=== PATIENT | male | born 1960 | race Caucasian/White ===

== ENCOUNTER 2021-03-18 08:40 | Emergency (ER) | payer OTHER ==
[~2021-03-18] VITALS: Ht 170 cm; Wt 68.0 kg
--- NOTE | 2021-03-18 09:28 | ED General ---
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 Patient tells me this has been going on for a couple of days. Nothing seems to make his symptoms any better or any worse. Patient has a history of cirrhosis as well. He gets fairly frequent paracentesis. Patient tells me that he had a thoracentesis done at [facility] 4 or 5 days ago. He states that his symptoms are getting worse and he would like to be plugged into a physician to see here at [facility]. He complains of feeling chilled and having night sweats. No reported fevers. No productive cough. No nausea or vomiting. No black or bloody stools. He states he has decreased amounts of urination. He also complains of swelling in his legs and takes a water pill daily. All other review of systems reviewed and negative except as stated above. Timing/Duration: 2-3 Days Severity: Moderate Modifying Factors: worse with Movement Associated Systoms: Malaise, Shortness of Air Allergies and Home Medications Allergies Coded Allergies: No Known Drug Allergies (Unverified , 03/18/21) Home Medications Albuterol Sulfate 1 Puff Puff, 2 PUFF IH Q4H 1 PUFF = 90 MCG Prescribed by: DEIDRA OSWALD on 03/18/21 1043 Oxycodone HCl 5 Mg Capsule, 5 MG PO Q6H PRN for PAIN-MODERATE (5-7) Prescribed by: DEIDRA OSWALD on 03/18/21 1037 Patient Home Medication List Home Medication List Reviewed: Yes Review of Systems Review of Systems Constitutional: see HPI, chills EENTM: no symptoms reported Respiratory: dyspnea on exertion, short of breath Cardiovascular: no symptoms reported Gastrointestinal: abdominal pain Genitourinary: decreased output Musculoskeletal: other (Swelling in his legs) Skin: no symptoms reported All Other Systems Reviewed Negative Unless Noted: Yes Past Xfdrtwh-Qxwbrp-Nfhtke Hx Patient Social History Alcohol Use: Past History Drug of Choice: marijuana Smoking Status: Current Everyday Smoker Type Used: Cigarettes 2nd Hand Smoke Exposure: Yes Recent Hopitalizations: No Past Medical History Surgeries: Yes (thyroid growth removed, cancerous tumor from L neck) Respiratory: No Cardiac: No Neurological: No Genitourinary: No Gastrointestinal: Yes Cirrhosis Musculoskeletal: No Endocrine: No HEENT: No Cancer: Yes (folicular iqoxcwpj-pdx-usiipqhv) What Type of Treatment Did You: Radiation Psychosocial: No Integumentary: No Physical Exam Vital Signs Vital Signs - First Documented 03/18/21 09:09 Temp 36.5 Pulse 79 Resp 19 B/P (MAP) 126/92 (103) Pulse Ox 88 O2 Delivery Room Air Capillary Refill : Height, Weight, BMI Height: '" Weight: lbs. oz. kg; BMI Method: General Appearance: No Apparent Distress, WD/WN Eyes: Bilateral Eye PERRL, Bilateral Eye EOMI, Bilateral Eye Scleral Icterus HEENT: PERRL/EOMI, Scleral Icterus (L), Scleral Icterus (R) Neck: Normal Inspection Respiratory: Lungs Clear, Normal Breath Sounds, No Accessory Muscle Use, No Respiratory Distress Cardiovascular: Regular Rate, Rhythm, No Murmur Gastrointestinal: Normal Bowel Sounds, Soft, Distended Extremity: Normal Capillary Refill, Normal Inspection, Normal Range of Motion, Non Tender, Pedal Edema Neurologic/Psychiatric: Alert, Oriented x3, No Motor/Sensory Deficits, Normal Mood/Affect Skin: Normal Color, Warm/Dry Progress/Results/Core Measures Suspected Sepsis SIRS Temperature: Pulse: Respiratory Rate: Laboratory Tests 03/18/21 09:30: White Blood Count 5.0 Blood Pressure / Mean: Laboratory Tests 03/18/21 09:30: Creatinine 0.76, Platelet Count 115L, Total Bilirubin 6.6H Results/Orders Lab Results Laboratory Tests Test 03/18/21 09:30 Range/Units White Blood Count 5.0 4.3-11.0 10^3/uL Red Blood Count 2.99 L 4.30-5.52 10^6/uL Hemoglobin 11.6 L 13.3-17.7 g/dL Hematocrit 35 L 40-54 % Mean Corpuscular Volume 117 H 80-99 fL Mean Corpuscular Hemoglobin 39 H 25-34 pg Mean Corpuscular Hemoglobin Concent 33 32-36 g/dL Red Cell Distribution Width 15.1 H 10.0-14.5 % Platelet Count 115 L 130-400 10^3/uL Mean Platelet Volume 8.8 L 9.0-12.2 fL Immature Granulocyte % (Auto) 0 % Neutrophils (%) (Auto) 67 42-75 % Lymphocytes (%) (Auto) 21 12-44 % Monocytes (%) (Auto) 9 0-12 % Eosinophils (%) (Auto) 2 0-10 % Basophils (%) (Auto) 1 0-10 % Neutrophils # (Auto) 3.3 1.8-7.8 X 10^3 Lymphocytes # (Auto) 1.0 1.0-4.0 X 10^3 Monocytes # (Auto) 0.4 0.0-1.0 X 10^3 Eosinophils # (Auto) 0.1 0.0-0.3 10^3/uL Basophils # (Auto) 0.0 0.0-0.1 10^3/uL Immature Granulocyte # (Auto) 0.0 0.0-0.1 10^3/uL Urine Color YELLOW Urine Clarity CLEAR Urine pH 6.5 5-9 Urine Specific [place] 1.010 L 1.016-1.022 Urine Protein NEGATIVE NEGATIVE Urine Glucose (UA) NEGATIVE NEGATIVE Urine Ketones NEGATIVE NEGATIVE Urine Nitrite NEGATIVE NEGATIVE Urine Bilirubin NEGATIVE NEGATIVE Urine Urobilinogen 0.2 < = 1.0 MG/DL Urine Leukocyte Esterase NEGATIVE NEGATIVE Urine RBC (Auto) NEGATIVE NEGATIVE Urine RBC NONE /HPF Urine WBC NONE /HPF Urine Crystals NONE /LPF Urine Bacteria NEGATIVE /HPF Urine Casts NONE /LPF Urine Mucus NEGATIVE /LPF Urine Culture Indicated NO Sodium Level 137 135-145 MMOL/L Potassium Level 3.8 3.6-5.0 MMOL/L Chloride Level 105 98-107 MMOL/L Carbon Dioxide Level 22 21-32 MMOL/L Anion Gap 10 5-14 MMOL/L Blood Urea Nitrogen 8 7-18 MG/DL Creatinine 0.76 0.60-1.30 MG/DL Estimat Glomerular Filtration Rate > 60 BUN/Creatinine Ratio 11 Glucose Level 114 H 70-105 MG/DL Calcium Level 8.8 8.5-10.1 MG/DL Corrected Calcium 9.4 8.5-10.1 MG/DL Total Bilirubin 6.6 H 0.1-1.0 MG/DL Aspartate Amino Transf (AST/SGOT) 42 H 5-34 U/L Alanine Aminotransferase (ALT/SGPT) 13 0-55 U/L Alkaline Phosphatase 211 H 40-136 U/L Total Protein 7.5 6.4-8.2 GM/DL Albumin 3.2 3.2-4.5 GM/DL Smear Scan YES My Orders Orders - DEIDRA OSWALD MD Chest 1 View, Ap/Pa Only (03/18/21 09:29) Cbc With Automated Diff (03/18/21 09:29) Comprehensive Metabolic Panel (03/18/21 09:29) Ua Culture If Indicated (03/18/21 09:29) Oxycodone Immediate Rel Tablet (Oxyir Ta (03/18/21 10:45) Medications Given in ED Current Medications Medications Dose Ordered Sig/Aldo Route Start Time Stop Time Status Last Admin Dose Admin Oxycodone HCl 5 mg ONCE ONCE PO 03/18/21 10:45 03/18/21 10:46 DC 03/18/21 10:40 5 MG Vital Signs/I&O 03/18/21 09:09 Temp 36.5 Pulse 79 Resp 19 B/P (MAP) 126/92 (103) Pulse Ox 88 O2 Delivery Room Air Capillary Refill : Progress Note : Time: 11:05 Progress Note Patient seen and examined, 60-year-old with a history of non-Hodgkin's lymphoma and cirrhosis. Presents with abdominal discomfort and shortness of breath. Evaluation today includes a physical exam, CBC, Chem-12 and urinalysis. Patient is noted to have hyperbilirubinemia with a total bilirubin of 6.6. He does reflect some scleral icterus on physical examination. He is a little bit anemic. He does not have an elevated white blood cell count. Single view chest x-ray shows bilateral pleural effusions. I do not believe at this juncture the patient needs repeat thoracentesis. He will be referred to primary care as well as to hematology oncology services today. I am giving him a prescription for some oxycodone, 10 tablets. He is given good return precautions. He verbalizes understanding. He is advised to continue taking his diuretics as scheduled. All questions are sought and answered. Patient is stable for discharge. Diagnostic Imaging Diagonstic Imaging: Xray Plain Films/CT/US/NM/MRI: chest Comments [facility] [place], [place] NAME: KAREN RENTERIA I [facility] REC#: [id number] PT STATUS: REG ER : 1960 PHYSICIAN: DEIDRA OSWALD MD ADMIT DATE: 03/18/21/ER Draft Date of Exam:03/18/21 CHEST 1 VIEW, AP/PA ONLY EXAMINATION: Portable erect AP chest at 9:51 AM INDICATION: Follicular lymphoma, shortness of breath There are no prior studies available for comparison. The heart size is within normal limits. The right lung base is partially obscured by pneumonia/atelectasis and fluid. There is also left lower lobe pneumonia/atelectasis and fluid but to a lesser extent. The lung apices are clear. The mediastinum is not widened. The osseous structures are intact. IMPRESSION: 1. There is bibasilar pneumonia/atelectasis and bilateral pleural effusions. 2. There is no acute cardiopulmonary abnormality noted otherwise. 3. If further imaging is desired, then CT of the chest would be recommended. Dictated on workstation # [id number] Dict: 03/18/21 0958 Trans: 03/18/21 1003 KNETON [id number] Interpreted by: MARGAUX HARE MD Electronically signed by: Counseling-Symptomatic: 3-10 Minutes Departure Impression Primary Impression: Shortness of breath Additional Impressions: Pleural effusion Chronic liver disease and cirrhosis Disposition: 01 HOME, SELF-CARE Condition: Stable Departure-Patient Inst. Decision time for Depature: 10:37 Referrals: [facility] Patient Instructions: LOCAL PHYSICIAN LIST, CHRONIC PAIN Add. Discharge Instructions: Continue your water pills daily as prescribed. I have given you a prescription for oxycodone, you can take 1 of these tablets every 6-8 hours as needed for severe pain. You can also take veio-rpe-fpuoius ibuprofen or Aleve with food as needed for pain. I have given you the local physician list to review and call for primary care follow-up. Have also given you contact information for [facility]. They may be able to get you in sooner. I have given you the name of the cancer doctor on-call Dr. Phipps. Please call their office for a follow-up appointment. Come back to the emergency room for any worsening shortness of breath, fevers chills, increasing pain or other emergent concerning symptoms. Scripts Albuterol Sulfate (PROAIR HFA) 1 Puff Puff 2 PUFF IH Q4H for shortness of breath, #1 PUFF 1 PUFF = 90 MCG Prov: DEIDRA OSWALD MD 03/18/21 Oxycodone HCl (Oxycodone HCl) 5 Mg Capsule 5 MG PO Q6H PRN for PAIN-MODERATE (5-7) for 3 Days, #10 CAP Prov: DEIDRA OSWALD MD 03/18/21 DEIDRA OSWALD MD Mar 18, 2021 09:28
[2021-03-18 09:49] LABS: BILIRUBIN,URINE NEGATIVE (NEGATIVE); CLARITY,URINE CLEAR; COLOR,URINE YELLOW; GLUCOSE, URINE (UA) NEGATIVE (NEGATIVE); KETONES,URINE NEGATIVE (NEGATIVE); LEUKOCYTE ESTERASE ,URINE NEGATIVE (NEGATIVE); NITRITE,URINE NEGATIVE (NEGATIVE); PH,URINE 6.5 (5-9); PROTEIN,URINE NEGATIVE (NEGATIVE)
[2021-03-18 09:50] LABS: BASOPHILS % (AUTO) 1 % (0-10); EOSINOPHILS # (AUTO) 0.1 10^3/uL (0.0-0.3); EOSINOPHILS % (AUTO) 2 % (0-10); HEMATOCRIT 35 % (40-54); HEMOGLOBIN 11.6 g/dL (13.3-17.7); LYMPHOCYTES % (AUTO) 21 % (12-44); MEAN CORPUSCULAR HEMOGLOBIN 39 pg (25-34); MEAN CORPUSCULAR HGB CONC 33 g/dL (32-36); MEAN CORPUSCULAR VOLUME 117 fL (80-99); MEAN PLATELET VOLUME 8.8 fL (9.0-12.2); MONOCYTES # (AUTO) 0.4 X 10^3 (0.0-1.0); MONOCYTES % (AUTO) 9 % (0-12); NEUTROPHILS # (AUTO) 3.3 X 10^3 (1.8-7.8); NEUTROPHILS % (AUTO) 67 % (42-75); PLATELET COUNT 115 10^3/uL (130-400)
[2021-03-18 10:01] LABS: BACTERIA,URINE NEGATIVE /HPF
[2021-03-18 10:03] LABS: ALBUMIN 3.2 GM/DL (3.2-4.5)
[2021-03-18 10:04] LABS: CHLORIDE 105 MMOL/L (98-107); POTASSIUM 3.8 MMOL/L (3.6-5.0); SODIUM 137 MMOL/L (135-145)
--- NOTE | 2021-03-18 10:04 | Diagnostic Imaging Report ---
EXAMINATION: Portable erect AP chest at 9:51 AM INDICATION: Follicular lymphoma, shortness of breath There are no prior studies available for comparison. The heart size is within normal limits. The right lung base is partially obscured by pneumonia/atelectasis and fluid. There is also left lower lobe pneumonia/atelectasis and fluid but to a lesser extent. The lung apices are clear. The mediastinum is not widened. The osseous structures are intact. IMPRESSION: 1. There is bibasilar pneumonia/atelectasis and bilateral pleural effusions. 2. There is no acute cardiopulmonary abnormality noted otherwise. 3. If further imaging is desired, then CT of the chest would be recommended. Dictated by: Dictated on workstation # [id number]
[2021-03-18 10:05] LABS: CALCIUM 8.8 MG/DL (8.5-10.1)
[2021-03-18 10:06] LABS: GLUCOSE 114 MG/DL (70-105); SMEAR SCAN COMMENT YES; TOTAL PROTEIN 7.5 GM/DL (6.4-8.2)
[2021-03-18 10:07] LABS: CARBON DIOXIDE 22 MMOL/L (21-32)
[2021-03-18 10:08] LABS: BILIRUBIN,TOTAL 6.6 MG/DL (0.1-1.0)
[2021-03-18 10:10] LABS: ALKALINE PHOSPHATASE 211 U/L (40-136); CREATININE SERUM 0.76 MG/DL (0.60-1.30); GFR ESTIMATED > 60
[2021-03-18 10:11] LABS: BUN/CREATININE RATIO 11
[2021-03-18 10:13] LABS: ALANINE AMINOTRANSFERASE 13 U/L (0-55)
[2021-03-18] MEDS ORDERED: OXYC5CAP18 PO (10:36)
[2021-03-18] MEDS ORDERED: RT-ALBUINH IH (10:43)
[2021-03-18 11:20] VITALS: BP 115/63
== END 2021-03-18 11:20 | disposition home or self-care (01) ==
LOC: ER 08:50
DX: R06.02 Shortness of breath (principal); J90 Pleural effusion, not elsewhere classified; K74.60 Unspecified cirrhosis of liver; K76.9 Liver disease, unspecified; F17.210 Nicotine dependence, cigarettes, uncomplicated
CPT/HCPCS: 36415; 71045; 80053; 81000; 85025

== ENCOUNTER 2021-04-09 10:34 | Emergency (ER) | payer OTHER ==
[~2021-04-09] VITALS: Ht 170 cm; Wt 68.0 kg
[~2021-04-09 10:34] MED LIST: OXYC5CAP18 PO; RT-ALBUINH IH
[2021-04-09 11:06] LABS: LYMPHOCYTES % (AUTO) 22 % (12-44); MEAN CORPUSCULAR VOLUME 115 fL (80-99)
[2021-04-09 11:08] LABS: BASOPHILS # (AUTO) 0.1 10^3/uL (0.0-0.1); BASOPHILS % (AUTO) 1 % (0-10); EOSINOPHILS # (AUTO) 0.2 10^3/uL (0.0-0.3); EOSINOPHILS % (AUTO) 5 % (0-10); HEMATOCRIT 33 % (40-54); LYMPHOCYTES # (AUTO) 0.9 10^3/uL (1.0-4.0); MEAN CORPUSCULAR HEMOGLOBIN 39 pg (25-34); MEAN CORPUSCULAR HGB CONC 33 g/dL (32-36); MEAN PLATELET VOLUME 8.7 fL (9.0-12.2); MONOCYTES # (AUTO) 0.4 10^3/uL (0.0-1.0); MONOCYTES % (AUTO) 9 % (0-12); NEUTROPHILS # (AUTO) 2.7 10^3/uL (1.8-7.8); NEUTROPHILS % (AUTO) 63 % (42-75); PLATELET COUNT 108 10^3/uL (130-400); WHITE BLOOD COUNT 4.3 10^3/uL (4.3-11.0)
[2021-04-09 11:16] LABS: ALBUMIN 2.8 GM/DL (3.2-4.5); CHLORIDE 106 MMOL/L (98-107); POTASSIUM 3.9 MMOL/L (3.6-5.0); SODIUM 135 MMOL/L (135-145)
[2021-04-09 11:18] LABS: CALCIUM 8.6 MG/DL (8.5-10.1)
[2021-04-09 11:19] LABS: GLUCOSE 95 MG/DL (70-105); SMEAR SCAN COMMENT YES; TOTAL PROTEIN 7.3 GM/DL (6.4-8.2)
[2021-04-09 11:20] LABS: BILIRUBIN,TOTAL 5.3 MG/DL (0.1-1.0); CARBON DIOXIDE 22 MMOL/L (21-32)
[2021-04-09 11:22] LABS: ALKALINE PHOSPHATASE 215 U/L (40-136)
[2021-04-09 11:23] LABS: CREATININE SERUM 0.69 MG/DL (0.60-1.30); GFR ESTIMATED > 60
[2021-04-09 11:24] LABS: BUN/CREATININE RATIO 13
[2021-04-09 11:25] LABS: ALANINE AMINOTRANSFERASE 12 U/L (0-55)
--- NOTE | 2021-04-09 12:02 | ED GI ---
General Chief Complaint: Abdominal/GI Problems Stated Complaint: PARACENTESIS Nursing Triage Note: PT TO FT1 PT CO OF ABD PAIN WAS SENT TO ED FOR POSSIBLE INFECTION FROM PARASENTISIS IN PAST. PT STATES HAS PAIN 07/21. SENT FROM [facility] Sepsis Screen: No Definite Risk Source of Information: Patient Exam Limitations: No Limitations History of Present Illness Date Seen by Provider: Apr 09, 2021 Time Seen by Provider: 11:00 Initial Comments Patient presents ER from the clinic at [facility] with chief complaint that he was seen there because he is having some belly ache and he has a history of ascites and varicosities. He just moved down here from [place] where in [place] they were draining him about every other week and getting 3 L off. He does not feel particularly distended. He is not having any nausea diarrhea constipation. He is a sometimes his belly hurts when he has constipation but he had a bowel movement this morning which was normal, formed. He had some chills and but no objective fever. No cough runny nose sore throat ears aching rash. No sick contacts that he knows of. His cirrhosis is from alcohol consumption but he quit drinking years ago. He has no history of viral hepatitis. He says his last paracentesis was about 6 weeks ago. His provider called ahead asking us to rule him out for SBP. Allergies and Home Medications Allergies Coded Allergies: No Known Drug Allergies (Unverified , 03/18/21) Home Medications Albuterol Sulfate 1 Puff Puff, 2 PUFF IH Q4H 1 PUFF = 90 MCG Prescribed by: DEIDRA OSWALD on 03/18/21 1043 Hydrocodone/Acetaminophen 1 Each Tablet, 1 TAB PO Q8H PRN for PAIN-MODERATE (5- 7) Prescribed by: KRISTIN POLLARD on 04/09/21 1817 Last Action: New Order Oxycodone HCl 5 Mg Capsule, 5 MG PO Q6H PRN for PAIN-MODERATE (5-7) Prescribed by: DEIDRA OSWALD on 03/18/21 1037 Patient Home Medication List Home Medication List Reviewed: Yes Review of Systems Review of Systems Constitutional: No chills, No fever, No malaise EENTM: No Blurred Vision, No Double Vision Respiratory: Denies Cough, Denies Shortness of Air Cardiovascular: Denies Chest Pain, Denies Edema Gastrointestinal: Denies Constipated, Denies Diarrhea, Denies Nausea Genitourinary: Denies Burning, Denies Drainage Musculoskeletal: No back pain, No joint pain Skin: No pruritus, No rash Psychiatric/Neurological: Denies Headache, Denies Numbness All Other Systems Reviewed Negative Unless Noted: Yes Past Ejsyees-Wgngiq-Bisyml Hx Patient Social History Alcohol Use: Past History Drug of Choice: marijuana Smoking Status: Former Smoker Type Used: Cigarettes 2nd Hand Smoke Exposure: Yes Recent Infectious Disease Expo: No Recent Hopitalizations: No Past Medical History Surgeries: Yes (thyroid growth removed, cancerous tumor from L neck) Respiratory: No Cardiac: No Neurological: No Genitourinary: No Gastrointestinal: Yes Cirrhosis Musculoskeletal: No Endocrine: No HEENT: No Cancer: Yes (folicular slypnahq-hmq-yzyvlfwg) What Type of Treatment Did You: Radiation Psychosocial: No Integumentary: No Physical Exam Vital Signs Vital Signs - First Documented 04/09/21 04/09/21 10:55 18:30 Temp 36.7 Pulse 68 Resp 18 B/P (MAP) 105/61 (76) Pulse Ox 97 Capillary Refill : Less Than 3 Seconds Height/Weight/BMI Height: '" Weight: lbs. oz. kg; 23.00 BMI Method: General Appearance: WD/WN, no apparent distress HEENT: PERRL/EOMI, normal ENT inspection, pharynx normal Neck: full range of motion, normal inspection Respiratory: lungs clear, normal breath sounds, no respiratory distress, no accessory muscle use Cardiovascular: normal peripheral pulses, regular rate, rhythm Gastrointestinal: normal bowel sounds, soft, distended (Mild), tenderness (Mild all 4 quadrants), hepatomegaly Extremities: normal range of motion, normal inspection, normal capillary refill Neurologic/Psychiatric: alert, normal mood/affect, oriented x 3 Skin: normal color, warm/dry Progress/Results/Core Measures Results/Orders Lab Results Laboratory Tests Test 04/09/21 10:55 04/09/21 13:00 Range/Units White Blood Count 4.3 4.3-11.0 10^3/uL Red Blood Count 2.86 L 4.30-5.52 10^6/uL Hemoglobin 11.0 L 13.3-17.7 g/dL Hematocrit 33 L 40-54 % Mean Corpuscular Volume 115 H 80-99 fL Mean Corpuscular Hemoglobin 39 H 25-34 pg Mean Corpuscular Hemoglobin Concent 33 32-36 g/dL Red Cell Distribution Width 15.4 H 10.0-14.5 % Platelet Count 108 L 130-400 10^3/uL Mean Platelet Volume 8.7 L 9.0-12.2 fL Immature Granulocyte % (Auto) 1 % Neutrophils (%) (Auto) 63 42-75 % Lymphocytes (%) (Auto) 22 12-44 % Monocytes (%) (Auto) 9 0-12 % Eosinophils (%) (Auto) 5 0-10 % Basophils (%) (Auto) 1 0-10 % Neutrophils # (Auto) 2.7 1.8-7.8 10^3/uL Lymphocytes # (Auto) 0.9 L 1.0-4.0 10^3/uL Monocytes # (Auto) 0.4 0.0-1.0 10^3/uL Eosinophils # (Auto) 0.2 0.0-0.3 10^3/uL Basophils # (Auto) 0.1 0.0-0.1 10^3/uL Immature Granulocyte # (Auto) 0.0 0.0-0.1 10^3/uL Percent Immature Platelet Fraction 0.9 0.0-7.6 % Prothrombin Time 18.1 H 12.2-14.7 SEC INR Comment 1.5 H 0.8-1.4 Activated Partial Thromboplast Time 40 H 24-35 SEC Sodium Level 135 135-145 MMOL/L Potassium Level 3.9 3.6-5.0 MMOL/L Chloride Level 106 98-107 MMOL/L Carbon Dioxide Level 22 21-32 MMOL/L Anion Gap 7 5-14 MMOL/L Blood Urea Nitrogen 9 7-18 MG/DL Creatinine 0.69 0.60-1.30 MG/DL Estimat Glomerular Filtration Rate > 60 BUN/Creatinine Ratio 13 Glucose Level 95 70-105 MG/DL Calcium Level 8.6 8.5-10.1 MG/DL Corrected Calcium 9.6 8.5-10.1 MG/DL Total Bilirubin 5.3 H 0.1-1.0 MG/DL Aspartate Amino Transf (AST/SGOT) 39 H 5-34 U/L Alanine Aminotransferase (ALT/SGPT) 12 0-55 U/L Alkaline Phosphatase 215 H 40-136 U/L C-Reactive Protein High Sensitivity 1.50 H 0.00-0.50 MG/DL Total Protein 7.3 6.4-8.2 GM/DL Albumin 2.8 L 3.2-4.5 GM/DL Serum Alcohol < 10 <10 MG/DL Smear Scan YES Urine Color ORANGE Urine Clarity CLOUDY Urine pH 8.0 5-9 Urine Specific [place] 1.020 1.016-1.022 Urine Protein 3+ H NEGATIVE Urine Glucose (UA) TRACE H NEGATIVE Urine Ketones NEGATIVE NEGATIVE Urine Nitrite NEGATIVE NEGATIVE Urine Bilirubin 2+ H NEGATIVE Urine Urobilinogen 0.2 < = 1.0 MG/DL Urine Leukocyte Esterase NEGATIVE NEGATIVE Urine RBC (Auto) 3+ H NEGATIVE Urine RBC >100 H /HPF Urine WBC NONE /HPF Urine Crystals NONE /LPF Urine Bacteria NEGATIVE /HPF Urine Casts NONE /LPF Urine Mucus NEGATIVE /LPF Urine Culture Indicated NO Body Fluid Source [place]ON Body Fluid Color YELLOW Body Fluid Appearance SLT CLDY Body Fluid WBC 48 /uL Body Fluid RBC 1830 /uL Body Fluid Polynuclear WBCs 9 % Body Fluid Mononuclear WBCs 12 % Body Fluid Lymphocytes 79 % Body Fluid Eosinophils 0 % Body Fluid Other Cells 0 % My Orders Orders - KRISTIN POLLARD Cbc With Automated Diff (04/09/21 10:47) Comprehensive Metabolic Panel (04/09/21 10:47) Hs C Reactive Protein (04/09/21 10:47) Ua Culture If Indicated (04/09/21 10:47) Alcohol (04/09/21 10:47) Us Guidance Needle Plcmt [id number] (04/09/21 11:13) Body Fluid Cell Count (04/09/21 12:02) Body Fluid Culture (04/09/21 12:02) Lidocaine 1% Inj 20 Ml (Xylocaine 1% Inj (04/09/21 12:51) Fentanyl Inj (Sublimaze Injection) (04/09/21 13:31) Us Abdomen Limited [id number] (04/09/21 ) Partial Thromboplastin Time (04/09/21 13:53) Protime With Inr (04/09/21 13:53) Fentanyl Inj (Sublimaze Injection) (04/09/21 15:45) Medications Given in ED Current Medications Medications Dose Ordered Sig/Aldo Route Start Time Stop Time Status Last Admin Dose Admin Fentanyl Citrate 25 mcg ONCE ONCE IVP 04/09/21 15:45 04/09/21 15:46 DC 04/09/21 15:54 25 MCG Fentanyl Citrate 100 mcg STK-MED ONCE .ROUTE 04/09/21 13:31 04/09/21 13:33 DC 04/09/21 13:34 25 MCG Lidocaine HCl 20 ml STK-MED ONCE .ROUTE 04/09/21 12:51 04/09/21 12:54 DC 04/09/21 13:00 10 ML Vital Signs/I&O 04/09/21 04/09/21 10:55 18:30 Temp 36.7 Pulse 68 68 Resp 18 18 B/P (MAP) 105/61 (76) 108/64 (76) Pulse Ox 97 Blood Pressure Mean: 76 Progress Progress Note #1: Time: 12:01 Progress Note Discussed case with Dr. Oquendo who is going to finish up her colonoscopy and come down to meet with ultrasound to do a paracentesis and pull off some fluids for cell counts and cultures. His labs are largely unremarkable. He does not have a significant amount of fluid needing drained. Progress Note #2: Time: 17:00 Progress Note There was a significant delay with the cell fluid counts in the lab but they are presently working on it and they assure me. Progress Note #3: Time: 18:10 Progress Note Ascitic fluids are not consistent with SBP. Diagnostic Imaging Diagonstic Imaging: Ultrasound Plain Films/CT/US/NM/MRI: abdomen, pelvis Comments [facility] [place] [place] NAME: KAREN RENTERIA I [facility] REC#: [id number] PT STATUS: REG ER : 1960 PHYSICIAN: KRISTIN POLLARD MD ADMIT DATE: 04/09/21/ER Signed Date of Exam:04/09/21 US ABDOMEN LIMITED [id number] PROCEDURE: US Abdomen, limited. TECHNIQUE: Multiple realtime grayscale images were obtained over the abdomen in various projections. INDICATION: Ascites. Paracentesis evaluation. Sonography of the 4 quadrants was performed which shows a small amount of ascites bilaterally. No mass or loculation is evident. IMPRESSION: There is a small amount of ascites. Dictated by: Dictated on workstation # [id number] Dict: 04/09/21 1640 Trans: 04/09/21 1648 ACB [id number] Interpreted by: THI APARICIO MD Electronically signed by: THI APARICIO MD 04/09/21 1648 Reviewed: Reviewed by Me Departure Impression Primary Impression: Ascites due to alcoholic cirrhosis Additional Impression: Generalized abdominal discomfort Disposition: 01 HOME, SELF-CARE Condition: Stable Departure-Patient Inst. Decision time for Depature: 18:09 Referrals: [facility] (PCP/Family) Primary Care Physician Patient Instructions: Abdominal Pain, Adult ED, Cirrhosis, Fluid in the Belly (Ascites) (DC) Add. Discharge Instructions: Tomorrow call your primary care doctor and make follow-up appointment to continue outpatient management of your symptoms. Return to the ER if you develop strong fevers, intractable abdominal pain or other worrisome symptoms. All discharge instructions reviewed with patient and/or family. Voiced under standing. Scripts Hydrocodone/Acetaminophen (Hydrocodone-Acetamin 5-325 mg) 1 Each Tablet 1 TAB PO Q8H PRN for PAIN-MODERATE (5-7), #10 TAB 0 Refills Prov: KRISTIN POLLARD 04/09/21 KRISTIN POLLARD Apr 09, 2021 12:02
[2021-04-09] MEDS ORDERED: LIDOCAINE 1% INJ 20 ML 20 ML VIAL ONE (12:51)
[2021-04-09 13:15] LABS: BILIRUBIN,URINE 2+ (NEGATIVE); CLARITY,URINE CLOUDY; COLOR,URINE ORANGE; GLUCOSE, URINE (UA) TRACE (NEGATIVE); KETONES,URINE NEGATIVE (NEGATIVE); LEUKOCYTE ESTERASE ,URINE NEGATIVE (NEGATIVE); NITRITE,URINE NEGATIVE (NEGATIVE); PROTEIN,URINE 3+ (NEGATIVE)
[2021-04-09 13:27] LABS: BACTERIA,URINE NEGATIVE /HPF; RBC,URINE >100 /HPF
[2021-04-09] MEDS ORDERED: fentaNYL INJ 100 MCG/2 ML AMP ONE (13:31)
[2021-04-09 14:50] LABS: INR 1.5 (0.8-1.4); PROTHROMBIN TIME PATIENT 18.1 SEC (12.2-14.7)
[2021-04-09] MEDS ORDERED: fentaNYL INJ 100 MCG/2 ML AMP IVP ONE (15:45)
--- NOTE | 2021-04-09 15:54 | Diagnostic Imaging Report ---
INDICATION: Ascites. FINDINGS: Right abdomen was prepped and draped in the usual sterile fashion. A small amount of 1% lidocaine was utilized for local anesthesia. A Yueh needle was advanced into the right lower abdomen intraperitoneal space. A 20 cc of fluid was removed for culture and sensitivity. Hemostasis was obtained using manual compression. Patient tolerated the procedure well. IMPRESSION: Successful ultrasound-guided diagnostic paracentesis obtaining 20 cc of fluid. Dictated by: Dictated on workstation # [id number]
[2021-04-09 16:25] LABS: BODY FLUID APPEARENCE SLT CLDY; BODY FLUID COLOR YELLOW; BODY FLUID SOURCE PERITON
--- NOTE | 2021-04-09 16:43 | Diagnostic Imaging Report ---
PROCEDURE: US Abdomen, limited. TECHNIQUE: Multiple realtime grayscale images were obtained over the abdomen in various projections. INDICATION: Ascites. Paracentesis evaluation. Sonography of the 4 quadrants was performed which shows a small amount of ascites bilaterally. No mass or loculation is evident. IMPRESSION: There is a small amount of ascites. Dictated by: Dictated on workstation # [id number]
[2021-04-09 16:54] LABS: BODY FLUID RBC COUNT 1830 /uL; BODY FLUID WBC TOTAL COUNT 48 /uL
[2021-04-09 17:49] LABS: BF OTHER CELLS 0 %; LYMPHOCYTES,BODY FLUID 79 %
[2021-04-09] MEDS ORDERED: ACHD5005 PO (18:16)
[2021-04-09 18:30] VITALS: BP 108/64
== END 2021-04-09 18:30 | disposition home or self-care (01) ==
LOC: EDUNIT# 10:34 → ER 10:37
DX: K70.31 Alcoholic cirrhosis of liver with ascites (principal); R10.84 Generalized abdominal pain; Z87.891 Personal history of nicotine dependence
CPT/HCPCS: 76705; 76942; 80053; 81000; 85025; 85610; 85730; 86141; 87070; 87205; 89051; 99284; G0480; 36415; 80320; 96374; 96376

== ENCOUNTER → 2021-04-29 | Outpatient (CLI) | payer OTHER ==
[~2021-04-29] MED LIST changes: +ACHD5005 PO; +CATHETER FLUSH 10 ML SYR IV PRN; +HOLD METFORMIN - RECEIVED CONTRAST 20 ML VIAL IV SCH; +IOHEXOL 350 MG/ML 100 ML (OMNIPAQUE 350) VIAL IV ONE; +NS 100 ML (IVPB) BAG IV ONE
--- NOTE | 2021-04-29 15:13 | Diagnostic Imaging Report ---
EXAMINATION: CT abdomen and pelvis with intravenous contrast. TECHNIQUE: Multiple contiguous axial images were obtained through the abdomen and pelvis after the uneventful administration of intravenous contrast. All CT scans use one or more of the following dose optimizing techniques: automated exposure control, MA and/or KvP adjustment based on patient size and exam type or iterative reconstruction. HISTORY: PERIUMBILICAL ABD PAIN COMPARISON: None available. FINDINGS: Lung bases: There are bilateral pleural effusions with adjacent atelectasis or consolidation. Solid organs: There is a nodular morphology of the liver. The gallbladder is normal. There is no biliary ductal dilation. Pancreas is normal. The spleen is enlarged measuring up to 16 cm. Adrenal glands are normal. The kidneys are normal without hydronephrosis. Bowel: There is mild diffuse wall thickening seen within the small bowel and colon which may be secondary to portal hypertension. There is no bowel obstruction. No findings of acute appendicitis. Peritoneum: There is mild abdominal and pelvic ascites. No suspicious lymphadenopathy. Vasculature: Calcification of the aorta without aneurysm. There are numerous portosystemic collateral vessels including paraesophageal and perigastric varices. There are recanalized umbilical veins. Musculoskeletal: Degenerative changes of the spine without suspicious osseous lesion or compression fracture. Pelvis: The prostate gland is normal. The urinary bladder is normal. IMPRESSION: 1. No acute abnormality in the abdomen or pelvis. 2. Findings of cirrhosis with sequela of portal hypertension. 3. Bilateral pleural effusions with adjacent atelectasis or consolidation. 4. Mild diffuse wall thickening is seen throughout the small bowel and colon, likely related to portal hypertension. Differential consideration could include reactive wall thickening or infectious/inflammatory process. Dictated by: Dictated on workstation # [id number]
== END ==
LOC: RAD 14:45
PROVIDERS: ATTEND Pediatrics
DX: K74.60 Unspecified cirrhosis of liver (principal); K76.6 Portal hypertension; J90 Pleural effusion, not elsewhere classified
CPT/HCPCS: 74177

== ENCOUNTER 2021-06-05 16:57 | Emergency (ER) | payer OTHER ==
[~2021-06-05] VITALS: Ht 170 cm; Wt 70.3 kg
[~2021-06-05 16:57] MED LIST changes: -CATHETER FLUSH 10 ML SYR IV PRN; -HOLD METFORMIN - RECEIVED CONTRAST 20 ML VIAL IV SCH; -IOHEXOL 350 MG/ML 100 ML (OMNIPAQUE 350) VIAL IV ONE; -NS 100 ML (IVPB) BAG IV ONE
--- OUTSIDE RECORDS SUMMARY | 2021-06-05 17:03 | XMS REPORT | Encounter Summary ---
Author Author [facility] Organization [facility] Address Unknown Phone Unavailable Care Team Providers Care Four H Club Agent Name Role Phone Angelo Watkins DO, Casey PCP Reason for Visit * Reason Onset Date Comments Financial/Insurance 05/01/2021 Benefit Collection Questions Encounter Details Care Team Description Date Type Department Andre Remy Financial/Insurance Questions (Benefit C ollection ) 05/01/2021 Telephone Transplant: [facility], [facility] [address] [place] [address] Social History Date Tobacco Use Types Packs/Day Years Used Never Assessed Sex Assigned at Date Recorded Not on file documented as of this encounter Miscellaneous Notes * Telephone Encounter - Andre Remy - 05/01/2021 10:29 AM CDT BENEFIT COLLECTION: Authorizations Required for Eval & Listing DX: K72.90, K74.60, K70.30 Verified by: Moi Remy Date: 05/01/21 Husam arellano to: Milan Ins Plan: David SAMUELS EFF: 10/12/20 P catrina: [phone] Plan Type: [place] Balance C11 94% ID #: [id number] GR#: N/A Subscriber: Self In Network Transplant Benefits: Deductible: $0.00 Co-ins: 75/25% Out of Pocket: $1075.00 Inpt Copay: Subject to Coins & OOP Outpt Copay: Subject to Coins & OOP OV PCP/Spec Copay: $0/$5 Lifetime Max: No Max Authorization Requirements: Authorizations Required for Eval & Listing Center Requirements: BDCT: N/A Travel/Lodging: Available ($10K Max) DME (Durable Medical Equipment): Available RX Plan: [employer] Phone #: [phone] 30day retail cost: Tier 1 Gen $25 | Tier 2 Brand 100% of Cost until Ded is Met | Tier 3 Brand non-pref 90day m/o cost: Tier 1 Gen $62.50 | Tier 2 Brand 100% of Cost until Ded is Met | Tier 3 Brand non-pref Valcyte: Not Covered Generic: $25 prior auth required RX Ded: $0.00 RX OOP: $1075.00 TXP Network: Jase NCM: Frances Dukes Phone #: [phone] FAX #: [phone] Call Reference #: [id number] spoke to Milan on 05/01/21 documented in this encounter Plan of Treatment Not on filedocumented as of this encounter Visit Diagnoses Not on filedocumented in this encounter"
--- OUTSIDE RECORDS SUMMARY | 2021-06-05 17:03 | XMS REPORT | Encounter Summary ---
Author Author [facility] Organization [facility] Address Unknown Phone Unavailable Care Team Providers Care Assembler Plastic Boat Name Role Phone Angelo Watkins DO, Casey PCP Reason for Visit * Reason Onset Date Comments Referral 04/30/2021 Encounter Details Care Team Description Date Type Department Unknown, Unknown, MD Referral 04/30/2021 Telephone Hepatology: Main [facility], [facility] [address], [address] [place] [address] Social History Date Tobacco Use Types Packs/Day Years Used Never Assessed Sex Assigned at Date Recorded Not on file documented as of this encounter Miscellaneous Notes * Telephone Encounter - Barbara Pelaez - 05/02/2021 1:52 PM CDT Called and spoke w/ pt the patient scheduled for appt w/ Dr. Hale on 07/03. Pt V/U. INS & DEMOS verified. * Telephone Encounter - Magy Kovacs - 05/01/2021 12:43 PM CDT READY TO SCHED ALYSSA NEXT AVAIL [facility]LT * Telephone Encounter - Hill Mcclure RN - 05/01/2021 8:56 AM CDT Images from the original note were not included. Liver Transplant Referral Summary [place] Marilee, 1960, [id number] Reason for Visit/Diagnosis: ETOH HPI Summary: 60yo pt who has moved from [place]. Pt diagnosed with NHL three years ago( will attempt to get records). Cirrhosis c/b EV, ascites and SBP. Unsure if pt has quit all ETOH and for how long OLT Patients Only PMH & Social Hx: Providers- Requesting NHL records from [place] MELD: 19 Labs: In Outside Records Scanned 04/30/21 > pg 15- Hep Panel and In CareEverywhere CBC, CMP, INR and Viral Hepatitis- Care Everywhere Radiology/Facility: Outside records CT p 19 and 31 Pathology/Facility: Outside records colon path p. 12 Endoscopy/Facility: Outside records Colon p. 8 Appointment Needs -- - Provider: Next Available, AMISH MD - Urgency: Next Available - Department: OLT - Other: None Insurance: Payor: AMBETTER / Plan: AMBET[place] / Product Type: *No Product type* / Provider Info -- Referring: Kulwant Stephens DO [address] [id number] PCP: Kulwant Stephens V [address] [id number] * Telephone Encounter - Magy Kovacs - 04/30/2021 2:46 PM CDT Received new referral via fax. Docs scanned in 04/30. documented in this encounter Plan of Treatment Not on filedocumented as of this encounter Visit Diagnoses Not on filedocumented in this encounter
--- OUTSIDE RECORDS SUMMARY | 2021-06-05 17:03 | XMS REPORT | Clinical Summary ---
Author Author [facility] Organization [facility] Address Unknown Phone Unavailable Care Team Providers Care Cross Country/Track And Field Coach Name Role Phone Angelo Watkins DO, Casey PCP Source Comments Some departments are not documenting in the electronic medical record. If you d o not see the information that you expected, contact Release of Information in [facility] [employer] Information Management department at [phone] for further assistan ce in locating additional records.[facility] Allergies Not on File Medications Not on file Active Problems Not on file Encounters Care Team Description Date Type Specialty Andre Remy Financial/Insurance Questions (Benefit C ollection ) 05/01/2021 Telephone Transplant Surgery Unknown, Unknown, MD Referral 04/30/2021 Telephone Hepatology from Last 3 Months Social History Date Tobacco Use Types Packs/Day Years Used Never Assessed Sex Assigned at Date Recorded Not on file Last Filed Vital Signs Not on file Plan of Treatment Health Maintenance Due Date Last Done Comments HIV SCREENING 1976 DTAP/TDAP VACCINES (1 - 1979 Tdap) HEPATITIS C SCREENING 1979 PHYSICAL (COMPREHENSIVE) 1979 EXAM COLORECTAL CANCER 2011 SCREENING SHINGLES RECOMBINANT 2011 VACCINE (1 of 2) INFLUENZA VACCINE 07/12/2021 Results Not on filefrom Last 3 Months Insurance Type Payer Benefit Subscriber ID Effective Phone Address Plan / Dates Group EDI DALEY [id number] 2021-P ARVIND resent [id number] Advance Directives Patient Baby Doctor Explanation Type Date Recorded Advance Directive/DPOA
--- NOTE | 2021-06-05 18:11 | ED Respiratory ---
General Chief Complaint: Respiratory Problems Stated Complaint: FLUID IN CHEST Nursing Triage Note: PT PRESENTS TO ED WITH COMPLAINTS OF SOA X 2-3 WEEKS. PT REPORTS HE HAS ASCITES AND HIS DR HAS BEEN TRYING TO SCHEDULE HIM FOR AN OUTPATIENT THOROCENTESIS. PT REPORTS HE TESTED NEGATIVE FOR COVID ON 06/03 AND RECIEVED HIS FIRST VACCINE. Source: patient History of Present Illness Date Seen by Provider: Jun 05, 2021 Time Seen by Provider: 17:58 Initial Comments PT ARRIVES VIA POV--WAS SENT HERE FROM [facility] TO BE ADMITTED FOR THORACENTESIS PT WAS SEEN THERE THURSDAY AND RECEIVED HIS FIRST COVID-19 VACCINE. COVID-19 TEST WAS NEGATIVE AT [facility] ON THURSDAY. PT HAS BEEN SHORT OF BREATH X 3 WEEKS SYMPTOMS WORSE WITH LAYING DOWN OR WITH EXERTION O2 SATS 92-94% ON ROOM AIR PT HAS HAD LEG SWELLING FOR THE LAST 3 WEEKS WELL PT HAS CIRRHOSIS, AND CONTINUES TO DRINK AT LEAST A PINT OF WHISKEY/DAY PT ALSO HAS HISTORY OF NON-HODGKIN'S FOLLICULAR LYMPHOMA--STATES HE WAS TREATED WITH REMOVAL OF NECK TUMOR AND RADIATION ABOUT 2 YEARS AGO WHILE IN [facility]. PT HAS NOT ESTABLISHED WITH AN ONCOLOGIST HERE. PT HAS A DIURETIC AT HOME, BUT ONLY TAKES IT WHEN HE THINKS HE NEEDS IT. STATES HE HAS BEEN TAKING IT FOR THE LAST WEEK WITHOUT IMPROVEMENT STATES HE HAS HAD THORACENTESIS OF LEFT LUNG ABOUT 2 MONTHS AGO FOR THE SAME. PCP: [facility] Allergies and Home Medications Allergies Coded Allergies: No Known Drug Allergies (Unverified , 06/06/21) Home Medications Albuterol Sulfate 1 Puff Puff, 2 PUFF IH Q4H 1 PUFF = 90 MCG Prescribed by: DEIDRA OSWALD on 03/18/21 1043 Hydrocodone/Acetaminophen 1 Each Tablet, 1 TAB PO Q8H PRN for PAIN-MODERATE (5- 7) Prescribed by: KRISTIN POLLARD on 04/09/21 1817 Oxycodone HCl 5 Mg Capsule, 5 MG PO Q6H PRN for PAIN-MODERATE (5-7) Prescribed by: DEIDRA OSWALD on 03/18/21 1037 Patient Home Medication List Home Medication List Reviewed: Yes Review of Systems Review of Systems Constitutional: no symptoms reported; No fever EENTM: no symptoms reported Respiratory: see HPI, orthopnea, short of breath Cardiovascular: No chest pain; edema Gastrointestinal: no symptoms reported; No abdominal pain, No nausea, No vomiting Genitourinary: no symptoms reported Musculoskeletal: see HPI (LEG SWELLING) Skin: no symptoms reported; No rash Psychiatric/Neurological: No Symptoms Reported Hematologic/Lymphatic: See HPI Immunological/Allergic: no symptoms reported Past Ljqfkni-Yvpoub-Nsoykb Hx Patient Social History Tobacco Use?: Yes (SMOKES 2 PPD) Tobacco type used: Cigarettes Smoking Status: Current Everyday Smoker Substance use?: Yes Substance type: Marijuana Substance frequency: Daily Alcohol Use?: Yes Alcohol type: Hard Liquor Alcohol Frequency: Daily Pt feels they are or have been: No Immunizations Up To Date First/Initial COVID19 Vaccinat: 06/03/[address] Judge: unk Past Medical History Surgery/Hospitalization HX: sx: goiter removed from r neck, abdominal mesh/hernia repair, tumor removed from neck. THORACENTESIS Surgeries: Yes (thyroid growth removed, cancerous tumor from L neck) Respiratory: No Cardiac: No Neurological: No Genitourinary: No Gastrointestinal: Yes Cirrhosis Musculoskeletal: No Endocrine: No HEENT: No Cancer: Yes (folicular pxqcestg-tfj-iobiwcbn) Lymphoma Did You Recieve Any Treatments: Yes What Type of Treatment Did You: Radiation, Surgical Intervention Psychosocial: No Integumentary: No Family Medical History SMOKES 2 PPD DRINKS AT LEAST A PINT OF WHISKEY A DAY DAILY MARIJUANA USE Physical Exam Vital Signs - First Documented 06/05/21 06/05/21 17:48 19:25 Temp 36.8 Pulse 79 Resp 18 B/P (MAP) 116/86 (96) Pulse Ox 92 O2 Delivery Room Air Capillary Refill : Less Than 3 Seconds Height: '" Weight: lbs. oz. kg; 24.00 BMI Method: General Appearance: WD/WN, no apparent distress Respiratory: decreased breath sounds (DIMINSHED LUNG SOUNDS IN BILATERAL BASES--LEFT> RIGHT) Cardiovascular: regular rate, rhythm Gastrointestinal: non tender, soft Extremities: no calf tenderness, pedal edema (2+ EDEMA) Neurologic/Psychiatric: no motor/sensory deficits, alert, normal mood/affect, oriented x 3 Skin: normal color, warm/dry, tattoos/piercings (TATTOOS) Focused Exam Lactate Level 06/05/21 18:48: Lactic Acid Level 1.66 Lactic Acid Level Laboratory Tests Test 06/05/21 18:48 Lactic Acid Level 1.66 MMOL/L (0.50-2.00) Progress/Results/Core Measures Suspected Sepsis SIRS Temperature: Pulse: 79 Respiratory Rate: 18 Laboratory Tests 06/05/21 17:36: White Blood Count 4.9 Blood Pressure 116 /86 Mean: 96 06/05/21 18:48: Lactic Acid Level 1.66 Laboratory Tests 06/05/21 17:36: Creatinine 0.70, INR Comment 1.4, Platelet Count 79L, Total Bilirubin 3.5H Results/Orders Lab Results Laboratory Tests Test 06/05/21 17:36 06/05/21 17:39 06/05/21 18:00 06/05/21 18:48 Range/Units White Blood Count 4.9 4.3-11.0 10^3/uL Red Blood Count 2.88 L 4.30-5.52 10^6/uL Hemoglobin 11.4 L 13.3-17.7 g/dL Hematocrit 33 L 40-54 % Mean Corpuscular Volume 116 H 80-99 fL Mean Corpuscular Hemoglobin 40 H 25-34 pg Mean Corpuscular Hemoglobin Concent 34 32-36 g/dL Red Cell Distribution Width 14.4 10.0-14.5 % Platelet Count 79 L 130-400 10^3/uL Mean Platelet Volume 8.9 L 9.0-12.2 fL Immature Granulocyte % (Auto) 0 % Neutrophils (%) (Auto) 53 42-75 % Lymphocytes (%) (Auto) 32 12-44 % Monocytes (%) (Auto) 11 0-12 % Eosinophils (%) (Auto) 3 0-10 % Basophils (%) (Auto) 1 0-10 % Neutrophils # (Auto) 2.6 1.8-7.8 10^3/uL Lymphocytes # (Auto) 1.6 1.0-4.0 10^3/uL Monocytes # (Auto) 0.5 0.0-1.0 10^3/uL Eosinophils # (Auto) 0.2 0.0-0.3 10^3/uL Basophils # (Auto) 0.0 0.0-0.1 10^3/uL Immature Granulocyte # (Auto) 0.0 0.0-0.1 10^3/uL Percent Immature Platelet Fraction 1.4 0.0-7.6 % Erythrocyte Sedimentation Rate 1 0-30 MM/HR Prothrombin Time 17.6 H 12.2-14.7 SEC INR Comment 1.4 0.8-1.4 Activated Partial Thromboplast Time 39 H 24-35 SEC Sodium Level 136 135-145 MMOL/L Potassium Level 3.3 L 3.6-5.0 MMOL/L Chloride Level 104 98-107 MMOL/L Carbon Dioxide Level 25 21-32 MMOL/L Anion Gap 7 5-14 MMOL/L Blood Urea Nitrogen 8 7-18 MG/DL Creatinine 0.70 0.60-1.30 MG/DL Estimat Glomerular Filtration Rate 115 BUN/Creatinine Ratio 11 Glucose Level 102 70-105 MG/DL Calcium Level 8.2 L 8.5-10.1 MG/DL Corrected Calcium 9.1 8.5-10.1 MG/DL Magnesium Level 1.8 1.6-2.4 MG/DL Total Bilirubin 3.5 H 0.1-1.0 MG/DL Aspartate Amino Transf (AST/SGOT) 48 H 5-34 U/L Alanine Aminotransferase (ALT/SGPT) 15 0-55 U/L Alkaline Phosphatase 284 H 40-136 U/L Total Creatine Kinase 61 30-200 U/L Creatine Kinase MB 1.3 <6.6 NG/ML Troponin I < 0.028 <0.028 NG/ML C-Reactive Protein High Sensitivity 1.23 H 0.00-0.50 MG/DL B-Type Natriuretic Peptide 46.1 <100.0 PG/ML Total Protein 7.6 6.4-8.2 GM/DL Albumin 2.9 L 3.2-4.5 GM/DL Amylase Level 61 25-125 U/L Lipase 121 H 8-78 U/L Serum Alcohol 227 H <10 MG/DL Influenza Type A (RT-PCR) Not Detected Not Detecte Influenza Type B (RT-PCR) Not Detected Not Detecte SARS-CoV-2 RNA (RT-PCR) Not Detected Not Detecte Urine Color YELLOW Urine Clarity CLEAR Urine pH 7.0 5-9 Urine Specific [place] 1.010 L 1.016-1.022 Urine Protein NEGATIVE NEGATIVE Urine Glucose (UA) NEGATIVE NEGATIVE Urine Ketones NEGATIVE NEGATIVE Urine Nitrite NEGATIVE NEGATIVE Urine Bilirubin NEGATIVE NEGATIVE Urine Urobilinogen 0.2 < = 1.0 MG/DL Urine Leukocyte Esterase NEGATIVE NEGATIVE Urine RBC (Auto) NEGATIVE NEGATIVE Urine RBC NONE /HPF Urine WBC NONE /HPF Urine Squamous Epithelial Cells NONE /HPF Urine Renal Epithelial Cells NONE /HPF Urine Crystals NONE /LPF Urine Bacteria NEGATIVE /HPF Urine Casts NONE /LPF Urine Mucus NEGATIVE /LPF Urine Culture Indicated NO Urine Opiates Screen NEGATIVE NEGATIVE Urine Oxycodone Screen NEGATIVE NEGATIVE Urine Methadone Screen NEGATIVE NEGATIVE Urine Propoxyphene Screen NEGATIVE NEGATIVE Urine Barbiturates Screen NEGATIVE NEGATIVE Ur Tricyclic Antidepressants Screen NEGATIVE NEGATIVE Urine Phencyclidine Screen NEGATIVE NEGATIVE Urine Amphetamines Screen NEGATIVE NEGATIVE Urine Methamphetamines Screen NEGATIVE NEGATIVE Urine Benzodiazepines Screen NEGATIVE NEGATIVE Urine Cocaine Screen NEGATIVE NEGATIVE Urine Cannabinoids Screen POSITIVE H NEGATIVE Lactic Acid Level 1.66 0.50-2.00 MMOL/L Ammonia 45 H 11-32 UMOL/L Micro Results Microbiology 06/05/21 Blood Culture - Preliminary, Resulted No growth 06/05/21 Blood Culture - Preliminary, Resulted No growth My Orders Orders - REJI RAI DO Ed Iv/Invasive Line Start (06/05/21 18:01) Ekg Tracing (06/05/21 18:01) Monitor-Rhythm Ecg Trace Only (06/05/21 18:01) Chest 1 View, Ap/Pa Only (06/05/21 18:01) Alcohol (06/05/21 18:01) Amylase (06/05/21 18:01) BNP (06/05/21 18:01) Cbc With Automated Diff (06/05/21 18:01) Comprehensive Metabolic Panel (06/05/21 18:01) Creatine Kinase (06/05/21 18:01) Creatine Kinase Mb (06/05/21 18:01) Hs C Reactive Protein (06/05/21 18:01) Drug Screen Stat (Urine) (06/05/21 18:01) Lipase (06/05/21 18:01) Magnesium (06/05/21 18:01) Protime With Inr (06/05/21 18:01) Partial Thromboplastin Time (06/05/21 18:01) Ua Culture If Indicated (06/05/21 18:01) Erythrocyte Sedimentation Rate (06/05/21 18:01) Troponin I (06/05/21 18:01) Covid 19 Inhouse Test (06/05/21 18:01) Influenza A And B By Pcr (8/25/21 18:01) Ammonia (06/05/21 18:29) Lactic Acid Analyzer (06/05/21 18:29) Blood Culture (06/05/21 18:29) Ceftriaxone (Rocephin) (06/05/21 19:00) Vital Signs/I&O 06/05/21 06/05/21 17:48 19:25 Temp 36.8 Pulse 79 75 Resp 18 18 B/P (MAP) 116/86 (96) 120/74 Pulse Ox 92 94 O2 Delivery Room Air Capillary Refill : Less Than 3 Seconds Blood Pressure Mean: 96 ECG Initial ECG Impression Date: Jun 05, 2021 Initial ECG Impression Time: 18:07 Initial ECG Rate: 71 Initial ECG Rhythm: Normal Sinus Diagnostic Imaging Comments CXR--PER RADIOLOGIST REPORT AT 1821 FINDINGS: The heart size is normal. There is some left basilar atelectasis and pneumonitis. There is a left pleural effusion. No pneumothorax. Mediastinum is unremarkable. IMPRESSION: Left basilar atelectasis and/or pneumonitis and a left pleural effusion. Reviewed: Reviewed by Al Departure Communication (Admissions) 1833--SPOKE WITH DR. MAGAÑA, ADVISES TO CONTACT DR. GALLOWAY TO POSSIBLY ARRANGE FOR THORACENTESIS TONIGHT OR ARRANGE OUTPATIENT 1844--SPOKE WITH DR. GALLOWAY, HE ADVISES TO HAVE PT COME TO SAME DAY SURGERY TOMORROW AT NOON FOR OUTPATIENT THORACENTESIS Impression Primary Impression: Pleural effusion on left Additional Impressions: Ascites due to alcoholic cirrhosis Alcohol intoxication Marijuana use Disposition: 01 HOME, SELF-CARE Condition: Stable Departure-Patient Inst. Decision time for Depature: 18:50 Referrals: [facility] (PCP/Family) Primary Care Physician MARCI GALLOWAY MD Patient Instructions: Pleural Effusion (DC), Cirrhosis (DC) Add. Discharge Instructions: NO ALCOHOL RETURN TO SAME DAY SURGERY TOMORROW FOR THORACENTESIS BY DR. GALLOWAY--ARRIVE ABOUT 30 MINUTES EARLY FOR REGISTRATION All discharge instructions reviewed with patient and/or family. Voiced understanding. REJI RAI DO Jun 05, 2021 18:11
[2021-06-05 18:14] LABS: BASOPHILS % (AUTO) 1 % (0-10); HEMOGLOBIN 11.4 g/dL (13.3-17.7)
--- NOTE | 2021-06-05 18:14 | Diagnostic Imaging Report ---
INDICATION: Shortness of breath. COMPARISON: Prior examination from 03/18/2021. FINDINGS: The heart size is normal. There is some left basilar atelectasis and pneumonitis. There is a left pleural effusion. No pneumothorax. Mediastinum is unremarkable. IMPRESSION: Left basilar atelectasis and/or pneumonitis and a left pleural effusion. Dictated by: Dictated on workstation # [id number]
[2021-06-05 18:15] LABS: EOSINOPHILS # (AUTO) 0.2 10^3/uL (0.0-0.3); EOSINOPHILS % (AUTO) 3 % (0-10); HEMATOCRIT 33 % (40-54); LYMPHOCYTES # (AUTO) 1.6 10^3/uL (1.0-4.0); LYMPHOCYTES % (AUTO) 32 % (12-44); MEAN CORPUSCULAR HEMOGLOBIN 40 pg (25-34); MEAN CORPUSCULAR HGB CONC 34 g/dL (32-36); MEAN CORPUSCULAR VOLUME 116 fL (80-99); MEAN PLATELET VOLUME 8.9 fL (9.0-12.2); MONOCYTES # (AUTO) 0.5 10^3/uL (0.0-1.0); MONOCYTES % (AUTO) 11 % (0-12); NEUTROPHILS # (AUTO) 2.6 10^3/uL (1.8-7.8); NEUTROPHILS % (AUTO) 53 % (42-75); PLATELET COUNT 79 10^3/uL (130-400); WHITE BLOOD COUNT 4.9 10^3/uL (4.3-11.0)
[2021-06-05 18:18] LABS: ALBUMIN 2.9 GM/DL (3.2-4.5); CHLORIDE 104 MMOL/L (98-107); POTASSIUM 3.3 MMOL/L (3.6-5.0); SODIUM 136 MMOL/L (135-145)
[2021-06-05 18:19] LABS: CALCIUM 8.2 MG/DL (8.5-10.1)
[2021-06-05 18:20] LABS: AMYLASE 61 U/L (25-125); INR 1.4 (0.8-1.4); PROTHROMBIN TIME PATIENT 17.6 SEC (12.2-14.7)
[2021-06-05 18:21] LABS: GLUCOSE 102 MG/DL (70-105); TOTAL PROTEIN 7.6 GM/DL (6.4-8.2)
[2021-06-05 18:22] LABS: BILIRUBIN,TOTAL 3.5 MG/DL (0.1-1.0); CARBON DIOXIDE 25 MMOL/L (21-32)
[2021-06-05 18:24] LABS: ALKALINE PHOSPHATASE 284 U/L (40-136); GFR ESTIMATED 115
[2021-06-05 18:25] LABS: BUN/CREATININE RATIO 11
[2021-06-05 18:26] LABS: BILIRUBIN,URINE NEGATIVE (NEGATIVE); CLARITY,URINE CLEAR; COLOR,URINE YELLOW; GLUCOSE, URINE (UA) NEGATIVE (NEGATIVE); KETONES,URINE NEGATIVE (NEGATIVE); LEUKOCYTE ESTERASE ,URINE NEGATIVE (NEGATIVE); NITRITE,URINE NEGATIVE (NEGATIVE); PROTEIN,URINE NEGATIVE (NEGATIVE)
[2021-06-05 18:27] LABS: ALANINE AMINOTRANSFERASE 15 U/L (0-55); MAGNESIUM 1.8 MG/DL (1.6-2.4)
[2021-06-05 18:29] LABS: CREATINE KINASE 61 U/L (30-200); LIPASE 121 U/L (8-78)
[2021-06-05 18:32] LABS: BACTERIA,URINE NEGATIVE /HPF
[2021-06-05 18:35] LABS: CREATINE KINASE MB 1.3 NG/ML (<6.6)
[2021-06-05 18:39] LABS: AMPHETAMINE SCREEN, URINE NEGATIVE (NEGATIVE); BENZODIAZEPINES SCREEN URINE NEGATIVE (NEGATIVE); CANNABINOID SCREEN, URINE POSITIVE (NEGATIVE); COCAINE SCREEN URINE NEGATIVE (NEGATIVE); METHAMPHETAMINE SCREEN URINE S NEGATIVE (NEGATIVE)
[2021-06-05 18:40] LABS: BARBITURATE SCREEN URINE NEGATIVE (NEGATIVE); METHADONE STAT NEGATIVE (NEGATIVE); OPIATE SCREEN URINE NEGATIVE (NEGATIVE); OXYCODONE STAT NEGATIVE (NEGATIVE); PROPOXYPHENE STAT NEGATIVE (NEGATIVE); TRICYCLIC ANTIDEPRESSANTS SCRE NEGATIVE (NEGATIVE)
[2021-06-05 18:49] LABS: ERYTHROCYTE SEDIMENTATION RATE 1 MM/HR (0-30)
[2021-06-05] MEDS ORDERED: cefTRIAXone 1,000 MG in WATER (STERILE) FOR INJECTION 10 ML IV ONE (19:00)
[2021-06-05 19:25] VITALS: BP 120/74
== END 2021-06-05 19:25 | disposition home or self-care (01) ==
LOC: EDUNIT# 16:57 → ER 17:00
DX: J90 Pleural effusion, not elsewhere classified (principal); K70.31 Alcoholic cirrhosis of liver with ascites; F10.129 Alcohol abuse with intoxication, unspecified; F12.90 Cannabis use, unspecified, uncomplicated; F17.210 Nicotine dependence, cigarettes, uncomplicated; Z20.822 Contact with and (suspected) exposure to COVID-19
CPT/HCPCS: 36415; 71045; 80053; 80306; 80320; 81000; 82140; 82150; 82550; 82553; 83605; 83690; 83735; 83880; 84484; 85025; 85610; 85652; 85730; 86141; 87040; 87636; 93005; 93041

== ENCOUNTER 2021-06-06 10:50 | Outpatient (CLI) | payer OTHER ==
[~2021-06-06] VITALS: Wt 70.3 kg
[2021-06-06 12:00] VITALS: BP 114/57
--- NOTE | 2021-06-06 13:06 | Diagnostic Imaging Report ---
INDICATION: Left-sided pleural effusion. Sonographic guidance was provided for Dr. Willis for performance of a thoracentesis. Images demonstrate a large left pleural effusion. Depth from the skin surface to the center of the fluid is approximately 3.8 cm. IMPRESSION: Sonographic guidance for Dr. Willis for performance of left-sided thoracentesis. Dictated by: Dictated on workstation # [id number]
--- NOTE | 2021-06-06 13:31 | Diagnostic Imaging Report ---
Indication: Thoracentesis. TIME OF EXAM: 1:11 PM Correlation is made with prior chest from one day earlier. There appears to be some reduction in left sided pleural fluid, status post thoracentesis. No pneumothorax identified. Some minimal infiltrate or atelectasis left base. IMPRESSION: No evidence of pneumothorax, status post thoracentesis. Dictated by: Dictated on workstation # [id number]
--- NOTE | 2021-06-06 13:36 | CONSULTATION REPORT ---
DATE OF SERVICE: 06/06/2021 HISTORY OF PRESENT ILLNESS: The patient is a 60-year-old male who seen in the Emergency Department last night for worsening shortness of breath. This has been a chronic process and states that this started approximately 2-1/2 weeks ago and worsened over time. He reports that the shortness of breath was more significant upon exertion. He states that he did have this before requiring thoracentesis. He does have a history of non-Hodgkin's lymphoma and underwent radiation to the neck. He also does have a history of alcoholic liver cirrhosis and has had symptomatic ascites requiring multiple paracentesis; however, states that lately the frequency of this has decreased. He underwent CT scan as well as chest x-ray, which was consistent with left pleural effusion. He also does have a history of COPD and has been smoking majority of his life. PAST MEDICAL HISTORY: Non-Hodgkin's lymphoma, alcoholic liver cirrhosis, congestive heart failure. PAST SURGICAL HISTORY: Thyroid cyst excision, excision left neck lymphoma. ALLERGIES: No known drug allergies. MEDICATIONS: Spironolactone, furosemide, gabapentin. SOCIAL HISTORY: Positive smoke 40 pack years, longstanding history of alcohol; however, he states he quit approximately one month ago. FAMILY HISTORY: Noncontributory. VITAL SIGNS: Stable, afebrile. REVIEW OF SYSTEMS: Well-nourished male currently in no acute distress. He is experiencing worsening shortness of breath, especially upon exertion. No new cough or sputum production. No hemoptysis. No chest pain, palpitations, diaphoresis. No nausea, vomiting, no diarrhea or constipation. No fever, chills, no recent inadvertent weight loss. All other review of systems negative. PHYSICAL EXAMINATION: CHEST: Decreased breath sounds, left lung base. Distant breath sounds bilaterally. HEART: Regular, no murmurs. EXTREMITIES: No lower extremity edema, negative Homans sign. HEENT: No scleral icterus. NECK: No cervical lymphadenopathy. ABDOMEN: Soft, slightly distended, nontender. No hernias. SKIN: Warm, dry. ASSESSMENT AND PLAN: A 60-year-old male with recurrent symptomatic left pleural effusion, likely secondary to liver cirrhosis as well as congestive heart failure. We will proceed with a therapeutic left thoracentesis. Job ID: [id number] DocumentID: [id number] Dictated Date: 06/06/2021 13:24:30 Jigger Machine Operator Date: 06/06/2021 13:36:00 Dictated By: MARCI GALLOWAY MD
--- NOTE | 2021-06-06 14:57 | OPERATIVE REPORT ---
DATE OF SERVICE: 06/06/2021 PREOPERATIVE DIAGNOSIS: Symptomatic recurrent left pleural effusion. POSTOPERATIVE DIAGNOSIS: Symptomatic recurrent left pleural effusion. PROCEDURE: Left thoracentesis. SURGEON: Marci Galloway MD ANESTHESIA: Local. ESTIMATED BLOOD LOSS: Minimal. FINDINGS: Approximately 1 liter of straw yellow transudative fluid. DISPOSITION: The patient tolerated the procedure well. INDICATIONS: The patient is a 60-year-old male with a history of non-Hodgkin's lymphoma, status post neck irradiation. He also does have a history of alcoholic liver cirrhosis and symptomatic ascites as well as left pleural effusion, now requiring thoracentesis as well as multiple paracentesis in the past. He presented to the Emergency Department last night with worsening shortness of breath and was found to have a significant sized left recurrent pleural effusion. Ultrasound was performed beforehand for placement along the left posterolateral chest. The back was then prepped and draped in standard surgical fashion. DETAILS OF PROCEDURE: The skin, subcutaneous tissue, muscle layers as well as the parietal pleura were then anesthetized using 1% lidocaine and a vertical skin incision made using 11 blade. Trocar and catheter were then introduced withdrawing of straw yellow transudative fluid, and the catheter was then advanced over the trocar without any resistance. The catheter was then connected to vacuum suction container where approximately 1 liter of brown tinged transudative fluid was evacuated. The catheter was then removed while holding direct pressure and an Op-Site placed over the entry site. The patient tolerated the procedure well. We will get a post-procedure chest x-ray. Job ID: [id number] DocumentID: [id number] Dictated Date: 06/06/2021 13:27:24 Solution Analyst Date: 06/06/2021 14:56:44 Dictated By: MARCI GALLOWAY MD
== END 2021-06-06 13:45 ==
LOC: SDC 10:50
PROVIDERS: ATTEND Surgery
DX: J90 Pleural effusion, not elsewhere classified (principal); Z98.890 Other specified postprocedural states
CPT/HCPCS: 32554; 71045; 76942

== ENCOUNTER → 2021-08-07 | Outpatient (CLI) | payer OTHER ==
--- NOTE | 2021-08-07 13:15 | Diagnostic Imaging Report ---
Exam: Lumbar spine radiograph Exam date: 07/31/2021 COMPARISON: CT abdomen pelvis 04/29/2021 HISTORY: Sudden low back pain. TECHNIQUE: 3 views lumbar spine. FINDINGS: Vertebral body heights and alignment are normal. There is mild disc space narrowing at L5-S1. There is multilevel lumbar spondylosis. Mild facet hypertrophy lower lumbar spine. No acute fracture, dislocation, or other destructive osseous process. IMPRESSION: Degenerative changes of the lumbar spine without acute osseous abnormality. Dictated by: Dictated on workstation # [id number]
--- NOTE | 2021-08-07 13:16 | Diagnostic Imaging Report ---
CLINICAL INDICATION: Patient woke up this morning with severe low back pain. No injury. EXAM: X-ray of the pelvis, AP view. COMPARISON: None. FINDINGS: There is no acute fracture or dislocation. There is mild sclerosis involving the bilateral sacroiliac joints. There are degenerative spurs involving the lumbar spine. There are phleboliths in the pelvis. IMPRESSION: 1: There is no acute fracture or dislocation. Dictated by: Dictated on workstation # [id number]
== END ==
LOC: RAD 12:28
PROVIDERS: ATTEND Chiropractor
DX: M47.816 Spondylosis without myelopathy or radiculopathy, lumbar region (principal); Z85.9 Personal history of malignant neoplasm, unspecified
CPT/HCPCS: 72100; 72170

== ENCOUNTER → 2021-08-07 | Outpatient (CLI) | payer OTHER | LOC: LABNPT 06:13 | PROVIDERS: ATTEND Internal Medicine | DX: Z53.9 Procedure and treatment not carried out, unspecified reason (principal) ==

== ENCOUNTER 2021-09-05 21:48 | Emergency (ER) | payer OTHER ==
--- OUTSIDE RECORDS SUMMARY | 2021-09-05 21:54 | XMS REPORT | Encounter Summary ---
Author Author [facility] Organization [facility] Address Unknown Phone Unavailable Care Team Providers Care Medical Office Worker Name Role Phone Angelo Watkins DO, Casey PCP Francisco Coello MD Unavailable Bonita Cerrato APRN-PAINT PREPARER Unavailable [phone] Jimi Hale MD Unavailable Encounter Details Care Team Description Date Type Department Cecelia Kramer 09/04/2021 Documentation The [address] [address] Social History Date Tobacco Use Types Packs/Day Years Used Current Every Day Smoker Cigarettes 1.5 Smokeless Tobacco: Former Chew User Comments Alcohol Use Standard Drinks/Week Not Currently 0 (1 standard drink = 0.6 o z pure alcohol) Sex Assigned at Date Recorded Male 08/21/2021 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 documented as of this encounter Functional Status Date of Assessment Functional Status Response 08/16/2021 Does the patient have a hearing impairment: No 08/16/2021 Does the patient have a visual impairment: Yes 08/16/2021 Does the patient have impaired ambulation: No 08/16/2021 Does the patient have an activity of daily living No (ADL) impairment: 08/16/2021 Does the patient have an instrumental activity of No daily living (IADL) impairment: Date of Assessment Cognitive Status Response 08/16/2021 Does the patient have a cognitive impairment: No documented as of this encounter Progress Notes * Cecelia Kramer - 09/04/2021 8:11 AM ERISA ATTORNEY The Prior Authorization for Xifaxan has been submitted for [employer]on Hunt [employer] via Cover My Meds. Will continue to follow. [facility] Patient Advocate [phone] A ATTORNEY documented in this encounter Plan of Treatment Care Team Description Date [place] [address] [place] [address] Portal hypertension (HCC) 09/11/2021 Hospital Gastroenterology [place] [address] [place] [address] ESOPHAGOGASTRODUODENOSCOPY WITH SPECIMEN COLLECTION BY BRUSHING/ WASHING 09/11/2021 Surgery Gastroenterology Date/Time Name Priority Associated Diagnose s 09/11/2021 3:25 PM ERISA ATTORNEY ESOPHAGOGASTRODUODENOSCOPY WITH SPECIMEN Portal hyp ertension (HCC) COLLECTION BY BRUSHING/ WASHING 09/11/2021 3:25 PM ERISA ATTORNEY COLONOSCOPY DIAGNOSTIC WITH SPECIMEN Portal hyperte nsion (HCC) COLLECTION BY BRUSHING/ WASHING - FLEXIBLE documented as of this encounter Visit Diagnoses Not on filedocumented in this encounter Additional Health Concerns Noted Time Assessment 08/16/2021 3:15 PM CDT A fall risk assessment has been complet ed for the patient 08/16/2021 10:26 AM CDT PHQ-2 Depression Total Score: 0 documented as of this encounter Care Teams Start Date End Date Medical Office Worker Relationship Specialty 04/30/21 Kulwant Stephens DO PCP - General Internal [address] [place] [address] 08/17/21 Francisco Coello MD Hematology, [address] [place] [address] Medicine 08/17/21 Saqib, Bonita J, Nurse ROTARY SCREEN PRINTING MACHINE OPERATOR-PAINT PREPARER Practitioner [address] [place] [address] [facility] 08/17/21 Jimi Hale MD Gastroentero [address] [facility] [place] [address] documented as of this encounter
--- OUTSIDE RECORDS SUMMARY | 2021-09-05 21:54 | XMS REPORT | Encounter Summary ---
Author Author [facility] Organization [facility] Address Unknown Phone Unavailable Care Team Providers Care Mechanical Systems Designer Name Role Phone Angelo Watkins DO, Casey PCP Encounter Details Care Team Description Date [place] [address] [address] Mature T/NK-cell lymphomas, unspecified, unspecified site (HCC) 07/09/2021 Hospital Laboratory: Main [facility], Encounter Main Hospital [address] [facility] [address], [address] [place] [id number] Social History Date Tobacco Use Types Packs/Day Years Used Current Every Day Smoker Cigarettes Smokeless Tobacco: Current User Comments Alcohol Use Standard Drinks/Week Not Currently 0 (1 standard drink = 0.6 o z pure alcohol) Sex Assigned at Date Recorded Male 08/21/2021 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 documented as of this encounter Functional Status Date of Assessment Functional Status Response 07/03/2021 Does the patient have a hearing impairment: Yes 07/03/2021 Does the patient have a visual impairment: Yes 07/03/2021 Does the patient have impaired ambulation: Yes 07/03/2021 Does the patient have an activity of daily living No (ADL) impairment: 07/03/2021 Does the patient have an instrumental activity of No daily living (IADL) impairment: Date of Assessment Cognitive Status Response 07/03/2021 Does the patient have a cognitive impairment: No documented as of this encounter Medications at Time of Discharge Start Date End Date Medication Sig Dispensed Refills 07/03/2021 ciprofloxacin (CIPRO) 500 Take one 90 tablet 3 mg tablet tablet by mouth daily. 02/13/2021 furosemide (LASIX) 40 mg every 24 0 tablet hours. GABAPENTIN PO Take by 0 mouth. 07/03/2021 lactulose 10 gram/15 mL Take 30 mL by 1892 mL 11 oral solution mouth daily. Titrate to 3-4 BMs/day 07/08/2021 peg-electrolyte solution Mix as 4000 mL 0 (NULYTELY) 420 gram oral directed on solution package. Refrigerate once mixed. Do not mix greater than 24 hours prior to procedure. Drink 3/4 of bottle between 5pm and 7 pm the night before procedure. Drink remaining 1/4 of bottle 5 hours prior to procedure documented as of this encounter Discharge Disposition Code Departure Means Destination Disposition Home Home or Self Care documented in this encounter Plan of Treatment Care Team Description Date [place] [address] [place], [place] [phone] Portal hypertension (HCC) 09/11/2021 [facility] [place]astroenterology [place] [address] [place], [place] [id number] ESOPHAGOGASTRODUODENOSCOPY WITH SPECIMEN COLLECTION BY BRUSHING/ WASHING 09/11/2021 Surgery Gastroenterology Date/Time Name Priority Associated Diagnose s 09/11/2021 3:25 PM STUDENT TEACHING COORDINATOR ESOPHAGOGASTRODUODENOSCOPY WITH SPECIMEN Portal hyp ertension (HCC) COLLECTION BY BRUSHING/ WASHING 09/11/2021 3:25 PM STUDENT TEACHING COORDINATOR COLONOSCOPY DIAGNOSTIC WITH SPECIMEN Portal hyperte nsion (HCC) COLLECTION BY BRUSHING/ WASHING - FLEXIBLE documented as of this encounter Procedures Comments Procedure Name Priority Date/Time Associated Diag nosis SC CONSLTJ&REPRT SLIDES 07/09/2021 PREPARED ELSEWHERE 10:28 AM CDT PATHOLOGY REPORTS FROM 07/09/2021 OUTSIDE SCAN 12:00 AM CDT documented in this encounter Results * OUTSIDE PATHOLOGY CONSULT (07/09/2021 10:28 AM CDT) PATHOLOGY [facility] [employer] [email or web address] Department of Pathology and Laboratory Medicine [address] [place] [address] Surgical Pathology Office: [phone] PATHOLOGY CONSULTATION NAME: KAREN RENTERIA SURG PATH #: [id number] MR #: [id number] ALT ID #: LOCATION: BMT DATE OF PROCEDURE: 07/09/2021 AGE: 60 SEX: M DATE RECEIVED: 07/09/2021 : 1960 TIME RECEIVED: PHYSICIAN: PRINCESS TAN MD DATE OF REPORT: 07/31/2021 COPY TO: DATE OF PRINTIN07/31/2021 OUTSIDE INSTITUTION: Clinical Laboratory of [address], [address], [place] [address] phone: [phone] fax: [phone] ############################## ############################## ############ Final Diagnosis: Outside case "[id number]" (Date Collected: 09/25/2017): A. Lymph node, left inferior cervical, excisional biopsy: - Follicular lymphoma (grade 1; follicular pattern) B. Lymph node, left superior cervical, excisional biopsy: - Follicular lymphoma (grade 1; follicular pattern) Attestation: By this signature, I attest that I have personally formulated the final interpretation expressed in this report and that the above diagnosis is based upon my examination of the slides and/or other material indicated in this report. +++ +++ bm/07/09/2021 ############################## ############################## ############ Material Received: A: Outside Slides x13, [id number], Clinical Laboratory of the [facility], [address], [address], [place] [address] History: 57 year old male Gross Description: A. Received are thirteen (13) total outside slides and a report labeled "[id number]". Microscopic Description: Morphology: Sections from blocks A and B show a nodular lymphoid infiltrate composed of small mature cleaved lymphocytes. Centroblasts are quantified as grade 1. Additional Studies: Immunohistochemistry: Outside stains provided on block B2 for CD3, CD5, CD10, CD20, BCL2, and BCL6. The malignant cells are positive for CD10, CD20, BCL2, and BCL6. They are negative for CD3 and CD5. If immunohistochemical stains and/or in situ hybridization are cited in this report, the performance characteristics were determined by the Department of Pathology and Laboratory Medicine of the [facility] ([facility]) in compliance with CLIA'88 regulations. Some of these tests rely on the use of "analyte specific reagents" and are subject to specific labeling requirements by the FDA. The stains are performed on formalin-fixed, paraffin-embedded tissue, unless otherwise stated. Known positive and negative control tissues demonstrate appropriate staining. Results should be interpreted with caution given the likelihood of false negativity on decalcified specimens. This testing was developed by the Department of Pathology and Laboratory Medicine of the [facility]. It has not been cleared or approved by the FDA. The FDA has determined that such clearance or approval is not necessary. Specimen Performing Organization Address City/State/ZIP Code P catrina Number [facility] [address] [place] [address] * PATHOLOGY REPORTS FROM OUTSIDE SCAN (07/09/2021 12:00 AM CDT) Narrative 07/09/2021 12:00 AM CDT Ordered by an unspecified provider. documented in this encounter Visit Diagnoses Not on filedocumented in this encounter Additional Health Concerns Noted Time Assessment 07/08/2021 9:26 AM CDT A fall risk assessment has been complet ed for the patient 07/03/2021 10:39 AM CDT PHQ-2 Depression Total Score: 2 documented as of this encounter Care Teams Start Date End Date Mechanical Systems Designer Relationship Specialty 04/30/21 Kulwant Stephens V, DO PCP - General Internal [address] [place] [address] documented as of this encounter
--- OUTSIDE RECORDS SUMMARY | 2021-09-05 21:54 | XMS REPORT | Encounter Summary ---
Author Author [facility] Organization [facility] Address Unknown Phone Unavailable Care Team Providers Care Child Care Cook Name Role Phone Angelo Watkins DO, Casey PCP Francisco Coello MD Unavailable Bonita Cerrato APRN-UPHOLSTERY REPAIRER Unavailable [phone] Jimi Hale MD Unavailable Reason for Referral * Radiology Services (Routine) - New Request Diagnoses / Procedures Referred By Contact Referred To Conta ct Specialty Diagnoses Follicular low grade B-cell lymphoma (HCC) Procedures CT ABD/[place] [address] [place] [address] Radiology Referral ID Status Reason Start Date Expiration Visits Vi sits Date Requested Authorized [id number] New Request 08/16/2021 08/16/2022 1 1 * Radiology Services (Routine) - New Request Diagnoses / Procedures Referred By Contact Referred To Conta ct Specialty Diagnoses Follicular low grade B-cell lymphoma (HCC) Procedures [place] [address] [place] [id number] Radiology Referral ID Status Reason Start Date Expiration Visits Vi sits Date Requested Authorized [id number] New Request 08/16/2021 02/13/2023 1 1 * Radiology Services (Routine) - New Request Diagnoses / Procedures Referred By Contact Referred To Conta ct Specialty Diagnoses Follicular low grade B-cell lymphoma (HCC) Procedures [place] NECK W/[place] [address] [place] [address] Radiology Referral ID Status Reason Start Date Expiration Visits Vi sits Date Requested Authorized [id number] New Request 08/16/2021 08/16/2022 1 1 Reason for Visit * Reason Comments New Patient * Consult, Test & Treat (Urgent) - New Request Diagnoses / Procedures Referred By Contact Referred To [facility] ct Specialty Diagnoses Alcoholic cirrhosis of liver without ascites (HCC) Non-Hodgkin's lymphoma, unspecified body region, unspecified non-Hodgkin lymphoma type (HCC) Jimi Hale MD [address] [place], [place] [address] [place] [address] [place] [address] [place] [address] Oncology Referral ID Status Reason Start Date Expiration Visits Vi sits Date Requested Authorized [id number] New Request Specialty Services 07/03/2021 07/03/2022 1 1 Required Encounter Details Care Team Description [place] [address] [place] [id number] Follicular low grade B-cell lymphoma (HC C) (Primary Dx) 08/16/2021 Office Visit Oncology: Cancer [facility] 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 documented as of this encounter Last Filed Vital Signs Reading Time Taken Comments Vital Sign 132/57 08/16/2021 3:15 PM CDT Blood Pressure 96 08/16/2021 3:15 PM CDT Pulse 36.8 C (98.3 F) 08/16/2021 3:15 PM CDT Temperature 18 08/16/2021 3:15 PM CDT Respiratory Rate 95% 08/16/2021 3:15 PM CDT Oxygen Saturation - - Inhaled Oxygen Concentration 70.5 kg (155 lb 6.4 oz) 08/16/2021 3:15 PM CDT Weight 170.2 cm (5' 7") 08/16/2021 3:15 PM CDT Height 24.34 08/16/2021 3:15 PM CDT Body Mass Index documented in this encounter Functional Status Date of Assessment [...] as of this encounter Progress Notes * Francisco Coello MD - 08/16/2021 3:20 PM CDT Name: Easton Hunt : 1960 AGE: 60 y.o. DATE OF SERVICE: 08/16/2021 Subjective: Reason for Visit: New Patient Easton Hutn is a 60 y.o. male. Cancer Staging Follicular low grade B-cell lymphoma (HCC) Staging form: Hodgkin And Non-Hodgkin Lymphoma, AJCC 8th Edition - Clinical stage from 10/16/2017: Stage I (Follicular lymphoma) - Signed by Francisco Mcdaniel MD on 08/16/2021 Easton Hunt presents today for management of lymphoma at the request of Dr. Talha guillen. 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 He has a known history of alcoholic cirrhosis for which she is followed with Dr. Hale. 2. August 2017 presented with left cervical lymphadenopathy. 3. 09/25/2017 excisional biopsy revealed grade 1 follicular lymphoma. Staging bone marrow biopsy revealed no evidence of lymphomatous disease. Staging PET/CT revealed a mild hypermetabolism in the right axilla that was not felt to be lym phomatous involvement. 4. November 2017 received radiation therapy to 20 Gy over 10 fractions to the l eft neck. He achieved a complete remission. 5. He remains on active surveillance. On interview today, he is feeling reasonably well. He does note some fatigue and intermittent abdominal discomfort. He denies fevers, drenching night sweats, or unintentional weight loss. He has not noticed any new or progressive lymphadenopathy. He did have some abnormalities on his liver ultrasound and is waiting further ev aluation of those. I have reviewed and updated the past medical, social and family histories in the history section and they are up to date as of this visit. I have extensively reviewed the laboratory, pathology and radiology, both chemical engineering intern al and external, and the perry findings are summarized above. Review of Systems Constitutional: Positive for chills and fatigue. HENT: Positive for congestion and voice change. Eyes: Positive for redness and visual disturbance. Respiratory: Positive for shortness of breath. Cardiovascular: Positive for palpitations and leg swelling. Gastrointestinal: Positive for abdominal pain. Skin: Positive for color change. Neurological: Positive for weakness. Psychiatric/Behavioral: Positive for confusion and decreased concentration. The patient is nervous/anxious. All other systems reviewed and are negative. Objective: ciprofloxacin (CIPRO) 500 mg tablet Take one tablet by mouth daily. fluconazole (DIFLUCAN) 200 mg tablet Take one tablet by mouth daily. Take tw o tablets day one and then one tablet every day thereafter until finished. Dilia cations: Esophageal candidiasis furosemide (LASIX) 40 mg tablet every 24 hours. GABAPENTIN PO Take by mouth. lactulose 10 gram/15 mL oral solution Take 30 mL by mouth daily. Titrate to 3-4 BMs/day peg-electrolyte solution (NULYTELY) 420 gram oral solution Mix as directed o n package. Refrigerate once mixed. Do not mix greater than 24 hours prior to pro cedure. Drink 3/4 of bottle between 5pm and 7 pm the night before procedure. Dri nk remaining 1/4 of bottle 5 hours prior to procedure rifAXIMin (XIFAXAN) 550 mg tablet Take one tablet by mouth twice daily. spironolactone (ALDACTONE) 100 mg tablet every 24 hours. zinc sulfate (ORAZINC) 220 mg (50 mg elemental zinc) capsule Take one capsul e by mouth daily. Vitals: 08/16/21 1515 BP: 132/57 BP Source: Arm, Right Upper Patient Position: Sitting Pulse: 96 Resp: 18 Temp: 36.8 C (98.3 F) TempSrc: Oral SpO2: 95% Weight: 70.5 kg (155 lb 6.4 oz) Height: 170.2 cm (67") PainSc: Five Body mass index is 24.34 kg/m. Pain Score: Five Pain Loc: Abdomen Fatigue Scale: 8 Pain Addressed: N/A Patient Evaluated for a Clinical Trial: Patient not eligible for a treatment tri al (including not needing treatment, needs palliative care, in remission). Eastern Cooperative Oncology Group performance status is 1, Restricted in physic ally strenuous activity but ambulatory and able to carry out work of a light or sedentary nature, e.g., light house work, office work. Physical Exam Vitals and nursing note reviewed. Constitutional: General: He is not in acute distress. HENT: Head: Normocephalic and atraumatic. Eyes: General: No scleral icterus. Cardiovascular: Rate and Rhythm: Normal rate and regular rhythm. Pulmonary: Effort: Pulmonary effort is normal. Breath sounds: Normal breath sounds. Abdominal: General: There is no distension. Palpations: Abdomen is soft. There is no mass. Musculoskeletal: General: Normal range of motion. Cervical back: Neck supple. Lymphadenopathy: Comments: No palpable cervical, supraclavicular, axillary or inguinal adenopa thy. Skin: General: Skin is warm. Findings: No rash. Neurological: Mental Status: He is alert. Assessment and Plan: Follicular low grade B-cell lymphoma (HCC) Impression: 1. 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 Pancytopenia secondary to cirrhosis 3. Alcoholic cirrhosis 4. Indeterminate liver lesions on ultrasound concerning for HCC 5. History of hepatic encephalopathy 6. Ascites, compensated on diuretics 7. ECOG PS 1 Plan: 1. I have reviewed Andrew's chart in detail including personal review of all of h is pathology reports and imaging studies. On personal review his baseline PET/C T, the right axillary abnormality in my mind is not consistent with lymphoma and I think he was appropriately staged as a stage I patient and treated aggressive ly with curative intent radiation. 2. I discussed with him in detail that he is among the 5% or so of patients with follicular lymphoma who present with true and rigorously proven stage I disease. These patients are the only patients who are felt to be curable with follicular lymphoma in the absence of a cellular therapy technique and approximately 70% are cured with radiation therapy alone. Given his excellent response and lack of any significant disease bulk after his excisional biopsy, his cure fraction i s quite high. 3. We additionally discussed that liver transplantation would be associated with some immune suppression that would mildly increase his long-term risk of recurr ence. This being said, his cirrhosis is the far more life-threatening of his co nditions and I think that the risk: Benefit ratio clearly favors proceeding with transplantation provided that he remains in a clinical remission right now. 4. Check CT scans of the neck chest abdomen and pelvis with contrast. It should be duly noted that his original disease was in the neck. 5. Given the abnormalities in his liver that were seen on ultrasound, the CT abd omen pelvis will be triple phase to evaluate for HCC. 6. Assuming the CT scans do not show any features that are suspicious for lympho ma, he is thoroughly appropriate to list for liver transplant. 7. On a long-term basis, he does require annual follow-up for his follicular lym phoma. We will loosely schedule him to see me back in 1 year, or sooner if new concerning issues arise. Recommendations discussed with Dr. Hale and his RODNEY Bonita Cerrato at [facility] ion of today's visit. I have discussed the diagnosis and treatment plan with the patient and he expres ses understanding and wishes to proceed. documented in this encounter Plan of Treatment Care Team Description Date [place] [address] [place] [address] Portal hypertension (HCC) 09/11/2021 Hospital Gastroenterology [place] [address] [place] [address] ESOPHAGOGASTRODUODENOSCOPY WITH SPECIMEN COLLECTION BY BRUSHING/ WASHING 09/11/2021 Surgery Gastroenterology Order Schedule Name Type Priority Associated Diag noses Expected: 08/16/2021, Expires: 2 CT NECK W/CONTRAST Imaging Routine Follicular low grade B-cell lymphoma (HCC) Expected: 08/16/2021, Expires: 2 CT CHEST W CONTRAST Imaging Routine Follicular low grade B-cell lymphoma (HCC) Expected: 08/16/2021, Expires: 2 CT ABD/PELV W CONTRAST Imaging Routine Follicu lar low grade B-cell lymphoma (HCC) Expected: 08/16/2022, Expires: 3 CBC AND DIFF Lab Routine Follicular low grade B-cell lymphoma (HCC) Expected: 08/16/2022, Expires: 3 COMPREHENSIVE METABOLIC Lab Routine Follic ular low grade PANEL B-cell lymphoma (HCC) Date/Time Name Priority Associated Diagnose s 09/11/2021 3:25 PM SOFTWARE PROJECT MANAGER ESOPHAGOGASTRODUODENOSCOPY WITH SPECIMEN Portal hyp ertension (HCC) COLLECTION BY BRUSHING/ WASHING 09/11/2021 3:25 PM SOFTWARE PROJECT MANAGER COLONOSCOPY DIAGNOSTIC WITH SPECIMEN Portal hyperte nsion (HCC) COLLECTION BY BRUSHING/ WASHING - FLEXIBLE documented as of this encounter Visit Diagnoses Diagnosis Follicular low grade B-cell lymphoma (H CC) - Primary Nodular lymphoma, unspecified site, ext ranodal and solid organ sites Portal hypertension (HCC) Portal hypertension * Assessment & Plan Note - Francisco Coello MD - 08/16/2021 3:52 PM CDT Associated Problem(s): Follicular low grade B-cell lymphoma (HCC) Impression: 1. 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 Pancytopenia secondary to cirrhosis 3. Alcoholic cirrhosis 4. Indeterminate liver lesions on ultrasound concerning for HCC 5. History of hepatic encephalopathy 6. Ascites, compensated on diuretics 7. ECOG PS 1 Plan: 1. I have reviewed Andrew's chart in detail including personal review of all of h is pathology reports and imaging studies. On personal review his baseline PET/C T, the right axillary abnormality in my mind is not consistent with lymphoma and I think he was appropriately staged as a stage I patient and treated aggressive ly with curative intent radiation. 2. I discussed with him in detail that he is among the 5% or so of patients with follicular lymphoma who present with true and rigorously proven stage I disease. These patients are the only patients who are felt to be curable with follicular lymphoma in the absence of a cellular therapy technique and approximately 70% are cured with radiation therapy alone. Given his excellent response and lack of any significant disease bulk after his excisional biopsy, his cure fraction i s quite high. 3. We additionally discussed that liver transplantation would be associated with some immune suppression that would mildly increase his long-term risk of recurr ence. This being said, his cirrhosis is the far more life-threatening of his co nditions and I think that the risk: Benefit ratio clearly favors proceeding with transplantation provided that he remains in a clinical remission right now. 4. Check CT scans of the neck chest abdomen and pelvis with contrast. It should be duly noted that his original disease was in the neck. 5. Given the abnormalities in his liver that were seen on ultrasound, the CT abd omen pelvis will be triple phase to evaluate for HCC. 6. Assuming the CT scans do not show any features that are suspicious for lympho ma, he is thoroughly appropriate to list for liver transplant. 7. On a long-term basis, he does require annual follow-up for his follicular lym phoma. We will loosely schedule him to see me back in 1 year, or sooner if new concerning issues arise. Recommendations discussed with Dr. Hale and his RODNEY Bonita Cerrato at [facility] ion of today's visit. I have discussed the diagnosis and treatment plan with the patient and he expres ses understanding and wishes to proceed. documented in this encounter Additional Health Concerns Noted Time Assessment 08/16/2021 3:15 PM CDT A fall risk assessment has been complet ed for the patient 08/16/2021 10:26 AM CDT PHQ-2 Depression Total Score: 0 documented as of this encounter Care Teams Start Date End Date Child Care Cook Relationship Specialty 04/30/21 Kulwant Stephens DO PCP - General Internal [address] [place] [address] 08/17/21 Francisco Coello MD Hematology, [address] [place] [address] Medicine 08/17/21 Bonita Cerrato, Nurse WAREHOUSE ASSISTANT-UPHOLSTERY REPAIRER Practitioner [address] [place] [address] [facility] 08/17/21 Jimi Hale MD [facility] [address] [facility] [id number] [place] [address] documented as of this encounter
--- OUTSIDE RECORDS SUMMARY | 2021-09-05 21:54 | XMS REPORT | Encounter Summary ---
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 Operator Name Role Phone Angelo Watkins DO, Casey PCP Reason for Visit * Auth/Cert Diagnoses / Procedures Referred By Contact Referred To Conta ct Specialty Diagnoses Alcoholic cirrhosis of liver without ascites (HCC) Non-Hodgkin's lymphoma, unspecified body region, unspecified non-Hodgkin lymphoma type (HCC) Alcoholic cirrhosis of liver without ascites (HCC) [K70.30] Non-Hodgkin's lymphoma, unspecified body region, unspecified non-Hodgkin lymphoma type (HCC) [C85.90] Procedures [place] COLONOSCOPY FLX DX W/COLLJ SPEC WHEN PFRMD [place] EGD TRANSORAL BIOPSY SINGLE/MULTIPLE COLONOSCOPY DIAGNOSTIC WITH SPECIMEN COLLECTION BY BRUSHING/ WASHING - FLEXIBLE ESOPHAGOGASTRODUODENOSCOPY WITH BIOPSY - FLEXIBLE Referral ID Status Reason Start Date Expiration Visits Vi sits Date Requested Authorized [id number] 1 1 Encounter Details Care Team Description Date Type Department Abad Avendaño DO [address] [place] [address] COLONOSCOPY DIAGNOSTIC WITH SPECIMEN COL LECTION BY BRUSHING/ WASHING - FLEXIBLE 08/09/2021 [facility] End[facility] [address] [facility] [address], [address] [place] [address] Surgery Details Trauma Case? Date/Time Status Location OR Service Patient Class Case Class Case Type 08/09/21 Posted [facility] Endo 6 Gastroente Outpatient Elect vasyl - 9:20 AM (IR) rology Surgery Treating conditions that are not life or limb threatenin g Panel 1 Procedure LRB Anes Op Region Wound Class Com ments COLONOSCOPY DIAGNOSTIC N/A Monitored WITH SPECIMEN COLLECTION Anesthesia BY BRUSHING/ WASHING - Care (MAC) FLEXIBLE ESOPHAGOGASTRODUODENOSCOP N/A Defer to Y WITH BAND LIGATION Anesthesia ESOPHAGEAL/ GASTRIC VARICES - FLEXIBLE ESOPHAGOGASTRODUODENOSCOP Defer to Y WITH SPECIMEN Anesthesia COLLECTION BY BRUSHING/ WASHING COLONOSCOPY WITH SNARE Defer to REMOVAL TUMOR/ POLYP/ Anesthesia OTHER LESION Panel Surgeon Surgeon Role Service 1 Abad Avendaño, Primary Gastroenterology Special Needs 4 day reminder call// 08.05.2021 Spoke with pt regarding arrival time. MY08/01/2021 - Patient to get Covid PCR Screening at [facility] in [place], [place], order faxed 08/01/2021 - DM07/08: Pt's 07/12/21 appt at [facility] cxl'd per [facility] Anesthesi a due to significant liver disease and recent thoracentesis. Referral transferred to [facility] for scheduling. 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 documented as of this encounter Last Filed Vital Signs Reading Time Taken Comments Vital Sign 103/65 08/09/2021 10:00 AM CDT Blood Pressure 84 08/09/2021 10:00 AM CDT Pulse 37.1 C (98.8 F) 08/09/2021 8:27 AM CDT Temperature - - Respiratory Rate 92% 08/09/2021 10:00 AM CDT Oxygen Saturation - - Inhaled Oxygen Concentration 65.8 kg (145 lb) 08/09/2021 8:27 AM CDT Weight 170.2 cm (5' 7") 08/09/2021 8:27 AM CDT Height 22.71 08/09/2021 8:27 AM CDT Body Mass Index documented in this [...] impairment: No documented as of this encounter Discharge Instructions * Instructions* Aleah Be RN - 08/09/2021 9:51 AM CDT Banding/EMR -Stay on a soft diet for approximately 24 hours. Advance as tolerated. EGD/Colonoscopy Post Upper Endoscopy/Colonoscopy Instructions -You may have a sore throat after the procedure for 2-3 days. Try sucrets or lo zenges to help ease the pain. If it continues please contact us. -If you feel feverish, have a temperature of 101 degrees or higher, persistent n ausea and vomiting, abdominal pain or dark stools; please notify your nurse or G I physician. -You may have abdominal cramping following the procedure this can be relieved by belching or passing air. -If you have redness or swelling at the IV site, place a warm, wet washcloth ove r the affected areas for 15 minutes, 3-4 times a day until the redness subsides. If symptoms continue for 2-3 days, contact your regular physician. - If you have bleeding from your mouth or rectum, over 2 tablespoons and increas ing, please notify your physician. A small amount of bleeding is normal if a bi opsy or polyps were taken. If you are vomiting blood you need to seek immediate medical attention. - You may resume all your routine medications, if medications need to be held yo ur physician and/or nurse will notify you post procedure. SPECIFIC INSTRUCTIONS OUTPATIENTS: A. Because of sedation and lack of coordination, UNTIL TOMORROW, DO NOT: 1. Operate any motorized vehicle - this includes driving. 2. Sign any legal documents or conduct important business matters. 3. Use any dangerous machinery (chain saw, lawnmower, etc.). 4. Drink any alcoholic beverages. Should you have any questions or concerns after your procedure please call M-F 8am-5:00 pm. After 5:00 pm, holidays or weekends call [phone] and ask for the GI Doctor transplant nurse practitioner. documented in this encounter Medications at Time of Discharge [...] to procedure documented as of this encounter Ordered Prescriptions Start Date End Date Prescription Sig Dispensed Refills 07/08/2021 peg-electrolyte solution Mix as 4000 mL 0 (NULYTELY) 420 gram oral directed on solution package. Refrigerate once mixed. Do not mix greater than 24 hours prior to procedure. Drink 3/4 of bottle between 5pm and 7 pm the night before procedure. Drink remaining 1/4 of bottle 5 hours prior to procedure documented in this encounter Discharge Disposition Code Departure Means Destination Disposition Home or Self Care documented in this encounter Progress Notes * Melinda Pan RN - 08/01/2021 11:59 AM CDT Images from the original note were not included. Spoke to patient regarding need for Covid PCR Screening completed 48-72 hours pr ior to scheduled procedure, verbalized good understanding, patient will obtain C ovid PCR Screening independently and bring results the day of the procedure. Melissa davidchilango can go to [facility] in [place], [place]., Phone - [phone], F ax [phone], 2-3 day turnaround for PCR results, M-F drive thru starts at 8: 00 AM, no appointment necessary, order faxed for patient. Confirmed procedure date/time with patient, verbally reviewed prep instructions with patient, verbalized good understanding, confirmed patient would have a drdeuce er. Patient states he has the Neelamte script at home. Gave patient contact numb er for questions regarding prep or procedure, patient verbalized good understand ing. EGD (ESOPHAGOGASTRODUODENOSCOPY) PREP Upper GI endoscopy allows healthcare providers to look directly into the beginni ng of your gastrointestinal(GI) tract. The esophagus, stomach, and duodenum (fi rst part of the small intestine) make up the upper GI tract. 5 Days Prior: 1. Check with your prescribing physician for instructions about stopping your bl ood thinner. Examples of blood thinners are Aleve, Aspirin. Coumadin, Eliquis, Ibuprofen, Naproxen, Plavix, and Xarelto. 2. Do not give yourself a Lovenox injection the morning of the test. Lovenox inj ections may be taken as usual through the day before your test. Day of Exam: 1. Do not eat or drink anything after midnight the night before your exam. How er, if your exam is in the afternoon you may drink clear liquids only up until ( 4) hours before your scheduled procedure time. After this, you should have noth ing by mouth. This includes GUM or CANDY. a. Chewing tobacco must be stopped (6) hours before your scheduled procedure. b. If you have an leather production artisan test, take ONLY your essential morning medicatio ns (heart, blood pressure, seizure, etc.) with a small sip of water. c. You will be sedated for the procedure. A responsible adult must drive you néstor e (no Uber, taxis, or buses are permitted). If you do not have a fence post driver we will be unable to do the test. d. You will be here for (3-4) hours from arrival time. e. You will not be able to return to work the same day. f. Please bring a list of your current medications and the dosages with you. The Procedure: You will lie on the endoscopy table. Usually patients lie on the left side. You will be monitored and given oxygen. You are given sedation (relaxing) medication through an intravenous (IV) omar e. The healthcare provider will put the endoscope in your mouth and down your e sophagus. It is thinner than most pieces of food that you swallow. It will not affect your breathing. The medicine helps keep you from gagging. Air is inserted to expand your GI tract. It can make you burp. During the procedure, the healthcare provider can take biopsies (tissue samp les), remove abnormalities such as polyps, or treat abnormalities though a varie ty of devices placed through the endoscope. You will not feel this. The endoscope carries images of your upper GI tract to a video screen. An adult must drive you home. SPLIT DOSE NULYTELY/GOLYTELY PREP (Recommended) PATIENT PREPARATION INSTRUCTIONS COLONOSCOPY Instructions: Fill your prescription at least (3) days before your scheduled pro cedure time. 1 Week Prior: 1. Stop taking iron supplements (including multivitamins containing iron). 2. Do not eat any foods containing nuts, seeds, or kernels (for example: sunflow er seeds or popcorn). 3. Discuss diabetic medications and insulin with the prescribing physician. 5 Days Prior: 1. Check with your prescribing physician for instructions about stopping your bl ood thinner. Examples of blood thinners are Aleve, Aspirin, Coumadin, Eliquis, I buprofen, Naproxen, Plavix, and Xarelto. 2. Do not give yourself a Lovenox injection the morning of the test. Lovenox inj ections may be taken as usual through the day before the test. 4 Days Prior: 3. Stop taking Metamucil, Perdiem, Citrucel, or any other bulk laxatives. Mirala x is okay. Day Prior: 2. Beginning in the morning, start a clear liquid diet. Drink a generous amount of clear liquids throughout the day, no alcohol. If you are on a fluid restricti on, drink the recommended amount of clear liquids allowed by your physician. No solid or creamed/pureed foods. Clear Liquid Diet (avoid all items with RED, PURPLE, or ORANGE coloring) Water Apple or White Grape Juice Coffee or tea without cream Tea White Cranberry Juice Chicken Bouillon or Broth (no noodles) Soda Pop(all pop Is OK) Green or Yellow Popsicles Beef Bouillon or Broth (no n oodles) 3. At 11:00 A.M. fill the Nulytely/Golytely jug to the "fill line with lukewa rm drinking water. Cap the jug and shake to dissolve the powder. Place the jug in the refrigerator. 4. At 5:00 P.M. drink one 8-ounce glass of Nulytely/Golytely and repeat every (1 0-15) minutes until you have finished the first () gallon of Nulytely/Golytely (3) liters. If you become nauseated hold off on drinking for (30) minutes or so , then resume. Day of Test: 1. Continue clear liquid diet. 2. Five hours before your scheduled procedure time drink the remaining Nulytely/ Golytely 8-ounces at a time. Repeat every (10-15) minutes until you have finishe d. 3. You may drink clear liquids up until (4) hours before your scheduled procedur e time. After this you should have nothing by mouth. This includes GUM or CANDY. a. Chewing tobacco must be stopped (6) hours before your scheduled procedure. b. If you have an leather production artisan test, take ONLY your essential morning medicatio ns (heart, blood pressure, seizure, etc.) with a small sip of water. 4. You will be sedated for the procedure. A responsible adult must drive you ho me (no Uber, taxis or buses are allowed). If you do not have a fence post driver we will be unable to do the test. 5. You will be here for (3-4) hours from arrival time. 6. You will not be able to return to work the same day if you have received isidoro tion. 7. Please bring a list of your current medications and the dosages with you. * Dasia Copeland RN - 07/08/2021 11:24 AM CDT Images from the original note were not included. Laureen English MD Rasco, Jasmine, RN; [facility]; Patrick Christian MD; Ernst Garcia MD Patient with significant liver disease, pancytopenia (Platelet count below 100K) and recent diagnosis of head and neck lymphoma and enlarged lymph nodes in the neck. Most recent scans show portal hypertension with upper and lower varicies . No mention of the thoracentesis in his records, but that is most likely ascites related pleural fluid. Not a candidate for the surgery center. Thanks Laureen Mauro Messages ----- Message ----- From: Dasia Copeland RN Sent: 07/08/2021 9:53 AM CDT To: Laureen English MD, Patrick Christian MD, * Subject: 07/12 Colonoscopy w/ EGD ----- Message ----- From: Dasia Copeland RN Sent: 07/08/2021 9:47 AM CDT To: Laureen English MD, Patrick Christian MD, * Okay for MIGUEL? Please respond to all. Pt states does have some trouble breathing. He is a current tobacco smoker and s tates that he is trying to quick. Pt had recent thoracentesis 2-3 weeks ago due to a plural effusion. Pt also has cirrhosis and states that 6 months he was gett ing paracentesis weekly, but has not had it done in months. Pt is not currently on a transplant list, but states that he is trying to get on list. GASTROINTESTINAL AND ABDOMINAL Alcoholic cirrhosis of liver with ascites (HCC) Portal hypertension (HCC) HEMATOLOGY AND NEOPLASIA Follicular low grade B-cell lymphoma (HCC) MENTAL HEALTH History of alcohol abuse SLEEP TRICE (obstructive sleep apnea) TOBACCO Tobacco abuse Please review. Thanks! documented in this encounter H&P Notes * Abad Avendaño DO - 08/09/2021 8:55 AM CDT Pre Procedure History and Physical/Sedation Plan Name:Karen Hunt :1960 Age: 60 y.o. Date of Service: 08/09/2021 Date of Procedure: 08/09/2021 Planned Procedure(s): GI: EGD and Colonoscopy Sedation/Medication Plan: MAC (Monitored Anesthesia Care) Discussion/Reviews: Physician has discussed risks and alternatives of this type of sedation and above planned procedures with patient Chief Complaint: EV screening, polyp surveillance History of Present Illness: Karen Hunt is a 60 y.o. male who presents for evalu ation of the above, index EV screening for decompensated cirrhosis, additionally with CS 2015 with x1 TA removed, reportedly with additional CS since that time (per patient) with additional TA removed, no AC Previous Anesthetic/Sedation History: reviewed Medical History: Diagnosis Date Alcoholic cirrhosis (HCC) Heart murmur History of B-cell lymphoma Pleural effusion associated with hepatic disorder Sleep apnea Surgical History: Procedure Laterality Date TUMOR REMOVAL neck Pertinent medical/surgical history reviewed Pertinent family history reviewed Social History Tobacco Use Smoking status: Current Every Day Smoker Types: Cigarettes Smokeless tobacco: Current User Substance Use Topics Alcohol use: Not Currently Drug use: Yes Types: Marijuana Social History Substance and Sexual Activity Drug Use Yes Types: Marijuana Allergies: Patient has no known allergies. Medications Current Facility-Administered Medications Medication lactated ringers infusion Review of Systems: A 14 point review of systems was negative except for: abdominal pain RLQ Physical Exam: Temp: 37.1 C (98.8 F) (08/09 827) Pulse: 99 (08/09 827) Respirations: 19 PER MINUTE (08/09 827) BP: 130/78 (08/09 827) General appearance: alert, well-developed and well-nourished Lungs: no respiratory distress, speaking in full sentences Heart: regular rate and rhythm by pulse only Abdomen: soft, TTP LUQ/RLQ Extremities: extremities normal, atraumatic Airway: Per anesthesia Anesthesia Classification: ASA III (A patient with a severe systemic disease th at limits activity, but is not incapacitating) NPO Status: Acceptable Lab/Radiology/Other Diagnostic Tests Labs: Relevant labs reviewed Abad Avendaño DO Pager [phone] documented in this encounter Miscellaneous Notes * Pre-Anesthesia Patient Instructions - Dasia Copeland RN - 07/08/2021 9:41 AM CDT .. SPLIT DOSE NULYTELY/GOLYTELY PREP PATIENT PREPARATION INSTRUCTIONS COLONOSCOPY Karen, You are scheduled for a Colonoscopy on: 07/12/2021 at: 10:30 AM With Ashish Hernandez MD You must arrive by: 9:30 AM Please E-Mail or fax covid results to [phone] or [email or web address] Please keep in mind that procedure times are subject to change OUR ADDRESS IS [address] [place] [address] WE ARE LOCATED AT JUST OFF [address] [place] [address] [address] ([facility]) WE ARE ON THE EAST SIDE OF THE [facility] ONCE YOU'RE ON THE CAMPUS FOLLOW THE SIGNS TO THE SURGERY CENTER LOCATED ON THE EAST SIDE OF THE [address] AND ENTER THROUGH THE SURGERY CENTER DOORS. To Reschedule call: [phone] For Questions call: [phone] ____ A colonoscopy is a scope examination of your colon or large intestine. This is about (6) feet long in most adults. - A thin, flexible scope with a light and lens will be inserted through your rec ruthy into your colon. - The doctor will guide the scope along your colon to the junction of the large and small intestines. - The test usually takes (30) minutes. - Unless the test is prescribed for other reasons, the main purpose of the colon oscopy is to search for polyps. - A colonoscopy can be used to screen for cancer or precancerous polyps. It can also be used to assess the large intestine for various other diseases. - If biopsies are obtained during the procedure, you will be notified of the res ults in (14) days. - We will sedate you for the test by giving you medicines through an IV that shaquille l help you to relax and sleep. We will keep you after the exam for (30) minutes . - The doctor will speak to you before and after the procedure. - Unless you request otherwise, we will invite your fence post driver to the recovery room to hear the doctor's post-exam report. - The colon must be completely clean for the procedure to be both accurate and c omprehensive. Please follow the preparation instructions carefully. Instructions: Fill your prescription at least (3) days before your scheduled pro cedure time. Please let us know as soon as possible if you have any issues filli ng your prescription. Starting Now: Contact your provider who prescribes any of the following to develop a plan for surgery: o Blood thinners such as aspirin, Aggrenox, Brilinta, Effient, Eliquis, enoxapar in (Lovenox), clopidogrel (Plavix), cilostazol, pentoxifylline (Trental), Pradax a, Savaysa, ticlopidine, Xarelto, and warfarin (Coumadin) o Do not give yourself a Lovenox injection the morning of the test. Lovenox inj ections may be taken as usual the day before the test. o Immunosuppresants such as methotrexate, azathioprine, sulfasalazine, everolimu s, sirolimus, Humira, Remicade, Enbrel, Simponi, Orencia, Cimzia, Actemra, and X niraj o Chemotherapy CONTACT YOUR PROVIDER prior to stopping your blood thinner Hold until after your procedure: Stop most vitamins, herbals, and supplements including (but not limited to): o Iron, Alpha lipoic acid, black cohosh, CoQ10, echinacea, eye vitamins, fish oi l, flaxseed oil, garlic, gingko biloba, ginseng, glucosamine/chondroitin, kava, Lovaza, lutein, lysine, multivitamin, red yeast rice, JOSE MANUEL-e, saw palmetto, St. J ohn's wort, turmeric, valerian root, Vascepa, Vitamin A, Vitamin B complex, Neelam min C, Vitamin E - You DO NOT need to stop: magnesium, potassium 7 days prior to surgery: Stop anti-inflammatory medications such as ibuprofen (Advil, Motrin), naprox en (Aleve), Emily-[place], Excedrin, Midol, celecoxib (Celebrex), diclofenac (Vol violeta), diflunisal, etodolac, flurbiprofen, indomethacin, ketoprofen, ketorolac, meloxicam, nabumetone, and piroxicam Do not eat any foods containing nuts, seeds, or kernels (for example: sunflo wer seeds or popcorn). 4 DAYS PRIOR 1. Stop taking Metamucil, Perdiem, Citrucel, or any other bulk laxatives. Mirala x is okay. DAY PRIOR: 1. Beginning in the morning, start a clear liquid diet. Drink a generous amount of clear liquids throughout the day, no alcohol. If you are on a fluid restrict ion, drink the recommended amount of clear liquids allowed by your physician. No solid or creamed/pureed foods. No honey. No protein drinks. Clear Liquid Diet *Water *Gatorade or sports drink *White Grape Juice *Coffee or Tea without Cream *Apple Juice *Soda Pop (all are ok) *Popsicles *Bouillon or Broth (No Noodles) *Hard Candy (Reese Rancher, Life Saver, Mint or Gum) *Jello (please no fruit in the jello) 2. At 11:00 A.M. fill the Nulytely/Golytely jug to the fill line with luke warm drinking water. Cap the jug and shake to dissolve the powder. Place the ju g in the refrigerator. 3. At 5:00 P.M. drink one 8-ounce glass of Nulytely/Golytely and repeat every (1 0-15) minutes until you have finished the first () gallon of Nulytely/Golytely (3) liters. If you become nauseated hold off on drinking for (30) minutes or so , then resume. DAY OF TEST: 1. Continue clear liquid diet up until (4) hours before your scheduled procedure time. After this you should have nothing by mouth. This includes GUM or CANDY. Chewing tobacco must be stopped (6) hours before your scheduled procedure. 2. Five hours before your scheduled procedure time drink the remaining Nulytely/ Golytely 8-ounces at a time. Repeat every (10-15) minutes until you have finishe d. 3. Take off any jewelry, take out any piercings, leave all valuables at home. 4. If you wear glasses or contacts, please bring a case for their safekeeping. 5. You will be sedated for the procedure. A responsible adult must drive you néstor e (no Uber, taxis or buses are allowed). If you do not have a fence post driver we will be unable to do the test. 6. Please plan to be here approximately 2 hours and encourage your fence post driver to be within 20 minutes of the facility. 8. You will not be able to return to work the same day if you have received s edation. 9. Please bring a list of your current medications and dosages with you. 10. Please bring your ID and insurance card along with any required copay/deduc tible. 11. Please wear a mask and have your fence post driver do the same (it does not have to be medical grade). YOUR MEDICATION INSTRUCTIONS FOR SURGERY: Before surgery Please follow these instructions regarding your insulin: * Only take half of your normal dose of your long acting insulin the night befor e procedure * Do not give yourself insulin the morning of procedure * If you have an insulin pump: 1) Keep basil rate 2) Eliminate bolus doses Morning of surgery On the morning of surgery, do NOT take these medications: Insulin/diabetic meds Ointments/creams/lotions SOY/ARB meds Water pills On the morning of surgery, take ONLY these medications with a sip (1-2 ounces) o f water: Beta blockers/calcium channel blockers Scheduled pain medications Acid reducers May take thyroid medications KEEPING YOU SAFE THE HEALTH AND SAFETY OF OUR PATIENTS, STAFF AND PHYSICIANS IS OUR TOP PRIORI TY. TO REDUCE THE RISK OF POSSIBLE COVID-19 EXPOSURE WE ARE TAKING THE PROPER [place] ECAUTIONS LISTED BELOW * YOU ARE PERMITTED 1 VISITOR IN THE WAITING AREA. * ALL PATIENTS AND THEIR RESPONSIBLE ADULT (IF ENTERING THE FACILITY) WILL BE SC REENED ON THE DATE OF SERVICE UPON ARRIVAL AND BE REQUIRED TO WEAR A MASK WHILE INSIDE THE FACILITY. * ALL PATIENTS MUST SELF QUARANTINE AFTER COVID-19 TESTING/SCREENING UNTIL THEIR SCHEDULED PROCEDURE. * NOTIFY YOUR SURGEON IF YOU HAVE ANY SIGNIFICANT HEALTH STATUS CHANGES OR SHOUL D YOU BECOME ILL PRIOR TO SURGERY WITH FEVER (TEMP 100.4 FAHRENHEIT OR GREATER) AND/OR COUGH, DIFFICULTY BREATHING, CHILLS, MUSCLE PAIN, HEADACHE, SORE THROAT O R NEW ONSET LOSS OF TASTE OR SMELL, OR NEW SUSPECTED EXPOSURE TO COVID-19. ___ COVID-19 TESTING * ALL PATIENTS MUST SELF QUARANTINE AFTER COVID-19 TESTING/SCREENING UNTIL THEIR SCHEDULED PROCEDURE. Pre-Admissions Testing JOHN LOPEZ [facility] [email or web address] [address] [place] [address] (Main) [phone](PAT) [email or web address] [employer] documented in this encounter Plan of Treatment Care Team Description Date [place] [address] [place] [address] Portal hypertension (HCC) 09/11/2021 Hospital Gastroenterology [place] [address] [place] [address] ESOPHAGOGASTRODUODENOSCOPY WITH SPECIMEN COLLECTION BY BRUSHING/ WASHING 09/11/2021 Surgery Gastroenterology Date/Time Name Priority Associated Diagnose s 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 ESOPHAGOGASTRODUODENOSCOPY WITH SPECIMEN Portal hyp ertension (HCC) COLLECTION BY BRUSHING/ WASHING 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 COLONOSCOPY DIAGNOSTIC WITH SPECIMEN Portal hyperte nsion (HCC) COLLECTION BY BRUSHING/ WASHING - FLEXIBLE documented as of this encounter Procedures Comments Procedure Name Priority Date/Time Associated Diag nosis HC NON-WELL SHOOTER/THIN PREP Routine 08/09/2021 Alcoholic cirrhosis of 9:06 AM CDT liver without ascites (HCC) Non-Hodgkin's lymphoma, unspecified body region, unspecified non-Hodgkin lymphoma type (HCC) HC LVL IV SRG PTH, GROSS Routine 08/09/2021 Alcoh olic cirrhosis of & MICRO 9:02 AM CDT liver without ascit es (HCC) Non-Hodgkin's lymphoma, unspecified body region, unspecified non-Hodgkin lymphoma type (HCC) COLONOSCOPY WITH SNARE 08/09/2021 Alcoholic cirr hosis of REMOVAL TUMOR/ POLYP/ 8:53 AM CDT liver without a scites OTHER LESION (HCC) Non-Hodgkin's lymphoma, unspecified body region, unspecified non-Hodgkin lymphoma type (HCC) Special Needs 4 day reminder call// 08.05.2021 Spoke with pt regarding arrival time. MY08/01/20 21 - Patient to get Covid PCR Screening at [facility] [employer] in [place], [place], order faxed 08/01/2021 - DM07/08: Pt's 07/12/21 appt at [facility] cxl'd per [facility] Anesthesi a due to significan t liver disease and recent thoracente sis. Referral transferre d to [facility] for scheduling . KF ESOPHAGOGASTRODUODENOSCOP 08/09/2021 Alcoholic c irrhosis of Y WITH SPECIMEN 8:53 AM CDT liver without ascit es COLLECTION BY BRUSHING/ (HCC) WASHING Non-Hodgkin's lymphoma, unspecified body region, unspecified non-Hodgkin lymphoma type (HCC) Special Needs 4 day reminder call/08.05.2021 Spoke with pt regarding arrival time. MY08/01/20 21 - Patient to get Covid PCR Screening at [facility] in [place], [place], order faxed 08/01/2021 - DM07/08: Pt's 07/12/21 appt at [facility] cxl'd per [facility] Anesthes[facility] due to significan t liver disease and recent thoracente sis. Referral transferre d to [facility] for scheduling . KF ESOPHAGOGASTRODUODENOSCOP 08/09/2021 Alcoholic c irrhosis of Y WITH BAND LIGATION 8:53 AM CDT liver without as cites ESOPHAGEAL/ GASTRIC (HCC) VARICES - FLEXIBLE Non-Hodgkin's lymphoma, unspecified body region, unspecified non-Hodgkin lymphoma type (HCC) Special Needs 4 day reminder call/08.05.2021 Spoke with pt regarding arrival time. MY08/01/20 21 - Patient to get Covid PCR Screening at [facility] in [place], [place], order faxed 08/01/2021 - DM07/08: Pt's 07/12/21 appt at [facility] cxl'd per [facility] Anest[facility] due to significan t liver disease and recent thoracente sis. Referral transferre d to [facility] for scheduling . KF COLONOSCOPY DIAGNOSTIC 08/09/2021 Alcoholic cirr hosis of WITH SPECIMEN COLLECTION 8:53 AM CDT liver withou t ascites BY BRUSHING/ WASHING - (HCC) FLEXIBLE Non-Hodgkin's lymphoma, unspecified body region, unspecified non-Hodgkin lymphoma type (HCC) Special Needs 4 day reminder call/08.05.2021 Spoke with pt regarding arrival time. MY08/01/20 21 - Patient to get Covid PCR Screening at [facility] in [place], [place], order faxed 08/01/2021 - DM07/08: Pt's 07/12/21 appt at [facility] cxl'd per [facility] Anest[facility] due to significan t liver disease and recent thoracente sis. Referral transferre d to [facility] for scheduling . KF EGD REPORT 08/09/2021 8:47 AM CDT COLONOSCOPY 08/09/2021 8:45 AM CDT documented in this encounter Results * CYTOLOGY ALIMENTARY (08/09/2021 9:06 AM CDT) Cytology [facility] [email or web address] Department of Pathology and Laboratory Medicine [address] [place] [address] Surgical Pathology Office: [phone] CYTOLOGY REPORT NAME: KAREN HUNT CYTOLOGY #: [id number] MR #: [id number] ALT ID #: BILLING #: [id number] LOCATION: GIEND DATE OF PROCEDURE: 08/09/2021 AGE: 60 SEX: M DATE RECEIVED: 08/09/2021 : 1960 TIME RECEIVED: 09:53 PHYSICIAN: ABAD AVENDAÑO DATE OF REPORT: 08/09/2021 COPY TO: DATE OF PRINTIN08/09/2021 Material Received: A: Esophageal Brushing History: 60-year-old male with history of follicular lymphoma. Gross Description: (1 ThinPrep) Received 1 brush in 20mL of clear, colorless fluid. ############################## ############################## ############ Final Diagnosis: A. Esophageal Brushing: Negative for malignant cells. Fungal organisms compatible with Sydnie species. Attestation: By this signature, I attest that I have personally formulated the final interpretation expressed in this report and that the above diagnosis is based upon my examination of the slides and/or other material indicated in this report. +++Electronically Signed Out By+++ af/08/09/2021 Interpreted by: MD Cori Joyner DO, Resident Specimen Tissue specimen (specimen) - Esophagus Performing Organization Address City/State/ZIP Code P catrina Number [facility] [address] [place] [address] * SURGICAL PATHOLOGY (08/09/2021 9:02 AM CDT) PATHOLOGY [facility] [employer] [facility] [email or web address] Department of Pathology and Laboratory Medicine [address] [place] [address] Surgical Pathology Office: [phone] SURGICAL PATHOLOGY REPORT NAME: KAREN HUNT SURG PATH #: [id number] MR #: [id number] SPECIMEN CLASS: SR BILLING #: [id number] ALT ID #: LOCATION: GIENDO DATE OF PROCEDURE: 08/09/2021 AGE: 60 SEX: M DATE RECEIVED: 08/09/2021 : 1960 TIME RECEIVED: 10:03 PHYSICIAN: ABAD AVENDAÑO DATE OF REPORT: 08/13/2021 COPY TO: DATE OF PRINTIN08/13/2021 ############################## ############################## ############ Final Diagnosis: A. Gastric mucosa, "gastric bxs r/o h. pylori", biopsy: Portal hypertensive gastropathy. No H. pylori-like organisms are identified on H and E sections. B. Colonic mucosa, "ascending colon polyp", biopsy: Predominantly fecal material with minute fragment of unremarkable colonic epithelium. C. Colonic mucosa, "descending colon polyp", biopsy: Tubular adenoma. Attestation: By this signature, I attest that I have personally formulated the final interpretation expressed in this report and that the above diagnosis is based upon my examination of the slides and/or other material indicated in this report. +++ +++ Baldo Ojeda DO, Resident azw/08/09/2021 ############################## ############################## ############ Material Received: A: gastric bxs r/o h. pylori B: ascending colon polyp C: descending colon polyp History: 60-year-old male with a history of alcoholic cirrhosis of liver without ascites, non-Hodgkin's lymphoma, unspecified body region, unspecified non-Hodgkin lymphoma type. A. Rule out h pylori. Gross Description: A. Received in formalin labeled "gastric biopsies, rule out H. pylori" is a 0.8 x 0.5 x 0.1 cm aggregate of bernardo-brown soft tissue fragments. The specimen is entirely submitted in cassette A1. (bnk) B. Received in formalin labeled "ascending colon polyp" is a 2.9 x 1.0 x 0.1 cm aggregate of potential bernardo-brown soft tissue fragments admixed with fecal material. The specimen is entirely submitted in cassette B1. (bnk) C. Received in formalin labeled "descending colon polyp" is a 1.2 x 0.7 x 0.1 cm aggregate of bernardo-brown soft tissue fragments admixed with fecal material. The specimen is entirely submitted in cassette C1. (bnk) bk/08/09/2021 Specimen Tissue specimen (specimen) - Stomach Tissue specimen (specimen) - Colonic loop structure (body structure) Tissue specimen (specimen) - Colonic loop structure (body structure) Performing Organization Address City/State/ZIP Code P catrina Number [facility] [address] [place] [address] * EGD REPORT (08/09/2021 8:47 AM CDT) Provation Patient Name: Marilee LOPEZ OTHER Report Procedure Date: 08/09/2021 RESULTS 8:47 AM [facility]: [id number] Date of : 1960 Gender: Male Attending Physician: Abad Avendaño , Procedure: Upper GI endoscopy Indications: Cirrhosis rule out esophageal varices, decompensated cirrhosis, here for index EV screening Providers: Abad Avendaño (Doctor), Lida Harvey (Nurse), Mary Carbajal (Extermination Supervisor), Radha Go (Extermination Supervisor) Referring Physician: Jimi Hale MD Medications: Monitored Anesthesia Care Complications: No immediate complications. Procedure: Pre-Anesthesia Assessment: - Prior to the procedure, a History and Physical was performed, and patient medications and allergies were reviewed. The patient's tolerance of previous anesthesia was also reviewed. The risks and benefits of the procedure and the sedation options and risks were discussed with the patient. All questions were answered, and informed consent was obtained. Prior Anticoagulants: The patient has taken no anticoagulant or antiplatelet agents. ASA Grade Assessment: III - A patient with severe systemic disease. After reviewing the risks and benefits, the patient was deemed in satisfactory condition to undergo the procedure. - Prior to the procedure, a History and Physical was performed, and patient medications and allergies were reviewed. The patient is competent. The risks and benefits of the procedure and the sedation options and risks were discussed with the patient. All questions were answered and informed consent was obtained. Patient identification and proposed procedure were verified by the physician, the nurse, the therapeutic specialist and the wheel alignment technician in the endoscopy suite. Mental Status Examination: alert and oriented. ASA Grade Assessment: III - A patient with severe systemic disease. After reviewing the risks and benefits, the patient was deemed in satisfactory condition to undergo the procedure. The anesthesia plan was to use monitored anesthesia care (MAC). Immediately prior to administration of medications, the patient was re-assessed for adequacy to receive sedatives. The heart rate, respiratory rate, oxygen saturations, blood pressure, adequacy of pulmonary ventilation, and response to care were monitored throughout the procedure. The physical status of the patient was re-assessed after the procedure. After obtaining informed consent, the endoscope was passed under direct vision. Throughout the procedure, the patient's blood pressure, pulse, and oxygen saturations were monitored continuously. The Endoscope was introduced through the mouth, and advanced to the second part of duodenum. The upper GI endoscopy was accomplished without difficulty. The patient tolerated the procedure well. Findings: The Z-line was irregular and was found 40 cm from the incisors. Large (> 5 mm) varices in two columns were found in the middle third of the esophagus and in the lower third of the esophagus. Three bands were successfully placed with complete eradication, resulting in deflation of varices. There was minimal bleeding upon deployment of the band however no bleeding at the end of the procedure. Diffuse, white plaques were found in the upper third of the esophagus. Cells for cytology (rule out Sydnie) were obtained by brushing. Estimated blood loss was minimal. Moderate portal hypertensive gastropathy was found in the gastric body. No gastric varices. Mild gastric antral vascular ectasia with contact bleeding was present in the gastric antrum. Oozing stopped spontaneously by the end of the procedure. No APC was performed due to normal hemoglobin level. Two non-bleeding superficial duodenal ulcers with no stigmata of bleeding were found in the duodenal bulb. The largest lesion was 3 mm in largest dimension. Biopsies were taken from the stomach with a cold forceps for Helicobacter pylori testing. Impression: - Z-line irregular, 40 cm from the incisors. - Large (> 5 mm) esophageal varices. Completely eradicated. Banded. - Esophageal plaques were found, suspicious for candidiasis. Cells for cytology obtained. - Portal hypertensive gastropathy. - Gastric antral vascular ectasia with bleeding. - Non-bleeding duodenal ulcers with no stigmata of bleeding. Biopsied. Estimated Blood Loss: Estimated blood loss was minimal. Recommendation: - Patient has a contact number available for emergencies. The signs and symptoms of potential delayed complications were discussed with the patient. Return to normal activities tomorrow. Written discharge instructions were provided to the patient. - Resume previous diet. - Continue present medications. - Await pathology and cytology results. - Repeat upper endoscopy in 4 weeks for retreatment of esophageal varices. - Proceed to colonoscopy. Scope In: 8:58:53 AM Scope Out: 9:13:46 AM Total Procedure Duration Time 0 hours 14 minutes 53 seconds Procedure Code(s): --- Professional --- 29465, Esophagogastroduodenoscopy, flexible, transoral; with band ligation of esophageal/gastric varices 35205, Esophagogastroduodenoscopy, flexible, transoral; with biopsy, single or multiple Diagnosis Code(s): --- Professional --- K22.8, Other specified diseases of esophagus K74.60, Unspecified cirrhosis of liver I85.10, Secondary esophageal varices without bleeding K22.9, Disease of esophagus, unspecified K76.6, Portal hypertension K31.89, Other diseases of stomach and duodenum K31.811, Angiodysplasia of stomach and duodenum with bleeding K26.9, Duodenal ulcer, unspecified as acute or chronic, without hemorrhage or perforation CPT copyright 2020 [employer]. All rights reserved. The codes documented in this report are preliminary and upon glove former review may be revised to meet current compliance requirements. Attending Participation: I personally performed the entire procedure. MD Abad Mcpherson, 08/09/2021 9:44:39 AM The attending physician has electronically signed and finalized this document. Number of Addenda: 0 Note Initiated On: 08/09/2021 8:47 AM Specimen Performing Organization Address City/State/ZIP Code Cynthia LOPEZ OTHER RESULTS * COLONOSCOPY (08/09/2021 8:45 AM CDT) Provation Patient Name: Marilee LOPEZ OTHER Report Procedure Date: 08/09/2021 RESULTS 8:45 AM CSN: [id number] Date of : 1960 Gender: Male Attending Physician: Abad Avendaño , Procedure: Colonoscopy Indications: High risk colon cancer surveillance: Personal history of colonic polyps, patient here for surveillance, documented 2016 with x1 TA Providers: Abad Avendaño (Doctor), Lida Harvey (Nurse), Mary Carbajal (Extermination Supervisor), Radha Go (Extermination Supervisor) Referring Physician: Jimi Hale MD Medications: Monitored Anesthesia Care Complications: No immediate complications. Procedure: Pre-Anesthesia Assessment: - Prior to the procedure, a History and Physical was performed, and patient medications and allergies were reviewed. The patient's tolerance of previous anesthesia was also reviewed. The risks and benefits of the procedure and the sedation options and risks were discussed with the patient. All questions were answered, and informed consent was obtained. Prior Anticoagulants: The patient has taken no anticoagulant or antiplatelet agents. ASA Grade Assessment: III - A patient with severe systemic disease. After reviewing the risks and benefits, the patient was deemed in satisfactory condition to undergo the procedure. - Prior to the procedure, a History and Physical was performed, and patient medications and allergies were reviewed. The patient is competent. The risks and benefits of the procedure and the sedation options and risks were discussed with the patient. All questions were answered and informed consent was obtained. Patient identification and proposed procedure were verified by the physician, the nurse, the therapeutic specialist and the wheel alignment technician in the endoscopy suite. Mental Status Examination: alert and oriented. ASA Grade Assessment: III - A patient with severe systemic disease. After reviewing the risks and benefits, the patient was deemed in satisfactory condition to undergo the procedure. The anesthesia plan was to use monitored anesthesia care (MAC). Immediately prior to administration of medications, the patient was re-assessed for adequacy to receive sedatives. The heart rate, respiratory rate, oxygen saturations, blood pressure, adequacy of pulmonary ventilation, and response to care were monitored throughout the procedure. The physical status of the patient was re-assessed after the procedure. After I obtained informed consent, the scope was passed under direct vision. Throughout the procedure, the patient's blood pressure, pulse, and oxygen saturations were monitored continuously. The Colonoscope 8207 was introduced through the anus and advanced to the cecum, identified by appendiceal orifice and ileocecal valve. The colonoscopy was performed without difficulty. The patient tolerated the procedure well. The ileocecal valve, appendiceal orifice, and rectum were photographed. The quality of the bowel preparation was evaluated using the BBPS ([place] Bowel Preparation Scale) with scores of: Right Colon = 1 (portion of mucosa seen, but other areas not well seen due to staining, residual stool and/or opaque liquid), Transverse Colon = 2 (minor amount of residual staining, small fragments of stool and/or opaque liquid, but mucosa seen well) and Left Colon = 1 (portion of mucosa seen, but other areas not well seen due to staining, residual stool and/or opaque liquid). The total BBPS score equals 4. Findings: The perianal and digital rectal examinations were normal. A moderate amount of liquid semi-liquid stool was found in the entire colon, interfering with visualization. There was thick adherent mucus that clung to the colon wall and was difficult to remove with lavage. Small or flat polyps could have easily been missed. A 3 mm polyp was found in the ascending colon. The polyp was sessile. The polyp was removed with a cold snare. Resection and retrieval were complete. Estimated blood loss was minimal. A 5 mm polyp was found in the descending colon. The polyp was sessile. The polyp was removed with a cold snare. Resection and retrieval were complete. Estimated blood loss was minimal. Impression: - Stool in the entire examined colon. - One 3 mm polyp in the ascending colon, removed with a cold snare. Resected and retrieved. - One 5 mm polyp in the descending colon, removed with a cold snare. Resected and retrieved. - Non-bleeding external hemorrhoids. Estimated Blood Loss: Estimated blood loss was minimal. Recommendation: - Patient has a contact number available for emergencies. The signs and symptoms of potential delayed complications were discussed with the patient. Return to normal activities tomorrow. Written discharge instructions were provided to the patient. - Resume previous diet. - Continue present medications. - Repeat colonoscopy in 1 year because the bowel preparation was poor. - Return to referring physician as previously scheduled. - Await pathology results. - Discharge patient to home. Scope In: 9:19:11 AM Scope Out: 9:39:22 AM Scope Withdrawal Time 0 hours 18 minutes 42 seconds Total Procedure Duration Time 0 hours 20 minutes 11 seconds Procedure Code(s): --- Professional --- 52634, Colonoscopy, flexible; with removal of tumor(s), polyp(s), or other lesion(s) by snare technique Diagnosis Code(s): --- Professional --- Z86.010, Personal history of colonic polyps K64.4, Residual hemorrhoidal skin tags K63.5, Polyp of colon CPT copyright 2020 [employer]. All rights reserved. The codes documented in this report are preliminary and upon glove former review may be revised to meet current compliance requirements. Attending Participation: I personally performed the entire procedure. MD Abad Mcpherson, 08/09/2021 9:59:13 AM The attending physician has electronically signed and finalized this document. Number of Addenda: 0 Note Initiated On: 08/09/2021 8:45 AM Specimen Performing Organization Address City/State/ZIP Code P catrina Number [facility] OTHER RESULTS documented in this encounter Visit Diagnoses Diagnosis Alcoholic cirrhosis of liver without as cites (HCC) Alcoholic cirrhosis of liver Non-Hodgkin's lymphoma, unspecified bod y region, unspecified non-Hodgkin lymphoma type (HCC) Alcoholic cirrhosis of liver without as cites (HCC) Alcoholic cirrhosis of liver Non-Hodgkin's lymphoma, unspecified bod y region, unspecified non-Hodgkin lymphoma type (HCC) Portal hypertension (HCC) Portal hypertension documented in this encounter Administered Medications Action Date Dose Rate Site Medication Order MAR Action 08/09/2021 9:21 AM CDT 60 mL sterile water/simethicone irrigation Given INTRA-PROCEDURE MED, Starting on Thu08/09/21 at 0921, Until Thu08/09/21 at 0943, Intra-op documented in this encounter Active and Recently Administered Medications Times are shown in CDT. 08/08/2021 08/09/2021 Medication Order 08/07/2021 0852 (Given - New Bag - Provider: Zhao Cortez CRNA)0852 (Anesthesia Continue from Pre-Post - Provider: Abad Avendaño DO)0940 (Infusion Stopped - Provider: Perri Cortez CRNA) lactated ringers infusion (COMPLETED) 1,000 mL, 1,000 mL, Intravenous, at 20 mL/hr, ONCE, 1 dose, On Thu08/09/21 at 0900 08/08/2021 08/09/2021 Medication Order 08/07/2021 0921 (Given - Provider: Abad Avendaño DO) sterile water/simethicone irrigation (CANCELED) INTRA-PROCEDURE MED, Starting on Thu08/09/21 at 0921, Until Thu08/09/21 at 0943, Intra-op documented in this encounter Orders First Ordered Date Medications Ordered That Might Not Have Count Last Ordered Date Been Administered lactated ringers infusion 1 08/09/2021 First Ordered Date Discharge Count Last Ordered Date DISCHARGE PATIENT NOW 08/09/2021 documented in this encounter Additional Health Concerns Noted Time Assessment 08/09/2021 8:26 AM CDT A fall risk assessment has been complet ed for the patient 07/03/2021 10:39 AM CDT PHQ-2 Depression Total Score: 2 documented as of this encounter Care Teams Start Date End Date [employer] Operator Relationship Specialty 04/30/21 Kulwant Stephens DO PCP - General Internal [address] [place] [address] documented as of this encounter
--- OUTSIDE RECORDS SUMMARY | 2021-09-05 21:54 | XMS REPORT | Encounter Summary ---
Author Author [facility] Organization [facility] Address Unknown Phone Unavailable Care Team Providers Care Structural Metal Fabricator Apprentice Name Role Phone Angelo Watkins DO, Casey PCP Francisco Coello MD Unavailable Bonita Cerrato APRN-HEATING TECHNICIAN Unavailable [phone] Jimi Hale MD Unavailable Encounter Details Care Team Description Date [place] [address] [place] [address] Encounter for screening laboratory testi ng for COVID-19 virus in asymptomatic patient 09/03/2021 Orders Only Endoscopy: [address] [place] [id number] Social History Date Tobacco Use Types Packs/Day Years Used Current Every Day Smoker Cigarettes 1.5 Smokeless Tobacco: Former Chew User Comments Alcohol Use Standard Drinks/Week Not Currently 0 (1 standard drink = 0.6 o z pure alcohol) Sex Assigned at Date Recorded Male 08/21/2021 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 Date Recorded COVID-19 Exposure Response 08/16/2021 12:23 [...] impairment: No documented as of this encounter Plan of Treatment Care Team Description Date [place] [address] [place], [place] [id number] Portal hypertension (HCC) 09/11/2021 Hospital Gastroenterology [place] [address] [place] [address] ESOPHAGOGASTRODUODENOSCOPY WITH SPECIMEN COLLECTION BY BRUSHING/ WASHING 09/11/2021 Surgery Gastroenterology Order Schedule Name Type Priority Associated Diag noses Expected: 09/08/2021 (Approximate), Expi res: 09/03/2022 COVID-19 (SARS-COV-2) PCR Microbiology Routine Enco unter for screening laboratory testing for COVID-19 virus in asymptomatic patient Date/Time Name Priority Associated Diagnose s 09/11/2021 3:25 PM CASING CREW PUSHER ESOPHAGOGASTRODUODENOSCOPY WITH SPECIMEN Portal hyp ertension (HCC) COLLECTION BY BRUSHING/ WASHING 09/11/2021 3:25 PM CASING CREW PUSHER COLONOSCOPY DIAGNOSTIC WITH SPECIMEN Portal hyperte nsion (HCC) COLLECTION BY BRUSHING/ WASHING - FLEXIBLE documented as of this encounter Visit Diagnoses Diagnosis Encounter for screening laboratory test ing for COVID-19 virus in asymptomatic patient Portal hypertension (HCC) Portal hypertension documented in this encounter Additional Health Concerns Noted Time Assessment 08/16/2021 3:15 PM CDT A fall risk assessment has been complet ed for the patient 08/16/2021 10:26 AM CDT PHQ-2 Depression Total Score: 0 documented as of this encounter Care Teams Start Date End Date Structural Metal Fabricator Apprentice Relationship Specialty 04/30/21 Kulwant tSephens DO PCP - General Internal [address] [place] [address] 08/17/21 Francisco Coello MD Hematology, [address] [place] [address] Medicine 08/17/21 Bonita Cerrato, Nurse CHANNEL ROUGHER-HEATING TECHNICIAN Practitioner [address] [place] [address] [facility] 08/17/21 Jimi Hale MD Gastroentero [address] [facility] [id number] [place] [address] documented as of this encounter
--- OUTSIDE RECORDS SUMMARY | 2021-09-05 21:54 | XMS REPORT | Encounter Summary ---
Author Author [facility] Organization [facility] Address Unknown Phone Unavailable Care Team Providers Care Chief Legal Officer Name Role Phone Angelo Watkins DO, Casey PCP Reason for Referral * Radiology Services (Routine) - New Request Diagnoses / Procedures Referred By Contact Referred To Conta ct Specialty Diagnoses Alcoholic cirrhosis of liver with ascites (HCC) Procedures US ABDOMEN COMPLETE Bonita Cerrato APRN-NP [address] [place] [address] Radiology Referral ID Status Reason Start Date Expiration Visits Vi sits Date Requested Authorized [id number] New Request 08/08/2021 08/08/2022 1 1 * Radiology Services (Routine) - New Request Diagnoses / Procedures Referred By Contact Referred To Conta ct Specialty Diagnoses Alcoholic cirrhosis of liver with ascites (HCC) Procedures US DOPPLER ABD PELV RETROPER COMP Bonita Cerrato APRN-NP [address] [place] [address] Radiology Referral ID Status Reason Start Date Expiration Visits Vi sits Date Requested Authorized [id number] New Request 08/08/2021 08/08/2022 1 1 Reason for Visit * Reason Onset Date Comments Other 08/06/2021 cancellation Encounter Details Care Team Description Date Type Department Bonita Cerrato APRN-NP [address] [place] [address] Other (cancellation) 08/06/2021 Telephone Transplant: Main Ca mpus, [facility] 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 US a bdomen scheduled for 08/09 @ 2:30 pm [facility]. Patient rescheduled to see Darline Cerrato in person Thursday 08/16 @ 1130 * Telephone Encounter - Zulema Sorensen - 08/06/2021 10:54 AM CDT Call from [facility] asking to reschedule today's appointment with Bonita Cerrato d ue to transportation. Please retur his call. documented in this encounter Plan of Treatment Care Team Description Date [place] [address] [place], [place] [address] Portal hypertension (HCC) 09/11/2021 Hospital Gastroenterology [place] [address] [place] [address] ESOPHAGOGASTRODUODENOSCOPY WITH SPECIMEN COLLECTION BY BRUSHING/ WASHING 09/11/2021 Surgery Gastroenterology Date/Time Name Priority Associated Diagnose s 09/11/2021 3:25 PM ON AIR PERSONALITY ESOPHAGOGASTRODUODENOSCOPY WITH SPECIMEN Portal hyp ertension (HCC) COLLECTION BY BRUSHING/ WASHING 09/11/2021 3:25 PM ON AIR PERSONALITY COLONOSCOPY DIAGNOSTIC WITH SPECIMEN Portal hyperte nsion (HCC) COLLECTION BY BRUSHING/ WASHING - FLEXIBLE documented as of this encounter Results * US ABDOMEN COMPLETE (08/09/2021 3:05 PM CDT) Modality Anatomical Region Laterality Ultrasound Abdomen Specimen Impressions [facility] - 08/09/2021 3:12 PM CDT 1. US-3, positive. Visualization score A. Further evaluation with multiphase CT or MRI of the abdomen recommended. 2. Patent hepatic vasculature. 3. Bilateral pleural effusions and sma ll volume ascites. Ultrasound LI-RADS (v2017) assessment categories US-1, negative: No US evidence of HCC US-2, subthreshold: Observation detected that may warrant short-term US surveillance US-3, positive: Observation detected that may warrant contrast-enhanced imaging US visualization score A: No or minimal limitations B: Moderate limitations C: Severe limitations [email or web address]/Clinical-Resources/[email or web address]-[email or web address]/[email or web address] Finalized by Abad Raines MD on 08/09/2021 3:12 PM. Dictated by Abad Raines MD on 08/09/2021 3:02 PM. Narrative [facility] RESULTS - 08/09/2021 3:12 PM CDT ABDOMINAL ULTRASOUND WITH DOPPLER CLINICAL INDICATION: Male, 60 year old; alcoholic cirrhosis. Hepatocellular carcinoma screening. TECHNIQUE: Multiple grayscale, color Doppler and spectral Doppler ultrasound images were obtained through the abdomen. COMPARISON: Outside facility CT cap 11/30/2020. Outside ultrasound 12/28/2020. FINDINGS: Liver and Biliary System: Normal size. The liver is coarse in echotexture. There is surface nodularity. Two echogenic and one isoechoic observations are seen throughout the right hepatic lobe measuring up to 1.1 x 1.2 x 1.3 cm. The isoechoic observation adjacent to the gallbladder fossa demonstrates peripheral vascularity and measures up to 1.1 cm. No intrahepatic bile duct dilatation. The common duct measures 0.4 cm at the alvin hepatis. The gallbladder is distended without intraluminal filling defects or gallbladder wall thickening. Main portal vein: Patent, antegrade flow with peak velocity 27 cm/s. Right and left portal veins: Patent, antegrade flow. Splenic vein: Normal direction of flow at the splenic hilum. Obscured at midline by overlying bowel gas. IVC: Patent, normal pulsatility. Hepatic veins: Patent, increased pulsatility. Hepatic arteries: Normal systolic acceleration; PHA resistive index is 0.7, PSV is 110 cm/sec. Note is made of a recanalized periumbilical vein. Pancreas: Visualized portions of the pancreas are unremarkable. Spleen: Upper limits of normal measuring 12.9 cm in length. Kidneys: The right kidney measures 10.1 x 5.4 cm. The left kidney measures 12.2 x 4.7 cm. No hydronephrosis. Bladder: Unremarkable. Aorta: Visualized portions are normal in caliber. Peritoneal Space: Small volume ascites. Lower chest: Bilateral pleural effusions. Procedure Note Abad Raines MD - 08/09/2021 ABDOMINAL ULTRASOUND WITH DOPPLER CLINICAL INDICATION: Male, 60 year old; alcoholic cirrhosis. Hepatocellular carcinoma screening. TECHNIQUE: Multiple grayscale, color Doppler and spectral Doppler ultrasound images were obtained through the abdomen. COMPARISON: Outside facility CT cap 11/30/2020. Outside ultrasound 12/28/2020. FINDINGS: Liver and Biliary System: Normal size. The liver is coarse in echotexture. There is surface nodularity. Two echogenic and one isoechoic observations are seen throughout the right hepatic lobe measuring up to 1.1 x 1.2 x 1.3 cm. The isoechoic observation adjacent to the gallbladder fossa demonstrates peripheral vascularity and measures up to 1.1 cm. No intrahepatic bile duct dilatation. The common duct measures 0.4 cm at the alvin hepatis. The gallbladder is distended without intraluminal filling defects or gallbladder wall thickening. Main portal vein: Patent, antegrade flow with peak velocity 27 cm/s. Right and left portal veins: Patent, antegrade flow. Splenic vein: Normal direction of flow at the splenic hilum. Obscured at midline by overlying bowel gas. IVC: Patent, normal pulsatility. Hepatic veins: Patent, increased pulsatility. Hepatic arteries: Normal systolic acceleration; PHA resistive index is 0.7, PSV is 110 cm/sec. Note is made of a recanalized periumbilical vein. Pancreas: Visualized portions of the pancreas are unremarkable. Spleen: Upper limits of normal measuring 12.9 cm in length. Kidneys: The right kidney measures 10.1 x 5.4 cm. The left kidney measures 12.2 x 4.7 cm. No hydronephrosis. Bladder: Unremarkable. Aorta: Visualized portions are normal in caliber. Peritoneal Space: Small volume ascites. Lower chest: Bilateral pleural effusions. IMPRESSION 1. US-3, positive. Visualization score A. Further evaluation with multiphase CT or MRI of the abdomen recommended. 2. Patent hepatic vasculature. 3. Bilateral pleural effusions and smal l volume ascites. Ultrasound LI-RADS (v2017) assessment categories US-1, negative: No US evidence of HCC US-2, subthreshold: Observation detected that may warrant short-term US surveillance US-3, positive: Observation detected that may warrant contrast-enhanced imaging US visualization score A: No or minimal limitations B: Moderate limitations C: Severe limitations [email or web address].acr.org/Clinical-Resources/Cpzgcmjeg-jbi-Cmdj-Systems/LI-[email or web address] Finalized by Abad Raines MD on 08/09/2021 3:12 PM. Dictated by Abad Raines MD on 08/09/2021 3:02 PM. Performing Organization Address City/State/ZIP Code P catrina Number [facility] * US DOPPLER ABD PELV RETROPER COMP (08/09/2021 3:05 PM CDT) Modality Anatomical Region Laterality Ultrasound Abdomen, Pelvis, Vascular Specimen Impressions [facility]ULTS - 08/09/2021 3:12 PM CDT 1. US-3, positive. Visualization score A. Further evaluation with multiphase CT or MRI of the abdomen recommended. 2. Patent hepatic vasculature. 3. Bilateral pleural effusions and sma ll volume ascites. Ultrasound LI-RADS (v2017) assessment categories US-1, negative: No US evidence of HCC US-2, subthreshold: Observation detected that may warrant short-term US surveillance US-3, positive: Observation detected that may warrant contrast-enhanced imaging US visualization score A: No or minimal limitations B: Moderate limitations C: Severe limitations [email or web address].acr.org/Clinical-Resources/Hezfurcpy-qyl-Ssua-Systems/LI-RADS Finalized by Abad Raines MD on 08/09/2021 3:12 PM. Dictated by Abad Raines MD on 08/09/2021 3:02 PM. Narrative [facility] RESULTS - 08/09/2021 3:12 PM CDT ABDOMINAL ULTRASOUND WITH DOPPLER CLINICAL INDICATION: Male, 60 year old; alcoholic cirrhosis. Hepatocellular carcinoma screening. TECHNIQUE: Multiple grayscale, color Doppler and spectral Doppler ultrasound images were obtained through the abdomen. COMPARISON: Outside facility CT cap 11/30/2020. Outside ultrasound 12/28/2020. FINDINGS: Liver and Biliary System: Normal size. The liver is coarse in echotexture. There is surface nodularity. Two echogenic and one isoechoic observations are seen throughout the right hepatic lobe measuring up to 1.1 x 1.2 x 1.3 cm. The isoechoic observation adjacent to the gallbladder fossa demonstrates peripheral vascularity and measures up to 1.1 cm. No intrahepatic bile duct dilatation. The common duct measures 0.4 cm at the alvin hepatis. The gallbladder is distended without intraluminal filling defects or gallbladder wall thickening. Main portal vein: Patent, antegrade flow with peak velocity 27 cm/s. Right and left portal veins: Patent, antegrade flow. Splenic vein: Normal direction of flow at the splenic hilum. Obscured at midline by overlying bowel gas. IVC: Patent, normal pulsatility. Hepatic veins: Patent, increased pulsatility. Hepatic arteries: Normal systolic acceleration; PHA resistive index is 0.7, PSV is 110 cm/sec. Note is made of a recanalized periumbilical vein. Pancreas: Visualized portions of the pancreas are unremarkable. Spleen: Upper limits of normal measuring 12.9 cm in length. Kidneys: The right kidney measures 10.1 x 5.4 cm. The left kidney measures 12.2 x 4.7 cm. No hydronephrosis. Bladder: Unremarkable. Aorta: Visualized portions are normal in caliber. Peritoneal Space: Small volume ascites. Lower chest: Bilateral pleural effusions. Procedure Note Abad Raines MD - 08/09/2021 ABDOMINAL ULTRASOUND WITH DOPPLER CLINICAL INDICATION: Male, 60 year old; alcoholic cirrhosis. Hepatocellular carcinoma screening. TECHNIQUE: Multiple grayscale, color Doppler and spectral Doppler ultrasound images were obtained through the abdomen. COMPARISON: Outside facility CT cap 11/30/2020. Outside ultrasound 12/28/2020. FINDINGS: Liver and Biliary System: Normal size. The liver is coarse in echotexture. There is surface nodularity. Two echogenic and one isoechoic observations are seen throughout the right hepatic lobe measuring up to 1.1 x 1.2 x 1.3 cm. The isoechoic observation adjacent to the gallbladder fossa demonstrates peripheral vascularity and measures up to 1.1 cm. No intrahepatic bile duct dilatation. The common duct measures 0.4 cm at the alvin hepatis. The gallbladder is distended without intraluminal filling defects or gallbladder wall thickening. Main portal vein: Patent, antegrade flow with peak velocity 27 cm/s. Right and left portal veins: Patent, antegrade flow. Splenic vein: Normal direction of flow at the splenic hilum. Obscured at midline by overlying bowel gas. IVC: Patent, normal pulsatility. Hepatic veins: Patent, increased pulsatility. Hepatic arteries: Normal systolic acceleration; PHA resistive index is 0.7, PSV is 110 cm/sec. Note is made of a recanalized periumbilical vein. Pancreas: Visualized portions of the pancreas are unremarkable. Spleen: Upper limits of normal measuring 12.9 cm in length. Kidneys: The right kidney measures 10.1 x 5.4 cm. The left kidney measures 12.2 x 4.7 cm. No hydronephrosis. Bladder: Unremarkable. Aorta: Visualized portions are normal in caliber. Peritoneal Space: Small volume ascites. Lower chest: Bilateral pleural effusions. IMPRESSION 1. US-3, positive. Visualization score A. Further evaluation with multiphase CT or MRI of the abdomen recommended. 2. Patent hepatic vasculature. 3. Bilateral pleural effusions and smal l volume ascites. Ultrasound LI-RADS (v2017) assessment categories US-1, negative: No US evidence of HCC US-2, subthreshold: Observation detected that may warrant short-term US surveillance US-3, positive: Observation detected that may warrant contrast-enhanced imaging US visualization score A: No or minimal limitations B: Moderate limitations C: Severe limitations [email or web address]://www.acr.org/Clinical-Resources/Njtdplgfk-plc-Vqrt-Systems/LI-RADS Finalized by Abad Raines MD on 08/09/2021 3:12 PM. Dictated by Abad Raines MD on 08/09/2021 3:02 PM. Performing Organization Address City/State/ZIP Code P catrina Number [facility] RES[facility] documented in this encounter Visit Diagnoses Diagnosis Alcoholic cirrhosis of liver with ascit es (HCC) - Primary Alcoholic cirrhosis of liver Alcoholic cirrhosis of liver with ascit es (HCC) Alcoholic cirrhosis of liver Portal hypertension (HCC) Portal hypertension documented in this encounter Additional Health Concerns Noted Time Assessment 07/08/2021 9:26 AM CDT A fall risk assessment has been complet ed for the patient 07/03/2021 10:39 AM CDT PHQ-2 Depression Total Score: 2 documented as of this encounter Care Teams Start Date End Date Chief Legal Officer Relationship Specialty 04/30/21 Kulwant Stephens DO PCP - General Internal [address] [place] [address] documented as of this encounter
--- OUTSIDE RECORDS SUMMARY | 2021-09-05 21:54 | XMS REPORT | Encounter Summary ---
Author Author [facility] Organization [facility] Address Unknown Phone Unavailable Care Team Providers Care Drywall Stripper Helper Name Role Phone Angelo Watkins DO, Casey PCP Reason for Visit * Reason Onset Date Comments Follow-up Phone Call 07/29/2021 Encounter Details Care Team Description Date Type Department Jimi Hale MD [address] [facility] [id number] [place], [place] [id number] Follow-up Phone Call 07/29/2021 Telephone Transplant: Main Ca mpus, [facility] [address] [facility] [address] [place] [address] Social History Date Tobacco Use Types Packs/Day Years Used Current Every Day Smoker Cigarettes Smokeless Tobacco: Current User Comments Alcohol Use Standard Drinks/Week Not Currently 0 (1 standard drink = 0.6 o z pure alcohol) Sex Assigned at Date Recorded Male 08/21/2021 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 EGD/Colonscopy on 07/12 but was cancelled for unknown r easons (maybe need for thora d/t SOA) or because [facility] wouldn't accept based on l iver disease. Patient states he has not been called to reschedule. RN reached ou t to GI team to request patient be put back on the schedule at [facility] and notify [facility]TX team if patient will need to get thora prior. Requested 11/5 AM slot if possible d/t coordinating appts. Awaiting response. Advised patient RN will f/u once confirmed with GI. * Telephone Encounter - Zulema Sorensen - 07/29/2021 2:14 PM CDT Call from [facility] EGD and colonoscopy scheduling. Please return his vika l. documented in this encounter Plan of Treatment Care Team Description Date [place] [address] [place] [address] Portal hypertension (HCC) 09/11/2021 Hospital Gastroenterology [place] [address] [place] [address] ESOPHAGOGASTRODUODENOSCOPY WITH SPECIMEN COLLECTION BY BRUSHING/ WASHING 09/11/2021 Surgery Gastroenterology Date/Time Name Priority Associated Diagnose s 09/11/2021 3:25 PM DEBT RECOVERY OFFICER ESOPHAGOGASTRODUODENOSCOPY WITH SPECIMEN Portal hyp ertension (HCC) COLLECTION BY BRUSHING/ WASHING 09/11/2021 3:25 PM DEBT RECOVERY OFFICER COLONOSCOPY DIAGNOSTIC WITH SPECIMEN Portal hyperte nsion [...] encounter Care Teams Start Date End Date Drywall Stripper Helper Relationship Specialty 04/30/21 Kulwant Stephens DO PCP - General Internal [address] [place], [place] [id number] documented as of this encounter
--- OUTSIDE RECORDS SUMMARY | 2021-09-05 21:54 | XMS REPORT | Encounter Summary ---
Author Author [facility] Organization [facility] Address Unknown Phone Unavailable Care Team Providers Care Business Objects Analyst Name Role Phone Angelo Watkins DO, Casey PCP Reason for Visit * Auth/Cert Diagnoses / Procedures Referred By Contact Referred To Conta ct Specialty Diagnoses Alcoholic cirrhosis of liver without ascites (HCC) Non-Hodgkin's lymphoma, unspecified body region, unspecified non-Hodgkin lymphoma type (HCC) Alcoholic cirrhosis of liver without ascites (HCC) [K70.30] Non-Hodgkin's lymphoma, unspecified body region, unspecified non-Hodgkin lymphoma type (HCC) [C85.90] Procedures SC COLONOSCOPY FLX DX W/COLLJ SPEC WHEN PFRMD SC EGD TRANSORAL BIOPSY SINGLE/MULTIPLE COLONOSCOPY DIAGNOSTIC WITH SPECIMEN COLLECTION BY BRUSHING/ WASHING - FLEXIBLE ESOPHAGOGASTRODUODENOSCOPY WITH BIOPSY - FLEXIBLE Referral ID Status Reason Start Date Expiration Visits Vi sits Date Requested Authorized [id number] 1 1 Encounter Details Care Team Description Date Type Department Abad Avendaño DO [address] [place] [address] Alcoholic cirrhosis of liver without asc ites (HCC) 08/09/2021 Hospital Endoscopy: Main Cam pus, Encounter Main Hospital [address] [facility] [address] [place] [address] Social History Date Tobacco Use Types Packs/Day Years Used Current Every Day Smoker Cigarettes Smokeless Tobacco: Current User Comments Alcohol Use Standard Drinks/Week Not Currently 0 (1 standard drink = 0.6 o z pure alcohol) Sex Assigned at Date Recorded Male 08/21/2021 8:44 AM PAPER BUNDLER Date Recorded COVID-19 Exposure Response 08/09/2021 7:57 [...] or concerns after your procedure please call [phone] M-F 8am-5:00 pm. After 5:00 pm, holidays or weekends call [phone] and ask for the GI Doctor personnel director. documented in this encounter Medications at Time [...] in this encounter Progress Notes * Melinda Pan, RN - 08/01/2021 11:59 AM CDT Images from the original note were not included. Spoke to patient regarding need for Covid PCR Screening completed 48-72 hours pr ior to scheduled procedure, verbalized good understanding, patient will obtain C ovid PCR Screening independently and bring results the day of the procedure. Melissa banuelos can go to [facility] in [place], [place]., Phone - [phone], F ax [phone], 2-3 day turnaround for PCR results, M-F drive thru starts at 8: 00 AM, no appointment necessary, order faxed for patient. Confirmed procedure date/time with patient, verbally reviewed prep instructions with patient, verbalized good understanding, confirmed patient would have a driv er. Patient states he has the [place] [...] after midnight the night before your exam. [facility], if your exam is in the afternoon you may drink clear liquids only up until ( 4) hours before your scheduled procedure time. After this, you should have noth ing by mouth. This includes GUM or CANDY. a. Chewing tobacco must be stopped (6) hours before your scheduled procedure. b. If you have an account strategist test, take ONLY your essential morning medicatio ns (heart, blood pressure, seizure, etc.) with a small sip of water. c. You will be sedated for the procedure. A responsible adult must drive you néstor e (no Uber, taxis, or buses are permitted). If you do not have a vacuum truck driver we will be unable to do [...] scheduled procedure. b. If you have an account strategist test, take ONLY your essential morning medicatio ns (heart, blood pressure, seizure, etc.) with a small sip of water. 4. You will be sedated for the procedure. A responsible adult must drive you ho me (no Uber, taxis or buses are allowed). If you do not have a vacuum truck driver we will be unable to do [...] Laureen English MD Rasco, Jasmine, RN; Cynthia Torres; Patrick Christian MD; Ernst Garcia MD Patient [...] candidate for the surgery center. Thanks Laureen Previous Messages ----- Message ----- From: Dasia Copeland [...] documented in this encounter H&P Notes * Sanchez Abad Jeannie, DO - 08/09/2021 8:55 AM CDT Pre [...] Relevant labs reviewed Abad Avendaño DO Pager [phone] documented in this encounter Miscellaneous Notes * Pre-Anesthesia Patient Instructions - Dasia Copeland RN - 07/08/2021 9:41 AM CDT .. SPLIT DOSE NULYTELY/GOLYTELY PREP PATIENT PREPARATION INSTRUCTIONS COLONOSCOPY Karen, You are scheduled for a Colonoscopy on: 07/12/2021 at: 10:30 AM With Ashish Hernandez MD You must arrive by: 9:30 AM Please E-Mail or fax covid results to [phone] or [email or web address] Please keep in mind that procedure times are subject to change OUR ADDRESS IS [address] [place] [address] WE ARE LOCATED AT JUST OFF [address] [place] [address] EXIT 5 ([facility]) WE ARE ON THE EAST SIDE OF THE [facility] ONCE YOU'RE ON THE CAMPUS FOLLOW THE SIGNS TO THE SURGERY CENTER LOCATED ON THE EAST SIDE OF THE [place] AND ENTER THROUGH THE SURGERY CENTER DOORS. To Reschedule call: [phone] For Questions call: [phone] ____ A colonoscopy is a scope examination [...] you request otherwise, we will invite your vacuum truck driver to the recovery room to hear [...] Enbrel, Simponi, Orencia, Cimzia, Actemra, and X eljanz o Chemotherapy CONTACT YOUR PROVIDER prior to [...] as ibuprofen (Advil, Motrin), naprox en (Aleve), [place], Excedrin, Midol, celecoxib (Celebrex), diclofenac (Vol violeta), [...] *Bouillon or Broth (No Noodles) *Hard Candy (Mcdougal Rancher, Life Saver, Mint or Gum) *Jello [...] allowed). If you do not have a vacuum truck driver we will be unable to do the test. 6. Please plan to be here approximately 2 hours and encourage your vacuum truck driver to be within 20 minutes of the facility. 8. You will not be able to return to work the same day if you have received s edation. 9. Please bring a list of your current medications and dosages with you. 10. Please bring your ID and insurance card along with any required copay/deduc tible. 11. Please wear a mask and have your vacuum truck driver do the same (it does not [...] COVID-19 EXPOSURE WE ARE TAKING THE PROPER SC ECAUTIONS LISTED BELOW * YOU ARE PERMITTED [...] THEIR SCHEDULED PROCEDURE. Pre-Admissions Testing JOHN LOPEZ [facility] www.[email or web address] [address] [place] [address] (Main) [phone](PAT) [email or web address] An Affiliate of [facility] documented in this encounter Plan of Treatment Care Team Description Date [place] [address] [place] [phone] Portal hypertension (HCC) 09/11/2021 [facility] [place]astroenter[place] [address] [place] [address] ESOPHAGOGASTRODUODENOSCOPY WITH SPECIMEN COLLECTION BY BRUSHING/ WASHING 09/11/2021 Surgery Gastroenterology Date/Time Name Priority Associated Diagnose s 09/11/2021 3:25 PM PAPER BUNDLER ESOPHAGOGASTRODUODENOSCOPY WITH SPECIMEN Portal hyp ertension (HCC) COLLECTION BY BRUSHING/ WASHING 09/11/2021 3:25 PM PAPER BUNDLER COLONOSCOPY DIAGNOSTIC WITH SPECIMEN Portal hyperte nsion (HCC) COLLECTION BY BRUSHING/ WASHING - FLEXIBLE documented as of this encounter Procedures Comments Procedure Name Priority Date/Time Associated Diag nosis HC NON-GERMAN INSTRUCTOR/THIN PREP Routine 08/09/2021 Alcoholic cirrhosis of 9:06 [...] Patient to get Covid PCR Screening at [facility] [address] in [place], [place], order faxed 08/01/2021 - DM09: Pt's 07/12/21 appt at [facility] cxl'd per [facility] Anesthesi a due to significan t liver disease and recent thoracente sis. Referral transferre d to [facility] for scheduling . ESOPHAGOGASTRODUODENOSCOP 08/09/2021 Alcoholic c irrhosis of Y WITH SPECIMEN 8:53 AM CDT liver without ascit es COLLECTION BY BRUSHING/ (HCC) WASHING Non-Hodgkin's lymphoma, unspecified body region, unspecified non-Hodgkin lymphoma type (HCC) Special Needs 4 day reminder call/08.05.2021 Spoke with pt regarding arrival time. MY08/01/20 21 - Patient to get Covid PCR Screening at [facility] [address] [place], order faxed 08/01/2021 - DM07/08: Pt's 07/12/21 appt at [facility] cxl'd per [facility] Anesthesi a due to significan t liver disease and recent thoracente sis. Referral transferre d to [facility] for scheduling . ESOPHAGOGASTRODUODENOSCOP 08/09/2021 Alcoholic c irrhosis of Y WITH BAND LIGATION 8:53 AM CDT liver without as cites ESOPHAGEAL/ GASTRIC (HCC) VARICES - FLEXIBLE Non-Hodgkin's lymphoma, unspecified body region, unspecified non-Hodgkin lymphoma type (HCC) Special Needs 4 day reminder call/08.05.2021 Spoke with pt regarding arrival time. MY08/01/20 21 - Patient to get Covid PCR Screening at [facility] [address] [place], order faxed 08/01/2021 - DM09: Pt's 07/12/21 appt at [facility] cxl'd per [facility] Anesthesi a due to significan t liver disease and recent thoracente sis. Referral transferre d to [facility] for scheduling . KF COLONOSCOPY DIAGNOSTIC 08/09/2021 Alcoholic cirr hosis of WITH SPECIMEN COLLECTION 8:53 AM CDT liver withou t ascites BY BRUSHING/ WASHING - (HCC) FLEXIBLE Non-Hodgkin's lymphoma, unspecified body region, unspecified non-Hodgkin lymphoma type (HCC) Special Needs 4 day reminder call08.05.2021 Spoke with pt regarding arrival time. MY08/01/20 21 - Patient to get Covid PCR Screening at [facility] in [place], order faxed 08/01/2021 - DM07/08: Pt's 07/12/21 appt at [facility] cxl'd per [facility] Anesthesi a due to significan t liver disease and recent thoracente sis. Referral transferre d to [facility] for scheduling . KF EGD REPORT 08/09/2021 8:47 AM CDT COLONOSCOPY 08/09/2021 8:45 AM CDT documented in this encounter Results * CYTOLOGY ALIMENTARY (08/09/2021 9:06 AM CDT) Cytology [facility] www.[employer] Department of Pathology and Laboratory Medicine [address] [place] [address] Surgical Pathology Office: [phone] CYTOLOGY REPORT NAME: KAREN HUNT CYTOLOGY #: [id number] MR #: [id number] ALT ID #: BILLING #: [id number] LOCATION: [facility] DATE OF PROCEDURE: 08/09/2021 AGE: 60 SEX: [...] Organization Address City/State/ZIP Code P catrina Number [facility] [address] [place] [address] * SURGICAL PATHOLOGY (08/09/2021 9:02 AM CDT) PATHOLOGY [facility] www.[employer] Department of Pathology and Laboratory Medicine [address] [place] [address] Surgical Pathology Office: [phone] SURGICAL PATHOLOGY REPORT NAME: KAREN HUNT SURG PATH #: [id number] MR #: [id number] SPECIMEN CLASS: SR BILLING #: [id number] ALT ID #: LOCATION: [facility] DATE OF PROCEDURE: 08/09/2021 AGE: 60 SEX: [...] indicated in this report. +++ +++ Baldo jOeda DO, Resident caw/08/09/2021 ############################## ############################## ############ Material Received: A: gastric [...] Organization Address City/State/ZIP Code P catrina Number [facility] [address] [place] [address] * EGD REPORT (08/09/2021 8:47 AM CDT) Provation Patient Name: Marilee LOPEZ OTHER Report Procedure Date: 08/09/2021 RESULTS 8:47 AM CSN: [id number] Date of : 1960 Gender: Male Attending Physician: Abad Avendaño , Procedure: Upper GI endoscopy Indications: Cirrhosis rule out esophageal varices, decompensated cirrhosis, here for index EV screening Providers: Abad Avendaño (Doctor), Lida Harvey (Nurse), Mary Carbajal (Construction Project Coordinator), Radha Go (Construction Project Coordinator) Referring Physician: Jimi Hale MD Medications: Monitored [...] verified by the physician, the nurse, the step finisher and the medical supply technician in the endoscopy suite. Mental Status [...] 53 seconds Procedure Code(s): --- Professional --- 27926, Esophagogastroduodenoscopy, flexible, transoral; with band ligation of esophageal/gastric varices 23124, Esophagogastroduodenoscopy, flexible, transoral; with biopsy, single or [...] without hemorrhage or perforation CPT copyright 2020 [employer]. All rights reserved. The codes documented in this report are preliminary and upon icd 9 coder review may be revised to meet current compliance requirements. Attending Participation: I personally performed the entire procedure. MD Abad Mcpherson, 08/09/2021 9:44:39 AM The attending physician has electronically signed and finalized this document. Number of Addenda: 0 Note Initiated On: 08/09/2021 8:47 AM Specimen Performing Organization Address City/State/ZIP Code P catrina Number [facility] OTHER RESULTS * COLONOSCOPY (08/09/2021 8:45 AM CDT) Provation Patient Name: Marilee LOPEZ OTHER Report Procedure Date: 08/09/2021 RESULTS 8:45 AM [facility]: [id number] Date of : 1960 Gender: Male Attending Physician: Abad Avendaño , Procedure: Colonoscopy Indications: High risk colon cancer surveillance: Personal history of colonic polyps, patient here for surveillance, documented 2015 with x1 TA Providers: Abad Avendaño (Doctor), Lida Harvey (Nurse), Remi Carbajalician (Construction Project Coordinator), Radha Go (Construction Project Coordinator) Referring Physician: Jimi Hale MD Medications: Monitored [...] verified by the physician, the nurse, the step finisher and the medical supply technician in the endoscopy suite. Mental Status [...] bowel preparation was evaluated using the BBPS ([place] Bowel Preparation Scale) with scores of: Right [...] 11 seconds Procedure Code(s): --- Professional --- 56638, Colonoscopy, flexible; with removal of tumor(s), polyp(s), or other lesion(s) by snare technique Diagnosis Code(s): --- Professional --- Z86.010, Personal history of colonic polyps K64.4, Residual hemorrhoidal skin tags K63.5, Polyp of colon CPT copyright 2020 [employer]. All rights reserved. The codes documented in this report are preliminary and upon icd 9 coder review may be revised to meet current [...] (HCC) Portal hypertension documented in this encounter Active and Recently [...] Been Administered lactated ringers infusion 1 08/09/2021 sterile water/simethicone irrigation 1 1 First Ordered Date Discharge Count Last Ordered Date DISCHARGE PATIENT NOW 08/09/2021 documented in this encounter Additional Health Concerns Noted Time Assessment 08/09/2021 8:26 AM CDT A fall risk assessment has been complet ed for the patient 07/03/2021 10:39 AM CDT PHQ-2 Depression Total Score: 2 documented as of this encounter Care Teams Start Date End Date Business Objects Analyst Relationship Specialty 04/30/21 Kulwant Stephens DO PCP - General Internal [address] [place] [address] documented as of this encounter
--- OUTSIDE RECORDS SUMMARY | 2021-09-05 21:54 | XMS REPORT | Encounter Summary ---
Author Author [facility] Organization [facility] Address Unknown Phone Unavailable Care Team Providers Care Air Duct Mechanic Name Role Phone Angelo Watkins DO, Casey PCP Francisco Coello MD Unavailable Bonita Cerrato APRN-BAG SEWER Unavailable [phone] Jimi Hale MD Unavailable Encounter Details Care Team Description Date Type Department Abad Bradford DO [address] [place] [address] Esophageal varices without bleeding, uns pecified esophageal varices type (HCC) (Primary Dx); Encounter for screening laboratory testing for COVID-19 virus in asymptomatic patient 08/09/2021 Prep for Case Gastroenterology: [address] [address] Social History Date Tobacco Use Types Packs/Day Years Used Current Every Day Smoker Cigarettes Smokeless Tobacco: Current User Comments Alcohol Use Standard Drinks/Week Not Currently 0 (1 standard drink = 0.6 o z pure alcohol) Sex Assigned at Date Recorded Male 08/21/2021 8:44 AM COGNOS REPORT DEVELOPER Date Recorded COVID-19 Exposure Response 08/09/2021 7:57 [...] Description Date [place] [address] [place], [place] [id number] Portal hypertension (HCC) 09/11/2021 Hospital Gastroenterology [place] [address] [place] [address] ESOPHAGOGASTRODUODENOSCOPY WITH SPECIMEN COLLECTION BY BRUSHING/ WASHING 09/11/2021 Surgery Gastroenterology Order Schedule Name Type Priority Associated Diag noses Expected: 09/09/2021 (Approximate), Expi res: 08/09/2022 COVID-19 (SARS-COV-2) PCR Microbiology Routine Enco unter for screening laboratory testing for COVID-19 virus in asymptomatic patient Date/Time Name Priority Associated Diagnose s 09/11/2021 3:25 PM COGNOS REPORT DEVELOPER ESOPHAGOGASTRODUODENOSCOPY WITH SPECIMEN Portal hyp ertension (HCC) COLLECTION BY BRUSHING/ WASHING 09/11/2021 3:25 PM COGNOS REPORT DEVELOPER COLONOSCOPY DIAGNOSTIC WITH SPECIMEN Portal hyperte nsion (HCC) COLLECTION BY BRUSHING/ WASHING - FLEXIBLE documented as of this encounter Visit Diagnoses Diagnosis Esophageal varices without bleeding, un specified esophageal varices type (HCC) - Primary Encounter for screening laboratory test ing for COVID-19 virus in asymptomatic patient Portal hypertension (HCC) Portal hypertension documented in this encounter Orders First Ordered Date Case Request Count Last Ordered Date CASE REQUEST GI ENDOSCOPY 1 08/09/2021 documented in this encounter Additional Health Concerns Noted Time Assessment 08/09/2021 8:26 AM CDT A fall risk assessment has been complet ed for the patient 07/03/2021 10:39 AM CDT PHQ-2 Depression Total Score: 2 documented as of this encounter Care Teams Start Date End Date Air Duct Mechanic Relationship Specialty 04/30/21 Kulwant Stephens DO PCP - General Internal [address] [place] [address] 08/17/21 Francisco Coello MD Hematology, [address] [place] [address] Medicine 08/17/21 Bonita Cerrato, Nurse ARCHITECTURAL WOOD MODEL MAKER-BAG SEWER Practitioner [address] [place] [address] [facility] 08/17/21 Jimi Hale MD Gastroentero [address] [facility] [id number] [place] [address] documented as of this encounter
--- OUTSIDE RECORDS SUMMARY | 2021-09-05 21:54 | XMS REPORT | Encounter Summary ---
Author Author [facility] Organization [facility] Address Unknown Phone Unavailable Care Team Providers Care Adjunct Physical Education Instructor Name Role Phone Angelo Watkins DO, Casey PCP Reason for Visit * Reason Onset Date Comments Results 08/13/2021 Encounter Details Care Team Description Date Type Department Bonita Cerrato, ENTOMOLOGY TEACHER-INFORMATION SERVICES MANAGER [address] [place] [address] Results 08/13/2021 Telephone Transplant: Main Ca mpus, [facility] [address] [facility]. [address] [place] [address] Social History Date Tobacco Use Types Packs/Day Years Used Current Every Day Smoker Cigarettes Smokeless Tobacco: Current User Comments Alcohol Use Standard Drinks/Week Not Currently 0 (1 standard drink = 0.6 o z pure alcohol) Sex Assigned at Date Recorded Male 08/21/2021 8:44 AM PULMONARY NURSE PRACTITIONER Date Recorded COVID-19 Exposure Response 08/09/2021 7:57 [...] Miscellaneous Notes * Telephone Encounter - Olivia Heaton, RN - 08/13/2021 6:45 PM CDT called patient, reviewed US results with concerning liver lesions and need for u rgent triple phase imaging. RN will schedule this and confirm with patient. he v /u of plan and can accommodate coming to for completion. documented in this encounter Plan of Treatment Care Team Description Date [place] [address] [place], [place] [address] Portal hypertension (HCC) 09/11/2021 Hospital Gastroenterology [place] [address] [place], [place] [address] ESOPHAGOGASTRODUODENOSCOPY WITH SPECIMEN COLLECTION BY BRUSHING/ WASHING 09/11/2021 Surgery Gastroenterology Date/Time Name Priority Associated Diagnose s 09/11/2021 3:25 PM PULMONARY NURSE PRACTITIONER ESOPHAGOGASTRODUODENOSCOPY WITH SPECIMEN Portal hyp ertension (HCC) COLLECTION BY BRUSHING/ WASHING 09/11/2021 3:25 PM PULMONARY NURSE PRACTITIONER COLONOSCOPY DIAGNOSTIC WITH SPECIMEN Portal hyperte nsion [...] encounter Care Teams Start Date End Date Adjunct Physical Education Instructor Relationship Specialty 04/30/21 Kulwant Stephens DO PCP - General Internal [facility] [place] [address] documented as of this encounter
--- OUTSIDE RECORDS SUMMARY | 2021-09-05 21:54 | XMS REPORT | Clinical Summary ---
Author Author [facility] Organization [facility] Address Unknown Phone Unavailable Care Team Providers Care Roto Mixer Operator Name Role Phone Angelo Watkins DO, Casey PCP Francisco Coello MD Unavailable Bonita Cerrato APRN-SURGERY SCHEDULER Unavailable [phone] Jimi Hale MD Unavailable Source Comments Some departments are not documenting in the electronic medical record. If you d o not see the information that you expected, contact Release of Information in [facility] Information Management department at [phone] for further assistan ce in locating additional records.[facility] Allergies No known active allergies Medications End Date Status Medication Sig Dispensed Refills Start Date Active GABAPENTIN PO Take by 0 mouth. Active lactulose 10 gram/15 mL Take 30 mL by 1892 mL 11 oral solution mouth daily. 1 Titrate to 3-4 BMs/day Active ciprofloxacin (CIPRO) 500 Take one 90 tablet 3 mg tablet tablet by 1 mouth daily. Active peg-electrolyte solution Mix as 4000 mL 0 0 (NULYTELY) 420 gram oral directed on 1 solution package. Refrigerate once mixed. Do not mix greater than 24 hours prior to procedure. Drink 3/4 of bottle between 5pm and 7 pm the night before procedure. Drink remaining 1/4 of bottle 5 hours prior to procedure Active fluconazole (DIFLUCAN) Take one 15 tablet 0 200 mg tabletIndications: tablet by 1 Esophageal candidiasis mouth daily. Take two tablets day one and then one tablet every day thereafter until finished. Indications: Esophageal candidiasis Active spironolactone every 24 0 (ALDACTONE) 100 mg tablet hours. Active furosemide (LASIX) 40 mg every 24 0 02/13 tablet hours. 1 Active zinc sulfate (ORAZINC) Take one 30 capsule 11 220 mg (50 mg elemental capsule by 1 zinc) capsule mouth daily. Active peg-electrolyte solution As directed.. 4000 mL 0 (NULYTELY LEMON-ATMAUTLUAK) 420 1 gram oral solution Active rifAXIMin (XIFAXAN) 550 Take one 60 tablet 11 mg tabletIndications: tablet by 1 hepatic encephalopathy mouth twice daily. Indications: impaired brain function due to liver disease 09/02/2021 Discontinued (Reorder) rifAXIMin (XIFAXAN) 550 Take one 60 tablet 11 mg tablet tablet by 1 mouth twice daily. 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 Impression: 1. Grade 1 follicular lymphoma of the l eft neck status post radiation therapy 2. Pancytopenia secondary to cirrhosis 3. Alcoholic cirrhosis 4. Indeterminate liver lesions on ultra sound concerning for HCC 5. History of hepatic encephalopathy 6. Ascites, compensated on diuretics 7. ECOG PS 1 Plan: 1. I have reviewed Andrew's chart in det ail including personal review of all of his pathology reports and imaging st udies. On personal review his baseline PET/CT, the right axillary abn ormality in my mind is not consistent with lymphoma and I think he was appropriately staged as a stage I patient and treated aggressively with curative intent radiation. 2. I discussed with him in detail that he is among the 5% or so of patients with follicular lymphoma who present wi th true and rigorously proven stage I disease. These patients are the only patients who are felt to be curable with follicular lymphoma in the absence of a cellular therapy technique and approximately 70% are cured with radiat ion therapy alone. Given his excellent response and lack of any sign ificant disease bulk after his excisional biopsy, his cure fraction is quite high. 3. We additionally discussed that liver transplantation would be associated with some immune suppression that would mildly increase his long-term risk of recurrence. This being said, his ci rrhosis is the far more life-threatening of his conditions and I think that the risk: Benefit ratio clearly favors proceeding with transpla ntation provided that he remains in a clinical remission right now. 4. Check CT scans of the neck chest abd omen and pelvis with contrast. It should be duly noted that his original disease was in the neck. 5. Given the abnormalities in his liver that were seen on ultrasound, the CT abdomen pelvis will be triple phase to evaluate for HCC. 6. Assuming the CT scans do not show an y features that are suspicious for lymphoma, he is thoroughly appropriate to list for liver transplant. 7. On a long-term basis, he does requir e annual follow-up for his follicular lymphoma. We will loosely s chedule him to see me back in 1 year, or sooner if new concerning issue s arise. Recommendations discussed with Dr. Talha guillen and his RODNEY Bonita Cerrato at conclusion of today's visit. I have discussed the diagnosis and minesh tment plan with the patient and he expresses understanding and wishes to p roceed. Encounters Care Team Description Date Type Specialty Cecelia Kramer 09/04/2021 Documentation Pharmacy Juancarlos Lowe MD Encounter for screening laboratory testi ng for COVID-19 virus in asymptomatic patient 09/03/2021 Orders Only Gastroenterology Cecelia Kramer 09/03/2021 Documentation Pharmacy Jimi Hale MD 09/02/2021 Refill Transplant Surgery Francisco Coello MD Follicular low grade B-cell lymphoma (HC C) (Primary Dx) 08/16/2021 Office Visit Oncology Bonita Cerrato APRN-NP 08/16/2021 Hospital Lab Encounter Bonita Cerrato APRN-NP Alcoholic cirrhosis of liver without asc ites (HCC) (Primary Dx); Hepatic encephalopathy (HCC); Liver lesion; Anemia, unspecified type; Tobacco use; Substance use 08/16/2021 Office Visit Transplant Surgery Telehealth 08/16/2021 Travel Bonita Cerrato APRN-NP Results 08/13/2021 Telephone Transplant Surgery Bruce Lassiter, JOHN Encounter for screening laboratory testi ng for COVID-19 virus in asymptomatic patient 08/13/2021 Orders Only Gastroenterology Olivia Heaton, JOHN Alcoholic cirrhosis of liver with ascite s (HCC) (Primary Dx); Portal hypertension (HCC) 08/12/2021 Orders Only Transplant Surgery Bonita Cerrato APRN-JC 08/09/2021 Hospital Radiology Encounter Abad Avendaño, DO COLONOSCOPY DIAGNOSTIC WITH SPECIMEN COL LECTION BY BRUSHING/ WASHING - FLEXIBLE 08/09/2021 Surgery Gastroenterology Grzegorz Wolf MD Lozenski, Jeanette M, MD 08/09/2021 Anesthesia Gastroenterology Event Abad Avendaño, DO Alcoholic cirrhosis of liver without asc ites (HCC) 08/09/2021 Hospital Gastroenterology Encounter Abad Avendaño, DO 08/09/2021 Orders Only Gastroenterology Abad Avendaño, DO Esophageal varices without bleeding, uns pecified esophageal varices type (HCC) (Primary Dx); Encounter for screening laboratory testing for COVID-19 virus in asymptomatic patient 08/09/2021 Prep for Case Gastroenterology 08/09/2021 Travel Bonita Cerrato APRN-NP Ocmt-rz-Osqk 08/08/2021 Telephone Hepatology Bonita Cerrato APRN-NP Other (cancellation) 08/06/2021 Telephone Transplant Surgery Katie Sims BSN Appointment Question 08/01/2021 Telephone Transplant Surgery Jimi Hale MD Encounter for screening laboratory testi ng for COVID-19 virus in asymptomatic patient 08/01/2021 Orders Only Gastroenterology Bonita Cerrato APRN-CJ Scheduling 07/31/2021 Telephone Transplant Surgery Jimi Hale MD Follow-up Phone Call 07/29/2021 Telephone Transplant Surgery Francisco Coello MD Mature T/NK-cell lymphomas, unspecified, unspecified site (HCC) 07/09/2021 Hospital Lab Encounter 07/08/2021 Travel Ashish Rogers MD Encounter for screening laboratory testi ng for COVID-19 virus in asymptomatic patient 07/08/2021 Orders Only Urgent Care Ernetsina Shetty, JOHN Navigation Assessment 07/04/2021 Telephone Oncology Jimi Hale MD 07/03/2021 Hospital Lab Encounter Jimi Hale MD Alcoholic cirrhosis of liver without asc ites (HCC) (Primary Dx); Non-Hodgkin's lymphoma, unspecified body region, unspecified non-Hodgkin lymphoma type (HCC) 07/03/2021 Office Visit Transplant Surgery 07/03/2021 Travel from Last 3 Months Immunizations Name Administration Dates Next Due Surgical History Surgery Date Site/Laterality Comments TUMOR REMOVAL neck COLONOSCOPY 08/09/2021 N/A COLONOSCOPY CHARLIE GNOSTIC WITH SPECIMEN COLLECTION BY BRUSHING/ WASHING - FLEXIBLE performed by Abad Avendaño DO at [facility] ENDO UPPER GASTROINTESTINAL 08/09/2021 N/A ESOPHAG OGASTRODUODENOSCOPY WITH BAND LIGATION ENDOSCOPY ESOPHAGEAL/ GASTRIC VARICES - FLEXIBLE performed by Abad Avendaño DO at [facility] ENDO UPPER GASTROINTESTINAL 08/09/2021 ESOPHAGOGASTROD UODENOSCOPY WITH SPECIMEN ENDOSCOPY COLLECTION BY BRUSHING/ WAS DAMON performed by Abad Avendaño DO at [facility] ENDO COLONOSCOPY 08/09/2021 COLONOSCOPY WITH SN ARE REMOVAL TUMOR/ POLYP/ OTHER LESION performed by Abad Avendaño DO at 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 Last Filed Vital Signs Reading Time Taken [...] 08/16/2021 3:15 PM CDT Body Mass Index Plan of Treatment Care Team Description Date [place] [address] [place] [address] Portal hypertension (HCC) 09/11/2021 Hospital Gastroenter[place] [address] [place] [address] ESOPHAGOGASTRODUODENOSCOPY WITH SPECIMEN COLLECTION BY BRUSHING/ WASHING 09/11/2021 Surgery Gastroenterology Date/Time Name Priority Associated Diagnose s 09/11/2021 3:25 PM BIG DATA ENGINEER ESOPHAGOGASTRODUODENOSCOPY WITH SPECIMEN Portal hyp ertension (HCC) COLLECTION BY BRUSHING/ WASHING 09/11/2021 3:25 PM BIG DATA ENGINEER COLONOSCOPY DIAGNOSTIC WITH SPECIMEN Portal hyperte nsion (HCC) COLLECTION BY BRUSHING/ WASHING - FLEXIBLE Health Maintenance Due Date Last Done Comments DTAP/TDAP VACCINES (1 - 1979 Tdap) PHYSICAL (COMPREHENSIVE) 1979 EXAM SHINGLES RECOMBINANT 2011 VACCINE (1 of 2) INFLUENZA VACCINE 05/12/2021 COVID-19 VACCINE (2 - 06/24/2021 06/03/2021 Pfizer risk 4-dose series) COLORECTAL CANCER 08/09/2031 08/09/2021, SCREENING 08/09/2021, 08/09/2021 HEPATITIS C SCREENING Completed 07/03/2021 HIV SCREENING Completed 07/03/2021 Procedures Comments Procedure Name Priority Date/Time Associated Diag nosis HC IRON BINDING CAPACITY Add on 08/16/2021 Alcoh olic cirrhosis of + %SAT 12:26 PM CDT liver without ascit es (HCC) HC 25-OH VITAMIN D Routine 08/16/2021 Alcoholic c irrhosis of 12:26 PM CDT liver without ascites (HCC) Hepatic encephalopathy (HCC) HC VITAMIN E(ALPHA Routine 08/16/2021 Alcoholic c irrhosis of TOCOPHEROL) 12:26 PM CDT liver without ascit es (HCC) Hepatic encephalopathy (HCC) HC VITAMIN A Routine 08/16/2021 Alcoholic cirrh osis of 12:26 PM CDT liver without ascites (HCC) Hepatic encephalopathy (HCC) HC HEPATITIS A SANTO IGG Routine 08/16/2021 Alcohol ic cirrhosis of AND IGM 12:26 PM CDT liver without ascit es (HCC) Hepatic encephalopathy (HCC) HC COMPREHENSIVE Routine 08/16/2021 Alcoholic cir rhosis of METABOLIC PANEL 12:26 PM CDT liver without ascit es (HCC) Hepatic encephalopathy (HCC) HC PT(INR) Routine 08/16/2021 Alcoholic cirrh osis of 12:26 PM CDT liver without ascites (HCC) Hepatic encephalopathy (HCC) HC CBC W/ AUTOMATED DIFF Routine 08/16/2021 Alcoh olic cirrhosis of 12:26 PM CDT liver without ascites (HCC) Hepatic encephalopathy (HCC) US ABDOMEN COMPLETE Routine 08/09/2021 Alcoholic cirrhosis of 3:05 PM CDT liver with ascites (HCC) US DOPPLER ABD PELV Routine 08/09/2021 Alcoholic cirrhosis of RETROPER COMP 3:05 PM CDT liver with ascites (HCC) HC NON-ACCOUNTS PAYABLE LEAD/THIN PREP Routine 08/09/2021 Alcoholic cirrhosis of 9:06 [...] Patient to get Covid PCR Screening at [facility] [address] in [place], [place], order faxed 08/01/2021 - [id number]: Pt's 07/12/21 appt at [facility] cxl'd per [facility] Anesthesi a due to significan t liver disease and recent thoracente sis. Referral transferre d to [facility] for scheduling . ESOPHAGOGASTRODUODENOSCOP 08/09/2021 Alcoholic c irrhosis of Y WITH SPECIMEN 8:53 AM CDT liver without ascit es COLLECTION BY BRUSHING/ (HCC) WASHING Non-Hodgkin's lymphoma, unspecified body region, unspecified non-Hodgkin lymphoma type (HCC) Special Needs 4 day reminder call/08.05.2021 Spoke with pt regarding arrival time. MY08/01/20 21 - Patient to get Covid PCR Screening at [facility] [address] in [place], [place], order faxed 08/01/2021 - DM07/[id number]: Pt's 07/12/21 appt at [facility] cxl'd per [facility] Anesthesi a due to significan t liver disease and recent thoracente sis. Referral transferre d to [facility] for scheduling . ESOPHAGOGASTRODUODENOSCOP 08/09/2021 Alcoholic c irrhosis of Y WITH BAND LIGATION 8:53 AM CDT liver without as cites ESOPHAGEAL/ GASTRIC (HCC) VARICES - FLEXIBLE Non-Hodgkin's lymphoma, unspecified body region, unspecified non-Hodgkin lymphoma type (HCC) Special Needs 4 day reminder call/08.05.2021 Spoke with pt regarding arrival time. MY08/01/20 21 - Patient to get Covid PCR Screening at [facility] [address] in [place], [place], order faxed 08/01/2021 - [id number]: Pt's 07/12/21 appt at [facility] cxl'd per [facility] Anesthesi a due to significan t liver disease and recent thoracente sis. Referral transferre d to [facility] for scheduling . KF COLONOSCOPY DIAGNOSTIC 08/09/2021 Alcoholic cirr hosis of WITH SPECIMEN COLLECTION 8:53 AM CDT liver withou t ascites BY BRUSHING/ WASHING - (HCC) FLEXIBLE Non-Hodgkin's lymphoma, unspecified body region, unspecified non-Hodgkin lymphoma type (HCC) Special Needs 4 day reminder call// 08.05.2021 Spoke with pt regarding arrival time. MY08/01/20 21 - Patient to get Covid PCR Screening at [facility] [address] in [place], [place], order faxed 08/01/2021 - DM07/08: Pt's 07/12/21 appt at [facility] cxl'd per [facility] Anesthesi a due to significan t liver disease and recent thoracente sis. Referral transferre d to [facility] for scheduling . KF EGD REPORT 08/09/2021 8:47 AM CDT COLONOSCOPY 08/09/2021 8:45 AM CDT VT CONSLTJ&REPRT SLIDES 07/09/2021 PREPARED ELSEWHERE 10:28 AM CDT PATHOLOGY REPORTS FROM 07/09/2021 OUTSIDE SCAN 12:00 AM CDT HC CBC W/ AUTOMATED DIFF Routine 07/03/2021 Alcoh olic cirrhosis of 12:11 PM CDT liver without ascites (HCC) Non-Hodgkin's lymphoma, unspecified body region, unspecified non-Hodgkin lymphoma type (HCC) HC COMPREHENSIVE Routine 07/03/2021 Alcoholic cir rhosis of METABOLIC PANEL 12:11 PM CDT liver without ascit es (HCC) Non-Hodgkin's lymphoma, unspecified body region, unspecified non-Hodgkin lymphoma type (HCC) HC PT(INR) Routine 07/03/2021 Alcoholic cirrh osis of 12:11 PM CDT liver without ascites (HCC) Non-Hodgkin's lymphoma, unspecified body region, unspecified non-Hodgkin lymphoma type (HCC) HC 25-OH VITAMIN D Routine 07/03/2021 Alcoholic c irrhosis of 12:11 PM CDT liver without ascites (HCC) Non-Hodgkin's lymphoma, unspecified body region, unspecified non-Hodgkin lymphoma type (HCC) HC IRON BINDING CAPACITY Routine 07/03/2021 Alcoh olic cirrhosis of + %SAT 12:11 PM CDT liver without ascit es (HCC) Non-Hodgkin's lymphoma, unspecified body region, unspecified non-Hodgkin lymphoma type (HCC) HC VITAMIN A Routine 07/03/2021 Alcoholic cirrh osis of 12:11 PM CDT liver without ascites (HCC) Non-Hodgkin's lymphoma, unspecified body region, unspecified non-Hodgkin lymphoma type (HCC) HC ZINC(ZN) Routine 07/03/2021 Alcoholic cirrh osis of 12:11 PM CDT liver without ascites (HCC) Non-Hodgkin's lymphoma, unspecified body region, unspecified non-Hodgkin lymphoma type (HCC) HC PHOSPHATIDYLETHANOL Routine 07/03/2021 Alcohol ic cirrhosis of 12:11 PM CDT liver without ascites (HCC) Non-Hodgkin's lymphoma, unspecified body region, unspecified non-Hodgkin lymphoma type (HCC) HC HEPATITIS C SANTO Routine 07/03/2021 Alcoholic c irrhosis of 12:11 PM CDT liver without ascites (HCC) Non-Hodgkin's lymphoma, unspecified body region, unspecified non-Hodgkin lymphoma type (HCC) HC HIV 1/2 SANTO AG SCREEN Routine 07/03/2021 Alcoh olic cirrhosis of 12:11 PM CDT liver without ascites (HCC) Non-Hodgkin's lymphoma, unspecified body region, unspecified non-Hodgkin lymphoma type (HCC) HC ALPHA FETO PROTEIN, Routine 07/03/2021 Alcohol ic cirrhosis of SERUM 12:11 PM CDT liver without ascit es (HCC) Non-Hodgkin's lymphoma, unspecified body region, unspecified non-Hodgkin lymphoma type (HCC) HC HEPATITIS B-S ANTIGEN Routine 07/03/2021 Alcoh olic cirrhosis of 12:11 PM CDT liver without ascites (HCC) Non-Hodgkin's lymphoma, unspecified body region, unspecified non-Hodgkin lymphoma type (HCC) HC HEPATITIS B-S ANTIBODY Routine 07/03/2021 Alco holic cirrhosis of 12:11 PM CDT liver without ascites (HCC) Non-Hodgkin's lymphoma, unspecified body region, unspecified non-Hodgkin lymphoma type (HCC) from Last 3 Months Results * IRON + BINDING CAPACITY + %SAT+ FERRITIN (08/16/2021 12:26 PM CDT) Only the most recent of 2 results within the time period is included. Iron 91 50 - 185 MCG/DL [facility] Iron 294 270 - 380 MCG/DL [facility] Binding-TIBC % Saturation 31 28 - 42 % [facility] Ferritin 136 30 - 300 NG/ML [facility] Specimen Performing Organization Address [facility] P catrina Number MAIN LAB [address] [place] [address] * VITAMIN A (08/16/2021 12:26 PM CDT) Only the most recent of 2 results within the time period is included. Vitamin A 8.7 (L) REFERENCE LAB Comment: Reference range: 32.5 to 78.0 Unit: mcg/dL In this sample, the retinol (vitamin A) level indicates a severe deficiency. ADDITIONAL INFORMATION This test was developed and its performance characteristics determined by [facility] in a manner consistent with CLIA requirements. This test has not been cleared or approved by the U.S. Food and Drug Administration. [facility], [address] [facility], [place] [address] Specimen Blood Performing Organization Address City/[facility]/ZIP [facility] P catrina Number REFERENCE LAB REFERENCE LAB See results for address. * HEPATITIS A TOTAL AB (IGG+IGM) (08/16/2021 12:26 PM CDT) Hepatitis A, REACTIVE (A) NR-NONREACTIVE [facility] Total Specimen Blood Performing Organization Address City/[facility] P catrina Number [facility] [address] [place] [address] * 25-OH VITAMIN D (D2 + D3) (08/16/2021 12:26 PM CDT) Only the most recent of 2 results within the time period is included. Vitamin 32.7 30 - 80 NG/ML [facility] D(25-OH)Total Specimen Blood Performing Organization Address City/State/ZIP Code P catrina Number MAIN LAB [address] [place] [address] * PROTIME INR (PT) (08/16/2021 12:26 PM CDT) Only the most recent of 2 results within the time period is included. INR 1.3 (H) 0.8 - 1.2 MAIN LAB Specimen Blood Performing Organization Address City/[facility] P catrina Number [facility] [address] [place] [address] * CBC AND DIFF (08/16/2021 12:26 PM CDT) Only the most recent of 2 results within the time period is included. Pathologist [facility] White Blood 3.4 (L) 4.5 - 11.0 K/UL [facility] Cells RBC 2.96 (L) 4.4 - 5.5 M/UL [facility] Hemoglobin 11.6 (L) 13.5 - 16.5 GM/DL [facility] Hematocrit 33.7 (L) 40 - 50 % [facility] MCV 113.8 (H) 80 - 100 FL [facility] MCH 39.2 (H) 26 - 34 PG [facility] MCHC 34.5 32.0 - 36.0 G/DL [facility] RDW 15.2 (H) 11 - 15 % [facility] Platelet Count 96 (L) 150 - 400 K/UL [facility] MPV 6.3 (L) 7 - 11 FL [facility] Neutrophils 55 41 - 77 % [facility] Lymphocytes 28 24 - 44 % [facility] Monocytes 14 (H) 4 - 12 % [facility] Eosinophils 2 0 - 5 % [facility] Basophils 1 0 - 2 % [facility] Absolute 1.88 1.8 - 7.0 K/UL [facility] Neutrophil Count Absolute Lymph 0.96 (L) 1.0 - 4.8 K/UL [facility] Count Absolute 0.46 0 - 0.80 K/UL [facility] Monocyte Count Absolute 0.07 0 - 0.45 K/UL [facility] Eosinophil Count Absolute 0.04 0 - 0.20 K/UL [facility] Basophil Count Specimen Blood Performing Organization Address City/State/ZIP Code P catrina Number [facility] [address] [place] [address] * VITAMIN E (08/16/2021 12:26 PM CDT) Pathologist [facility] Vitamin E 6.1 REFERENCE LAB Comment: Reference range: 5.5 to 17.0 Unit: mg/L ADDITIONAL INFORMATION This test was developed and its performance characteristics determined by [facility] in a manner consistent with CLIA requirements. This test has not been cleared or approved by the U.S. Food and Drug Administration. [facility], [address] [place] [address] Specimen Blood Performing Organization Address City/State/ZIP Code P catrina Number REFERENCE LAB REFERENCE LAB See results for address. * COMPREHENSIVE METABOLIC PANEL (08/16/2021 12:26 PM CDT) Only the most recent of 2 results within the time period is included. Pathologist [facility] Sodium 135 (L) 137 - 147 MMOL/L [facility] Potassium 4.2 3.5 - 5.1 MMOL/L [facility] Chloride 102 98 - 110 MMOL/L [facility] Glucose 107 (H) 70 - 100 MG/DL [facility] Blood Urea 8 7 - 25 MG/DL [facility] Nitrogen Creatinine 0.59 0.4 - 1.24 MG/DL [facility] Calcium 8.6 8.5 - 10.6 MG/DL [facility] Total Protein 7.5 6.0 - 8.0 G/DL [facility] Total Bilirubin 3.3 (H) 0.3 - 1.2 MG/DL [facility] Albumin 3.0 (L) 3.5 - 5.0 G/DL [facility] Alk Phosphatase 285 (H) 25 - 110 U/L [facility] AST (SGOT) 52 (H) 7 - 40 U/L [facility] CO2 26 21 - 30 MMOL/L [facility] ALT (SGPT) 13 7 - 56 U/L [facility] Anion Gap 7 3 - 12 [facility] eGFR Non >60 >60 mL/min [facility] Comment: [place] The eGFR is not validated f or use in drug dosing adjustments. Continue to use estimated creatinine clearance per dosing reference text. Please contact the Clinical Pharmacist for questions. eGFR >60 >60 mL/min [facility] Comment: The eGFR is not validated for use in drug dosing adjustments. Continue to use estimated creatinine clearance per dosing reference text. Please contact the Clinical Pharmacist for questions. Specimen Blood Performing Organization Address City/State/ZIP Code P catrina Number [facility] [address] [place] [address] * US DOPPLER ABD PELV RETROPER COMP [...] limitations B: Moderate limitations C: Severe limitations [email or web address] Finalized by Abad Raines MD on 08/09/2021 [...] limitations B: Moderate limitations C: Severe limitations [email or web address] Finalized by Abad Raines MD on 08/09/2021 3:12 PM. Dictated by Abad Raines MD on 08/09/2021 3:02 PM. Performing Organization Address City/State/ZIP Code P catrina Number [facility] RAD RESULTS * US ABDOMEN COMPLETE (08/09/2021 3:05 PM [...] limitations B: Moderate limitations C: Severe limitations [email or web address] Finalized by Abad Raines MD on 08/09/2021 [...] limitations B: Moderate limitations C: Severe limitations [email or web address] Finalized by Abad Raines MD on 08/09/2021 3:12 PM. Dictated by Abad Raines MD on 08/09/2021 3:02 PM. Performing Organization Address City/State/ZIP Code P catrina Number RAD RESULTS * CYTOLOGY ALIMENTARY (08/09/2021 9:06 AM CDT) Cytology [facility] [email or web address] Department of Pathology and Laboratory Medicine [address] [place] [address] Surgical Pathology Office: [phone] CYTOLOGY REPORT NAME: KAREN HUNT CYTOLOGY #: [id number] MR #: [id number] ALT ID #: BILLING #: [id number] LOCATION: [facility] DATE OF PROCEDURE: 08/09/2021 AGE: 60 SEX: [...] specimen (specimen) - Esophagus Performing Organization Address City/[facility]/ZIP Code P catrina Number [facility] [address] [address] * SURGICAL PATHOLOGY (08/09/2021 9:02 AM CDT) PATHOLOGY [facility] [email or web address] Department of Pathology and Laboratory Medicine [address] [place] [address] Surgical Pathology Office: [phone] SURGICAL PATHOLOGY REPORT NAME: KAREN HUNT SURG PATH #: [id number] MR #: [id number] SPECIMEN CLASS: SR BILLING #: [id number] ALT ID #: LOCATION: GIEND DATE OF PROCEDURE: 08/09/2021 AGE: [...] report. +++ +++ Baldo Ojeda DO, Resident waw/08/09/2021 ############################## ############################## ############ Material Received: A: gastric [...] specimen is entirely submitted in cassette B1. (k) C. Received in formalin labeled "descending colon polyp" is a 1.2 x 0.7 x 0.1 cm aggregate of bernardo-brown soft tissue fragments admixed with fecal material. The specimen is entirely submitted in cassette C1. (bnk) /08/09/2021 Specimen Tissue specimen (specimen) - Stomach Tissue specimen (specimen) - Colonic loop structure (body structure) Tissue specimen (specimen) - Colonic loop structure (body structure) Performing Organization Address City/State/ZIP Code P catrina Number MAIN LAB [address] [place] [address] * EGD REPORT (08/09/2021 8:47 AM CDT) Provation Patient Name: Marilee LOPEZ OTHER Report Procedure Date: 08/09/2021 RESULTS 8:47 AM CSN: [id number] Date of : 1960 Gender: Male Attending Physician: Abad Avendaño , Procedure: Upper GI endoscopy Indications: Cirrhosis rule out esophageal varices, decompensated cirrhosis, here for index EV screening Providers: Abad Avendaño (Doctor), Lida Harvey (Nurse), Remi Carbjaalician (International Representative), Radha Go (International Representative) Referring Physician: Jimi Hale MD Medications: Monitored [...] verified by the physician, the nurse, the mangle press catcher and the medical laboratory technician in the endoscopy suite. Mental Status [...] 53 seconds Procedure Code(s): --- Professional --- 15433, Esophagogastroduodenoscopy, flexible, transoral; with band ligation of esophageal/gastric varices 93721, Esophagogastroduodenoscopy, flexible, transoral; with biopsy, single or [...] without hemorrhage or perforation CPT copyright 2020 [employer]. All rights reserved. The codes documented in this report are preliminary and upon medical biller/coder review may be revised to meet current [...] Procedure Date: 08/09/2021 RESULTS 8:45 AM CSN: [id number] Date of : 1960 Gender: Male Attending Physician: Abad Avendaño , Procedure: Colonoscopy Indications: High risk colon cancer surveillance: Personal history of colonic polyps, patient here for surveillance, documented 2015 with x1 TA Providers: Abad Avendaño (Doctor), Lida Harvey (Nurse), Bonny Miller International Representative (International Representative), Radha Go (International Representative) Referring Physician: Jimi Hale MD Medications: Monitored [...] verified by the physician, the nurse, the mangle press catcher and the medical laboratory technician in the endoscopy suite. Mental Status [...] bowel preparation was evaluated using the BBPS ([place] Bowel Preparation Scale) with scores of: Right [...] 11 seconds Procedure Code(s): --- Professional --- 44260, Colonoscopy, flexible; with removal of tumor(s), polyp(s), or other lesion(s) by snare technique Diagnosis Code(s): --- Professional --- Z86.010, Personal history of colonic polyps K64.4, Residual hemorrhoidal skin tags K63.5, Polyp of colon CPT copyright 2020 [employer]. All rights reserved. The codes documented in this report are preliminary and upon medical biller/coder review may be revised to meet current compliance requirements. Attending Participation: I personally performed the entire procedure. MD Abad Mcpherson, 08/09/2021 9:59:13 AM The attending physician has electronically signed and finalized this document. Number of Addenda: 0 Note Initiated On: 08/09/2021 8:45 AM Specimen Performing Organization Address City/State/ZIP Code P catrina Number [facility] OTHER RESULTS * OUTSIDE PATHOLOGY CONSULT (07/09/2021 10:28 AM CDT) PATHOLOGY [facility] www[email or web address] Department of Pathology and Laboratory Medicine [address] [place] [address] Surgical Pathology Office: [phone] PATHOLOGY CONSULTATION NAME: ISMAEL HUNTRYL SURG PATH #: [id number] MR #: [id number] ALT ID #: LOCATION: BMT DATE OF PROCEDURE: 07/09/2021 AGE: 60 SEX: M DATE RECEIVED: 07/09/2021 : 1960 TIME RECEIVED: 10:28 PHYSICIAN: FRANCISCO TAN MD DATE OF REPORT: 07/31/2021 COPY TO: DATE OF PRINTIN07/31/2021 OUTSIDE INSTITUTION: [place] [address] phone: [phone] fax: [phone] ############################## ############################## ############ Final Diagnosis: Outside case "[id number]" (Date Collected: 09/25/2017): A. Lymph node, left [...] ############ Material Received: A: Outside Slides x13, [id number], Clinical Laboratory of the [facility], [address] [place] [address] History: 57 year old male Gross Description: A. Received are thirteen (13) total outside slides and a report labeled "[id number]". Microscopic Description: Morphology: Sections from blocks A [...] of Pathology and Laboratory Medicine of the [facility] ([employer]) in compliance with CLIA'88 regulations. [...] of Pathology and Laboratory Medicine of the [facility]. It has not been cleared or approved by the FDA. The FDA has determined that such clearance or approval is not necessary. Specimen Performing Organization Address City/[facility] Code P catrina Number [facility] MAIN LAB [address] [place] [address] * PATHOLOGY REPORTS FROM OUTSIDE SCAN (07/09/2021 12:00 AM CDT) Narrative 07/09/2021 12:00 AM CDT Ordered by an unspecified provider. * PHOSPHATIDYLETHANOL (07/03/2021 12:11 PM CDT) Phosphatidyleth 428 (H) REFERENCE LAB anol Comment: Reference range: NEGATIVE Unit: ng/mL Analyzed compound: PEth 16:0/18:1. [id number] i-[id number]. Analysis performed by Liquid Chromatography with Tandem Mass Spectrometry (LC/MS/MS). Detection limit: 20 ng/mL PEth levels in excess of 20 ng/mL are considered evidence of moderate to heavy ethanol consumption. However, the Center for Substance Abuse Treatment (CSAT) advises caution in interpretation and use of biomarkers alone to assess alcohol use. Results should be interpreted in the context of all available clinical and behavioral information. Reference: Substance Abuse and Mental Health Services Administration (2012). "The Role of Biomarkers in the Treatment of Alcohol Use Disorders", 2012 Revision. Advisory, Volume 11, Issue 2. This test was developed and its performance characteristics determined by [employer]. It has not been cleared or approved by the Food and Drug Administration. Test Performed by: [facility]. [address] [place] [address] Specimen Performing Organization Address City/State/ZIP Code P catrina Number REFERENCE LAB REFERENCE LAB See results for address. * HIV 1& 2 AG-AB SCRN W REFLEX HIV 1 PCR QUANT (07/03/2021 12:11 PM CDT) Pathologist [facility] HIV 1 and 2 AG NONREACTIVEComment: Negative NR-NONREACTIVE [facility] MAIN LAB AB Screen for HIV-1 Ag and HIV-1/2 specific antibodies. Specimen Blood Performing Organization Address [facility]/ZIP Code P catrina Number [facility] [address] [place] [address] * ZINC (07/03/2021 12:11 PM CDT) Pathologist [facility] Zinc 0.47 (L) REFERENCE LAB Comment: Reference range: 0.66 to 1.10 Unit: mcg/mL ADDITIONAL INFORMATION This test was developed and its performance characteristics determined by [facility] in a manner consistent with CLIA requirements. This test has not been cleared or approved by the U.S. Food and Drug Administration. [facility], [address] [place] [address] Specimen Blood Performing Organization Address [facility] Code P catrina Number REFERENCE LAB REFERENCE LAB See results for address. * HEPATITIS C ANTIBODY W REFLEX HCV PCR QUANT (07/03/2021 12:11 PM CDT) Pathologist [facility] Anti HCV NONREACTIVEComment: Antibodies NR-NONREACTIVE [facility] to HCV were not detected. Specimen Blood Performing Organization Address [facility]/ZIP Code P catrina Number [facility] [address] [place] [address] * HEPATITIS B SURFACE AG (07/03/2021 12:11 PM CDT) Pathologist [facility] HBsAg NONREACTIVEComment: HBs NR-NONREACTIVE [facility] antigen not detected. Specimen Blood Performing Organization Address [facility]/ZIP Code P catrina Number [facility] [address] [place] [address] * HEPATITIS B SURFACE AB (07/03/2021 12:11 PM CDT) [facility] Anti HBs NEGComment: Individual is NEG-NEG [facility] considered to be non-immune to HBV infection. Specimen Blood Performing Organization Address [facility]/State/ZIP Code P catrina Number MAIN LAB [address] [place] [address] * ALPHA FETO PROTEIN (AFP) (07/03/2021 12:11 PM CDT) Alpha Feto 2.4 0.0 - 15.0 NG/ML MAIN LAB Protein Specimen Blood Performing Organization Address City/State/ZIP Code P catrina Number MAIN LAB [address] [place] [address] from Last 3 Months Insurance Type Payer Benefit Subscriber ID Effective Phone Address Plan / Dates Group EDI DALEY [id number] 2021-P [phone] [address] [place] [address] [phone] [address] [facility] (Home) [place], [place] [address] Advance Directives Patient Manager Registration Explanation Type Date Recorded Advance Directive/DPOA Care Teams Start Date End Date Roto Mixer Operator Relationship Specialty 04/30/21 Kulwant Stephens DO PCP - General Internal [address] [place] [address] 08/17/21 Francisco Coello MD Hematology, [address] [place] [address] Medicine 08/17/21 Bonita Cerrato, Nurse SUPERVISOR IN CIRCUIT TESTING-SURGERY SCHEDULER Practitioner [address] [place] [address] Health 08/17/21 Jimi Hale MD Gastroentero [address] [facility] [address] [place] [address]
--- OUTSIDE RECORDS SUMMARY | 2021-09-05 21:54 | XMS REPORT | Encounter Summary ---
Author Author [facility] Organization [facility] Address Unknown Phone Unavailable Care Team Providers Care Veteran Appeals Reviewer Name Role Phone Angelo Watkins DO, Casey PCP Encounter Details Care Team Description Date Type Department Jimi Hale MD [address] [facility] [id number] [place] [address] Encounter for screening laboratory testi ng for COVID-19 virus in asymptomatic patient 08/01/2021 Orders Only Endoscopy: Main [facility] [address] [facility] [address] [place] [address] Social History Date Tobacco Use Types Packs/Day Years Used Current Every Day Smoker Cigarettes Smokeless Tobacco: Current User Comments Alcohol Use Standard Drinks/Week Not Currently 0 (1 standard drink = 0.6 o z pure alcohol) Sex Assigned at Date Recorded Male 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 COVID-19 Exposure Response 07/08/2021 9:24 [...] Description Date [place] [address] [place], [place] [address] Portal hypertension (HCC) 09/11/2021 Hospital Gastroenterology [place] [address] [place], [place] [address] ESOPHAGOGASTRODUODENOSCOPY WITH SPECIMEN COLLECTION BY BRUSHING/ WASHING 09/11/2021 Surgery Gastroenterology Order Schedule Name Type Priority Associated Diag noses Expected: 08/02/2021 (Approximate), Expi res: 08/01/2022 COVID-19 (SARS-COV-2) PCR Microbiology Routine Enco unter for screening laboratory testing for COVID-19 virus in asymptomatic patient Date/Time Name Priority Associated Diagnose s 09/11/2021 3:25 PM DIE ATTACHING MACHINE TENDER ESOPHAGOGASTRODUODENOSCOPY WITH SPECIMEN Portal hyp ertension (HCC) COLLECTION BY BRUSHING/ WASHING 09/11/2021 3:25 PM DIE ATTACHING MACHINE TENDER COLONOSCOPY DIAGNOSTIC WITH SPECIMEN Portal hyperte nsion [...] encounter Care Teams Start Date End Date Veteran Appeals Reviewer Relationship Specialty 04/30/21 Kulwant Stephens DO PCP - General Internal [address] [place] [address] documented as of this encounter
--- OUTSIDE RECORDS SUMMARY | 2021-09-05 21:54 | XMS REPORT | Encounter Summary ---
Author Author [facility] Organization [facility] Address Unknown Phone Unavailable Care Team Providers Care Supplier Quality Specialist Name Role Phone Angelo Watkins DO, Casey PCP Encounter Details Care Team Description Date Type Department Bruce Lassiter RN Encounter for screening laboratory testi ng for COVID-19 virus in asymptomatic patient 08/13/2021 Orders Only Endoscopy: Main [facility] [address] [facility] [place] [address] Social History Date Tobacco Use Types Packs/Day Years Used Current Every Day Smoker Cigarettes Smokeless Tobacco: Current User Comments Alcohol Use Standard Drinks/Week Not Currently 0 (1 standard drink = 0.6 o z pure alcohol) Sex Assigned at Date Recorded Male 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 COVID-19 Exposure Response 08/09/2021 7:57 [...] Description Date [place] [address] [place] [address] Portal hypertension (HCC) 09/11/2021 Hospital Gastroenterology [place] [address] [place], [place] [address] ESOPHAGOGASTRODUODENOSCOPY WITH SPECIMEN COLLECTION BY BRUSHING/ WASHING 09/11/2021 Surgery Gastroenterology Order Schedule Name Type Priority Associated Diag noses Expected: 09/04/2021 (Approximate), Expi res: 08/13/2022 COVID-19 (SARS-COV-2) PCR Microbiology Routine Enco unter for screening laboratory testing for COVID-19 virus in asymptomatic patient Date/Time Name Priority Associated Diagnose s 09/11/2021 3:25 PM SLITTING AND SHIPPING SUPERVISOR ESOPHAGOGASTRODUODENOSCOPY WITH SPECIMEN Portal hyp ertension (HCC) COLLECTION BY BRUSHING/ WASHING 09/11/2021 3:25 PM SLITTING AND SHIPPING SUPERVISOR COLONOSCOPY DIAGNOSTIC WITH SPECIMEN Portal hyperte nsion [...] encounter Care Teams Start Date End Date Supplier Quality Specialist Relationship Specialty 04/30/21 Kulwant Stephens DO PCP - General Internal [address] [place], [place] [address] documented as of this encounter
--- OUTSIDE RECORDS SUMMARY | 2021-09-05 21:54 | XMS REPORT | Encounter Summary ---
Author Author [facility] Organization 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 COVID-19 Exposure Response 08/16/2021 12:23 [...] Description Date [place] [address] [place] [address] Portal hypertension (HCC) 09/11/2021 Hospital Gastroenterology [place] [address] [place] [address] ESOPHAGOGASTRODUODENOSCOPY WITH SPECIMEN COLLECTION BY BRUSHING/ WASHING 09/11/2021 Surgery Gastroenterology Date/Time Name Priority Associated Diagnose s 09/11/2021 3:25 PM AUTOMATIC TRIMMING SEWER ESOPHAGOGASTRODUODENOSCOPY WITH SPECIMEN Portal hyp ertension (HCC) COLLECTION BY BRUSHING/ WASHING 09/11/2021 3:25 PM AUTOMATIC TRIMMING SEWER COLONOSCOPY DIAGNOSTIC WITH SPECIMEN Portal hyperte nsion [...] encounter Care Teams Start Date End Date Delivery Agent Relationship Specialty 04/30/21 Kulwant Stephens DO PCP - General Internal [address] [place] [address] documented as of this encounter
--- OUTSIDE RECORDS SUMMARY | 2021-09-05 21:54 | XMS REPORT | Encounter Summary ---
Author Author [facility] Organization [facility] Address Unknown Phone Unavailable Care Team Providers Care Obstetrics Gyn Physician Name Role Phone Angelo Watkins DO, Casey PCP Encounter Details Care Team Description Date Type Department Ashish Rogers MD [address] [place] [address] Encounter for screening laboratory testi ng for COVID-19 virus in asymptomatic patient 07/08/2021 Orders Only Specialty Screening : [address] 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 COVID-19 Exposure Response 07/03/2021 9:26 AM CDT In the last month, have [...] Description Date [place] [address] [place] [address] Portal hypertension (HCC) 09/11/2021 Hospital Gastroenterology [place] [address] [place] [address] ESOPHAGOGASTRODUODENOSCOPY WITH SPECIMEN COLLECTION BY BRUSHING/ WASHING 09/11/2021 Surgery Gastroenterology Order Schedule Name Type Priority Associated Diag noses Expected: 07/09/2021 (Approximate), Expi res: 07/08/2022 COVID-19 (SARS-COV-2) PCR Microbiology Routine Enco unter for screening laboratory testing for COVID-19 virus in asymptomatic patient Date/Time Name Priority Associated Diagnose s 09/11/2021 3:25 PM GEOPHYSICAL PROSPECTOR ESOPHAGOGASTRODUODENOSCOPY WITH SPECIMEN Portal hyp ertension (HCC) COLLECTION BY BRUSHING/ WASHING 09/11/2021 3:25 PM GEOPHYSICAL PROSPECTOR COLONOSCOPY DIAGNOSTIC WITH SPECIMEN Portal hyperte nsion [...] encounter Care Teams Start Date End Date Obstetrics Gyn Physician Relationship Specialty 04/30/21 Kulwant Stephens DO PCP - General Internal [address] [place] [address] documented as of this encounter
--- OUTSIDE RECORDS SUMMARY | 2021-09-05 21:54 | XMS REPORT | Encounter Summary ---
Author Author [facility] Organization [facility] Address Unknown Phone Unavailable Care Team Providers Care Push Connector Assembler Name Role Phone Angelo Watkins DO, Casey PCP Reason for Visit * Reason Onset Date Comments [id number]-bz-Gqwp 08/08/2021 Encounter Details Care Team Description Date Type Department Bonita Cerrato APRN-CJ [address] [place] [address] Oqzz-gf-Irwx 08/08/2021 Telephone Hepatology: Main [facility] [address] [facility]. 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 TRISTA SHAH [address] [place] [address] This is your copy of the letter sent to KAREN RENTERIA Para obtener ayuda para traducir o entender estgabby conde [phone] (TTY/TDD) entre 8 a.m. y 5 p.m. Re: Member Name: Karen Renteria Member ID No. [id number] Reference Number: [id number] Date of Service August 09, 2021 Requesting Provider: Dr. Trista Shah Claim Amount: Not Applicable CT chest/abdomen/pelvis with and without contrast for HCC screening given histor y of lymphoma Reference # for call [id number] Denied CT chest/abdomen/pelvis, will only approve annual CT chest with history o f lymphoma treated [address]. [address] abdomen/pelvis as patient had unremark able imaging with CT abdomen/pelvis Nov 2020 and normal AFP. Plan for limited abdominal US at this time for HCC screening documented in this encounter Plan of Treatment Care Team Description Date [place] [address] [place] [address] Portal hypertension (HCC) 09/11/2021 Hospital Gastroenterology [place] [address] [place], [place] [address] ESOPHAGOGASTRODUODENOSCOPY WITH SPECIMEN COLLECTION BY BRUSHING/ WASHING 09/11/2021 Surgery Gastroenterology Date/Time Name Priority Associated Diagnose s 09/11/2021 3:25 PM LICENSED REACTOR OPERATOR ESOPHAGOGASTRODUODENOSCOPY WITH SPECIMEN Portal hyp ertension (HCC) COLLECTION BY BRUSHING/ WASHING 09/11/2021 3:25 PM LICENSED REACTOR OPERATOR COLONOSCOPY DIAGNOSTIC WITH SPECIMEN Portal hyperte nsion [...] encounter Care Teams Start Date End Date Push Connector Assembler Relationship Specialty 04/30/21 Kulwant Stephens V, PCP - General Internal [address] [place] [address] documented as of this encounter
--- OUTSIDE RECORDS SUMMARY | 2021-09-05 21:54 | XMS REPORT | Encounter Summary ---
Author Author [facility] Organization [facility] Address Unknown Phone Unavailable Care Team Providers Care Counterperson Name Role Phone Angelo Watkins DO, Casey PCP Francisco Coello MD Unavailable Bonita Cerrato APRN-SIZE STAMPER Unavailable [phone] Jimi Hale MD Unavailable Reason for Referral * Consult, Test & Treat (Routine) - Closed Diagnoses / Procedures Referred By Contact Referred To [facility] Specialty Diagnoses Alcoholic cirrhosis of liver without ascites (HCC) Hepatic encephalopathy (HCC) Bonita Cerrato APRN-CJ [address] [place] [address] Formerly [facility] Endoscopy [address] [facility] [address] [place] [address] Referral ID Status Reason Start Date Expiration Visits Vi sits Date Requested Authorized [id number] Closed Specialty Services 08/16/2021 08/16/2022 1 1 Required Scheduling Instructions Please add this with the EGD on 09/11/21 Answer Question Colonoscopy GI Procedure Comments 2 day prep please Reason for Visit * Reason Comments Cirrhosis Encounter Details Care Team Description Date Type Department Bonita Cerrato APRN-NP [address] [place] [address] Alcoholic cirrhosis of liver without asc ites (HCC) (Primary Dx); Hepatic encephalopathy (HCC); Liver lesion; Anemia, unspecified type; Tobacco use; Substance use 08/16/2021 Office Visit Transplant: Main Ca mpus, Telehealth [facility] 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 documented as of this encounter Functional Status Date of Assessment Functional Status Response 08/16/2021 Does the patient have a hearing impairment: Yes 08/16/2021 Does the patient have a visual impairment: Yes 08/16/2021 Does the patient have impaired ambulation: Yes 08/16/2021 Does the patient have an activity of daily living No (ADL) impairment: 08/16/2021 Does the patient have an instrumental activity of No daily living (IADL) impairment: Date of Assessment Cognitive Status Response 08/16/2021 Does the patient have a cognitive impairment: Yes documented as of this encounter Ordered Prescriptions Start Date End Date Prescription Sig Dispensed Refills 08/16/2021 zinc sulfate (ORAZINC) Take one 30 capsule 11 220 mg (50 mg elemental capsule by zinc) capsule mouth daily. 08/16/2021 09/02/2021 rifAXIMin (XIFAXAN) 550 Take one 60 tablet 11 mg tablet tablet by mouth twice daily. documented in this encounter Progress Notes * Kaylan Nguyen - 08/16/2021 11:30 AM CDT Social Work Note Date: 08/16/21 Plan: Provide counseling resources Intervention: CASANDRA requested to meet with pt and provide counseling resources. Wenceslao Staley reviewed EMR. CASANDRA obtained a list of counseling options from [employer] website. CASANDRA obtained [facility] of [facility]. SW met with pt during clinic visit. SW discussed counseling requirement and provided resources. SW provided counseling checklist and SW contact information for future questi ons/concerns. Pt is aware he needs to quit drinking. He is aware counseling shaquille l started over if he relapses. KATHY Snowden * Bonita Cerrato APRN-SIZE STAMPER - 08/16/2021 11:30 AM CDT Date of Service: 08/16/2021. Karen Hunt : 1960 Subjective: History of Present Illness Mr. Karen Hunt is a pleasant 60 y.o. 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 He reports that he was initially diagnosed with decompensated liver disease appr oximately two years ago. He had been hospitalized locally when living in [place], where he had been found to have presenting with acute abdominal pain. H e was found to have evidence of pancreatitis as well as decompensated liver dise ase with presence of ascites. He reports for a period had been undergoing weekl y paracentesis of 2 to 4 L per week for more than one year and then approximatel y 3 to 4 months ago, his ascites had started to decrease inflammation with last paracentesis reported in one month ago. He does report having increasing dyspne a, and was found have a left pleural effusion, which was tapped twice, last perf ormed 2 to 3 weeks ago. There is a question of possible SBP in the past, but fu rther details are not clear. He has been on furosemide and spironolactone, but he was unknown of the dosing of the medication today. He reports he does not fo llow a low-sodium diet. He denies prior history of EGD or known varices. He do es report a question of reported dark stools 2 to 3 months ago. He reports havi ng a colonoscopy five years ago with one polyp removed. He had also been concer rusty for encephalopathy symptoms in the past. There has been a question of lact ulose use previously. He reports having 3 to 4 bowel movements per day. He rep orts he was drinking regularly up to a 5th of alcohol daily up until one month a go. He reports his alcohol intake increased after his diagnosis of lymphoma. Lynn barrios has had some symptoms of fatigue. He takes chronic gabapentin for chronic astrid n. He has had some intermittent abdominal pain primarily in his right lower yuri drant, in his groin, and periumbilical region. He has had previous umbilical he rnia repair with mesh approximately one year ago. He reports losing 60 pounds s gela his lymphoma diagnosis. He has had some symptoms of early satiety. He johnson s report use of Seroquel and gabapentin to aid with sleep. He otherwise had rec ently relocated to the [facility] for additional family support giv en his illness and need for additional care. Patient presents to clinic today ac companied by his son, last seen June [address] Jimi Hale to establish c are in hepatology clinic. Interim update: Overall the patient has been well and he denies hospitalizations or ED visits. Most recent available MELD score 19 from labs June 2021. Unfortunately gerald paredes has had ongoing alcohol use in addition to ongoing tobacco and marijuana us e. He has not engaged in counseling at this time. Previously he reports inpati ent rehabilitation and AA meetings were not helpful in maintaining alcohol sobri ety. He reports yesterday he did feel extremely weak and short of breath. He d enies fevers or chills or night sweats and endorses sensation of feeling cold. He reports today he no longer has those symptoms of shortness of breath and weak ness is not as severe. He was started on gabapentin for nerve pain which she re ports is helping. Additionally he has continued on ciprofloxacin for SBP preven tion. He reports taking furosemide and spironolactone as needed and reports brock t he did restart these diuretics 1 week ago when he noticed some minimal lower e xtremity edema. He was started on lactulose at prior office visit which he is t aking twice a day with 3-4 bowel movements per day. Unfortunately he has contin ued to have significant brain fog. He has an office visit today to establish ca re with Dr. Hitchcock oncology. Patient denies abdominal pain, nausea, hematemesis , diarrhea, constipation, melena, hematochezia, fevers, jaundice, pruritis, ches t pain, or confusion. No other changes or new symptoms. Past Medical History: 1. Decompensated liver disease due to history of alcohol misuse. 2. History of ascites, questionable history of SBP in the past. 3. History of regular paracentesis in the past, currently on spironolactone and furosemide, current doses unknown. 4. History of left pleural effusion with thoracentesis times 2, last 2 to 3 week s ago. 5. Question of hepatic encephalopathy symptoms in the past. 6. Umbilical hernia with prior repair with mesh approximately 18 months ago. 7. History of large follicular B-cell lymphoma, treated with chemotherapy and ra diation diagnosed in 2017, finishing therapy in 2018. Last reported PET scan on e month ago prior to moving to [place]. 8. Obstructive sleep apnea, currently not on CPAP. 9. Chronic neuropathic pain, on gabapentin. 10. History of pancreatitis. Past Surgical History: He has had an umbilical hernia repair with mesh approxim ately 18 months ago. Family History: He had a father with history of lung cancer with partial lobect macrina with metastasis to his pancreas per report. Social History: He is single. He has three sons. He currently is living in [place]. 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 He smo kes one-half pack of cigarettes per day. He reports use of alcohol up to a 5th of alcohol daily up until one month ago. He reports his drinking increased afte r his lymphoma diagnosis. He reports having DUI two years ago. He is not atten ding any counseling or rehab activities. He does have a history of IV methamphe tamine use 30 years ago. He reports history of marijuana use a few times per we ek, last use a couple of days ago. He reports having non-professionally placed tattoo. No history of transfusions. Allergies: No known drug allergies. Health Maintenance: He reports he has received the first COVID-19 vaccination. He reports having a colonoscopy five years ago with a single polyp. Review of systems as above and per History of Present Illness; otherwise negativ e for 10 of 14 systems reviewed. Objective: ciprofloxacin (CIPRO) 500 mg tablet Take [...] Take one capsul e by mouth daily. There were no vitals filed for this visit. There is no height or weight on file to calculate BMI. Physical Exam Constitutional: Appearance: Well-developed. Thin habitus HENT: Head: Normocephalic and atraumatic. Pulmonary: Effort: Pulmonary effort is normal. No respiratory distress. Skin: General: No jaundice Neurological: Mental Status: Alert and oriented to person, place, and time. Psychiatric: Behavior: Behavior normal. Thought Content: Thought content normal. MELD-Na score: 19 at 07/03/2021 12:11 PM MELD score: 16 at 07/03/2021 12:11 PM Calculated from: Serum Creatinine: 0.59 MG/DL (Using min of 1 MG/DL) at 07/03/2021 12:11 PM Serum Sodium: 133 MMOL/L at 07/03/2021 12:11 PM Total Bilirubin: 5.0 MG/DL at 07/03/2021 12:11 PM INR(ratio): 1.4 at 07/03/2021 12:11 PM Age: 60 years Results for DEXTER KAREN ( ) as of 08/18/2021 12:22 Ref. Range 07/03/2021 12:11 Hemoglobin Latest Ref Range: 13.5 - 16.5 GM/DL 12.2 (L) Hematocrit Latest Ref Range: 40 - 50 % 34.0 (L) Platelet Count Latest Ref Range: 150 - 400 K/UL 83 (L) White Blood Cells Latest Ref Range: 4.5 - 11.0 K/UL 3.5 (L) Neutrophils Latest Ref Range: 41 - 77 % 56 Absolute Neutrophil Count Latest Ref Range: 1.8 - 7.0 K/UL 1.97 Lymphocytes Latest Ref Range: 24 - 44 % 28 Absolute Lymph Count Latest Ref Range: 1.0 - 4.8 K/UL 1.00 Monocytes Latest Ref Range: 4 - 12 % 12 Absolute Monocyte Count Latest Ref Range: 0 - 0.80 K/UL 0.43 Eosinophils Latest Ref Range: 0 - 5 % 3 Absolute Eosinophil Count Latest Ref Range: 0 - 0.45 K/UL 0.11 Absolute Basophil Count Latest Ref Range: 0 - 0.20 K/UL 0.03 Basophils Latest Ref Range: 0 - 2 % 1 RBC Latest Ref Range: 4.4 - 5.5 M/UL 3.05 (L) MCV Latest Ref Range: 80 - 100 FL 111.3 (H) MCH Latest Ref Range: 26 - 34 PG 39.9 (H) MCHC Latest Ref Range: 32.0 - 36.0 G/DL 35.8 MPV Latest Ref Range: 7 - 11 FL 6.4 (L) RDW Latest Ref Range: 11 - 15 % 15.1 (H) INR Latest Ref Range: 0.8 - 1.2 1.4 (H) Iron Latest Ref Range: 50 - 185 MCG/DL 270 (H) % Saturation Latest Ref Range: 28 - 42 % 89 (H) Iron Binding-TIBC Latest Ref Range: 270 - 380 MCG/DL 305 Ferritin Latest Ref Range: 30 - 300 NG/ML 155 Sodium Latest Ref Range: 137 - 147 MMOL/L 133 (L) Potassium Latest Ref Range: 3.5 - 5.1 MMOL/L 4.3 Chloride Latest Ref Range: 98 - 110 MMOL/L 100 CO2 Latest Ref Range: 21 - 30 MMOL/L 25 Anion Gap Latest Ref Range: 3 - 12 8 Blood Urea Nitrogen Latest Ref Range: 7 - 25 MG/DL 10 Creatinine Latest Ref Range: 0.4 - 1.24 MG/DL 0.59 eGFR Non Latest Ref Range: >60 mL/min >60 eGFR Latest Ref Range: >60 mL/min >60 Glucose Latest Ref Range: 70 - 100 MG/DL 99 Albumin Latest Ref Range: 3.5 - 5.0 G/DL 3.3 (L) Calcium Latest Ref Range: 8.5 - 10.6 MG/DL 8.9 Total Bilirubin Latest Ref Range: 0.3 - 1.2 MG/DL 5.0 (H) Total Protein Latest Ref Range: 6.0 - 8.0 G/DL 8.0 Zinc Unknown 0.47 (L) AST (SGOT) Latest Ref Range: 7 - 40 U/L 51 (H) ALT (SGPT) Latest Ref Range: 7 - 56 U/L 11 Alk Phosphatase Latest Ref Range: 25 - 110 U/L 296 (H) Phosphatidylethanol Unknown 428 (H) Vitamin A Unknown 9.8 (L) Vitamin D(25-OH)Total Latest Ref Range: 30 - 80 NG/ML 33.0 Alpha Feto Protein Latest Ref Range: 0.0 - 15.0 NG/ML 2.4 Anti HBs Latest Ref Range: NEG-NEG NEG HBsAg Latest Ref Range: NR-NONREACTIVE NONREACTIVE Anti HCV Latest Ref Range: NR-NONREACTIVE NONREACTIVE HIV 1 and 2 AG AB Screen Latest Ref Range: NR-NONREACTIVE NONREACTIVE Results for orders placed during the hospital encounter of 08/09/21 US ABDOMEN COMPLETE Narrative ABDOMINAL ULTRASOUND WITH DOPPLER CLINICAL INDICATION: Male, 60 year old; alcoholic cirrhosis. Hepatocellular carc inoma screening. TECHNIQUE: Multiple grayscale, color Doppler and spectral Doppler ultrasound benito ges were obtained through the abdomen. COMPARISON: Outside facility CT cap 11/30/2020. Outside ultrasound 12/28/2020. FINDINGS: Liver and Biliary System: Normal size. The liver is coarse in echotexture. There is surface nodularity. Two echogenic and one isoechoic observations are seen th roughout the right hepatic lobe measuring up to 1.1 x 1.2 x 1.3 cm. The isoechoi c observation adjacent to the gallbladder fossa demonstrates peripheral vascular ity and measures up to 1.1 cm. No [...] volume ascites. Lower chest: Bilateral pleural effusions. Impression 1. US-3, positive. Visualization score A. Further evaluation with multiphase CT or MRI of the abdomen recommended. 2. Patent hepatic vasculature. 3. Bilateral pleural effusions and small volume ascites. Ultrasound LI-RADS (v2017) assessment categories US-1, negative: No US evidence of HCC US-2, subthreshold: Observation detected that may warrant short-term US surveill ance US-3, positive: Observation detected that may warrant contrast-enhanced imaging US visualization score A: No or minimal limitations B: Moderate limitations C: Severe limitations [email or web address] Finalized by Abad Raines MD on 08/09/2021 3:12 PM. Dictated by Yoni Ribeiro on 08/09/2021 3:02 PM. Outside records and labs reviewed including those reviewed on Care Everywhere. The patient had labs from April 22, 2021, which showed hepatitis B surface antige n nonreactive. Hepatitis C antibody nonreactive. Hepatitis B core antibody tot al nonreactive. Hepatitis B surface antibody reactive. Hepatitis A total antib yue nonreactive. Labs on Care everywhere showed CBC from November 05, 2020, with a white blood breann l count of 4.8, hemoglobin 11.1, platelet count 71. Chemistries from that date showed a sodium of 136, creatinine 0.60, AST 38, ALT 12, total bilirubin 2.60, a lbumin 2.2. The patient had a CT of the neck, chest, abdomen, and pelvis on Nov, with contrast showing a small left pleural effusion. Cirrhosis with splenomegaly and large varices consistent with portal hypertension and mult iple large recanalized collaterals including paraumbilical vein. No enlarged ly mph nodes. He had a limited abdominal ultrasound on December 28, 2020, showing sma ll ascites. Sufficient for paracentesis, however, the patient wanted to have fu rther paracentesis due to small amount of fluid and lack of symptoms. Ultrasound on February 06, 2021, showed a removal 1.4 L of fluid. Chest x-ray on 2020, shows small dependent pleural effusions with some mildly prominent i nterstitial markings in both lungs suggestive of volume overload. Labs on March 18, 2021, showed a sodium of 137 creatinine of 0.76, bilirubin 6.6, AST 42, ALT 13, alkaline phosphatase 211. Labs on April 09, 2021, showed a sodium of 135, creatinine 0.69, bilirubin 5.3, A ST 39, ALT 12, albumin 2.8. White blood cell count 4.3, hemoglobin 11, platelet count was 108. INR 1.5. Assessment and Plan: Karen Hunt is a pleasant 60 y.o. male with a history of low grade follicular B cell lymphoma s/p L neck lymph node excision and radiation, TRICE, umbilical herni a s/p repair who presents for evaluation of alcoholic cirrhosis decompensated by ascites, pleural effusion, and hepatic encephalopathy. 1. Decompensated Cirrhosis -Secondary to ongoing alcohol use -Viral testing for hepatitis B, C, HIV - June 2021 -Elevated MELD score most recently 19 from labs June 2021 -Decompensated by ascites/pleural effusion requiring paracentesis and thoracente sis, and hepatic encephalopathy -Update MELD labs today and at minimum every 3 months, reviewed OLT evaluation r equirements noted in detail below 2. OLT candidacy -Barriers to transplant include alcohol use without documented sobriety or couns eling, active tobacco and marijuana use, prior IV substance use, prior lymphoma -Establishing care with Dr. Hitchcock oncology today with history of lymphoma -Reviewed recommendation for complete cessation of alcohol, tobacco, marijuana a nd would need to document negative screenings in addition to completion of at id nimum 1 hour weekly for minimum of 6 months counseling with travel specialist -Will need dental clearance -We will need to demonstrate social support in addition to meeting all other fin ancial, physical, psychosocial requirements 3. Alcohol use -Previously drinking 1/5th of alcohol daily for years. Prior DUI. -Positive alcohol screening June 2021 -Unfortunately since prior office visit patient reports he has continued alcohol use and has not started alcohol counseling -Recommend alcohol cessation for life -Additionally reviewed in detail requirements in the event OLT evaluation were n eeded including documentation of alcohol cessation with minimum of 1 hour weekly alcohol counseling for minimum of 6 months, would recommend individual counseli ng with substance use specialist given patient reports prior inpatient rehabilit atcommunity health and AA meetings were not helpful in maintaining cessation 4. Substance use -Prior history of IV substance use, ongoing tobacco and marijuana use, recommend cessation for life -Reviewed requirements in the event OLT evaluation were needed including tobacco and marijuana cessation, remaining substance use free, would be subject to [facility] screenings in the event OLT evaluation were needed 5. Fluid volume overload -Hx of ascites requiring frequent paracentesis, recent left pleural effusion req uiring thoracentesis -With history of SBP, with concerns patient was started on ciprofloxacin 500 mg daily for SBP prophylaxis at prior office visit -Patient currently taking furosemide and spironolactone as needed reports restar ting these diuretics 1 week ago with increased lower extremity edema -Reviewed patient should follow low-sodium diet less than 2000 mg/day and take d iuretics daily not as needed -Patient to contact our office if he gains more than 5 pounds in 1 week, may nee d to continue titration of diuretics 6. Hepatic Encephalopathy -At previous office visit patient had reported confusion/disorientation with ast erixis present on exam -As result he was started on lactulose which she reports taking twice daily with 3-4 bowel movements per day. Disorientation/confusion has resolved however sig nificant brain fog continues -Plan to add Xifaxan and zinc to current regimen -Advised patient not to drive or operate heavy machinery if symptoms are present 7. Varices Screening -Patient endorses prior melena 2-3 months ago -Denies previous EGD -Hgb 12.2 with Ferritin 155 from labs June 2021 -CT from November 2020 notes large paraesophageal varices -Scheduled for EGD September 2021 -With patient's reports of significant fatigue and shortness of breath yesterday we will update labs today including CBC and iron studies with ferritin although patient denies melena or hematochezia at this time 8. Hepatocellular carcinoma screening/liver lesion -Due to underlying cirrhosis patient is at increased risk for HCC and will need AFP and imaging every 6 months -AFP normal at 2.15 June 2021 -Attempted to order abdominal CT with liver protocol however this was denied by patient's insurance, he had abdominal ultrasound completed July 2021 which sh owed multiple concerning liver lesions and recommend to proceed with urgent abdo oli CT with liver protocol at this time 9. Follicular B Cell Lymphoma -Diagnosed on left neck excisional lymph node biopsy in 2016 -Treated with radiation completed in 2018 -Previously followed with Dr. Alexis at [facility] in [place], [place] -CT c/a/p 11/2020 was negative for any lymphadenopathy to suggest recurrence. -Office visit with Dr. Hitchcock oncology today to establish care 10. Bone Health -We will need to periodically monitor vitamin D level, normal at 30 14 June 2021 -Recommend baseline bone density scan 11. Vaccinations -Patient is not immune to hepatitis B. We will check immunity to hepatitis a. If patient is not immune would recommend he complete vaccination series and with in check for immunity -Recommend yearly influenza vaccine which patient has not yet received -Recommend pneumococcal vaccines if not already completed -Recommend COVID 19 vaccination series which patient reports he has received 12. Hx of Colon Polyps -Last colonoscopy in 2016 with one TA >Repeat colonoscopy due at this time. Plan to schedule concurrently with upcoming EGD September 2021 13. Nutrition -Reviewed need for high-protein diet in the setting of underlying cirrhosis marla tionally at risk for fat-soluble vitamin deficiencies and will continue to monit or these levels 14. Follow-up -Patient to return for health office visit or sooner as needed -Advised patient to contact our clinic if any change in status occurs Plan: -Update MELD labs today at minimum every 3 months -Concerning liver lesions noted on abdominal ultrasound and plan to update imagi ng at this time with abdominal CT with liver protocol -Unfortunately patient has continued alcohol, tobacco, marijuana use. Reviewed diet currently patient is not a candidate for liver transplant. Recommend immed iate cessation at this time and reviewed recommendations for initiating alcohol counseling preferably with travel specialist given his history. Social neli pham met with patient during today's office visit to review resources. -Reviewed liver transplant requirements including need for documented cessation of alcohol, tobacco, substance use and minimum 6 months of weekly counseling -EGD scheduled September 2021, plan to add colonoscopy in the event OLT evaluatio n were needed this would be required -Add Xifaxan and zinc to current regimen of lactulose for symptomatic hepatic en cephalopathy, advised patient not to drive or operate heavy machinery if symptom s are present -Recommend annual influenza vaccination -We will need baseline bone density scan in the future, patient to focus on alco hol cessation at this time -Continue ciprofloxacin 500 mg daily for SBP prophylaxis -Reviewed recommendation to continue low-sodium diet and to take diuretics daily instead of as needed 45 minutes spent on this patient's encounter with counseling and coordination of care taking >50% of the visit. Thank you very much for the opportunity to participate in the care of this patie nt. Please do not hesitate to call or contact me at [phone] if I may be of further assistance in this patient's care. Bonita Cerrato APRN [facility] Hepatology and Liver Transplant Office Number: [phone] Staff name: ADELA Woodward Date: 07/03/2021 NE TEST CELL TECHNICIAN documented in this encounter Miscellaneous Notes * Patient Instructions - Joseph Pollard RN - 08/16/2021 11:30 AM CDT Schedule: 1. Labs Today 2. Schedule ABD/Chest CT for 09/11/21 if possible if not back office will follow up 3. RTC for TH in 1 month with Bonita Cerrato APRN Patient Information: 1. Colonoscopy ordered to be added on to 09/11/21 EGD 2. Labs Today 3. Contnue taking your lactulose goal 3-4 soft bowel movements a day 4. CT of Chest and Abdomen Triple Phase goal to schedule on 09/11/21 here at [facility] 5. Recommend you stop drinking alcohol. 6. You are required alcohol counseling, once a week for 1 hour for 6 months to be considered for transplantation, there are no exceptions. The counseling form has been provided and needs to be signed at each of your counseling visits. Br ing this form with you to every follow up visit. A good resource is https://alc oholtreatment.niaaa.nih.gov/ The website can assist you to find alcohol treatme nt facilities in your area. General Instructions: How to reach us: Please send a [employer] message to the General Hepatology cl inic or call [phone], option 2. How to get a medication refill: Please use the [employer] Refill request or con tact your pharmacy directly to request medication refills. Please allow 48 hours . This clinic does not prescribe pain medications. If you have had labs or imaging outside the [facility] system and have not received r esults, call us and let us know where they were completed. Appointment Reminders on your cell phone: Make sure we have your cell phone n umber, and Text [facility] to [phone] As part of the CARES act, starting January 10 some results are released to you automatically. Your provider will continue to send you a detailed result note on any labs that they order, but with these changes you may see your results before they do. Critical lab results will be addressed immediately, but otherwise pl ease give your provider 72 hours (3 business days) to view and respond to your r esults before reaching out with any questions. Depending on your questions, they may ask you to schedule a telehealth or telephone visit to discuss further. This visit may be billed to your insurance depending on time and complexity. Thank you for allowing us to participate in your care. You care team in Dr. Alek tapia, Bonita RANDALL, and Olivia LOPEZ BSN documented in this encounter Plan of Treatment Care Team Description Date [place] [address] [place] [address] Portal hypertension (HCC) 09/11/2021 Hospital Gastroenterology [place] [address] [place] [address] ESOPHAGOGASTRODUODENOSCOPY WITH SPECIMEN COLLECTION BY BRUSHING/ WASHING 09/11/2021 Surgery Gastroenterology Date/Time Name Priority Associated Diagnose s 09/11/2021 3:25 PM ENGINE TEST CELL TECHNICIAN ESOPHAGOGASTRODUODENOSCOPY WITH SPECIMEN Portal hyp ertension (HCC) COLLECTION BY BRUSHING/ WASHING 09/11/2021 3:25 PM ENGINE TEST CELL TECHNICIAN COLONOSCOPY DIAGNOSTIC WITH SPECIMEN Portal hyperte nsion (HCC) COLLECTION BY BRUSHING/ WASHING - FLEXIBLE Order Schedule Name Type Priority Associated Diag noses Ordered: 08/16/2021 AMB REFERRAL TO GI LAB Outpatient Routine Alcohol ic cirrhosis of FOR PROCEDURE Referral liver without ascit es (HCC) Hepatic encephalopathy (HCC) documented as of this encounter Results * 25-OH VITAMIN D (D2 + D3) (08/16/2021 12:26 PM CDT) Vitamin 32.7 30 - 80 NG/ML [facility] D(25-OH)Total Specimen Blood Performing Organization Address [facility]/ZIP Code P catrina Number [facility] [address] [place] [address] * VITAMIN E (08/16/2021 12:26 PM CDT) Vitamin E 6.1 REFERENCE LAB Comment: Reference range: 5.5 to 17.0 Unit: mg/L ADDITIONAL INFORMATION This test was developed and its performance characteristics determined by [facility] in a manner consistent with CLIA requirements. This test has not been cleared or approved by the U.S. Food and Drug Administration. [employer], [facility] [place] [address] Specimen Blood Performing Organization Address City/[facility] P catrina Number REFERENCE LAB REFERENCE LAB See results for address. * VITAMIN A (08/16/2021 12:26 PM CDT) Vitamin A 8.7 (L) REFERENCE LAB Comment: Reference range: 32.5 to 78.0 Unit: mcg/dL In this sample, the retinol (vitamin A) level indicates a severe deficiency. ADDITIONAL INFORMATION This test was developed and its performance characteristics determined by [facility] in a manner consistent with CLIA requirements. This test has not been cleared or approved by the U.S. Food and Drug Administration. [facility], [address], [place] [address] Specimen Blood Performing Organization Address City/State/ZIP Code P catrina Number REFERENCE LAB REFERENCE LAB See results for address. * HEPATITIS A TOTAL AB (IGG+IGM) (08/16/2021 12:26 PM CDT) Hepatitis A, REACTIVE (A) NR-NONREACTIVE [facility] Total Specimen Blood Performing Organization Address City/State/ZIP Code P catrina Number [facility] [address] [place] [address] * COMPREHENSIVE METABOLIC PANEL (08/16/2021 12:26 PM CDT) Sodium 135 (L) 137 - 147 MMOL/L [...] >60 >60 mL/min [facility] Comment: Niuean The eGFR is not validated f or use in drug dosing adjustments. Continue to use estimated creatinine clearance per dosing reference text. Please contact the Clinical Pharmacist for questions. eGFR >60 >60 mL/min [facility] Niuean Comment: The eGFR is not validated for use in drug dosing adjustments. Continue to use estimated creatinine clearance per dosing reference text. Please contact the Clinical Pharmacist for questions. Specimen Blood Performing Organization Address City/State/ZIP Code P catrina Number [facility] [address] [place] [address] * PROTIME INR (PT) (08/16/2021 12:26 PM CDT) INR 1.3 (H) 0.8 - 1.2 [facility] Specimen Blood Performing Organization Address [facility] P catrina Number [facility] [address] [place] [address] * CBC AND DIFF (08/16/2021 12:26 PM CDT) White Blood 3.4 (L) 4.5 - 11.0 [...] Basophil Count Specimen Blood Performing Organization Address [facility]/ZIP Code P catrina Number [facility] [address] [place] [address] documented in this encounter Visit Diagnoses Diagnosis Alcoholic cirrhosis of liver without as cites (HCC) - Primary Alcoholic cirrhosis of liver Hepatic encephalopathy (HCC) Hepatic encephalopathy Liver lesion Other specified disorders of liver Anemia, unspecified type Tobacco use Tobacco use disorder Substance use Portal hypertension (HCC) Portal hypertension documented in this encounter Historical Medications * This list may reflect changes made after this encounter. Start Date End Date Medication Sig Dispensed Refills 02/13/2021 furosemide (LASIX) 40 mg every 24 0 tablet hours. spironolactone every 24 0 (ALDACTONE) 100 mg tablet hours. added in this encounter Additional Health Concerns Noted Time Assessment 08/16/2021 10:26 AM CDT A fall risk assessment has been complet ed for the patient 08/16/2021 10:26 AM CDT PHQ-2 Depression Total Score: 0 documented as of this encounter Care Teams Start Date End Date Counterperson Relationship Specialty 04/30/21 Kulwant Stephens DO PCP - General Internal [address] [place] [address] 08/17/21 Francisco Coello MD Hematology, [address] [place] [address] Medicine 08/17/21 Bonita Cerrato, Nurse CLERK CASHIER-SIZE STAMPER Practitioner [address] [place] [address] Health 08/17/21 Jimi Hale MD Gastroentero [address] [facility] [address] [place] [address] documented as of this encounter
--- OUTSIDE RECORDS SUMMARY | 2021-09-05 21:54 | XMS REPORT | Encounter Summary ---
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 Date Recorded COVID-19 Exposure Response 08/09/2021 7:57 [...] Description Date [place] [address] [place] [address] Portal hypertension (HCC) 09/11/2021 Hospital Gastroenterology [place] [address] [place], [place] [address] ESOPHAGOGASTRODUODENOSCOPY WITH SPECIMEN COLLECTION BY BRUSHING/ WASHING 09/11/2021 Surgery Gastroenterology Date/Time Name Priority Associated Diagnose s 09/11/2021 3:25 PM CUPOLA HOIST OPERATOR ESOPHAGOGASTRODUODENOSCOPY WITH SPECIMEN Portal hyp ertension (HCC) COLLECTION BY BRUSHING/ WASHING 09/11/2021 3:25 PM CUPOLA HOIST OPERATOR COLONOSCOPY DIAGNOSTIC WITH SPECIMEN Portal hyperte [...] encounter Care Teams Start Date End Date Joy Operator Relationship Specialty 04/30/21 Kulwant Stephens DO PCP - General Internal [address] [place] [address] documented as of this encounter
--- OUTSIDE RECORDS SUMMARY | 2021-09-05 21:54 | XMS REPORT | Encounter Summary ---
Author Author [facility] Address Unknown Phone Unavailable Care Team Providers Care Salesperson Automobiles Name Role Phone Angelo Watkins DO, Casey PCP Encounter Details Care Team Description Date Type Department Abad Bradford DO [address] [place] [address] 08/09/2021 Orders Only Gastroenterology: [facility] [address] Social History Date Tobacco Use Types Packs/Day Years Used Current Every Day Smoker Cigarettes Smokeless Tobacco: Current User Comments Alcohol Use Standard Drinks/Week Not Currently 0 (1 standard drink = 0.6 o z pure alcohol) Sex Assigned at Date Recorded Male 08/21/2021 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 Take two tablets day one and then one tablet every day thereafter until finished. Indications: Esophageal candidiasis documented in this encounter Plan of Treatment Care Team Description Date [place] [address] [place], [place] [address] Portal hypertension (HCC) 09/11/2021 Hospital [place]astroenterology [place] [address] [place], [place] [address] ESOPHAGOGASTRODUODENOSCOPY WITH SPECIMEN COLLECTION BY BRUSHING/ WASHING 09/11/2021 Surgery Gastroenterology Date/Time Name Priority Associated Diagnose s 09/11/2021 3:25 PM RESPIRATORY SUPERVISOR ESOPHAGOGASTRODUODENOSCOPY WITH SPECIMEN Portal hyp ertension (HCC) COLLECTION BY BRUSHING/ WASHING 09/11/2021 3:25 PM RESPIRATORY SUPERVISOR COLONOSCOPY DIAGNOSTIC WITH SPECIMEN Portal hyperte [...] encounter Care Teams Start Date End Date Salesperson Automobiles Relationship Specialty 04/30/21 Kulwant Stephens V, PCP - General Internal [address], [place] [address] documented as of this encounter
--- OUTSIDE RECORDS SUMMARY | 2021-09-05 21:54 | XMS REPORT | Encounter Summary ---
Author Author [facility] Organization [facility] Address Unknown Phone Unavailable Care Team Providers Care Sheet Metal Pattern Cutter Name Role Phone Angelo Watkins DO, Casey PCP Encounter Details Care Team Description Date Type Department Bonita Cerrato, HOT STICK WORKER-COMPUTER FORENSICS INVESTIGATOR [address] [place] [address] 08/16/2021 Hospital Laboratory: Main Ca mpus, Encounter Main [facility] [address] [facility]. 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 08/09/2021 fluconazole (DIFLUCAN) Take one 15 tablet 0 200 mg tabletIndications: tablet by Esophageal candidiasis mouth daily. Take two tablets day one and then one tablet every day thereafter until finished. Indications: Esophageal candidiasis 02/13/2021 furosemide (LASIX) 40 mg every 24 0 tablet hours. GABAPENTIN PO Take by 0 mouth. 07/03/2021 lactulose 10 gram/15 mL Take 30 mL by 1892 mL 11 oral solution mouth daily. Titrate to 3-4 BMs/day 08/28/2021 peg-electrolyte solution As directed.. 4000 mL 0 (NULYTELY LEMON-KOTLIK) 420 gram oral solution 07/08/2021 peg-electrolyte solution Mix as 4000 mL 0 (NULYTELY) 420 gram oral directed on solution package. Refrigerate once mixed. Do not mix greater than 24 hours prior to procedure. Drink 3/4 of bottle between 5pm and 7 pm the night before procedure. Drink remaining 1/4 of bottle 5 hours prior to procedure spironolactone every 24 0 (ALDACTONE) 100 mg tablet hours. 08/16/2021 zinc sulfate (ORAZINC) Take one 30 capsule 11 220 mg (50 mg elemental capsule by zinc) capsule mouth daily. 08/16/2021 09/02/2021 rifAXIMin (XIFAXAN) 550 Take one 60 tablet 11 mg tablet tablet by mouth twice daily. documented as of this encounter Discharge Disposition Code Departure Means Destination Disposition Home Home or Self Care documented in this encounter Plan of Treatment Care Team Description Date [place] [address] [place], [place] [address] Portal hypertension (HCC) 09/11/2021 Hospital Gastroenterology [place] [address] [place], [place] [address] ESOPHAGOGASTRODUODENOSCOPY WITH SPECIMEN COLLECTION BY BRUSHING/ WASHING 09/11/2021 Surgery Gastroenterology Date/Time Name Priority Associated Diagnose s 09/11/2021 3:25 PM GAS CHARGER ESOPHAGOGASTRODUODENOSCOPY WITH SPECIMEN Portal hyp ertension (HCC) COLLECTION BY BRUSHING/ WASHING 09/11/2021 3:25 PM GAS CHARGER COLONOSCOPY DIAGNOSTIC WITH SPECIMEN Portal hyperte nsion (HCC) COLLECTION BY BRUSHING/ WASHING - FLEXIBLE documented as of this encounter Procedures Comments Procedure Name Priority Date/Time Associated Diag nosis HC IRON BINDING CAPACITY Add on 08/16/2021 Alcoh olic cirrhosis of + %SAT 12:26 PM CDT liver without ascit es (HCC) HC VITAMIN A Routine 08/16/2021 Alcoholic cirrh osis of 12:26 PM CDT liver without ascites (HCC) Hepatic encephalopathy (HCC) HC HEPATITIS A SANTO IGG Routine 08/16/2021 Alcohol ic cirrhosis of AND IGM 12:26 PM CDT liver without ascit es (HCC) Hepatic encephalopathy (HCC) HC 25-OH VITAMIN D Routine 08/16/2021 Alcoholic c irrhosis of 12:26 PM CDT liver without ascites (HCC) Hepatic encephalopathy (HCC) HC PT(INR) Routine [...] ascit es (HCC) Hepatic encephalopathy (HCC) documented in this encounter Results * IRON + BINDING CAPACITY + %SAT+ FERRITIN (08/16/2021 12:26 PM CDT) Iron 91 50 - 185 MCG/DL [facility] Iron 294 270 - 380 MCG/DL [facility] Binding-TIBC % Saturation 31 28 - 42 % MAIN LAB Ferritin 136 30 - 300 NG/ML MAIN LAB Specimen Performing Organization Address [facility] P catrina Number MAIN LAB [address] [place] [address] * 25-OH VITAMIN D (D2 + D3) (08/16/2021 12:26 PM CDT) Vitamin 32.7 30 - 80 NG/ML [facility] LAB D(25-OH)Total Specimen Blood Performing Organization Address [facility] P catrina Number MAIN LAB [address] [place] [address] * VITAMIN E (08/16/2021 12:26 PM CDT) Vitamin E 6.1 REFERENCE LAB Comment: Reference range: 5.5 to 17.0 Unit: mg/L ADDITIONAL INFORMATION This test was developed and its performance characteristics determined by [facility] in a manner consistent with CLIA requirements. This test has not been cleared or approved by the U.S. Food and Drug Administration. [facility] [employer], [address] [place] [address] Specimen Blood Performing Organization Address [facility] P catrina Number REFERENCE LAB REFERENCE LAB See results for address. * VITAMIN A (08/16/2021 12:26 PM CDT) Vitamin A 8.7 (L) REFERENCE LAB Comment: Reference range: 32.5 to 78.0 Unit: mcg/dL In this sample, the retinol (vitamin A) level indicates a severe deficiency. ADDITIONAL INFORMATION This test was developed and its performance characteristics determined by [facility] in a manner consistent with CLIA requirements. This test has not been cleared or approved by the U.S. Food and Drug Administration. [facility] [employer], [address] [place] [id number] Specimen Blood Performing Organization Address [facility] P catrina Number REFERENCE LAB REFERENCE LAB See results for address. * HEPATITIS A TOTAL AB (IGG+IGM) (08/16/2021 12:26 PM CDT) Hepatitis A, REACTIVE (A) NR-NONREACTIVE [facility] Total Specimen Blood Performing Organization Address City/State/ZIP Code P catrina Number [facility] [address] [place] [address] * COMPREHENSIVE METABOLIC PANEL (08/16/2021 12:26 PM [...] >60 >60 mL/min [facility] Comment: Samoan The eGFR is not validated f or use in drug dosing adjustments. Continue to use estimated creatinine clearance per dosing reference text. Please contact the Clinical Pharmacist for questions. eGFR >60 >60 mL/min [facility] Samoan Comment: The eGFR is not validated for use in drug dosing adjustments. Continue to use estimated creatinine clearance per dosing reference text. Please contact the Clinical Pharmacist for questions. Specimen Blood Performing Organization Address City/State/ZIP Code P catrina Number [facility] [address] [place] [address] * PROTIME INR (PT) (08/16/2021 12:26 PM CDT) INR 1.3 (H) 0.8 - 1.2 [facility] Specimen Blood Performing Organization Address City/State/ZIP Code P catrina Number [facility] [address] [place] [address] * CBC AND DIFF (08/16/2021 12:26 PM [...] Basophil Count Specimen Blood Performing Organization Address City/[facility]/ZIP Code P catrina Number [facility] [address] [place] [address] documented in this encounter Visit Diagnoses Diagnosis Alcoholic cirrhosis of liver without as cites (HCC) Alcoholic cirrhosis of liver Hepatic encephalopathy (HCC) Hepatic encephalopathy Portal hypertension (HCC) Portal hypertension documented in this encounter Additional Health Concerns Noted Time Assessment 08/16/2021 3:15 PM CDT A fall risk assessment has been complet ed for the patient 08/16/2021 10:26 AM CDT PHQ-2 Depression Total Score: 0 documented as of this encounter Care Teams Start Date End Date Sheet Metal Pattern Cutter Relationship Specialty 04/30/21 Kulwant Stephens V, DO PCP - General Internal [address] [place], [place] [address] documented as of this encounter
--- OUTSIDE RECORDS SUMMARY | 2021-09-05 21:54 | XMS REPORT | Encounter Summary ---
Author Author [facility] Organization [facility] Address Unknown Phone Unavailable Care Team Providers Care Bakery Assistant Name Role Phone Angelo Watkins DO, Casey PCP Reason for Referral * Radiology Services (Routine) - New Request Diagnoses / Procedures Referred By Contact Referred To Conta ct Specialty Diagnoses Alcoholic cirrhosis of liver with ascites (HCC) Procedures US ABDOMEN COMPLETE Bonita Cerrato APRN-CJ [address] [place] [address] Radiology Referral ID Status Reason Start Date Expiration Visits Vi sits Date Requested Authorized [id number] New Request 08/08/2021 08/08/2022 1 1 * Radiology Services (Routine) - New Request Diagnoses / Procedures Referred By Contact Referred To Conta ct Specialty Diagnoses Alcoholic cirrhosis of liver with ascites (HCC) Procedures US DOPPLER ABD PELV RETROPER COMP Bonita Cerrato APRN-RN PALLIATIVE CARE [address] [place] [address] Radiology Referral ID Status Reason Start Date Expiration Visits Vi sits Date Requested Authorized [id number] New Request 08/08/2021 08/08/2022 1 1 Reason for Visit * Auth/Cert Diagnoses / Procedures Referred By Contact Referred To Conta ct Specialty Diagnoses Alcoholic cirrhosis of liver without ascites (HCC) Non-Hodgkin's lymphoma, unspecified body region, unspecified non-Hodgkin lymphoma type (HCC) Alcoholic cirrhosis of liver without ascites (HCC) [K70.30] Non-Hodgkin's lymphoma, unspecified body region, unspecified non-Hodgkin lymphoma type (HCC) [C85.90] Procedures IA COLONOSCOPY FLX DX W/COLLJ SPEC WHEN PFRMD IA EGD TRANSORAL BIOPSY SINGLE/MULTIPLE COLONOSCOPY DIAGNOSTIC WITH SPECIMEN COLLECTION BY BRUSHING/ WASHING - FLEXIBLE ESOPHAGOGASTRODUODENOSCOPY WITH BIOPSY - FLEXIBLE Referral ID Status Reason Start Date Expiration Visits Vi sits Date Requested Authorized [id number] 1 1 Encounter Details Care Team Description Date Type Department Bonita Cerrato, REGISTRATION REPRESENTATIVE-RN PALLIATIVE CARE [address] [place] [address] 08/09/2021 Hospital Imaging, Ultrasound : Main Encounter [place], [address], [address] [place] [address] Social History Date Tobacco Use Types Packs/Day Years Used Current Every Day Smoker Cigarettes Smokeless Tobacco: Current User Comments Alcohol Use Standard Drinks/Week Not Currently 0 (1 standard drink = 0.6 o z pure alcohol) Sex Assigned at Date Recorded Male 08/21/2021 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 Recorded COVID-19 Exposure Response 08/09/2021 7:57 [...] Description Date [place] [address] [place] [address] Portal hypertension (HCC) 09/11/2021 [facility] Gastroenterology [place] [address] [place], [place] [address] ESOPHAGOGASTRODUODENOSCOPY WITH SPECIMEN COLLECTION BY BRUSHING/ WASHING 09/11/2021 Surgery Gastroenterology Date/Time Name Priority Associated Diagnose s 09/11/2021 3:25 PM PHYSICAL GEOGRAPHER ESOPHAGOGASTRODUODENOSCOPY WITH SPECIMEN Portal hyp ertension (HCC) COLLECTION BY BRUSHING/ WASHING 09/11/2021 3:25 PM PHYSICAL GEOGRAPHER COLONOSCOPY DIAGNOSTIC WITH SPECIMEN Portal hyperte nsion (HCC) COLLECTION BY BRUSHING/ WASHING - FLEXIBLE documented as of this encounter Procedures Comments Procedure Name Priority Date/Time Associated Diag nosis US DOPPLER ABD PELV Routine 08/09/2021 Alcoholic cirrhosis of RETROPER COMP 3:05 PM CDT liver with ascites (HCC) US ABDOMEN COMPLETE Routine 08/09/2021 Alcoholic cirrhosis of 3:05 PM CDT liver with ascites (HCC) documented in this encounter Results * US ABDOMEN COMPLETE [...] limitations B: Moderate limitations C: Severe limitations [email or web address]-[email or web address] Finalized by Abad Raines MD on 08/09/2021 [...] limitations B: Moderate limitations C: Severe limitations [email or web address]-[email or web address] Finalized by Abad Raines MD on 08/09/2021 [...] limitations B: Moderate limitations C: Severe limitations [email or web address]-[email or web address] Finalized by Abad Raines MD on 08/09/2021 [...] limitations B: Moderate limitations C: Severe limitations [email or web address]-[email or web address] Finalized by Abad Raines MD on 08/09/2021 [...] encounter Care Teams Start Date End Date Bakery Assistant Relationship Specialty 04/30/21 Kulwant Stephens V, DO PCP - General Internal [address], [place] [address] documented as of this encounter
--- OUTSIDE RECORDS SUMMARY | 2021-09-05 21:54 | XMS REPORT | Encounter Summary ---
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 Date Recorded COVID-19 Exposure Response 07/08/2021 9:24 [...] Description Date [place] [address] [place] [address] Portal hypertension (HCC) 09/11/2021 Hospital Gastroenterology [place] [address] [place], [place] [address] ESOPHAGOGASTRODUODENOSCOPY WITH SPECIMEN COLLECTION BY BRUSHING/ WASHING 09/11/2021 Surgery Gastroenterology Date/Time Name Priority Associated Diagnose s 09/11/2021 3:25 PM HAND GLOVE CLEANER ESOPHAGOGASTRODUODENOSCOPY WITH SPECIMEN Portal hyp ertension (HCC) COLLECTION BY BRUSHING/ WASHING 09/11/2021 3:25 PM HAND GLOVE CLEANER COLONOSCOPY DIAGNOSTIC WITH SPECIMEN Portal hyperte nsion [...] Care Teams Start Date End Date Chief Engineer'S Helper Relationship Specialty 04/30/21 Kulwant Stephens DO PCP - General Internal [address] [place] [address] documented as of this encounter
--- OUTSIDE RECORDS SUMMARY | 2021-09-05 21:54 | XMS REPORT | Encounter Summary ---
Author Author [facility] Address Unknown Phone Unavailable Care Team Providers Care Weaver Tire Cord Name Role Phone Angelo Watkins DO, Casey PCP Reason for Visit * Auth/Cert Diagnoses / Procedures Referred By Contact Referred To Conta ct Specialty Diagnoses Alcoholic cirrhosis of liver without ascites (HCC) Non-Hodgkin's lymphoma, unspecified body region, unspecified non-Hodgkin lymphoma type (HCC) Alcoholic cirrhosis of liver without ascites (HCC) [K70.30] Non-Hodgkin's lymphoma, unspecified body region, unspecified non-Hodgkin lymphoma type (HCC) [C85.90] Procedures NH COLONOSCOPY FLX DX W/COLLJ SPEC WHEN PFRMD NH EGD TRANSORAL BIOPSY SINGLE/MULTIPLE COLONOSCOPY DIAGNOSTIC WITH SPECIMEN COLLECTION BY BRUSHING/ WASHING - FLEXIBLE ESOPHAGOGASTRODUODENOSCOPY WITH BIOPSY - FLEXIBLE Referral ID Status Reason Start Date Expiration Visits Vi sits Date Requested Authorized [id number] 1 1 Encounter Details Care Team Description Date Type Department Grzegorz Wolf MD [address] [place], [place] [id number] Laureen English MD [address] [place] [address] 08/09/2021 Anesthesia Endoscopy: Main Cam pus, Event [facility] [address] [facility], [address] [place] [address] Anesthesia Record Responsible Anesthesiologist Anesthesia Start Time Anesthesi a Stop Time Procedure Name Grzegorz Wolf MD 08/09/21 0852 08/09/21 0945 COLONOSCOPY DIAGNOSTIC WITH SPECIMEN COLLECTION BY BRUSHING/ WASHING - FLEXIBLE (N/A ) Date Time Event Comment 842 AN Equip Check 2020 0852 Anes Start 0853 An Start Data 0853 Start Supplemental O2 0853 Anesthesia Ready 0853 In Room 0857 0858 Proc Start 0942 an stop data 0944 Handoff to RN I completed my SBAR handoff to the receiving nurse. 0945 An Stop Meds Name Total lidocaine PF 2% 100mg/5mL vial 100 mg propofol (DIPRIVAN) 200 mg/ 20 mL 100 mg injection (VIAL) propofol (DIPRIVAN) infusion 420.46 mg phenylephrine (BRENDAN-SYNEPHRINE) 0.1 mg/mL 100 mcg injection (SYRINGE) lactated ringers infusion 600 mL * Name O2 N2O Inspired N2O * No blood administrations on file. 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 Sex: male Procedure Information Anesthesia Start Date/Time: 08/09/21 08 Procedures: COLONOSCOPY DIAGNOSTIC WITH SPECIMEN COLLECTION BY BRUSHING/ WASHING - FLEXI BLE (N/A ) ESOPHAGOGASTRODUODENOSCOPY WITH BAND LIGATION ESOPHAGEAL/ GASTRIC VARICES - FLEXIBLE (N/A ) ESOPHAGOGASTRODUODENOSCOPY WITH SPECIMEN COLLECTION BY BRUSHING/ WASHING COLONOSCOPY WITH SNARE REMOVAL TUMOR/ POLYP/ OTHER LESION Location: ENDO 6 (IR) / ENDO/GI Surgeons: Abad Bradford DO Post-Anesthesia Vitals Vitals Value Taken Time BP 103/65 08/09/21 1000 Temp Pulse 84 08/09/21 1000 Respirations 21 PER MINUTE 08/09/21 1000 SpO2 92 % 08/09/21 1000 ABP ART BP Post Anesthesia Evaluation Note Evaluation location: Pre/Post Patient participation: recovered; patient participated in evaluation Level of consciousness: alert Pain score: 0 Pain management: adequate Hydration: normovolemia Temperature: 36.0C - 38.4C Airway patency: adequate Perioperative Events Post-op nausea and vomiting: no PONV Postoperative Status Cardiovascular status: hemodynamically stable Respiratory status: spontaneous ventilation Perioperative Events Perioperative Event: No Emergency Case Activation: No * Anesthesia Preprocedure Evaluation - Grzegorz Wolf MD - 08/09/2021 8:33 AM CDT Anesthesia Pre-Procedure Evaluation Name: Easton Hunt : 1960 Age: 60 y.o. Sex: male Procedure Info: Procedure Information Date/Time: 08/09/21919 Procedures: COLONOSCOPY DIAGNOSTIC WITH SPECIMEN COLLECTION BY BRUSHING/ WASHING - FLEXI BLE (N/A ) ESOPHAGOGASTRODUODENOSCOPY WITH BIOPSY - FLEXIBLE (N/A ) Location: ENDO 6 (IR) / ENDO/GI Surgeons: Abad Bradford DO Physical Assessment Vital Signs (last filed in past 24 hours): BP: 130/78 (08/09 827) Temp: 37.1 C (98.8 F) (08/09 827) Pulse: 99 (08/09 827) Respirations: 19 PER MINUTE (08/09 827) SpO2: 93 % (08/09 827) Height: 170.2 cm (67") (08/09 827) Weight: 65.8 kg (145 lb) (08/09 827) Patient History No Known Allergies Current Medications Medication Directions ciprofloxacin (CIPRO) 500 mg tablet Take one tablet by mouth daily. GABAPENTIN PO Take by mouth. lactulose 10 gram/15 mL oral solution Take 30 mL by mouth daily. Titrate to 3-4 BMs/day peg-electrolyte solution (NULYTELY) 420 gram oral solution Mix as directed on pa ckage. Refrigerate once mixed. Do not mix greater than 24 hours prior to procedu re. Drink 3/4 of bottle between 5pm and 7 pm the night before procedure. Drink r emaining 1/4 of bottle 5 hours prior to procedure Review of Systems/Medical History Pulmonary Current smoker; patient smoked on day of surgery tobacco use Cardiovascular Exercise tolerance: >4 METS Beta Cindy therapy: No Beta blockers within 24 hours: n/a GI/Hepatic/Renal Liver disease Cirrhosis (Alcoholic cirrhosis of liver) Neuro/Psych Substance use and alcohol Psychiatric history (hs of ETOH abuse) Endocrine/Other Malignancy (HS of non-Hogkins Lymphoma Pt has received radiation and surgery ) Physical Exam Airway Findings Mallampati: II TM distance: >3 FB Neck ROM: full Mouth opening: good Airway patency: adequate Dental Findings: Upper dentures and lower dentures Cardiovascular Findings: Rhythm: regular Rate: normal Pulmonary Findings: Negative Abdominal Findings: Abdominal exam deferred Neurological Findings: Alert and oriented x 3 Diagnostic Tests Hematology: Lab Results Component Value Date HGB 12.2 07/03/2021 HCT 34.0 07/03/2021 PLTCT 83 07/03/2021 WBC 3.5 07/03/2021 NEUT 56 07/03/2021 ANC 1.97 07/03/2021 ALC 1.00 07/03/2021 NIVIA 12 07/03/2021 AMC 0.43 07/03/2021 EOSA 3 07/03/2021 ABC 0.03 07/03/2021 MCV 111.3 07/03/2021 MCH 39.9 07/03/2021 MCHC 35.8 07/03/2021 MPV 6.4 07/03/2021 RDW 15.1 07/03/2021 General Chemistry: Lab Results Component Value Date NA 133 07/03/2021 K 4.3 07/03/2021 CL 100 07/03/2021 CO2 25 07/03/2021 GAP 8 07/03/2021 BUN 10 07/03/2021 CR 0.59 07/03/2021 GLU 99 07/03/2021 CA 8.9 07/03/2021 ALBUMIN 3.3 07/03/2021 TOTBILI 5.0 07/03/2021 Coagulation: Lab Results Component Value Date INR 1.4 07/03/2021 Anesthesia Plan ASA score: 3 Plan: MAC NPO status: acceptable Informed Consent Anesthetic plan and risks discussed with patient. Use of blood products discussed with patient Blood Consent: consented Plan discussed with: anesthesiologist and NEON SIGN SERVICER. 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 COLONOSCOPY DIAGNOSTIC WITH SPECIMEN Portal hyperte nsion (HCC) COLLECTION BY BRUSHING/ WASHING - FLEXIBLE documented as of this encounter Visit Diagnoses Not on filedocumented in this encounter Administered Medications Action Date Dose Rate Site Medication Order MAR Action 08/09/2021 8:52 AM CDT lactated ringers infusion Given - New 1,000 mL, 1,000 mL, Intravenous, at 20 Bag mL/hr, ONCE, 1 dose, On Thu08/09/21 at 0900 08/09/2021 8:55 AM CDT 100 mg lidocaine PF 20 mg/mL (2 %) injection Given Intravenous, INTRA-PROCEDURE MED, Starting on Thu08/09/21 at 0855, Until Thu08/09/21 at 0947, Anesthesia Intra-op 08/09/2021 9:18 AM CDT 100 mcg phenylephrine (BRENDAN-SYNEPHRINE) injection Given syringe Intravenous, INTRA-PROCEDURE MED, Starting on Thu08/09/21 at 0918, Until Thu08/09/21 at 0947, Anesthesia Intra-op 08/09/2021 9:07 AM CDT 160 mcg/kg/min 63.168 mL/hr propofol (DIPRIVAN) infusion Dose/Rate 20 mL, Intravenous, INTRA-PROCEDURE Change MED(CONT), Starting on Thu08/09/21 at 0857, Until Thu08/09/21 at 0947, Anesthesia Intra-op 175 mcg/kg/min 69.09 mL/hr Given - New Bag 08/09/2021 8:57 AM CDT 08/09/2021 8:57 AM CDT 50 mg propofol (DIPRIVAN) injection Given Intravenous, INTRA-PROCEDURE MED, Starting on Thu08/09/21 at 0855, Until Thu08/09/21 at 0947, Anesthesia Intra-op 50 mg Given 08/09/2021 8:55 AM CDT documented in this encounter Additional Health Concerns Noted Time Assessment 08/09/2021 8:26 AM CDT A fall risk assessment has been complet ed for the patient 07/03/2021 10:39 AM CDT PHQ-2 Depression Total Score: 2 documented as of this encounter Care Teams Start Date End Date [employer] Relationship Specialty 04/30/21 Kulwant Stephens DO PCP - General Internal [address] [place] [address] documented as of this encounter
--- OUTSIDE RECORDS SUMMARY | 2021-09-05 21:54 | XMS REPORT | Encounter Summary ---
Author Author [facility] Organization [facility] Address Unknown Phone Unavailable Care Team Providers Care Batch Unloader Name Role Phone Angelo Watkins DO, Casey PCP Reason for Visit * Reason Onset Date Comments Appointment Question 08/01/2021 Encounter Details Care Team Description Date Type Department Katie Sims BSN Appointment Question 08/01/2021 Telephone Transplant: Main [facility] mp[facility], [facility] [address], [address] [place] [address] Social History Date Tobacco Use Types Packs/Day Years Used Current Every Day Smoker Cigarettes Smokeless Tobacco: Current User Comments Alcohol Use Standard Drinks/Week Not Currently 0 (1 standard drink = 0.6 o z pure alcohol) Sex Assigned at Date Recorded Male 08/21/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 He v/u. Also reviewed all upcoming appts for the upcoming weeks including date, time and location. Pt is due for imaging to screen for liver cancer. Pt would like to schedule same day as one of the days he is up here in the next couple weeks. Got him schedule d for CT chest/abd on 08/09 at 2:15 [place] after his GI procedure. Pt v/u. Asked him to call back with any other questions. documented in this encounter Plan of Treatment Care Team Description Date [place] [address] [place] [address] Portal hypertension (HCC) 09/11/2021 Hospital Gastroenterology [place] [address] [place] [address] ESOPHAGOGASTRODUODENOSCOPY WITH SPECIMEN COLLECTION BY BRUSHING/ WASHING 09/11/2021 Surgery Gastroenterology Date/Time Name Priority Associated Diagnose s 09/11/2021 3:25 PM SPORTS PHYSIOLOGIST ESOPHAGOGASTRODUODENOSCOPY WITH SPECIMEN Portal hyp ertension (HCC) COLLECTION BY BRUSHING/ WASHING 09/11/2021 3:25 PM SPORTS PHYSIOLOGIST COLONOSCOPY DIAGNOSTIC WITH SPECIMEN Portal hyperte nsion [...] encounter Care Teams Start Date End Date Batch Unloader Relationship Specialty 04/30/21 Kulwant Stephens DO PCP - General Internal [address] [place], [place] [id number] documented as of this encounter
--- OUTSIDE RECORDS SUMMARY | 2021-09-05 21:54 | XMS REPORT | Encounter Summary ---
Author Author [facility] Organization [facility] Address Unknown Phone Unavailable Care Team Providers Care Gas Well Pumper Name Role Phone Angelo Watkins DO, Casey PCP Francisco Coello MD Unavailable Bonita Cerrato APRN-CAR RECORD CLERK Unavailable [phone] Jimi Hale MD Unavailable Reason for Visit * Reason Onset Date Comments Medication Refill 09/02/2021 Encounter Details Care Team Description Date Type Department Jimi Hale MD [address] [facility] [address] [place], [place] [id number] 09/02/2021 Refill Transplant: Main Ca mpus, [address], [address] [place] [address] Social History Date Tobacco Use Types Packs/Day Years Used Current Every Day Smoker Cigarettes 1.5 Smokeless Tobacco: Former Chew User Comments Alcohol Use Standard Drinks/Week Not Currently 0 (1 standard drink = 0.6 o z pure alcohol) Sex Assigned at Date Recorded Male 08/21/2021 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 Indications: impaired brain function due to liver disease documented in this encounter Plan of Treatment Care Team Description Date [place] [address] [place] [address] Portal hypertension (HCC) 09/11/2021 [facility] Gastroenterology [place] [address] [place] [address] ESOPHAGOGASTRODUODENOSCOPY WITH SPECIMEN COLLECTION BY BRUSHING/ WASHING 09/11/2021 Surgery Gastroenterology Date/Time Name Priority Associated Diagnose s 09/11/2021 3:25 PM COOK CAMP ESOPHAGOGASTRODUODENOSCOPY WITH SPECIMEN Portal hyp ertension (HCC) COLLECTION BY BRUSHING/ WASHING 09/11/2021 3:25 PM COOK CAMP COLONOSCOPY DIAGNOSTIC WITH SPECIMEN Portal hyperte nsion (HCC) COLLECTION BY BRUSHING/ WASHING - FLEXIBLE documented as of this encounter Visit Diagnoses Not on filedocumented in this encounter Discontinued Medications Start Date End Date Medication Sig Discontinue Reason 08/16/2021 09/02/2021 rifAXIMin (XIFAXAN) 550 Take one Reorder mg tablet tablet by mouth twice daily. documented as of this encounter Additional Health Concerns Noted Time Assessment 08/16/2021 3:15 PM CDT A fall risk assessment has been complet ed for the patient 08/16/2021 10:26 AM CDT PHQ-2 Depression Total Score: 0 documented as of this encounter Care Teams Start Date End Date Gas Well Pumper Relationship Specialty 04/30/21 Kulwant Stephens DO PCP - General Internal [address] [place] [address] 08/17/21 Francisco Coello MD Hematology, [address] [place] [address] Medicine 08/17/21 Bonita Cerrato, Nurse MOTOR GRADER ROUGH GRADE-CAR RECORD CLERK Practitioner [address] [place] [address] Health 08/17/21 Jimi Hale MD Gastroentero [address] [facility] [address] [place] [address] documented as of this encounter
[2021-09-05] MEDS ORDERED: fentaNYL INJ 100 MCG/2 ML AMP IVP ONE (22:45)
[2021-09-05] MEDS ORDERED: ONDANSETRON 4 MG/2 ML (SDV) Z0FRAN IV PRN (22:45)
--- NOTE | 2021-09-05 22:45 | ED General ---
General Chief Complaint: COVID19 Suspect/Confirmed Stated Complaint: CHILLS, MUSCLE PAIN, DIARRHEA, SOB Source of Information: Patient Exam Limitations: No Limitations (ERIC DEL CASTILLO APRN) History of Present Illness Date Seen by Provider: Sep 05, 2021 Time Seen by Provider: 22:28 Initial Comments This is a 61-year-old male who presented to the ER via POV with complaints of nausea/vomiting/diarrhea/generalized muscle aches since this morning. States that he thought he was starting to get ill 2 days ago however his symptoms improved until he woke today. States that he does have a history of non- Hodgkin's lymphoma and liver cirrhosis due to alcohol abuse. States that he has generalized muscle aches, fatigue, no energy. Has altered taste. He does smoke 1.5 packs/day cigarettes. States that he is working on getting on the transplant list but he needs to be sober for at least 6 months. Initially stated that his last alcoholic beverage was last week, then admitted to state that it was yesterday, and he attempted to drink some alcohol today but "it did not taste right" so he poured it out. States that he has been having chills and has been taking niacin pills to help "warm him up". He has history of chronic cough but this is worse today. Additionally states that he has history of chronic abdominal pain and he takes gabapentin 300 mg 3 times daily for this, however the gabapentin is no longer working. Currently rating pain 10/10 in his muscles, pain is constant, unrelieved with niacin pills. Took his first COVID vaccine in July, but did not take second shot due to bad reaction. (ERIC DEL CASTILLO CLINICAL PHARMACY COORDINATOR) Allergies and Home Medications Allergies Coded Allergies: No Known Drug Allergies (Unverified , 06/06/21) Patient Home Medication List Home Medication List Reviewed: Yes (ERIC DEL CASTILLO CLINICAL PHARMACY COORDINATOR) Albuterol Sulfate (Proair Hfa) 1 Puff Puff, 2 PUFF IH Q4H Prescribed by: DEIDRA OSWALD on 03/18/21 1043 Hydrocodone/Acetaminophen (Hydrocodone-Acetamin 5-325 mg) 1 Each Tablet, 1 TAB PO Q8H PRN for PAIN-MODERATE (5-7) Prescribed by: KRISTIN POLLARD on 04/09/211816 Oxycodone HCl (Oxycodone HCl) 5 Mg Capsule, 5 MG PO Q6H PRN for PAIN-MODERATE (5-7) Prescribed by: DEIDRA OSWALD on 03/18/21 1037 Review of Systems Review of Systems Constitutional: see HPI EENTM: other (chronic yellowing of eyes) Respiratory: see HPI Cardiovascular: other (occasional fast HR) Gastrointestinal: see HPI Genitourinary: other (dark urine ) Musculoskeletal: see HPI Skin: see HPI Psychiatric/Neurological: No Symptoms Reported Hematologic/Lymphatic: No Symptoms Reported Immunological/Allergic: no symptoms reported (ERIC DEL CASTILLO APRN) Past Oroigsq-Mejxem-Ehnwrk Hx Patient Social History Tobacco Use?: Yes Tobacco type used: Cigarettes Smoking Status: Current Everyday Smoker Substance use?: No Alcohol Use?: No (ERIC DEL CASTILLO APRN) Immunizations Up To Date First/Initial COVID19 Vaccinat: 06/03/21 (ERIC DEL CASTILLO APRN) Past Medical History Surgery/Hospitalization HX: sx: goiter removed from r neck, abdominal mesh/hernia repair, tumorremoved fromneck. THORACENTESIS Surgeries: Yes (thyroid growth removed, cancerous tumor from L neck) Respiratory: No Cardiac: No Neurological: No Genitourinary: No Gastrointestinal: Yes Cirrhosis Musculoskeletal: No Endocrine: No HEENT: No Cancer: Yes (folicular pqqgtvca-chz-gfuokqmv) What Type of Treatment Did You: Radiation Psychosocial: No Integumentary: No (ERIC DEL CASTILLO APRN) Physical Exam Vital Signs Vital Signs - First Documented 09/05/21 22:08 Temp 37.0 Pulse 114 Resp 24 B/P (MAP) 153/82 (105) O2 Delivery Room Air (DEIDRA OSWALD MD) Vital Signs Capillary Refill : (ERIC DEL CASTILLO APRN) Height, Weight, BMI Height: '" Weight: lbs. oz. kg; 24.00 BMI Method: General Appearance: No Apparent Distress, WD/WN Eyes: Bilateral Eye PERRL, Bilateral Eye EOMI, Bilateral Eye Scleral Icterus HEENT: PERRL/EOMI, Normal ENT Inspection, Pharynx Normal, Moist Mucous Membranes Neck: Full Range of Motion, Normal Inspection, Supple Respiratory: Lungs Clear, Normal Breath Sounds, No Accessory Muscle Use, No Respiratory Distress Cardiovascular: Regular Rate, Rhythm, No Edema, No Gallop, Normal Peripheral Pulses, Systolic Murmur Gastrointestinal: Soft, Abnormal Bowel Sounds (hyperactive bowel sounds), Distended, Tenderness (generalized abdominal pain ) Extremity: Normal Capillary Refill, Normal Inspection, Normal Range of Motion Neurologic/Psychiatric: Alert, Oriented x3, No Motor/Sensory Deficits, Normal Mood/Affect Skin: Warm/Dry (ERIC DEL CASTILLO APRN) Focused Exam Lactate Level 09/05/21 23:58: Lactic Acid Level 1.48 (DEIDRA OSWALD MD) Lactic Acid Level Laboratory Tests Test 09/05/21 23:58 Lactic Acid Level 1.48 MMOL/L (0.50-2.00) (DEIDRA OSWALD MD) Progress/Results/Core Measures Suspected Sepsis SIRS Temperature: Pulse: Respiratory Rate: Blood Pressure / Mean: (ERIC DEL CASTILLO APRN) SIRS Laboratory Tests 09/05/21 23:58: White Blood Count 4.9 09/05/21 23:58: Lactic Acid Level 1.48 Laboratory Tests 09/05/21 23:58: Creatinine 0.59L, INR Comment 1.3, Platelet Count 77L, Total Bilirubin 4.9H (DEIDRA OSWALD MD) Results/Orders Lab Results Laboratory Tests Test 09/05/21 22:14 09/05/21 23:58 Range/Units Influenza Type A (RT-PCR) Not Detected Not Detecte Influenza Type B (RT-PCR) Not Detected Not Detecte SARS-CoV-2 RNA (RT-PCR) Not Detected Not Detecte White Blood Count 4.9 4.3-11.0 10^3/uL Red Blood Count 2.84 L 4.30-5.52 10^6/uL Hemoglobin 10.7 L 13.3-17.7 g/dL Hematocrit 31 L 40-54 % Mean Corpuscular Volume 109 H 80-99 fL Mean Corpuscular Hemoglobin 38 H 25-34 pg Mean Corpuscular Hemoglobin Concent 35 32-36 g/dL Red Cell Distribution Width 14.2 10.0-14.5 % Platelet Count 77 L 130-400 10^3/uL Mean Platelet Volume 8.5 L 9.0-12.2 fL Immature Granulocyte % (Auto) 0 % Neutrophils (%) (Auto) 58 42-75 % Lymphocytes (%) (Auto) 29 12-44 % Monocytes (%) (Auto) 10 0-12 % Eosinophils (%) (Auto) 2 0-10 % Basophils (%) (Auto) 1 0-10 % Neutrophils # (Auto) 2.8 1.8-7.8 10^3/uL Lymphocytes # (Auto) 1.4 1.0-4.0 10^3/uL Monocytes # (Auto) 0.5 0.0-1.0 10^3/uL Eosinophils # (Auto) 0.1 0.0-0.3 10^3/uL Basophils # (Auto) 0.0 0.0-0.1 10^3/uL Immature Granulocyte # (Auto) 0.0 0.0-0.1 10^3/uL Percent Immature Platelet Fraction 1.0 0.0-7.6 % Prothrombin Time 17.0 H 12.2-14.7 SEC INR Comment 1.3 0.8-1.4 Activated Partial Thromboplast Time 39 H 24-35 SEC Urine Color YELLOW Urine Clarity CLEAR Urine pH 7.0 5-9 Urine Specific [place] 1.015 L 1.016-1.022 Urine Protein NEGATIVE NEGATIVE Urine Glucose (UA) NEGATIVE NEGATIVE Urine Ketones TRACE H NEGATIVE Urine Nitrite NEGATIVE NEGATIVE Urine Bilirubin 1+ H NEGATIVE Urine Urobilinogen 0.2 < = 1.0 MG/DL Urine Leukocyte Esterase NEGATIVE NEGATIVE Urine RBC (Auto) NEGATIVE NEGATIVE Urine RBC NONE /HPF Urine WBC NONE /HPF Urine Squamous Epithelial Cells 0-2 /HPF Urine Crystals NONE /LPF Urine Bacteria NEGATIVE /HPF Urine Casts NONE /LPF Urine Mucus SMALL H /LPF Urine Culture Indicated NO Sodium Level 132 L 135-145 MMOL/L Potassium Level 3.6 3.6-5.0 MMOL/L Chloride Level 103 98-107 MMOL/L Carbon Dioxide Level 19 L 21-32 MMOL/L Anion Gap 10 5-14 MMOL/L Blood Urea Nitrogen 7 7-18 MG/DL Creatinine 0.59 L 0.60-1.30 MG/DL Estimat Glomerular Filtration Rate 140 BUN/Creatinine Ratio 12 Glucose Level 94 70-105 MG/DL Lactic Acid Level 1.48 0.50-2.00 MMOL/L Calcium Level 8.3 L 8.5-10.1 MG/DL Corrected Calcium 9.3 8.5-10.1 MG/DL Total Bilirubin 4.9 H 0.1-1.0 MG/DL Aspartate Amino Transf (AST/SGOT) 62 H 5-34 U/L Alanine Aminotransferase (ALT/SGPT) 15 0-55 U/L Alkaline Phosphatase 289 H 40-136 U/L Ammonia 37 H 11-32 UMOL/L Total Creatine Kinase 72 30-200 U/L Total Protein 7.0 6.4-8.2 GM/DL Albumin 2.8 L 3.2-4.5 GM/DL (DEIDRA OSWALD MD) Medications Given in ED Current Medications Medications Dose Ordered Sig/Aldo Route Start Time Stop Time Status Last Admin Dose Admin Fentanyl Citrate 50 mcg ONCE ONCE IVP 09/05/21 22:45 09/05/21 22:48 DC 09/05/21 23:58 50 MCG Ondansetron HCl 4 mg PRN PRN IV 09/05/21 22:45 09/05/21 23:58 DC 09/05/21 23:58 4 MG (DEIDRA OSWALD MD) Vital Signs/I&O 09/05/21 22:08 Temp 37.0 Pulse 114 Resp 24 B/P (MAP) 153/82 (105) O2 Delivery Room Air (DEIDRA OSWALD MD) Vital Signs/I&O Capillary Refill : (ERIC DEL CASTILLO APRN) Progress Note : Progress Note Patient examined and in no acute distress. He is awake and alert. Placed for basic labs, CK, chest x-ray, ammonia level, Covid and flu. Will give normal saline 1000 L 500ml per hour. Orders placed for fentanyl 50 mcg IV push for pain and Zofran 4 mg IV push for nausea. Case discussed with Dr. Oswald and she assumed care at 2305, (ERIC DEL CASTILLO APRN) Progress Note : Time: 02:02 Progress Note Patient reevaluated after labs and imaging. He feels much better after pain medications and nausea medications he is no longer nauseated and he states his abdominal pain is better. Patient states he believes he had increased abdominal pain secondary to all the dry heaving he had. His labs show no elevation in his white blood cell count. His hemoglobin is stable at 10. Electrolytes are within normal range. He does have chronic elevations in his liver function secondary to his history of cirrhosis. Urinalysis is clear as is his chest x- ray. He does have a pre-existing left pleural effusion and a trace right pleural effusion. He is Covid negative and flu negative. Patient feels well enough to go home. He will follow up with his primary care physician. I have advised him to drink plenty of fluids to stay well-hydrated. We will send a prescription for some Zofran to his pharmacy. Return precautions have been given. All questions are sought and answered. (DEIDRA OSWALD MD) Diagnostic Imaging Diagonstic Imaging: Xray Plain Films/CT/US/NM/MRI: chest Comments [facility] [place] NAME: KAREN RENTERIA I [facility] REC#: [id number] PT STATUS: REG ER : 1960 PHYSICIAN: ERIC DEL CASTILLO APRN ADMIT DATE: 09/05/21/ER Signed Date of Exam:09/05/21 CHEST 1 VIEW, AP/PA ONLY HISTORY: Sepsis COMPARISON: 06/06/2021 FINDINGS: Frontal view of the chest demonstrates a small left pleural effusion, with associated atelectasis, similar to prior exams. There may be a trace right pleural effusion as well. The cardiac silhouette is normal in size. No new consolidation is seen. There is no pneumothorax. IMPRESSION: 1. Small left pleural effusion and trace right pleural effusion with associated atelectasis. Dictated by: Dictated on workstation # [id number] Dict: 09/05/[id number] Trans: 09/05/212350 [facility] [id number] Interpreted by: KADEEM LANGFORD MD Electronically signed by: KADEEM LANGFORD MD 09/05/21 519 (DEIDRA OSWALD MD) Departure Impression Primary Impression: Viral syndrome Additional Impression: Nausea & vomiting Qualified Codes: R11.2 - Nausea with vomiting, unspecified Disposition: 01 HOME, SELF-CARE Condition: Stable Departure-Patient Inst. Decision time for Depature: 02:04 (DEIDRA OSWALD MD) Referrals: [facility] (PCP/Family) Primary Care Physician Patient Instructions: Viral Syndrome (DC) Add. Discharge Instructions: Drink fluids to stay well-hydrated. I have sent a prescription for Zofran to your pharmacy. You can take 1 of these every 6-8 hours as needed for nausea. Please come back to the emergency room if you have any fever over 100.4, worsening pain, vomiting that is not controlled by the medication or any other emergent concerning symptoms. Please follow-up with your primary care physician. Scripts Ondansetron (Ondansetron Odt) 4 Mg Tab.rapdis 4 MG PO Q8H PRN for nausea and vomiting, #20 TAB Prov: DEIDRA OSWALD MD 09/06/21 ERIC DEL CASTILLO CLINICAL PHARMACY COORDINATOR Sep 05, 2021 22:45 DEIDRA OSWALD MD Sep 06, 2021 00:10
[2021-09-05] MEDS ORDERED: NS IV 1000 ML 1,000 ML IV STA (22:47)
--- NOTE | 2021-09-05 23:47 | Diagnostic Imaging Report ---
HISTORY: Sepsis COMPARISON: 06/06/2021 FINDINGS: Frontal view of the chest demonstrates a small left pleural effusion, with associated atelectasis, similar to prior exams. There may be a trace right pleural effusion as well. The cardiac silhouette is normal in size. No new consolidation is seen. There is no pneumothorax. IMPRESSION: 1. Small left pleural effusion and trace right pleural effusion with associated atelectasis. Dictated by: Dictated on workstation # [id number]
[2021-09-06 00:10] LABS: BASOPHILS % (AUTO) 1 % (0-10); HEMATOCRIT 31 % (40-54); MEAN PLATELET VOLUME 8.5 fL (9.0-12.2); MONOCYTES # (AUTO) 0.5 10^3/uL (0.0-1.0); MONOCYTES % (AUTO) 10 % (0-12)
[2021-09-06 00:12] LABS: EOSINOPHILS # (AUTO) 0.1 10^3/uL (0.0-0.3); EOSINOPHILS % (AUTO) 2 % (0-10); HEMOGLOBIN 10.7 g/dL (13.3-17.7); LYMPHOCYTES # (AUTO) 1.4 10^3/uL (1.0-4.0); LYMPHOCYTES % (AUTO) 29 % (12-44); MEAN CORPUSCULAR HEMOGLOBIN 38 pg (25-34); MEAN CORPUSCULAR HGB CONC 35 g/dL (32-36); MEAN CORPUSCULAR VOLUME 109 fL (80-99); NEUTROPHILS # (AUTO) 2.8 10^3/uL (1.8-7.8); NEUTROPHILS % (AUTO) 58 % (42-75); PLATELET COUNT 77 10^3/uL (130-400); WHITE BLOOD COUNT 4.9 10^3/uL (4.3-11.0)
[2021-09-06 00:22] LABS: ALBUMIN 2.8 GM/DL (3.2-4.5); POTASSIUM 3.6 MMOL/L (3.6-5.0)
[2021-09-06 00:23] LABS: CALCIUM 8.3 MG/DL (8.5-10.1)
[2021-09-06 00:26] LABS: BILIRUBIN,TOTAL 4.9 MG/DL (0.1-1.0)
[2021-09-06 00:28] LABS: CLARITY,URINE CLEAR; COLOR,URINE YELLOW; CREATININE SERUM 0.59 MG/DL (0.60-1.30); GLUCOSE, URINE (UA) NEGATIVE (NEGATIVE); INR 1.3 (0.8-1.4); KETONES,URINE TRACE (NEGATIVE); LEUKOCYTE ESTERASE ,URINE NEGATIVE (NEGATIVE); NITRITE,URINE NEGATIVE (NEGATIVE); PROTEIN,URINE NEGATIVE (NEGATIVE)
[2021-09-06 00:37] LABS: BACTERIA,URINE NEGATIVE /HPF; BILIRUBIN,URINE 1+ (NEGATIVE); SQUAMOUS EPITHELIAL CELL,UR 0-2 /HPF
[2021-09-06] MEDS ORDERED: ONDA4TAB11 PO (02:05)
[2021-09-06 02:25] VITALS: BP 128/58
== END 2021-09-06 02:25 | disposition home or self-care (01) ==
LOC: EDUNIT# 21:48 → ER 21:50
DX: B34.9 Viral infection, unspecified (principal); R11.2 Nausea with vomiting, unspecified; F17.210 Nicotine dependence, cigarettes, uncomplicated; Z20.822 Contact with and (suspected) exposure to COVID-19
CPT/HCPCS: 36415; 71045; 80053; 81000; 82140; 82550; 83605; 85025; 85610; 85730; 87040; 87088; 87636

== ENCOUNTER → 2021-09-09 | Outpatient (CLI) | payer OTHER ==
[~2021-09-09] MED LIST changes: +ONDA4TAB11 PO
== END ==
LOC: LABNPT 05:59
PROVIDERS: ATTEND Internal Medicine Gastroenterology
DX: Z01.812 Encounter for preprocedural laboratory examination (principal); Z20.822 Contact with and (suspected) exposure to COVID-19
CPT/HCPCS: 87635

== ENCOUNTER → 2021-10-07 | Outpatient (CLI) | payer OTHER ==
[~2021-10-07] MED LIST changes: +GADOTERATE 0.5 MMOL/ML (CLARISCAN) 15 ML VIAL IV ONE
--- NOTE | 2021-10-07 11:53 | Diagnostic Imaging Report ---
EXAMINATION: MRI of the abdomen with and without contrast. TECHNIQUE: Multiplanar, multisequence MR images of the abdomen were obtained with and without intravenous contrast. HISTORY: Liver lesion on prior CT. COMPARISON: None available. FINDINGS: Liver: Liver is cirrhotic. There are large chest wall collaterals. There are chest wall collaterals extending from the umbilical vein which is recanalized. There is a T1 hyperintense lesion in the right hemiliver measuring approximately 10 mm. No contrast enhancement is seen. Only the arterial phase was performed as the patient became ill after contrast injection. Ducts: No biliary ductal dilation. Gallbladder: Normal. Pancreas: Normal. Spleen: Enlarged. Adrenals: Normal. Kidneys: No suspicious lesions. No hydronephrosis. Bowel: Normal. Other: No lymphadenopathy. There are small pleural effusions in the lung bases with overlying atelectasis. There is a small amount of ascites. No suspicious osseus lesions. IMPRESSION: 1. Cirrhotic liver with no suspicious lesion. 2. Small amount of ascites, splenomegaly, chest wall collaterals and small pleural effusions are consistent with portal hypertension. Dictated by: Dictated on workstation # [id number]
== END ==
LOC: RAD 10:15
PROVIDERS: ATTEND Internal Medicine Hematology & Oncology
DX: K70.31 Alcoholic cirrhosis of liver with ascites (principal); C82.80 Other types of follicular lymphoma, unspecified site; R16.1 Splenomegaly, not elsewhere classified
CPT/HCPCS: 74183

== ENCOUNTER 2021-12-05 14:58 | Emergency (ER) | payer OTHER ==
[~2021-12-05] VITALS: Ht 170 cm; Wt 68.0 kg
[~2021-12-05 14:58] MED LIST changes: -GADOTERATE 0.5 MMOL/ML (CLARISCAN) 15 ML VIAL IV ONE
--- NOTE | 2021-12-05 15:24 | ED General ---
General Stated Complaint: FALL - R SIDE RIB PAIN Source of Information: Patient Exam Limitations: No Limitations (JOEL OVERTON APRN) History of Present Illness Date Seen by Provider: Dec 05, 2021 Time Seen by Provider: 15:23 Initial Comments To ER with severe right posterior/lateral chest wall pain for about 48 hours after he began coughing. He slipped and fell on the ice about a week ago striking this area of his back on the edge of his stairs going down his porch. He had minimal pain that seemed to be improving until a coughing episode 2 nights ago. Since then he has significant pain with deep breathing. He denies any fevers or chills. He does not wear oxygen at home. He smokes 1.5 pack of cigarettes per day. He has non-Hodgkin's lymphoma in remission and liver cirrhosis. He drinks about a pint of liquor a week. Timing/Duration: 2-3 Days Severity: Moderate Associated Systoms: Denies Symptoms (JOEL OVERTON APRN) Allergies and Home Medications Allergies Coded Allergies: No Known Drug Allergies (Unverified , 06/06/21) Patient Home Medication List Home Medication List Reviewed: Yes (JOEL OVERTON APRN) Albuterol Sulfate (Proair Hfa) 1 Puff Puff, 2 PUFF IH Q4H Prescribed by: DEIDRA OSWALD on 03/18/21 1043 Cefdinir (Cefdinir) 300 Mg Capsule, 300 MG PO BID Prescribed by: JOEL OVERTON on 12/05/21 1629 Hydrocodone/Acetaminophen (Hydrocodone-Acetamin 5-325 mg) 1 Each Tablet, 1 TAB PO Q8H PRN for PAIN-MODERATE (5-7) Prescribed by: KRISTIN POLLARD on 04/09/21 1817 Ondansetron (Ondansetron Odt) 4 Mg Tab.rapdis, 4 MG PO Q8H PRN for nausea and vomiting Prescribed by: DEIDRA OSWALD on 09/06/21 0205 Oxycodone HCl (Oxycodone HCl) 5 Mg Capsule, 5 MG PO Q6H PRN for PAIN-MODERATE (5-7) Prescribed by: DEIDRA OSWALD on 03/18/21 1037 Oxycodone HCl (Oxycodone HCl) 5 Mg Tablet, 5 MG PO Q4H PRN for PAIN-SEVERE (8- 10) Prescribed by: JOEL OVERTON on 12/05/21 1630 Review of Systems Review of Systems Constitutional: see HPI EENTM: see HPI Respiratory: no symptoms reported Cardiovascular: no symptoms reported Genitourinary: no symptoms reported Skin: see HPI Psychiatric/Neurological: No Symptoms Reported Hematologic/Lymphatic: No Symptoms Reported Immunological/Allergic: no symptoms reported (JOEL OVERTON APRN) Past Ylotzuv-Nsagsz-Ragmak Hx Immunizations Up To Date First/Initial COVID19 Vaccinat: 06/03/21 (JOEL OVERTON APRN) Past Medical History Surgery/Hospitalization HX: sx: goiter removed from r neck, abdominal mesh/hernia repair, tumorremoved fromneck. THORACENTESIS Surgeries: Yes (thyroid growth removed, cancerous tumor from L neck) Respiratory: No Cardiac: No Neurological: No Genitourinary: No Gastrointestinal: Yes Cirrhosis Musculoskeletal: No Endocrine: No HEENT: No Cancer: Yes (folicular hxzwlfhj-znd-fxphidfl) What Type of Treatment Did You: Radiation Psychosocial: No Integumentary: No (JOEL OVERTON APRN) Physical Exam Vital Signs Vital Signs - First Documented 12/05/21 12/05/21 15:15 15:20 Temp 36.5 Pulse 85 Resp 18 B/P (MAP) 127/82 (97) Pulse Ox 87 O2 Delivery Room Air O2 Flow Rate 3.00 (JOLENE GOTTLIEB MD) Vital Signs Capillary Refill : (JOEL OVERTON APRN) Height, Weight, BMI Height: '" Weight: lbs. oz. kg; 24.00 BMI Method: General Appearance: No Apparent Distress, WD/WN, Chronically ill, Thin, Other (Alert and oriented. Pleasant. Appears quite uncomfortable. Oxygen saturation 86 to 88% on room air. Was given 2 L of supplemental oxygen up to 92%.) Eyes: Bilateral Eye Normal Inspection, Bilateral Eye PERRL Respiratory: No Accessory Muscle Use, No Respiratory Distress Gastrointestinal: Normal Bowel Sounds, Non Tender, Soft, Other (Abdomen is flat soft and nontender anteriorly. There is no ecchymosis or crepitus upon palpation of the right flank.) Extremity: Normal Capillary Refill, Normal Inspection Neurologic/Psychiatric: Alert, Oriented x3 Skin: Normal Color (JOEL OVERTON APRN) Progress/Results/Core Measures Suspected Sepsis SIRS Temperature: Pulse: Respiratory Rate: Laboratory Tests 12/05/21 15:24: White Blood Count 3.9L Blood Pressure / Mean: Laboratory Tests 12/05/21 15:24: Creatinine 0.67, INR Comment 1.4, Platelet Count 93L, Total Bilirubin 5.5H (JOEL OVERTON APRN) Results/Orders Lab Results Laboratory Tests Test 12/05/21 15:24 Range/Units White Blood Count 3.9 L 4.3-11.0 10^3/uL Red Blood Count 2.92 L 4.30-5.52 10^6/uL Hemoglobin 11.4 L 13.3-17.7 g/dL Hematocrit 33 L 40-54 % Mean Corpuscular Volume 113 H 80-99 fL Mean Corpuscular Hemoglobin 39 H 25-34 pg Mean Corpuscular Hemoglobin Concent 34 32-36 g/dL Red Cell Distribution Width 14.5 10.0-14.5 % Platelet Count 93 L 130-400 10^3/uL Mean Platelet Volume 8.6 L 9.0-12.2 fL Immature Granulocyte % (Auto) 0 % Neutrophils (%) (Auto) 58 42-75 % Lymphocytes (%) (Auto) 27 12-44 % Monocytes (%) (Auto) 11 0-12 % Eosinophils (%) (Auto) 3 0-10 % Basophils (%) (Auto) 1 0-10 % Neutrophils # (Auto) 2.3 1.8-7.8 10^3/uL Lymphocytes # (Auto) 1.1 1.0-4.0 10^3/uL Monocytes # (Auto) 0.4 0.0-1.0 10^3/uL Eosinophils # (Auto) 0.1 0.0-0.3 10^3/uL Basophils # (Auto) 0.1 0.0-0.1 10^3/uL Immature Granulocyte # (Auto) 0.0 0.0-0.1 10^3/uL Percent Immature Platelet Fraction 1.3 0.0-7.6 % Prothrombin Time 17.1 H 12.2-14.7 SEC INR Comment 1.4 0.8-1.4 Sodium Level 132 L 135-145 MMOL/L Potassium Level 3.8 3.6-5.0 MMOL/L Chloride Level 104 98-107 MMOL/L Carbon Dioxide Level 21 21-32 MMOL/L Anion Gap 7 5-14 MMOL/L Blood Urea Nitrogen 10 7-18 MG/DL Creatinine 0.67 0.60-1.30 MG/DL Estimat Glomerular Filtration Rate 107 BUN/Creatinine Ratio 15 Glucose Level 131 H 70-105 MG/DL Calcium Level 8.5 8.5-10.1 MG/DL Corrected Calcium 9.5 8.5-10.1 MG/DL Total Bilirubin 5.5 H 0.1-1.0 MG/DL Aspartate Amino Transf (AST/SGOT) 46 H 5-34 U/L Alanine Aminotransferase (ALT/SGPT) 15 0-55 U/L Alkaline Phosphatase 277 H 40-136 U/L Total Protein 7.3 6.4-8.2 GM/DL Albumin 2.8 L 3.2-4.5 GM/DL (JOLENE GOTTLIEB MD) Medications Given in ED Current Medications Medications Dose Ordered Sig/Aldo Route Start Time Stop Time Status Last Admin Dose Admin Ceftriaxone Sodium/Dextrose 50 ml @ 100 mls/hr ONCE ONCE IV 12/05/21 16:45 12/05/21 17:10 DC 12/05/21 16:37 100 MLS/HR Oxycodone HCl 5 mg ONCE ONCE PO 12/05/21 15:30 12/05/21 15:31 DC 12/05/21 15:28 5 MG (JOLENE GOTTLIEB MD) Vital Signs/I&O 12/05/21 12/05/21 12/05/21 12/05/21 15:15 15:20 16:06 16:28 Temp 36.5 Pulse 85 74 77 Resp 18 B/P (MAP) 127/82 (97) 122/60 122/60 Pulse Ox 87 94 92 92 O2 Delivery Room Air Nasal Cannula Nasal Cannula Room Air O2 Flow Rate 3.00 2.00 12/05/21 12/05/21 16:41 17:04 Pulse 82 Resp 18 B/P (MAP) 117/64 Pulse Ox 93 92 O2 Delivery Room Air (JOLENE GOTTLIEB MD) Vital Signs/I&O Capillary Refill : (JOEL OVERTON APRN) Departure Communication (Admissions) NAME: KAREN RENTERIA I [facility] REC#: [id number] PT STATUS: REG ER : 1960 PHYSICIAN: JOEL OVERTON APRN ADMIT DATE: 12/05/21/ER Signed Date of Exam:12/05/21 RIBS/UNILATERAL WITH CHEST INDICATION: Right posterior chest wall pain. EXAMINATION: Right rib series with chest, 12/05/2021. FINDINGS: Frontal chest demonstrates small bilateral pleural effusions. There is bibasilar atelectasis. There is a vague density in the right mid lung, nonspecific, possibly due to atelectasis with an infiltrate not excluded. The upper lungs appear clear. The heart and pulmonary vasculature are normal. Densities overlying the right shoulder are likely loose bodies within the biceps tendon sheath. There are nondisplaced fractures of the right posterior 10th and 11th ribs. Remaining visualized ribs are intact. No pneumothorax. IMPRESSION: 1. Right nondisplaced 10th and 11th posterior rib fractures. 2. Small bilateral pleural effusions with bibasilar atelectasis. An early infiltrate versus atelectasis in the right mid lung also noted. Dictated by: Dictated on workstation # [id number] Dict: 12/05/21 1551 Trans: 12/05/21 1556 [id number] Interpreted by: MIGUELINA LEVY MD Electronically signed by: MIGUELINA LEVY MD 12/05/21 1556 (JOEL OVERTON APRN) Impression Primary Impression: Fracture of rib Disposition: 01 HOME, SELF-CARE Condition: Stable Departure-Patient Inst. Decision time for Depature: 16:27 (JOEL OVERTON APRN) Referrals: [facility] (PCP/Family) Primary Care Physician Patient Instructions: RIB FRACTURE Add. Discharge Instructions: 1. Return to ER for any concerns 2. Pain medication as directed. Be sure to take a deep breath several times an hour every hour while you are awake. Use the incentive spirometer device to ensure that you are able to do this. Antibiotics as directed. Return to ER for any worsening. Follow-up with your doctor next week for recheck. Scripts Cefdinir (Cefdinir) 300 Mg Capsule 300 MG PO BID, #14 CAP Prov: JOEL OVERTON APRN 12/05/21 Oxycodone HCl (Oxycodone HCl) 5 Mg Tablet 5 MG PO Q4H PRN for PAIN-SEVERE (8-10), #20 TAB Prov: JOEL OVERTON APRN 12/05/21 ATTENDING PHYSICIAN NOTE: I was physically present as attending physician in the emergency department during the care of this patient, but I was not directly involved in the decision making or delivery of care for this patient. (JOLENE GOTTLIEB MD) Images Torso/Trunk 1 - Tenderness (JOEL OVERTON APRN) JOEL OVERTON APRN Dec 05, 2021 15:24 JOLENE GOTTLIEB MD Dec 05, 2021 19:24
[2021-12-05 15:32] LABS: BASOPHILS # (AUTO) 0.1 10^3/uL (0.0-0.1); BASOPHILS % (AUTO) 1 % (0-10); EOSINOPHILS # (AUTO) 0.1 10^3/uL (0.0-0.3); EOSINOPHILS % (AUTO) 3 % (0-10)
[2021-12-05 15:33] LABS: HEMATOCRIT 33 % (40-54); HEMOGLOBIN 11.4 g/dL (13.3-17.7); LYMPHOCYTES # (AUTO) 1.1 10^3/uL (1.0-4.0); LYMPHOCYTES % (AUTO) 27 % (12-44); MEAN CORPUSCULAR HEMOGLOBIN 39 pg (25-34); MEAN CORPUSCULAR HGB CONC 34 g/dL (32-36); MEAN CORPUSCULAR VOLUME 113 fL (80-99); MEAN PLATELET VOLUME 8.6 fL (9.0-12.2); MONOCYTES # (AUTO) 0.4 10^3/uL (0.0-1.0); MONOCYTES % (AUTO) 11 % (0-12); NEUTROPHILS # (AUTO) 2.3 10^3/uL (1.8-7.8); NEUTROPHILS % (AUTO) 58 % (42-75); PLATELET COUNT 93 10^3/uL (130-400); WHITE BLOOD COUNT 3.9 10^3/uL (4.3-11.0)
[2021-12-05 15:44] LABS: ALBUMIN 2.8 GM/DL (3.2-4.5)
[2021-12-05 15:45] LABS: POTASSIUM 3.8 MMOL/L (3.6-5.0)
[2021-12-05 15:46] LABS: CALCIUM 8.5 MG/DL (8.5-10.1)
[2021-12-05 15:47] LABS: INR 1.4 (0.8-1.4); PROTHROMBIN TIME PATIENT 17.1 SEC (12.2-14.7); TOTAL PROTEIN 7.3 GM/DL (6.4-8.2)
[2021-12-05 15:49] LABS: BILIRUBIN,TOTAL 5.5 MG/DL (0.1-1.0)
[2021-12-05 15:51] LABS: CREATININE SERUM 0.67 MG/DL (0.60-1.30)
--- NOTE | 2021-12-05 15:56 | Diagnostic Imaging Report ---
INDICATION: Right posterior chest wall pain. EXAMINATION: Right rib series with chest, 12/05/2021. FINDINGS: Frontal chest demonstrates small bilateral pleural effusions. There is bibasilar atelectasis. There is a vague density in the right mid lung, nonspecific, possibly due to atelectasis with an infiltrate not excluded. The upper lungs appear clear. The heart and pulmonary vasculature are normal. Densities overlying the right shoulder are likely loose bodies within the biceps tendon sheath. There are nondisplaced fractures of the right posterior 10th and 11th ribs. Remaining visualized ribs are intact. No pneumothorax. IMPRESSION: 1. Right nondisplaced 10th and 11th posterior rib fractures. 2. Small bilateral pleural effusions with bibasilar atelectasis. An early infiltrate versus atelectasis in the right mid lung also noted. Dictated by: Dictated on workstation # [id number]
[2021-12-05] MEDS ORDERED: OXYC5TAB PO (16:29)
[2021-12-05] MEDS ORDERED: CEFD300C3 PO (16:29)
[2021-12-05] MEDS ORDERED: cefTRIAXone 1 GM PRE-MIX 50 ML IV ONE (16:45)
[2021-12-05 17:04] VITALS: BP 117/64
== END 2021-12-05 17:04 | disposition home or self-care (01) ==
LOC: EDUNIT# 14:58 → ER 14:59
DX: S22.41XA Multiple fractures of ribs, right side, initial encounter for closed fracture (principal); F17.210 Nicotine dependence, cigarettes, uncomplicated; W22.8XXA Striking against or struck by other objects, initial encounter
CPT/HCPCS: 36415; 71101; 80053; 85025; 85610; 94664

== ENCOUNTER 2021-12-25 16:35 | Observation (INO) | payer OTHER ==
[~2021-12-25] VITALS: Ht 170 cm; Wt 72.0 kg
[~2021-12-25 16:35] MED LIST changes: +CEFD300C3 PO; +OXYC5TAB PO
[2021-12-25 16:55] LABS: HEMATOCRIT 35 % (40-54); HEMOGLOBIN 11.7 g/dL (13.3-17.7); MEAN CORPUSCULAR HGB CONC 33 g/dL (32-36); MEAN PLATELET VOLUME 8.6 fL (9.0-12.2)
[2021-12-25 16:57] LABS: BASOPHILS % (AUTO) 1 % (0-10); EOSINOPHILS # (AUTO) 0.2 10^3/uL (0.0-0.3); EOSINOPHILS % (AUTO) 3 % (0-10); LYMPHOCYTES # (AUTO) 1.4 10^3/uL (1.0-4.0); LYMPHOCYTES % (AUTO) 30 % (12-44); MEAN CORPUSCULAR HEMOGLOBIN 38 pg (25-34); MEAN CORPUSCULAR VOLUME 113 fL (80-99); MONOCYTES # (AUTO) 0.5 10^3/uL (0.0-1.0); MONOCYTES % (AUTO) 10 % (0-12); NEUTROPHILS # (AUTO) 2.6 10^3/uL (1.8-7.8); NEUTROPHILS % (AUTO) 56 % (42-75); PLATELET COUNT 126 10^3/uL (130-400); WHITE BLOOD COUNT 4.7 10^3/uL (4.3-11.0)
[2021-12-25 17:00] LABS: ALBUMIN 2.6 GM/DL (3.2-4.5)
[2021-12-25 17:01] LABS: POTASSIUM 3.9 MMOL/L (3.6-5.0)
[2021-12-25 17:02] LABS: CALCIUM 8.3 MG/DL (8.5-10.1)
[2021-12-25 17:03] LABS: TOTAL PROTEIN 6.8 GM/DL (6.4-8.2)
[2021-12-25 17:05] LABS: BILIRUBIN,TOTAL 5.4 MG/DL (0.1-1.0)
[2021-12-25 17:07] LABS: CREATININE SERUM 0.73 MG/DL (0.60-1.30)
--- NOTE | 2021-12-25 17:18 | Diagnostic Imaging Report ---
INDICATION: Pleural effusion and hypoxia. TIME OF EXAM: 05:07 p.m. COMPARISON: Correlation is made with prior chest from 12/05/2021. FINDINGS: Heart size is stable. There are bilateral effusions, similar to prior exam. There are some associated bibasilar infiltrates or atelectasis, also similar. Mid and upper lung vidal are clear. There is no pneumothorax. IMPRESSION: No significant change in bilateral infiltrates/atelectasis and bilateral effusions when compared with exam from 12/05/2021. Dictated by: Dictated on workstation # [id number]
[2021-12-25 17:24] LABS: INR 1.4 (0.8-1.4)
--- NOTE | 2021-12-25 17:48 | ED Respiratory ---
General Chief Complaint: Respiratory Problems Stated Complaint: FLUID ON LUNGS Nursing Triage Note: ARRIVED VIA AMB TO ROOM 07. STATES HE WAS SENT OVER FROM THE CLINIC WITH FLUID ON HIS LUNGS. Source: patient, old records Exam Limitations: no limitations History of Present Illness Date Seen by Provider: Dec 25, 2021 Time Seen by Provider: 16:42 Initial Comments This 61-year-old gentleman was sent to the emergency room from the [facility] clinic where he was found to have significant pleural effusion and marginal oxygen saturations. They referred him to the ER for therapeutic thoracentesis. His pleural effusions are secondary to alcoholic cirrhosis. Patient no longer drinks and states his last alcohol consumption was 4 months ago. He also reports history of non-Hodgkin's lymphoma, but he states it is in remission. He has had therapeutic thoracentesis in the past as well as therapeutic paracentesis. He reports some chronic right upper quadrant pain that is unchanged. However, pain seems to extend further over to the left today than usual. He has been afebrile and complains of chronic chills that are unchanged. Allergies and Home Medications Allergies Coded Allergies: No Known Drug Allergies (Unverified , 06/06/21) Patient Home Medication List Home Medication List Reviewed: Yes Albuterol Sulfate (Proair Hfa) 1 Puff Puff, 2 PUFF IH Q4H Prescribed by: DEIDRA OSWALD on 03/18/21 1043 Cefdinir (Cefdinir) 300 Mg Capsule, 300 MG PO BID Prescribed by: JOEL OVERTON on 12/05/21 1629 Hydrocodone/Acetaminophen (Hydrocodone-Acetamin 5-325 mg) 1 Each Tablet, 1 TAB PO Q8H PRN for PAIN-MODERATE (5-7) Prescribed by: KRISTIN POLLARD on 04/09/21 1817 Ondansetron (Ondansetron Odt) 4 Mg Tab.rapdis, 4 MG PO Q8H PRN for nausea and vomiting Prescribed by: DEIDRA OSWALD on 09/06/21 0205 Oxycodone HCl (Oxycodone HCl) 5 Mg Capsule, 5 MG PO Q6H PRN for PAIN-MODERATE (5-7) Prescribed by: DEIDRA OSWALD on 03/18/21 1037 Oxycodone HCl (Oxycodone HCl) 5 Mg Tablet, 5 MG PO Q4H PRN for PAIN-SEVERE (8- 10) Prescribed by: JOEL OVERTON on 12/05/21 1630 Review of Systems Review of Systems Constitutional: no symptoms reported EENTM: no symptoms reported Respiratory: see HPI Cardiovascular: no symptoms reported Gastrointestinal: see HPI Genitourinary: no symptoms reported Musculoskeletal: no symptoms reported Skin: no symptoms reported Psychiatric/Neurological: No Symptoms Reported Hematologic/Lymphatic: No Symptoms Reported Past Mlouatx-Xtdjow-Oggijj Hx Patient Social History Tobacco Use?: Yes Smoking Status: Current Everyday Smoker Substance use?: Yes Substance type: Marijuana Alcohol Use?: No Immunizations Up To Date First/Initial COVID19 Vaccinat: UNKNOWN DATE Second COVID19 Vaccination Eric: UNK COVID19 Vaccine Order Analyst: UNKNOWN Past Medical History Surgery/Hospitalization HX: sx: goiter removed from r neck, abdominal mesh/hernia repair, tumorremoved fromneck. THORACENTESIS Surgeries: Yes (thyroid growth removed, cancerous tumor from L neck) Respiratory: Yes (Chronic pleural effusion) COPD Cardiac: No Neurological: No Genitourinary: No Gastrointestinal: Yes Cirrhosis Musculoskeletal: No Endocrine: No HEENT: No Cancer: Yes (folicular veihebpu-xoy-eafhpsdo) What Type of Treatment Did You: Radiation Psychosocial: No Integumentary: No Physical Exam Vital Signs - First Documented 12/25/21 12/25/21 16:35 16:48 Temp 36.8 Pulse 78 Resp 16 B/P (MAP) 118/69 (85) Pulse Ox 86 O2 Delivery Room Air O2 Flow Rate 2.00 Capillary Refill : Less Than 3 Seconds Height: '" Weight: lbs. oz. kg; 23.00 BMI Method: General Appearance: WD/WN, no apparent distress, thin HEENT: PERRL/EOMI, normal ENT inspection Neck: full range of motion, normal inspection Respiratory: lungs clear, no respiratory distress, decreased breath sounds (Diminished in the bases) Cardiovascular: regular rate, rhythm, no edema, no murmur Gastrointestinal: normal bowel sounds, soft, tenderness (Mild, generalized in the upper abdomen) Extremities: normal inspection, no pedal edema Neurologic/Psychiatric: no motor/sensory deficits, alert, normal mood/affect, oriented x 3 Skin: normal color, warm/dry Progress/Results/Core Measures Suspected Sepsis SIRS Temperature: Pulse: 78 Respiratory Rate: 16 Laboratory Tests 12/25/21 16:43: White Blood Count 4.7 Blood Pressure 118 /69 Mean: 85 Laboratory Tests 12/25/21 16:43: Creatinine 0.73, Platelet Count 126L, Total Bilirubin 5.4H 12/25/21 16:48: INR Comment 1.4 Results/Orders Lab Results Laboratory Tests Test 12/25/21 16:43 12/25/21 16:48 Range/Units White Blood Count 4.7 4.3-11.0 10^3/uL Red Blood Count 3.12 L 4.30-5.52 10^6/uL Hemoglobin 11.7 L 13.3-17.7 g/dL Hematocrit 35 L 40-54 % Mean Corpuscular Volume 113 H 80-99 fL Mean Corpuscular Hemoglobin 38 H 25-34 pg Mean Corpuscular Hemoglobin Concent 33 32-36 g/dL Red Cell Distribution Width 14.6 H 10.0-14.5 % Platelet Count 126 L 130-400 10^3/uL Mean Platelet Volume 8.6 L 9.0-12.2 fL Immature Granulocyte % (Auto) 0 % Neutrophils (%) (Auto) 56 42-75 % Lymphocytes (%) (Auto) 30 12-44 % Monocytes (%) (Auto) 10 0-12 % Eosinophils (%) (Auto) 3 0-10 % Basophils (%) (Auto) 1 0-10 % Neutrophils # (Auto) 2.6 1.8-7.8 10^3/uL Lymphocytes # (Auto) 1.4 1.0-4.0 10^3/uL Monocytes # (Auto) 0.5 0.0-1.0 10^3/uL Eosinophils # (Auto) 0.2 0.0-0.3 10^3/uL Basophils # (Auto) 0.0 0.0-0.1 10^3/uL Immature Granulocyte # (Auto) 0.0 0.0-0.1 10^3/uL Percent Immature Platelet Fraction 0.8 0.0-7.6 % Sodium Level 132 L 135-145 MMOL/L Potassium Level 3.9 3.6-5.0 MMOL/L Chloride Level 105 98-107 MMOL/L Carbon Dioxide Level 18 L 21-32 MMOL/L Anion Gap 9 5-14 MMOL/L Blood Urea Nitrogen 9 7-18 MG/DL Creatinine 0.73 0.60-1.30 MG/DL Estimat Glomerular Filtration Rate 104 BUN/Creatinine Ratio 12 Glucose Level 90 70-105 MG/DL Calcium Level 8.3 L 8.5-10.1 MG/DL Corrected Calcium 9.4 8.5-10.1 MG/DL Total Bilirubin 5.4 H 0.1-1.0 MG/DL Aspartate Amino Transf (AST/SGOT) 44 H 5-34 U/L Alanine Aminotransferase (ALT/SGPT) 15 0-55 U/L Alkaline Phosphatase 223 H 40-136 U/L C-Reactive Protein High Sensitivity 1.76 H 0.00-0.50 MG/DL B-Type Natriuretic Peptide 77.5 <100.0 PG/ML Total Protein 6.8 6.4-8.2 GM/DL Albumin 2.6 L 3.2-4.5 GM/DL Prothrombin Time 18.0 H 12.2-14.7 SEC INR Comment 1.4 0.8-1.4 My Orders Orders - JOLENE GOTTLIEB MD Bnp Jay (12/25/21 16:50) Cbc With Automated Diff (12/25/21 16:50) Comprehensive Metabolic Panel (12/25/21 16:50) Hs C Reactive Protein (12/25/21 16:50) Ed Iv/Invasive Line Start (12/25/21 16:50) Chest Pa/Lat (2 View) (12/25/21 16:50) Protime With Inr (12/25/21 17:15) Lipase (12/25/21 17:20) Ed Admission (Communication) (12/25/21 17:23) Vital Signs/I&O 12/25/21 12/25/21 16:35 16:48 Temp 36.8 Pulse 78 Resp 16 B/P (MAP) 118/69 (85) Pulse Ox 86 86 O2 Delivery Room Air Nasal Cannula O2 Flow Rate 2.00 Capillary Refill : Less Than 3 Seconds Blood Pressure Mean: 85 Progress Note : Progress Note Patient was seen and examined. On room air his oxygen saturation was 91% at rest. Chest x-ray showed significant pleural effusions bilaterally, left greater than right. This was discussed with Dr. Willis. Ultrasound was no longer available to [facility] for thoracentesis. Discharge home did not seem crespo due to his hypoxia. Dr. Willis requested admission for observation with marking of the chest for thoracentesis in the morning. I discussed CODE STATUS with the patient and he requested full code. Diagnostic Imaging Diagonstic Imaging: Xray Plain Films/CT/US/NM/MRI: chest Comments Chest x-ray viewed by me and report reviewed. See report below: NAME: KAREN RENTERIA I [facility] REC#: [id number] PT STATUS: REG ER : 1960 PHYSICIAN: JOLENE GOTTLIEB MD ADMIT DATE: 12/25/21/ER Draft Date of Exam:12/25/21 CHEST PA/LAT (2 VIEW) INDICATION: Pleural effusion and hypoxia. TIME OF EXAM: 05:07 p.m. COMPARISON: Correlation is made with prior chest from 12/05/2021. FINDINGS: Heart size is stable. There are bilateral effusions, similar to prior exam. There are some associated bibasilar infiltrates or atelectasis, also similar. Mid and upper lung vidal are clear. There is no pneumothorax. IMPRESSION: No significant change in bilateral infiltrates/atelectasis and bilateral effusions when compared with exam from 12/05/2021. Dictated on workstation # [id number] Dict: 12/25/211711 Trans: 12/25/218 AS6 [id number] Interpreted by: CHYNA FRIED MD Departure Communication (Admissions) Time/Spoke to Admitting Phy: 17:25 Dr. Horta Time/Spoke to Consulting Phy: 17:17 Dr. Willis Impression Primary Impression: Pleural effusion, bilateral Additional Impression: Hypoxia Disposition: ADMITTED INPATIENT Condition: Stable Admissions Decision to Admit Reason: Admit from ER (General) Decision to Admit/Date: Dec 25, 2021 Time/Decision to Admit Time: 17:17 Departure-Patient Inst. Referrals: [facility] (PCP/Family) Primary Care Physician Copy Copies To 1: DESTINY HAMLIN JOSHUA T MD Dec 25, 2021 17:48
[2021-12-25] MEDS ORDERED: oxyCODONE/APAP 5/325MG (PERCOCET 5) TABLET PO ONE (18:00)
[2021-12-25 20:00] VITALS: BP 95/58
[2021-12-25] MEDS: ZOLPIDEM 5 MG (AMBIEN) TAB PO PRN (22:05)
--- NOTE | 2021-12-25 23:23 | CONSULTATION REPORT ---
DATE OF SERVICE: ATTENDING PRIMARY CARE PHYSICIAN: [facility]. HISTORY OF PRESENT ILLNESS: The patient is a 61-year-old male who we have seen before in the past. He was sent to the Emergency Department after he was seen at his [facility] for shortness of breath and was found to have left pleural effusion. He has a history of liver steatosis as well as liver cirrhosis; however, did completely stopped drinking approximately four months ago. He was seen on 06/06/2021 for shortness of breath and an x-ray was performed as well as a CT scan of the chest, which did show significant left-sided pleural effusion and underwent a left thoracentesis. He also does have a history of COPD and has been smoking majority of his life. He also does have a history of non-Hodgkin's lymphoma and underwent radiation to the neck; however, he states that this disease process has been in remission. Recent x-ray did show bilateral pleural effusion; however, the left is significantly larger in size. PAST MEDICAL HISTORY: Non-Hodgkin's lymphoma, alcoholic liver cirrhosis, congestive heart failure. PAST SURGICAL HISTORY: Thyroid cyst excision, excision left neck lymph node. ALLERGIES: NO KNOWN DRUG ALLERGIES. MEDICATIONS: Spironolactone, furosemide, gabapentin. SOCIAL HISTORY: Positive smoke 40 pack years, longstanding history of alcohol abuse; however, quit four months ago. FAMILY HISTORY: Noncontributory. VITAL SIGNS: Temperature 37.6, blood pressure 90/58, pulse 75, respirations 20, pulse ox 92% on 2 liters nasal cannula. REVIEW OF SYSTEMS: Well-nourished male currently in no acute distress. He is experiencing shortness of breath, especially upon exertion. He does not report any cough or sputum production. No nausea or vomiting, no diarrhea or constipation. He has some mild abdominal distention; however, not severe. No fever or chills, no recent inadvertent weight loss. All other review of systems negative. PHYSICAL EXAMINATION: CHEST: Decreased bilateral basilar breath sounds with distant breath sounds bilaterally. HEART: Regular, no murmurs. EXTREMITIES: No lower extremity edema, negative Homans sign. HEENT: No scleral icterus. NECK: No cervical lymphadenopathy. ABDOMEN: Soft, nontender with mild distention. No abdominal pain. No hernias. SKIN: Warm, dry. LABORATORY DATA: WBC 4.7, hemoglobin 11.7, hematocrit 35, platelets 126. BUN 9, creatinine 0.73, total bilirubin 5.4, AST 44, ALT 15, lipase 99. ASSESSMENT AND PLAN: A 61-year-old male with recurrent symptomatic pleural effusions with left significantly larger than the right. We will have ultrasonography performed and marker placed for thoracentesis on the left side and if significant pleural effusion is identified on the right side, proceed with right sided thoracentesis at a separate time. Job ID: [id number] DocumentID: [id number] Dictated Date: 12/25/2021 23:02:05 Field Installation Technician Date: 12/25/2021 23:21:35 Dictated By: MARCI GALLOWAY MD MTDD
[2021-12-25 23:50] VITALS: BP 91/55
[2021-12-26] MEDS: oxyCODONE/APAP 5/325MG (PERCOCET 5) TABLET PO PRN ×3 (03:37→18:48)
[2021-12-26 04:16] VITALS: BP 117/56
[2021-12-26 05:47] LABS: MEAN CORPUSCULAR HGB CONC 33 g/dL (32-36); MEAN PLATELET VOLUME 8.8 fL (9.0-12.2)
[2021-12-26 05:49] LABS: BASOPHILS # (AUTO) 0.1 10^3/uL (0.0-0.1); BASOPHILS % (AUTO) 1 % (0-10); EOSINOPHILS # (AUTO) 0.2 10^3/uL (0.0-0.3); EOSINOPHILS % (AUTO) 4 % (0-10); HEMATOCRIT 31 % (40-54); HEMOGLOBIN 10.4 g/dL (13.3-17.7); LYMPHOCYTES # (AUTO) 1.1 10^3/uL (1.0-4.0); LYMPHOCYTES % (AUTO) 26 % (12-44); MEAN CORPUSCULAR HEMOGLOBIN 38 pg (25-34); MEAN CORPUSCULAR VOLUME 113 fL (80-99); MONOCYTES # (AUTO) 0.4 10^3/uL (0.0-1.0); MONOCYTES % (AUTO) 11 % (0-12); NEUTROPHILS # (AUTO) 2.3 10^3/uL (1.8-7.8); NEUTROPHILS % (AUTO) 57 % (42-75); PLATELET COUNT 104 10^3/uL (130-400); WHITE BLOOD COUNT 4.1 10^3/uL (4.3-11.0)
[2021-12-26 05:56] LABS: INR 1.6 (0.8-1.4); PROTHROMBIN TIME PATIENT 19.2 SEC (12.2-14.7)
[2021-12-26 06:02] LABS: ALBUMIN 2.2 GM/DL (3.2-4.5)
[2021-12-26 06:03] LABS: POTASSIUM 4.2 MMOL/L (3.6-5.0)
[2021-12-26 06:05] LABS: TOTAL PROTEIN 5.7 GM/DL (6.4-8.2)
[2021-12-26 06:07] LABS: BILIRUBIN,TOTAL 5.2 MG/DL (0.1-1.0)
[2021-12-26 06:09] LABS: CREATININE SERUM 0.64 MG/DL (0.60-1.30)
[2021-12-26 07:11] VITALS: BP 105/53
--- NOTE | 2021-12-26 08:05 | Diagnostic Imaging Report ---
Indication: Left pleural effusion IMPRESSION: Ultrasound guidance was used to evaluate left pleural effusion. Images were stored showing a moderate to large size left pleural effusion. Dictated by: Dictated on workstation # [id number]
[2021-12-26] MEDS ORDERED: LIDO700A45 TD (09:49)
[2021-12-26] MEDS ORDERED: MULT-1136 PO (09:49)
[2021-12-26] MEDS ORDERED: TRZ50T PO (09:49)
[2021-12-26 11:05] VITALS: BP 91/53
[2021-12-26] MEDS ORDERED: LIDOCAINE 1% INJ 50 ML (XYLOCAINE) VIAL ONE (15:59)
[2021-12-26 16:08] VITALS: BP 102/61
[2021-12-26] MEDS ORDERED: fentaNYL INJ 100 MCG/2 ML AMP ONE (16:21)
[2021-12-26] MEDS ORDERED: fentaNYL INJ 100 MCG/2 ML AMP IVP ONE (16:30)
--- NOTE | 2021-12-26 16:42 | Discharge Inst-Surgical ---
D/C Lap Instructions-NILESH Follow Up PRN, call office for appt when develops SOB or abdominal distention Activity as tolerated Low sodium Diet may remove dressing tomorrow. Symptoms to Report: Fever over 101 degree F, Nausea/Vomiting Infection Signs and Symptoms to report: Increased redness, Foul odor of wound, Increased drainage Bathing instructions: May shower Operative Area Clean/Dry; Keep incision clean/dry If any problems/questions: Contact your physician or go to Emergency Room MARCI GALLOWAY MD Dec 26, 2021 16:42
--- NOTE | 2021-12-26 16:59 | Diagnostic Imaging Report ---
CLINICAL INDICATION: Status post left thoracentesis. EXAM: Portable chest x-ray, upright view. COMPARISON: Chest x-ray dated 09/05/2021. FINDINGS: There is no pneumothorax. There is a small left pleural effusion which has decreased in size in the interim. There is interval development of a small right pleural effusion. There is interval progression of right basilar atelectasis versus infiltrate. There is improved aeration of the left lung base with residual mild left basilar atelectasis versus infiltrate. Pulmonary vasculature is upper limits of normal. Bones show no significant abnormality. IMPRESSION: 1: There is no pneumothorax. 2: There is interval development of a small airspace opacity involving the right lung base and mid lung field and small right pleural effusion which may be related to infectious or inflammatory process. Atelectasis may also be considered. 3: There is a small left pleural effusion which has decreased in size in the interim. There is improved aeration of the left lung base with residual curvilinear airspace opacities. Dictated by: Dictated on workstation # [id number]
[2021-12-26] MEDS: ZOLPIDEM 5 MG (AMBIEN) TAB PO PRN (18:48)
[2021-12-26 19:43] VITALS: BP 94/56
--- NOTE | 2021-12-26 20:04 | History & Physical ---
HPI History of Present Illness: 61 yo M sent over from clinic with increase in abdominal pain and shortness of breath. Patient has known cirrhois and has required multiple paracentesis and thoracentsis due to ascites. Patient states that he had 10 years of heavy drinking and has been sober for the last 4 months. This week he had noticed increase in abdominal girth and increase in shortness of breath. No home oxygen requirement but needing oxygen at this time due to hypoxia and comfort. Source: patient Exam Limitations: no limitations Date seen by provider: Dec 26, 2021 Time Seen by Provider: 11:05 Attending Physician González Horta MD PCP [facility] Consult Date of Admission Dec 25, 2021 at 17:24 Home Medications Home Medications Reviewed patient Home Medication Reconciliation performed by pharmacy medication reconciliations irrigation service technician and/or nursing. Patients Allergies have been reviewed. Allergies Coded Allergies: No Known Drug Allergies (Unverified , 06/06/21) XSY-Zuqiny-Dtefni Hx Patient Social History Drug of Choice: marijuana Smoking Status: Current Everyday Smoker 2nd Hand Smoke Exposure: Yes Recent Hopitalizations: No Alcohol Use?: No Substance type: Marijuana Tobacco type used: Cigarettes Have you traveled recently?: No Immunizations Up To Date Influenza Vaccine Up-to-Date: No; Not Current First/Initial COVID19 Vaccinat: UNKNOWN DATE X1 DOSE Second COVID19 Vaccination Eric: UNK COVID19 Vaccine Engraver Machine: UNKNOWN Past Medical History Cirrhois EtOH depenence and Abuse Review of Systems ([facility]) Constitutional: malaise, weakness EENTM: no symptoms reported Respiratory: dyspnea on exertion, orthopnea Cardiovascular: no symptoms reported Gastrointestinal: abdominal pain, jaundice, loss of appetite, nausea Genitourinary: no symptoms reported Musculoskeletal: back pain Skin: no symptoms reported Psychiatric/Neurological: Anxiety Reviewed Test Results Reviewed Test Results Lab Laboratory Tests Test 12/26/21 05:33 Range/Units White Blood Count 4.1 L 4.3-11.0 10^3/uL Red Blood Count 2.77 L 4.30-5.52 10^6/uL Hemoglobin 10.4 L 13.3-17.7 g/dL Hematocrit 31 L 40-54 % Mean Corpuscular Volume 113 H 80-99 fL Mean Corpuscular Hemoglobin 38 H 25-34 pg Mean Corpuscular Hemoglobin Concent 33 32-36 g/dL Red Cell Distribution Width 14.6 H 10.0-14.5 % Platelet Count 104 L 130-400 10^3/uL Mean Platelet Volume 8.8 L 9.0-12.2 fL Immature Granulocyte % (Auto) 1 % Neutrophils (%) (Auto) 57 42-75 % Lymphocytes (%) (Auto) 26 12-44 % Monocytes (%) (Auto) 11 0-12 % Eosinophils (%) (Auto) 4 0-10 % Basophils (%) (Auto) 1 0-10 % Neutrophils # (Auto) 2.3 1.8-7.8 10^3/uL Lymphocytes # (Auto) 1.1 1.0-4.0 10^3/uL Monocytes # (Auto) 0.4 0.0-1.0 10^3/uL Eosinophils # (Auto) 0.2 0.0-0.3 10^3/uL Basophils # (Auto) 0.1 0.0-0.1 10^3/uL Immature Granulocyte # (Auto) 0.0 0.0-0.1 10^3/uL Percent Immature Platelet Fraction 0.8 0.0-7.6 % Prothrombin Time 19.2 H 12.2-14.7 SEC INR Comment 1.6 H 0.8-1.4 Sodium Level 133 L 135-145 MMOL/L Potassium Level 4.2 3.6-5.0 MMOL/L Chloride Level 108 H 98-107 MMOL/L Carbon Dioxide Level 17 L 21-32 MMOL/L Anion Gap 8 5-14 MMOL/L Blood Urea Nitrogen 9 7-18 MG/DL Creatinine 0.64 0.60-1.30 MG/DL Estimat Glomerular Filtration Rate 108 BUN/Creatinine Ratio 14 Glucose Level 84 70-105 MG/DL Calcium Level 8.0 L 8.5-10.1 MG/DL Corrected Calcium 9.4 8.5-10.1 MG/DL Total Bilirubin 5.2 H 0.1-1.0 MG/DL Aspartate Amino Transf (AST/SGOT) 38 H 5-34 U/L Alanine Aminotransferase (ALT/SGPT) 13 0-55 U/L Alkaline Phosphatase 179 H 40-136 U/L Total Protein 5.7 L 6.4-8.2 GM/DL Albumin 2.2 L 3.2-4.5 GM/DL Physical Exam-([facility]) Physical Exam Vital Signs VS - Last 72 Hours, by Label 12/25/21 12/25/21 12/25/21 12/25/21 16:35 16:48 19:29 19:50 Temp 36.8 Pulse 78 Resp 16 B/P (MAP) 118/69 (85) Pulse Ox 86 86 O2 Delivery Room Air Nasal Cannula Nasal Cannula Nasal Cannula O2 Flow Rate 2.00 2.00 2.00 12/25/21 12/25/21 12/26/21 12/26/21 20:00 23:50 04:16 07:11 Temp 37.6 37.2 37.2 37.5 Pulse 75 71 78 74 Resp 20 18 18 18 B/P (MAP) 95/58 (70) 91/55 (67) 117/56 (76) 105/53 (70) Pulse Ox 92 91 93 94 O2 Delivery Nasal Cannula Nasal Cannula Nasal Cannula Nasal Cannula O2 Flow Rate 2.00 3.00 3.00 3.00 12/26/21 12/26/21 12/26/21 12/26/21 08:30 11:05 11:29 11:29 Temp 37.4 Pulse 70 Resp 18 B/P (MAP) 91/53 (66) Pulse Ox 90 90 84 O2 Delivery Nasal Cannula Nasal Cannula Nasal Cannula Room Air O2 Flow Rate 2.00 3.00 3.00 12/26/21 12/26/21 12/26/21 16:08 19:36 19:43 Temp 37.0 37.1 Pulse 65 63 Resp 19 18 B/P (MAP) 102/61 (75) 94/56 (69) Pulse Ox 95 93 O2 Delivery Nasal Cannula Nasal Cannula Nasal Cannula O2 Flow Rate 3.00 4.00 3.00 Capillary Refill : Less Than 3 Seconds General Appearance: WD/WN, no apparent distress HEENT: PERRL/EOMI Neck: non-tender, full range of motion Respiratory: chest non-tender, lungs clear, no respiratory distress, crackles, wheezing Cardiovascular: normal peripheral pulses, regular rate, rhythm Gastrointestinal: normal bowel sounds, distended, hepatomegaly, spleenomegaly Back: no CVA tenderness Extremities: no calf tenderness, pedal edema (2+) Neurologic/Psychiatric: divinity teacher II-XII nml as tested, alert, normal mood/affect, oriented x 3 Skin: normal color, warm/dry Lymphatic: no adenopathy Assessment/Plan Assessment/Plan Admission Status: Observation (1) Pleural effusion, bilateral Status: Acute Assessment & Plan: - Thoracentesis by Dr Willis for comfort (2) Hypoxia Status: Acute Assessment & Plan: - Requiring oxygen, home O2 study pending, MAT protocol (3) Ascites due to alcoholic cirrhosis Status: Acute Assessment & Plan: - Patient currently sober, continue to abstain from EtOH Clinical Quality Measures Smoking Cessation Counseling: Counseling-Symptomatic: 3-10 Minutes GONZÁLEZ HORTA MD Dec 26, 2021 20:04
--- NOTE | 2021-12-26 21:17 | OPERATIVE REPORT ---
DATE OF SERVICE: 12/26/2021 ATTENDING PRIMARY CARE PHYSICIAN: [facility]. PREPROCEDURE DIAGNOSIS: Symptomatic left pleural effusion. POSTPROCEDURE DIAGNOSIS: Symptomatic left pleural effusion. PROCEDURE: Left thoracentesis. SURGEON: Marci Galloway MD ANESTHESIA: Local. ESTIMATED BLOOD LOSS: Minimal. FINDINGS: A 1250 mL of blood-tinged straw yellow transudative fluid. DISPOSITION: The patient tolerated the procedure well. INDICATIONS: The patient is a 61-year-old male who we have seen before in the past. He was sent to the Emergency Department after being seen at his [facility] for shortness of breath and was found to have a left pleural effusion. He also does have a history of liver steatosis as well as cirrhosis secondary to alcohol, however, completely stopped drinking approximately 4 months ago. On 06/06/2021, he did develop shortness of breath and an x-ray as well as CT scan was performed, which did show significant left-sided pleural effusion and underwent a left thoracentesis. He also does have a history of COPD and has been smoking the majority of his life. He also does have a history of non-Hodgkin's lymphoma and did undergo radiation to the neck; however, states that this disease process has been under remission. A recent x-ray did show bilateral pleural effusion with the left being significantly larger than the right. An ultrasound was performed of the left pleural space and marked for thoracentesis. DESCRIPTION OF PROCEDURE: The left posterior back was prepped and draped in standard surgical fashion. A 1% lidocaine was then used to anesthetize the skin, muscle layers as well as the parietal pleura. A vertical skin incision was made using a 11 blade and the trocar and catheter were then introduced into the pleural space withdrawing of blood-tinged transudative fluid. The catheter was then advanced over the trocar without any resistance and then connected to vacuum container bottle. A 1250 mL of transudative fluid was drained. The catheter was then removed while applying pressure and an Op-Site placed on the entry site. The patient tolerated the procedure well. We will get a post-procedure chest x-ray and from a surgical standpoint, he may then be discharged to home. We will also recommend that when he does experience worsening shortness of breath or abdominal distention and ascites to call the office and we will have him proceed with outpatient workup and therapy including diagnostic imaging as well as scheduling for either thoracentesis or paracentesis in same day surgery to avoid Emergency Department visits as well as admissions. Job ID: [id number] DocumentID: [id number] Dictated Date: 12/26/2021 16:47:08 Vascular Technologist Sonographer Date: 12/26/2021 21:16:21 Dictated By: MARCI GALLOWAY MD
[2021-12-27] MEDS: oxyCODONE/APAP 5/325MG (PERCOCET 5) TABLET PO PRN (00:17)
[2021-12-27 00:34] VITALS: BP 95/57
[2021-12-27 03:51] VITALS: BP 100/52
[2021-12-27 06:15] LABS: BASOPHILS % (AUTO) 1 % (0-10); EOSINOPHILS # (AUTO) 0.1 10^3/uL (0.0-0.3); EOSINOPHILS % (AUTO) 3 % (0-10); HEMATOCRIT 31 % (40-54); HEMOGLOBIN 10.4 g/dL (13.3-17.7); LYMPHOCYTES # (AUTO) 1.1 10^3/uL (1.0-4.0); LYMPHOCYTES % (AUTO) 24 % (12-44); MEAN CORPUSCULAR HEMOGLOBIN 38 pg (25-34); MEAN CORPUSCULAR HGB CONC 33 g/dL (32-36); MEAN CORPUSCULAR VOLUME 113 fL (80-99); MEAN PLATELET VOLUME 8.6 fL (9.0-12.2); MONOCYTES # (AUTO) 0.5 10^3/uL (0.0-1.0); MONOCYTES % (AUTO) 10 % (0-12); NEUTROPHILS # (AUTO) 2.9 10^3/uL (1.8-7.8); NEUTROPHILS % (AUTO) 62 % (42-75); PLATELET COUNT 80 10^3/uL (130-400); WHITE BLOOD COUNT 4.7 10^3/uL (4.3-11.0)
[2021-12-27 06:24] LABS: ALBUMIN 2.2 GM/DL (3.2-4.5); INR 1.5 (0.8-1.4); POTASSIUM 4.2 MMOL/L (3.6-5.0); PROTHROMBIN TIME PATIENT 18.9 SEC (12.2-14.7)
[2021-12-27 06:27] LABS: TOTAL PROTEIN 5.7 GM/DL (6.4-8.2)
[2021-12-27 06:30] LABS: CREATININE SERUM 0.62 MG/DL (0.60-1.30)
[2021-12-27 08:00] VITALS: BP 94/56
--- NOTE | 2021-12-27 11:38 | Discharge Summary ---
Diagnosis/Chief Complaint Date of Admission Dec 25, 2021 at 17:24 Date of Discharge 12/27/21 Admission Diagnosis Admission Diagnosis See problem list Discharge Diagnosis See Below Problems/Diagnosis: (1) Pleural effusion, bilateral Assessment & Plan: - Thoracentesis by Dr Willis for comfort Status: Acute (2) Hypoxia Assessment & Plan: - Requiring oxygen, home O2 study pending, MAT protocol Status: Acute (3) Ascites due to alcoholic cirrhosis Assessment & Plan: - Patient currently sober, continue to abstain from EtOH Status: Acute Chief Complaint/HPI Chief Complaint/HPI 61 yo M sent over from clinic with increase in abdominal pain and shortness of breath. Patient has known cirrhois and has required multiple paracentesis and thoracentsis due to ascites. Patient states that he had 10 years of heavy drinking and has been sober for the last 4 months. This week he had noticed increase in abdominal girth and increase in shortness of breath. No home oxygen requirement but needing oxygen at this time due to hypoxia and comfort. Discharge Summary-Simple/Stand Consultations Discharge Physical Examination Allergies: Coded Allergies: No Known Drug Allergies (Unverified , 06/06/21) Vitals & I&Os Vital Sign - Last 12Hours Date Time Temp Pulse Resp B/P (MAP) Pulse Ox O2 Delivery O2 Flow Rate FiO2 12/27/21 09:00 Nasal Cannula 4.00 12/27/21 08:00 37.8 63 18 94/56 (69) 93 Intake and Output 12/27/21 00:00 Intake Total 860 ml Balance 860 ml Hospital Course See final discharge diagnosis. Discharge Instructions to patient/family Please see electronic discharge instructions given to patient. Discharge Medications Reviewed and agree with Discharge Medication list on patient's Discharge Instruction sheet Clinical Quality Measures Smoking Cessation Counseling: Counseling-Symptomatic: 3-10 Minutes GONZÁLEZ DOMINGUEZ MD Dec 27, 2021 11:38
[2021-12-27 12:00] VITALS: BP 107/59
== END 2021-12-27 13:15 | disposition home or self-care (01) ==
LOC: EDUNIT# 16:35 → ER 16:37 → 4TH 17:24
PROVIDERS: ADMIT Family Medicine; ATTEND Family Medicine
DX: K70.31 Alcoholic cirrhosis of liver with ascites (principal); J90 Pleural effusion, not elsewhere classified; R09.02 Hypoxemia; F17.210 Nicotine dependence, cigarettes, uncomplicated; Z79.891 Long term (current) use of opiate analgesic; Z79.899 Other long term (current) drug therapy
CPT/HCPCS: 36415; 71045; 71046; 76942; 80053; 83690; 83880; 85025; 85610; 86141; 94760; 94761; G0378

== ENCOUNTER → 2022-02-13 | Outpatient (CLI) | payer MEDICARE, OTHER ==
[~2022-02-13] MED LIST changes: +LIDO700A45 TD; +MULT-1136 PO; +TRZ50T PO
== END ==
LOC: CARD 12:38
PROVIDERS: ATTEND Pediatrics
DX: I51.7 Cardiomegaly (principal)
CPT/HCPCS: 93306

== ENCOUNTER → 2022-02-19 | Outpatient (CLI) | payer MEDICARE ==
--- NOTE | 2022-02-19 13:56 | Diagnostic Imaging Report ---
PROCEDURE: MR imaging abdomen without contrast. TECHNIQUE: Multiplanar, multisequence MR imaging of the abdomen was performed without contrast. INDICATION: Increasing abdominal pain The previous MRI abdomen exam performed on 10/07/2021 noted a cirrhotic liver with no suspicious lesion. On this exam the appearance of the liver does not appear to have changed. No new abnormality has developed. The 1 cm T1 hyperintense lesion in the right hemiliver seen previously is again evident and no different. The previous study failed to show any abnormal enhancement in this area. This exam is limited however as intravenous contrast was not administered due to the patient's previous adverse reaction to the contrast. The splenomegaly and the collateral vessels and the small amount of abdominal ascites seen previously are again evident and no different. There is no acute abnormality of the abdomen noted. As seen on the prior exam there is bibasilar pneumonia/atelectasis and bilateral pleural effusions. These findings do not seem to have changed significantly since the previous study. IMPRESSION: 1. This exam is less than optimal as intravenous contrast was not administered due to the patient's prior adverse reaction to the contrast. When compared to the prior study however there does not appear to have been any significant change. The appearance of the liver does suggest cirrhosis but there is no evidence for a mass involving the liver. 2. The splenomegaly, collateral vessels, abdominal ascites and bibasilar pneumonia/atelectasis seen previously are again evident and not significantly changed. Dictated on workstation # [id number]
== END ==
LOC: RAD 10:15
PROVIDERS: ATTEND Pediatrics
DX: K76.9 Liver disease, unspecified (principal); R16.1 Splenomegaly, not elsewhere classified
CPT/HCPCS: 74181

== ENCOUNTER → 2022-03-14 | Outpatient (CLI) | payer MEDICARE ==
[~2022-03-14] MED LIST changes: +AZIT250T12 PO; +FURO40TA4 PO; +OMEP40CA6 PO; +PROP10TA8 PO; +SPIR100T4 PO; +UMEC1BLS PO
[2022-03-14 12:30] LABS: INR 1.4 (0.8-1.4); PROTHROMBIN TIME PATIENT 17.5 SEC (12.2-14.7)
--- NOTE | 2022-03-14 14:39 | Diagnostic Imaging Report ---
PROCEDURE: US Abdomen, limited. TECHNIQUE: Multiple real-time grayscale images were obtained over the abdomen in various projections. INDICATION: Ascites. FINDINGS: Sonographic interrogation of the right and left upper and lower quadrants was performed. There is a right-sided pleural effusion. Only minimal free fluid in the abdomen is seen. The volume of ascites is insufficient for safe paracentesis. IMPRESSION: 1. Small volume ascites. Overall volume is insufficient for safe paracentesis. 2. Right-sided pleural effusion. Dictated by: Dictated on workstation # [id number]
== END ==
LOC: LAB 11:45
PROVIDERS: ATTEND Nurse Practitioner
DX: K70.31 Alcoholic cirrhosis of liver with ascites (principal); J90 Pleural effusion, not elsewhere classified
CPT/HCPCS: 36415; 76705; 85610

== ENCOUNTER 2022-03-16 18:31 | Inpatient (IN) | payer MEDICARE ==
[~2022-03-16] VITALS: Ht 170.1 cm; Wt 66.3 kg
[~2022-03-16 18:31] MED LIST changes: -AZIT250T12 PO; -FURO40TA4 PO; -OMEP40CA6 PO; -PROP10TA8 PO; -SPIR100T4 PO; -UMEC1BLS PO
[2022-03-16 18:53] LABS: HEMOGLOBIN 10.8 g/dL (13.3-17.7)
[2022-03-16 18:55] LABS: BASOPHILS # (AUTO) 0.1 10^3/uL (0.0-0.1); BASOPHILS % (AUTO) 1 % (0-10); EOSINOPHILS # (AUTO) 0.1 10^3/uL (0.0-0.3); EOSINOPHILS % (AUTO) 2 % (0-10); HEMATOCRIT 31 % (40-54); LYMPHOCYTES # (AUTO) 1.7 10^3/uL (1.0-4.0); LYMPHOCYTES % (AUTO) 32 % (12-44); MEAN CORPUSCULAR HEMOGLOBIN 38 pg (25-34); MEAN CORPUSCULAR HGB CONC 35 g/dL (32-36); MEAN CORPUSCULAR VOLUME 109 fL (80-99); MEAN PLATELET VOLUME 8.4 fL (9.0-12.2); MONOCYTES # (AUTO) 0.7 10^3/uL (0.0-1.0); MONOCYTES % (AUTO) 13 % (0-12); NEUTROPHILS # (AUTO) 2.8 10^3/uL (1.8-7.8); NEUTROPHILS % (AUTO) 52 % (42-75); PLATELET COUNT 125 10^3/uL (130-400); WHITE BLOOD COUNT 5.5 10^3/uL (4.3-11.0)
--- NOTE | 2022-03-16 18:57 | ED Respiratory ---
General Chief Complaint: Respiratory Problems Stated Complaint: SOA Nursing Triage Note: SHORTNESS OF BREATH FOR A FEW DAYS, HAS HAD NAUSEA AND POOR APPETITE WENT TO THE DR AND WAS SWABBED FOR COVID AND FLUWED OR THURSDAY. Source: patient History of Present Illness Date Seen by Provider: Mar 16, 2022 Time Seen by Provider: 18:40 Initial Comments PT ARRIVES VIA POV FROM HOME, NEEDS WHEELCHAIR ON ARRIVAL WITH COPD, HAS HAD INCREASED COUGH AND SHORTNESS OF BREATH FOR THE LAST FEW DAYS, WORSE TODAY PT WEARS HOME O2 AT 2L/NC CONTINOUSLY, BUT WAS OUTSIDE TODAY WITHOUT HIS OXYGEN AND GOT VERY SHORT OF BREATH, CAME INSIDE AND CHECKED HIS OXYGEN AND IT WAS 54%, SO CAME HERE C/O FEVER UP TO 101 TODAY--HAS NOT TAKEN ANYTHING FOR FEVER C/O RIGHT SIDED CHEST PAIN, ESPECIALLY WITH COUGH OR DEEP BREATHING C/O NAUSEA, NO VOMITING, BUT POOR APPETITE. PT HAS FOLLICULAR LYMPHOMA, HAD LYMPH NODE REMOVED AND HAD 10 SESSIONS OF RADIATION--4-5 YEARS AGO PT HAS HAD COVID VACCINE X 1--OVER A YEAR AGO NO FLU VACCINE. 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 Allergies and Home Medications Allergies Coded Allergies: No Known Drug Allergies (Unverified , 06/06/21) Patient Home Medication List Lidocaine (Lidocaine 5% Patch) 1 Each Adh..patch, 1 PATCH TD DAILY, (Reported) Entered as Reported by: DESTINY COOMBS on 12/26/21948 Multivitamin (Multivitamin) 1 Each Tablet, 1 EACH PO DAILY, (Reported) Entered as Reported by: DESTINY COOMBS on 12/26/21948 Trazodone HCl (Trazodone HCl) 50 Mg Tablet, 50 MG PO HS, (Reported) Entered as Reported by: DESTINY COOMBS on 12/26/21948 Review of Systems Review of Systems Constitutional: see HPI, fever EENTM: no symptoms reported Respiratory: see HPI, cough, dyspnea on exertion, short of breath Cardiovascular: see HPI Gastrointestinal: see HPI; No diarrhea; loss of appetite, nausea; No vomiting Genitourinary: no symptoms reported Musculoskeletal: no symptoms reported Skin: no symptoms reported Psychiatric/Neurological: No Symptoms Reported Hematologic/Lymphatic: See HPI Immunological/Allergic: no symptoms reported Past Vrbibwo-Pmmhlm-Cauidm Hx Immunizations Up To Date First/Initial COVID19 Vaccinat: UNKNOWN DATE X1 DOSE Second COVID19 Vaccination Eric: UNK Past Medical History Surgery/Hospitalization HX: sx: goiter removed from r neck, abdominal mesh/hernia repair, tumorremoved fromneck. THORACENTESIS Surgeries: Yes (thyroid growth removed, cancerous tumor from L neck) Respiratory: Yes (Chronic pleural effusion) COPD Cardiac: No Neurological: No Genitourinary: No Gastrointestinal: Yes Cirrhosis Musculoskeletal: No Endocrine: No HEENT: No Cancer: Yes (folicular [id number]) What Type of Treatment Did You: Radiation Psychosocial: No Integumentary: No Physical Exam Vital Signs - First Documented 03/16/22 18:37 Pulse 93 Resp 18 B/P (MAP) 141/77 (98) Pulse Ox 93 O2 Delivery OxyMask O2 Flow Rate 15.00 Capillary Refill : Less Than 3 Seconds Height: '" Weight: lbs. oz. kg; 23.00 BMI Method: General Appearance: thin, other (MODERATELY DYSPNEIC, ABLE TO TALK IN SHORT SENTENCES. 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, no motor/sensory deficits, alert, normal mood/affect, oriented x 3 Skin: normal color, warm/dry Focused Exam Lactate Level 03/16/22 18:45: Lactic Acid Level 1.45 Lactic Acid Level Laboratory Tests Test 03/16/22 18:45 Lactic Acid Level 1.45 MMOL/L (0.50-2.00) Progress/Results/Core Measures Suspected Sepsis SIRS Temperature: Pulse: 93 Respiratory Rate: 18 Laboratory Tests 03/16/22 18:45: White Blood Count 5.5 Blood Pressure 141 /77 Mean: 98 03/16/22 18:45: Lactic Acid Level 1.45 Laboratory Tests 03/16/22 18:45: Creatinine 0.74, INR Comment 1.5H, Platelet Count 125L, Total Bilirubin 5.6H Results/Orders Lab Results Laboratory Tests Test 03/16/22 18:45 03/16/22 18:50 03/16/22 19:43 03/16/22 20:10 Range/Units White Blood Count 5.5 4.3-11.0 10^3/uL Red Blood Count 2.84 L 4.30-5.52 10^6/uL Hemoglobin 10.8 L 13.3-17.7 g/dL Hematocrit 31 L 40-54 % Mean Corpuscular Volume 109 H 80-99 fL Mean Corpuscular Hemoglobin 38 H 25-34 pg Mean Corpuscular Hemoglobin Concent 35 32-36 g/dL Red Cell Distribution Width 14.7 H 10.0-14.5 % Platelet Count 125 L 130-400 10^3/uL Mean Platelet Volume 8.4 L 9.0-12.2 fL Immature Granulocyte % (Auto) 1 % Neutrophils (%) (Auto) 52 42-75 % Lymphocytes (%) (Auto) 32 12-44 % Monocytes (%) (Auto) 13 H 0-12 % Eosinophils (%) (Auto) 2 0-10 % Basophils (%) (Auto) 1 0-10 % Neutrophils # (Auto) 2.8 1.8-7.8 10^3/uL Lymphocytes # (Auto) 1.7 1.0-4.0 10^3/uL Monocytes # (Auto) 0.7 0.0-1.0 10^3/uL Eosinophils # (Auto) 0.1 0.0-0.3 10^3/uL Basophils # (Auto) 0.1 0.0-0.1 10^3/uL Immature Granulocyte # (Auto) 0.0 0.0-0.1 10^3/uL Percent Immature Platelet Fraction 1.1 0.0-7.6 % Erythrocyte Sedimentation Rate 41 H 0-30 MM/HR Prothrombin Time 18.2 H 12.2-14.7 SEC INR Comment 1.5 H 0.8-1.4 Activated Partial Thromboplast Time 42 H 24-35 SEC D-Dimer 5.31 H 0.00-0.49 UG/ML Sodium Level 128 L 135-145 MMOL/L Potassium Level 3.7 3.6-5.0 MMOL/L Chloride Level 98 98-107 MMOL/L Carbon Dioxide Level 20 L 21-32 MMOL/L Anion Gap 10 5-14 MMOL/L Blood Urea Nitrogen 11 7-18 MG/DL Creatinine 0.74 0.60-1.30 MG/DL Estimat Glomerular Filtration Rate 104 BUN/Creatinine Ratio 15 Glucose Level 96 70-105 MG/DL Lactic Acid Level 1.45 0.50-2.00 MMOL/L Calcium Level 8.3 L 8.5-10.1 MG/DL Corrected Calcium 9.2 8.5-10.1 MG/DL Magnesium Level 1.8 1.6-2.4 MG/DL Total Bilirubin 5.6 H 0.1-1.0 MG/DL Aspartate Amino Transf (AST/SGOT) 52 H 5-34 U/L Alanine Aminotransferase (ALT/SGPT) 14 0-55 U/L Alkaline Phosphatase 270 H 40-136 U/L Total Creatine Kinase 59 30-200 U/L Creatine Kinase MB 1.4 <6.6 NG/ML Myoglobin 43.2 10.0-92.0 NG/ML Troponin I < 0.028 <0.028 NG/ML C-Reactive Protein High Sensitivity 2.48 H 0.00-0.50 MG/DL B-Type Natriuretic Peptide 50.9 <100.0 PG/ML Total Protein 7.4 6.4-8.2 GM/DL Albumin 2.9 L 3.2-4.5 GM/DL Amylase Level 47 25-125 U/L Lipase 56 8-78 U/L Procalcitonin 0.31 H <0.10 NG/ML Serum Alcohol < 10 < 10 <10 MG/DL Influenza Type A (RT-PCR) Not Detected Not Detecte Influenza Type B (RT-PCR) Not Detected Not Detecte SARS-CoV-2 RNA (RT-PCR) Not Detected Not Detecte Blood Gas Puncture Site RT WRIST Blood Gas Patient Temperature 99.9 Arterial Blood pH 7.50 H 7.37-7.43 Arterial Blood Partial Pressure CO2 27 L 35-45 MMHG Arterial Blood Partial Pressure O2 74 L 79-93 MMHG Arterial Blood HCO3 21 L 23-27 MMOL/L Arterial Blood Total CO2 22.1 21.0-31.0 MMOL/L Arterial Blood Oxygen Saturation 94 94-100 % Arterial Blood Base Excess -1.3 -2.5-2.5 MMOL/L Pietro Test NA Blood Gas Ventilator Setting NO Blood Gas Inspired Oxygen 15 L Urine Color YELLOW Urine Clarity CLEAR Urine pH 7.0 5-9 Urine Specific [place] <=1.005 1.016-1.022 Urine Protein NEGATIVE NEGATIVE Urine Glucose (UA) NEGATIVE NEGATIVE Urine Ketones NEGATIVE NEGATIVE Urine Nitrite NEGATIVE NEGATIVE Urine Bilirubin NEGATIVE NEGATIVE Urine Urobilinogen 1.0 < = 1.0 MG/DL Urine Leukocyte Esterase NEGATIVE NEGATIVE Urine RBC (Auto) NEGATIVE NEGATIVE Urine RBC NONE /HPF Urine WBC 0-2 /HPF Urine Squamous Epithelial Cells NONE /HPF Urine Renal Epithelial Cells NONE /HPF Urine Crystals NONE /LPF Urine Bacteria NEGATIVE /HPF Urine Casts NONE /LPF Urine Mucus NEGATIVE /LPF Urine Culture Indicated CULTURE PENDING Urine Opiates Screen POSITIVE H NEGATIVE Urine Oxycodone Screen NEGATIVE NEGATIVE Urine Methadone Screen NEGATIVE NEGATIVE Urine Propoxyphene Screen NEGATIVE NEGATIVE Urine Barbiturates Screen NEGATIVE NEGATIVE Ur Tricyclic Antidepressants Screen NEGATIVE NEGATIVE Urine Phencyclidine Screen NEGATIVE NEGATIVE Urine Amphetamines Screen NEGATIVE NEGATIVE Urine Methamphetamines Screen NEGATIVE NEGATIVE Urine Benzodiazepines Screen NEGATIVE NEGATIVE Urine Cocaine Screen NEGATIVE NEGATIVE Urine Cannabinoids Screen POSITIVE H NEGATIVE My Orders Orders - REJI RAI DO Ed Iv/Invasive Line Start (03/16/22 18:40) Ekg Tracing (03/16/22 18:40) O2 (03/16/22 18:40) Monitor-Rhythm Ecg Trace Only (03/16/22 18:40) Alcohol (03/16/22 18:40) Amylase (03/16/22 18:40) Arterial Blood Gas (03/16/22 18:50) Bnp [place] (03/16/22 18:40) Cbc With Automated Diff (03/16/22 18:40) Comprehensive Metabolic Panel (03/16/22 18:40) Creatine Kinase (03/16/22 18:40) Creatine Kinase Mb (03/16/22 18:40) Hs C Reactive Protein (03/16/22 18:40) Fibrin Degradation Products (03/16/22 18:40) Drug Screen Stat (Urine) (03/16/22 18:40) Lactic Acid Analyzer (03/16/22 18:40) Lipase (03/16/22 18:40) Magnesium (03/16/22 18:40) Protime With Inr (03/16/22 18:40) Partial Thromboplastin Time (03/16/22 18:40) Ua Culture If Indicated (03/16/22 18:40) Erythrocyte Sedimentation Rate (03/16/22 18:40) Myoglobin Serum (03/16/22 18:40) Troponin I [place] (03/16/22 18:40) Chest 1 View, Ap/Pa Only (03/16/22 18:40) Procalcitonin (Pct) (03/16/22 18:40) Covid 19 Inhouse Test (03/16/22 18:40) Blood Culture (03/16/22 18:40) Sputum Culture (03/16/22 18:40) Urine Culture (03/16/22 18:40) Ed Iv/Invasive Line Start (03/16/22 18:40) Ed Iv/Invasive Line Start (03/16/22 18:40) Vital Signs Adult Sepsis Patie Q15M (03/16/22 18:40) O2 (03/16/22 18:40) Remove Rings In Anticipation O (03/16/22 18:40) Influenza A And B By Pcr (03/16/22 18:40) Isolation Central Supply Req (03/16/22 18:40) Ed Iv/Invasive Line Start (03/16/22 18:40) Dexamethasone Injection (Decadron Inje (03/16/22 19:00) Fluticasone/Salmeterol 232-14 (Airduo Re (03/16/22 21:00) Acetaminophen Tablet (Tylenol Tablet) (03/16/22 19:00) Ct Angio Chest W (03/16/22 19:30) Iohexol Injection (Omnipaque 350 Mg/Ml 1 (03/16/22 19:45) Received Contrast (Hold Metformin- Contr (03/16/22 19:45) Ns (Ivpb) (Sodium Chloride 0.9% Ivpb Bag (03/16/22 19:45) Ketorolac Injection (Toradol Injection) (03/16/22 19:45) Ed Iv/Invasive Line Start (03/16/22 19:34) Ns Iv 1000 Ml (Sodium Chloride 0.9%) (03/16/22 19:45) Ceftriaxone 1 Gm Pre-Mix (Rocephin 1 Gm (03/16/22 19:45) Azithromycin Injection (Zithromax Inject (03/16/22 19:45) Alcohol (03/16/22 19:53) Medications Given in ED Current Medications Medications Dose Ordered Sig/Aldo Route Start Time Stop Time Status Last Admin Dose Admin Ceftriaxone Sodium/Dextrose 50 ml @ 100 mls/hr ONCE ONCE IV 03/16/22 19:45 03/16/22 20:14 DC 03/16/22 20:04 100 MLS/HR Dexamethasone Sodium Phosphate 10 mg ONCE ONCE IV 03/16/22 19:00 03/16/22 19:01 DC 03/16/22 19:28 10 MG Iohexol 100 ml ONCE ONCE IV 03/16/22 19:45 03/16/22 19:46 DC 03/16/22 20:01 63 ML Ketorolac Tromethamine 30 mg ONCE ONCE IVP 03/16/22 19:45 03/16/22 19:46 DC 03/16/22 20:03 30 MG Sodium Chloride 100 ml ONCE ONCE IV 03/16/22 19:45 03/16/22 19:46 DC 03/16/22 20:01 100 ML Vital Signs/I&O 03/16/22 03/16/22 18:37 18:37 Pulse 93 Resp 18 B/P (MAP) 141/77 (98) Pulse Ox 93 O2 Delivery OxyMask OxyMask O2 Flow Rate 15.00 15.00 Capillary Refill : Less Than 3 Seconds Blood Pressure Mean: 98 Diagnostic Imaging Comments CXR--PER RADIOLOGIST REPORT AT 1929 Heart size and pulmonary vascularity are normal. There are bilateral pleural effusions. There is some atelectasis at the right lung base. IMPRESSION: Bilateral pleural effusions with some right basilar atelectasis. This appears similar to prior exam dated 12/26/2021. CT CHEST ANGIOGRAM--PER RADIOLOGIST REPORT AT 2030 FINDINGS: There are consolidations in both lung bases. There are bilateral pleural effusions, larger on the right than on the left. On the right it layers out to a depth of 2.5 cm and on the left 1.0 cm. Aorta is unremarkable. There are no pulmonary emboli. There is no right ventricular strain. There is no hilar or mediastinal lymphadenopathy. There is coronary calcific atherosclerosis. There is splenomegaly. There is portal tension with recanalized umbilical vein and gastroesophageal varices. IMPRESSION: Splenomegaly and portal hypertension. There is some ascites present. Bilateral pleural effusions larger on the right than the left. Bilateral consolidations at the lung bases which are probably atelectasis. There is coronary atherosclerosis present. Reviewed: Reviewed by Me Departure Departure-Patient Inst. Referrals: [facility] (PCP/Family) Primary Care Physician REJI RAI DO Mar 16, 2022 18:57
[2022-03-16] MEDS ORDERED: ACETAMINOPHEN 500 MG TAB (TYLENOL) PO ONE (19:00)
[2022-03-16 19:02] LABS: ALBUMIN 2.9 GM/DL (3.2-4.5); CHLORIDE 98 MMOL/L (98-107); POTASSIUM 3.7 MMOL/L (3.6-5.0); SODIUM 128 MMOL/L (135-145)
[2022-03-16 19:03] LABS: ABG BASE EXCESS -1.3 MMOL/L (-2.5-2.5); ABG OXYGEN SATURATION 94 % (94-100); ABG PCO2 27 MMHG (35-45); ABG PO2 74 MMHG (79-93); ABG TCO2 22.1 MMOL/L (21.0-31.0); INSPIRED O2 15 L; PATIENT TEMP 99.9; VENTILATOR NO
[2022-03-16 19:03] LABS: AMYLASE 47 U/L (25-125); CALCIUM 8.3 MG/DL (8.5-10.1)
[2022-03-16 19:04] LABS: GLUCOSE 96 MG/DL (70-105); TOTAL PROTEIN 7.4 GM/DL (6.4-8.2)
[2022-03-16 19:05] LABS: CARBON DIOXIDE 20 MMOL/L (21-32)
[2022-03-16 19:06] LABS: BILIRUBIN,TOTAL 5.6 MG/DL (0.1-1.0)
[2022-03-16 19:08] LABS: ALKALINE PHOSPHATASE 270 U/L (40-136); CREATININE SERUM 0.74 MG/DL (0.60-1.30); GFR ESTIMATED 104
[2022-03-16 19:09] LABS: BUN/CREATININE RATIO 15
[2022-03-16 19:11] LABS: ALANINE AMINOTRANSFERASE 14 U/L (0-55); MAGNESIUM 1.8 MG/DL (1.6-2.4)
[2022-03-16 19:12] LABS: CREATINE KINASE 59 U/L (30-200); ERYTHROCYTE SEDIMENTATION RATE 41 MM/HR (0-30); FIBRIN DEGRADATION PRODUCTS 5.31 UG/ML (0.00-0.49); INR 1.5 (0.8-1.4); LIPASE 56 U/L (8-78); PROTHROMBIN TIME PATIENT 18.2 SEC (12.2-14.7)
[2022-03-16 19:20] LABS: CREATINE KINASE MB 1.4 NG/ML (<6.6)
--- NOTE | 2022-03-16 19:23 | Diagnostic Imaging Report ---
INDICATION: Shortness of breath. EXAMINATION: Portable chest at 7:05 PM. Heart size and pulmonary vascularity are normal. There are bilateral pleural effusions. There is some atelectasis at the right lung base. IMPRESSION: Bilateral pleural effusions with some right basilar atelectasis. This appears similar to prior exam dated 12/26/2021. Dictated by: Dictated on workstation # [id number]
[2022-03-16] MEDS ORDERED: KETOROLAC 30 MG/ML VIAL IVP ONE (19:45)
[2022-03-16] MEDS ORDERED: IOHEXOL 350 MG/ML 100 ML (OMNIPAQUE 350) VIAL IV ONE (19:45)
[2022-03-16] MEDS ORDERED: AZITHROMYCIN INJECTION 500 MG in NS (IVPB) 250 ML IV ONE (19:45)
[2022-03-16] MEDS ORDERED: NS 100 ML (IVPB) BAG IV ONE (19:45)
[2022-03-16] MEDS ORDERED: cefTRIAXone 1 GM PRE-MIX 50 ML IV ONE (19:45)
[2022-03-16] MEDS ORDERED: HOLD METFORMIN - RECEIVED CONTRAST 20 ML VIAL IV SCH (19:45)
[2022-03-16] MEDS ORDERED: NS IV 1000 ML 1,000 ML IV SCH (19:45)
[2022-03-16 20:16] LABS: BILIRUBIN,URINE NEGATIVE (NEGATIVE); CLARITY,URINE CLEAR; COLOR,URINE YELLOW; GLUCOSE, URINE (UA) NEGATIVE (NEGATIVE); KETONES,URINE NEGATIVE (NEGATIVE); LEUKOCYTE ESTERASE ,URINE NEGATIVE (NEGATIVE); NITRITE,URINE NEGATIVE (NEGATIVE); PROTEIN,URINE NEGATIVE (NEGATIVE)
[2022-03-16 20:23] LABS: BACTERIA,URINE NEGATIVE /HPF; WBC,URINE 0-2 /HPF
--- NOTE | 2022-03-16 20:26 | Diagnostic Imaging Report ---
PROCEDURE: CT angiography of the chest with contrast. TECHNIQUE: Multiple contiguous axial images were obtained through the chest after uneventful bolus administration of intravenous contrast. 3D reconstructed CTA MIP acquisitions were also performed. Auto Exposure Controls were utilized during the CT exam to meet ALARA standards for radiation dose reduction. INDICATION: Shortness of breath and elevated D-dimer. FINDINGS: There are consolidations in both lung bases. There are bilateral pleural effusions, larger on the right than on the left. On the right it layers out to a depth of 2.5 cm and on the left 1.0 cm. Aorta is unremarkable. There are no pulmonary emboli. There is no right ventricular strain. There is no hilar or mediastinal lymphadenopathy. There is coronary calcific atherosclerosis. There is splenomegaly. There is portal tension with recanalized umbilical vein and gastroesophageal varices. IMPRESSION: Splenomegaly and portal hypertension. There is some ascites present. Bilateral pleural effusions larger on the right than the left. Bilateral consolidations at the lung bases which are probably atelectasis. There is coronary atherosclerosis present. Dictated by: Dictated on workstation # [id number]
[2022-03-16 20:28] LABS: AMPHETAMINE SCREEN, URINE NEGATIVE (NEGATIVE); BARBITURATE SCREEN URINE NEGATIVE (NEGATIVE); BENZODIAZEPINES SCREEN URINE NEGATIVE (NEGATIVE); CANNABINOID SCREEN, URINE POSITIVE (NEGATIVE); COCAINE SCREEN URINE NEGATIVE (NEGATIVE); METHADONE STAT NEGATIVE (NEGATIVE); OPIATE SCREEN URINE POSITIVE (NEGATIVE); OXYCODONE STAT NEGATIVE (NEGATIVE); PROPOXYPHENE STAT NEGATIVE (NEGATIVE); TRICYCLIC ANTIDEPRESSANTS SCRE NEGATIVE (NEGATIVE)
[2022-03-16] MEDS ORDERED: RT--FLUTICASONE/SALMETEROL 113-14 (AIRDUO RespiCLICK) IH ONE (20:47)
[2022-03-16] MEDS ORDERED: RT--FLUTICASONE/SALMETEROL 232-14 (AIRDUO RespiCLICK) IH SCH (21:00)
[2022-03-16] MEDS ORDERED: fentaNYL INJ 100 MCG/2 ML AMP IVP ONE (21:30)
[2022-03-16 22:45] VITALS: BP 125/75
[2022-03-16 23:32] VITALS: BP 141/77
[2022-03-16] MEDS ORDERED: ACETAMINOPHEN 500 MG TAB (TYLENOL) PO PRN (23:45)
[2022-03-17] VITALS (7 sets, daily range): BP systolic 94–111; BP diastolic 55–66
[2022-03-17] MEDS ORDERED: RT-ALBUTEROL/IPRATROPIUM 3 ML (DUONEB) VIAL INH PRN
[2022-03-17] MEDS: NS IV 1000 ML 1,000 ML IV SCH ×4 (00:24→16:47)
[2022-03-17] MEDS: fentaNYL INJ 100 MCG/2 ML AMP IV PRN ×4 (01:43→12:59)
--- NOTE | 2022-03-17 03:02 | CONSULTATION REPORT ---
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 HISTORY OF PRESENT ILLNESS: The patient is a 61-year-old male, who presented to the Emergency Department with increased cough, worsening of COPD as well as shortness of breath. He does wear oxygen at home at 2 liters nasal cannula. However, states that he went outside today without his oxygen and he became extremely short of breath and he checked his oxygen, which was 54%. He also did report a fever today as well. He also does have a history of follicular non-Hodgkin's lymphoma. We had seen him for shortness of breath in 12/2021 where he underwent a left thoracentesis. On this admission, a chest x-ray was performed, which did show bilateral pleural effusions with the right being larger than the left. PAST MEDICAL HISTORY: Follicular non-Hodgkin's lymphoma, alcoholic liver cirrhosis, congestive heart failure. PAST SURGICAL HISTORY: Thyroid cyst excision, excision of left neck lymph node. ALLERGIES: No known drug allergies. MEDICATIONS: Spironolactone, furosemide, gabapentin. SOCIAL HISTORY: Positive smoke 40 pack years, longstanding history of alcohol abuse; however, states that he quit several months ago. FAMILY HISTORY: Noncontributory. VITAL SIGNS: Temperature 37.5, blood pressure 107/59, pulse 88, respirations 20, pulse ox 92% on 3 liters nasal cannula. REVIEW OF SYSTEMS: This is a well-nourished male currently in no acute distress. He is experiencing shortness of breath as well as an increased nonproductive cough. He does report a loss of appetite; however, no episodes of nausea, no vomiting. He states that he does have constipation. No known red blood per rectum nor any dark tarry stools. He also did have a fever today. No recent inadvertent weight loss. All other review of systems negative. PHYSICAL EXAMINATION: Physical exam will be assessed when the patient was seen in a.m. The remainder of the consultation information was obtained through the emergency room physician as well as through the patient's electronic medical records. LABORATORY. WBC 5.5, hemoglobin 10.8, hematocrit 31, platelets 125. BUN 11, creatinine 0.74. Total bilirubin 5.6. ASSESSMENT AND PLAN: A 61-year-old male with an exacerbation of COPD and recurrent bilateral pleural effusions and a history of follicular non-Hodgkin's lymphoma. After examination of the patient, we will also order ultrasound of the thoracic cavity for markings were prepared for thoracentesis and proceeded with bilateral thoracentesis. We will also send the fluid for cytology. Job ID: [id number] DocumentID: [id number] Dictated Date: 03/16/2022 21:38:31 Speedometer Mechanic Date: 03/17/2022 03:01:00 Dictated By: MARCI GALLOWAY MD MTDD
[2022-03-17] MEDS: CATHETER FLUSH 10 ML SYR IVP SCH ×3 (05:28→20:25)
[2022-03-17 05:43] LABS: BASOPHILS % (AUTO) 0 % (0-10); EOSINOPHILS % (AUTO) 0 % (0-10); HEMOGLOBIN 9.9 g/dL (13.3-17.7); MONOCYTES # (AUTO) 0.1 10^3/uL (0.0-1.0)
[2022-03-17 05:45] LABS: HEMATOCRIT 29 % (40-54); LYMPHOCYTES # (AUTO) 0.5 10^3/uL (1.0-4.0); LYMPHOCYTES % (AUTO) 23 % (12-44); MEAN CORPUSCULAR HEMOGLOBIN 38 pg (25-34); MEAN CORPUSCULAR HGB CONC 34 g/dL (32-36); MEAN CORPUSCULAR VOLUME 113 fL (80-99); MEAN PLATELET VOLUME 9.4 fL (9.0-12.2); MONOCYTES % (AUTO) 4 % (0-12); NEUTROPHILS # (AUTO) 1.6 10^3/uL (1.8-7.8); NEUTROPHILS % (AUTO) 72 % (42-75); PLATELET COUNT 83 10^3/uL (130-400); WHITE BLOOD COUNT 2.3 10^3/uL (4.3-11.0)
[2022-03-17 05:55] LABS: ALBUMIN 2.4 GM/DL (3.2-4.5); POTASSIUM 4.2 MMOL/L (3.6-5.0)
[2022-03-17 05:56] LABS: CALCIUM 7.4 MG/DL (8.5-10.1)
[2022-03-17 05:57] LABS: TOTAL PROTEIN 6.2 GM/DL (6.4-8.2)
[2022-03-17 06:01] LABS: CREATININE SERUM 0.69 MG/DL (0.60-1.30)
[2022-03-17] MEDS: RT-ALBUTEROL/IPRATROPIUM 3 ML (DUONEB) VIAL INH SCH ×4 (06:48→18:43)
[2022-03-17] MEDS: RT--FLUTICASONE/SALMETEROL 113-14 (AIRDUO RespiCLICK) IH SCH ×2 (06:55→18:43)
--- NOTE | 2022-03-17 07:10 | Diagnostic Imaging Report ---
INDICATION: Pneumonia COMPARISON: 03/16/2022 FINDINGS: Single view of the chest demonstrates stable pleural effusions with atelectasis at. The heart is prominent without overt pulmonary edema. There is no pneumothorax. IMPRESSION: Stable pleural effusions with dependent atelectasis. Dictated by: Dictated on workstation # [id number]
[2022-03-17] MEDS ORDERED: ONDANSETRON 4 MG/2 ML (SDV) Z0FRAN IVP PRN (08:15)
--- NOTE | 2022-03-17 09:17 | Diagnostic Imaging Report ---
INDICATION: Evaluation for pleural effusion for thoracentesis. Comparison with CT scan of 03/16/2022. FINDINGS: There is moderate pleural effusion which appears nonloculated in the right costophrenic angle. Small pleural effusion is noted left costophrenic angle. IMPRESSION: Bilateral pleural effusions larger on the right. Dictated by: Dictated on workstation # [id number]
[2022-03-17] MEDS: HYDROcodone/APAP 5 MG/325 MG (LORTAB) TAB PO PRN (14:47)
[2022-03-17] MEDS ORDERED: PROP10TA8 PO (15:50)
[2022-03-17] MEDS ORDERED: OMEP40CA6 PO (15:50)
[2022-03-17] MEDS ORDERED: SPIR100T4 PO (15:50)
[2022-03-17] MEDS ORDERED: UMEC1BLS PO (15:50)
[2022-03-17] MEDS ORDERED: FURO40TA4 PO (15:51)
--- NOTE | 2022-03-17 16:59 | Progress Note ---
Subjective Date Seen by a Provider: Mar 17, 2022 Time Seen by a Provider: 16:30 Subjective/Events-last exam overall doing ok. still has exertional SOB. no new cough nor sputum production. PE: chest-scattered wheezes and rhonchi bilat, decreased BS bilat lung bases. heart-regular, no mumurs. extremity-+1/3 bilat LE edema, neg homans sighn. heent-no scleral icterus, no cervical lymphadenopathy. abd-soft, nt/nd. A/P: bilat sx pleural effusion. right more significant but neither side large. will proceed with right thorcentesis. Focused Exam Lactate Level 03/16/22 18:45: Lactic Acid Level 1.45 Objective Exam Vital Signs Date Time Temp Pulse Resp B/P (MAP) Pulse Ox O2 Delivery O2 Flow Rate FiO2 03/17/22 16:19 93 High Flow N/C 3.00 03/17/22 15:39 37.0 103 18 102/66 (78) 92 High Flow N/C 3.00 03/17/22 14:50 92 Nasal Cannula 3.00 03/17/22 13:10 95 03/17/22 11:50 93 High Flow N/C 3.00 03/17/22 11:42 37.0 101 19 103/55 (71) 91 High Flow N/C 3.00 03/17/22 10:41 92 Nasal Cannula 3.00 03/17/22 08:25 93 High Flow N/C 3.00 03/17/22 07:52 36.5 77 18 96/61 (73) 91 High Flow N/C 3.00 03/17/22 07:10 68 03/17/22 07:03 96 Nasal Cannula 3.00 03/17/22 06:57 96 Nasal Cannula 3.00 03/17/22 04:00 36.7 80 20 94/55 (68) 96 High Flow N/C 3.00 03/17/22 03:57 96 High Flow N/C 3.00 03/17/22 01:00 92 03/17/22 00:00 37.0 88 20 111/57 (75) 96 High Flow N/C 3.00 03/16/22 23:57 96 High Flow N/C 3.00 03/16/22 23:32 36.0 93 93 100 03/16/22 23:24 92 03/16/22 22:45 36.5 93 24 125/75 (92) 90 Nasal Cannula 15.00 03/16/22 22:40 94 OxyMask 15.00 03/16/22 22:34 87 18 121/68 96 OxyMask 15.00 15.00 03/16/22 18:37 93 18 141/77 (98) OxyMask 15.00 03/16/22 18:37 93 OxyMask 15.00 I & O 03/17/22 07:00 Intake Total 1665 ml Output Total 300 ml Balance 1365 ml Capillary Refill : Less Than 3 Seconds General Appearance: No Apparent Distress, WD/WN HEENT: PERRL/EOMI Neck: Full Range of Motion Respiratory: Decreased Breath Sounds Cardiovascular: Regular Rate, Rhythm Gastrointestinal: normal bowel sounds, non tender, soft Extremity: Normal Capillary Refill Neurologic/Psychiatric: Alert, Oriented x3 Skin: Normal Color Lymphatic: No Adenopathy Results Lab Laboratory Tests 03/16/22 18:45: White Blood Count 5.5, Red Blood Count 2.84L, Hemoglobin 10.8L, Hematocrit 31L, Mean Corpuscular Volume 109H, Mean Corpuscular Hemoglobin 38H, Mean Corpuscular Hemoglobin Concent 35, Red Cell Distribution Width 14.7H, Platelet Count 125L, Mean Platelet Volume 8.4L, Immature Granulocyte % (Auto) 1, Neutrophils (%) (Auto) 52, Lymphocytes (%) (Auto) 32, Monocytes (%) (Auto) 13H, Eosinophils (%) (Auto) 2, Basophils (%) (Auto) 1, Neutrophils # (Auto) 2.8, Lymphocytes # (Auto) 1.7, Monocytes # (Auto) 0.7, Eosinophils # (Auto) 0.1, Basophils # (Auto) 0.1, Immature Granulocyte # (Auto) 0.0, Percent Immature Platelet Fraction 1.1, Erythrocyte Sedimentation Rate 41H, Prothrombin Time 18.2H, INR Comment 1.5H, Activated Partial Thromboplast Time 42H, D-Dimer 5.31H, Sodium Level 128L, Potassium Level 3.7, Chloride Level 98, Carbon Dioxide Level 20L, Anion Gap 10, Blood Urea Nitrogen 11, Creatinine 0.74, Estimat Glomerular Filtration Rate 104, BUN/Creatinine Ratio 15, Glucose Level 96, Lactic Acid Level 1.45, Calcium Level 8.3L, Corrected Calcium 9.2, Magnesium Level 1.8, Total Bilirubin 5.6H, Aspartate Amino Transf (AST/SGOT) 52H, Alanine Aminotransferase (ALT/SGPT) 14, Alkaline Phosphatase 270H, Total Creatine Kinase 59, Creatine Kinase MB 1.4, Myoglobin 43.2, Troponin I < 0.028, C-Reactive Protein High Sensitivity 2.48H, B-Type Natriuretic Peptide 50.9, Total Protein 7.4, Albumin 2.9L, Amylase Level 47, Lipase 56, Procalcitonin 0.31H, Serum Alcohol < 10, Influenza Type A (RT- PCR) Not Detected, Influenza Type B (RT-PCR) Not Detected, SARS-CoV-2 RNA (RT- PCR) Not Detected 03/16/22 18:50: Blood Gas Puncture Site RT WRIST, Blood Gas Patient Temperature 99.9, Arterial Blood pH 7.50H, Arterial Blood Partial Pressure CO2 27L, Arterial Blood Partial Pressure O2 74L, Arterial Blood HCO3 21L, Arterial Blood Total CO2 22.1, Arterial Blood Oxygen Saturation 94, Arterial Blood Base Excess -1.3, Pietro Test NA, Blood Gas Ventilator Setting NO, Blood Gas Inspired Oxygen 15 L 03/16/22 19:43: Serum Alcohol < 10 03/16/22 20:10: Urine Color YELLOW, Urine Clarity CLEAR, Urine pH 7.0, Urine Specific [place] <=1.005, Urine Protein NEGATIVE, Urine Glucose (UA) NEGATIVE, Urine Ketones NEGATIVE, Urine Nitrite NEGATIVE, Urine Bilirubin NEGATIVE, Urine Urobilinogen 1.0, Urine Leukocyte Esterase NEGATIVE, Urine RBC (Auto) NEGATIVE, Urine RBC NONE, Urine WBC 0-2, Urine Squamous Epithelial Cells NONE, Urine Renal Epithelial Cells NONE, Urine Crystals NONE, Urine Bacteria NEGATIVE, Urine Casts NONE, Urine Mucus NEGATIVE, Urine Culture Indicated CULTURE PENDING, Urine Opiates Screen POSITIVEH, Urine Oxycodone Screen NEGATIVE, Urine Methadone Screen NEGATIVE, Urine Propoxyphene Screen NEGATIVE, Urine Barbiturates Screen NEGATIVE, Ur Tricyclic Antidepressants Screen NEGATIVE, Urine Phencyclidine Screen NEGATIVE, Urine Amphetamines Screen NEGATIVE, Urine Methamphetamines Scre en NEGATIVE, Urine Benzodiazepines Screen NEGATIVE, Urine Cocaine Screen NEGATIVE, Urine Cannabinoids Screen POSITIVEH 03/17/22 05:11: White Blood Count 2.3L, Red Blood Count 2.58L, Hemoglobin 9.9L, Hematocrit 29L, Mean Corpuscular Volume 113H, Mean Corpuscular Hemoglobin 38H, Mean Corpuscular Hemoglobin Concent 34, Red Cell Distribution Width 15.1H, Platelet Count 83L, Mean Platelet Volume 9.4, Immature Granulocyte % (Auto) 1, Neutrophils (%) (Auto) 72, Lymphocytes (%) (Auto) 23, Monocytes (%) (Auto) 4, Eosinophils (%) (Auto) 0, Basophils (%) (Auto) 0, Neutrophils # (Auto) 1.6L, Lymphocytes # (Auto) 0.5L, Monocytes # (Auto) 0.1, Eosinophils # (Auto) 0.0, Basophils # (Auto) 0.0, Immature Granulocyte # (Auto) 0.0, Percent Immature Platelet Fraction 1.3, Sodium Level 130L, Potassium Level 4.2, Chloride Level 105, Carbon Dioxide Level 17L, Anion Gap 8, Blood Urea Nitrogen 13, Creatinine 0.69, Estimat Glomerular Filtration Rate 106, BUN/Creatinine Ratio 19, Glucose Level 174H, Calcium Level 7.4L, Corrected Calcium 8.7, Total Bilirubin 5.0H, Aspartate Amino Transf (AST/SGOT) 42H, Alanine Aminotransferase (ALT/SGPT) 13, Alkaline Phosphatase 254H, Total Protein 6.2L, Albumin 2.4L Microbiology 03/16/22 Urine Culture - Final, Complete NO GROWTH 03/16/22 Blood Culture - Preliminary, Resulted No growth Assessment/Plan Assessment/Plan Assess & Plan/Chief Complaint SOB with bilat pl eff. proceed with right thoracentesis. Clinical Quality Measures Smoking Cessation Counseling: Counseling-Symptomatic: 3-10 Minutes MARCI GALLOWAY MD Mar 17, 2022 16:59
[2022-03-17] MEDS: cefTRIAXone 1 GM/50 ML (PRE-MIX) IV SCH (20:25)
--- NOTE | 2022-03-17 20:51 | History & Physical ---
HPI History of Present Illness: 61 yo M with h/o follicular lymphoma and Liver failure that presented with increasing shortness of breath over the last 3 days. Patient was previously in the hospital in December for thoracentesis. Patient denies being around anyone who has been sick. Denies any fever or chills. States that he had hypoxia in the 50s prior to presenting to ER. He has been using oxygen PRN at home. Source: patient Date seen by provider: Mar 17, 2022 Time Seen by Provider: 10:05 Attending Physician [facility] PCP Admitting Physician: Bob Liang MD Attending Physician: Bob Liang MD Consult Date of Admission Mar 16, 2022 at 20:32 Home Medications Home Medications Reviewed patient Home Medication Reconciliation performed by pharmacy medication reconciliations environmental field services technician and/or nursing. Patients Allergies have been reviewed. 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[employer] Past Medical History Cirrhois EtOH depenence and Abuse h/o Follicular Lymphoma Review of Systems ([facility]) Constitutional: No chills, No fever; malaise EENTM: no symptoms reported; No mouth pain, No nose congestion, No nose pain Respiratory: dyspnea on exertion, short of breath Cardiovascular: no symptoms reported; No chest pain, No palpitations Gastrointestinal: no symptoms reported; No abdominal pain Reviewed Test Results Reviewed Test Results Lab Laboratory Tests Test 03/17/22 05:11 Range/Units White Blood Count 2.3 L 4.3-11.0 10^3/uL Red Blood Count 2.58 L 4.30-5.52 10^6/uL Hemoglobin 9.9 L 13.3-17.7 g/dL Hematocrit 29 L 40-54 % Mean Corpuscular Volume 113 H 80-99 fL Mean Corpuscular Hemoglobin 38 H 25-34 pg Mean Corpuscular Hemoglobin Concent 34 32-36 g/dL Red Cell Distribution Width 15.1 H 10.0-14.5 % Platelet Count 83 L 130-400 10^3/uL Mean Platelet Volume 9.4 9.0-12.2 fL Immature Granulocyte % (Auto) 1 % Neutrophils (%) (Auto) 72 42-75 % Lymphocytes (%) (Auto) 23 12-44 % Monocytes (%) (Auto) 4 0-12 % Eosinophils (%) (Auto) 0 0-10 % Basophils (%) (Auto) 0 0-10 % Neutrophils # (Auto) 1.6 L 1.8-7.8 10^3/uL Lymphocytes # (Auto) 0.5 L 1.0-4.0 10^3/uL Monocytes # (Auto) 0.1 0.0-1.0 10^3/uL Eosinophils # (Auto) 0.0 0.0-0.3 10^3/uL Basophils # (Auto) 0.0 0.0-0.1 10^3/uL Immature Granulocyte # (Auto) 0.0 0.0-0.1 10^3/uL Percent Immature Platelet Fraction 1.3 0.0-7.6 % Sodium Level 130 L 135-145 MMOL/L Potassium Level 4.2 3.6-5.0 MMOL/L Chloride Level 105 98-107 MMOL/L Carbon Dioxide Level 17 L 21-32 MMOL/L Anion Gap 8 5-14 MMOL/L Blood Urea Nitrogen 13 7-18 MG/DL Creatinine 0.69 0.60-1.30 MG/DL Estimat Glomerular Filtration Rate 106 BUN/Creatinine Ratio 19 Glucose Level 174 H 70-105 MG/DL Calcium Level 7.4 L 8.5-10.1 MG/DL Corrected Calcium 8.7 8.5-10.1 MG/DL Total Bilirubin 5.0 H 0.1-1.0 MG/DL Aspartate Amino Transf (AST/SGOT) 42 H 5-34 U/L Alanine Aminotransferase (ALT/SGPT) 13 0-55 U/L Alkaline Phosphatase 254 H 40-136 U/L Total Protein 6.2 L 6.4-8.2 GM/DL Albumin 2.4 L 3.2-4.5 GM/DL Physical Exam-(CHC) Physical Exam Vital Signs VS - Last 72 Hours, by Label 03/16/22 03/16/22 03/16/22 03/16/22 18:37 18:37 22:34 22:40 Pulse 93 87 Resp 18 18 B/P (MAP) 141/77 (98) 121/68 Pulse Ox 93 96 94 O2 Delivery OxyMask OxyMask OxyMask OxyMask O2 Flow Rate 15.00 15.00 15.00 15.00 15.00 03/16/22 03/16/22 03/16/22 03/16/22 22:45 23:24 23:32 23:57 Temp 36.5 36.0 Pulse 93 92 93 Resp 24 B/P (MAP) 125/75 (92) Pulse Ox 90 93 96 O2 Delivery Nasal Cannula High Flow N/C O2 Flow Rate 15.00 3.00 FiO2 100 03/17/22 03/17/22 03/17/22 03/17/22 00:00 01:00 03:57 04:00 Temp 37.0 36.7 Pulse 88 92 80 Resp 20 20 B/P (MAP) 111/57 (75) 94/55 (68) Pulse Ox 96 96 96 O2 Delivery High Flow N/C High Flow N/C High Flow N/C O2 Flow Rate 3.00 3.00 3.00 03/17/22 03/17/22 03/17/22 03/17/22 06:57 07:03 07:10 07:52 Temp 36.5 Pulse 68 77 Resp 18 B/P (MAP) 96/61 (73) Pulse Ox 96 96 91 O2 Delivery Nasal Cannula Nasal Cannula High Flow N/C O2 Flow Rate 3.00 3.00 3.00 03/17/22 03/17/22 03/17/22 03/17/22 08:25 10:41 11:42 11:50 Temp 37.0 Pulse 101 Resp 19 B/P (MAP) 103/55 (71) Pulse Ox 93 92 91 93 O2 Delivery High Flow N/C Nasal Cannula High Flow N/C High Flow N/C O2 Flow Rate 3.00 3.00 3.00 3.00 03/17/22 03/17/22 03/17/22 03/17/22 13:10 14:50 15:39 16:19 Temp 37.0 Pulse 95 103 Resp 18 B/P (MAP) 102/66 (78) Pulse Ox 92 92 93 O2 Delivery Nasal Cannula High Flow N/C High Flow N/C O2 Flow Rate 3.00 3.00 3.00 03/17/22 03/17/22 18:44 19:35 Temp 36.9 Pulse 98 Resp 18 B/P (MAP) 108/59 (75) Pulse Ox 93 94 O2 Delivery Nasal Cannula High Flow N/C O2 Flow Rate 3.00 3.00 Capillary Refill : Less Than 3 Seconds General Appearance: no apparent distress HEENT: PERRL/EOMI, scleral icterus (R), scleral icterus (L) Neck: non-tender, full range of motion Respiratory: no respiratory distress, no accessory muscle use, wheezing Cardiovascular: normal peripheral pulses, regular rate, rhythm, no murmur Gastrointestinal: soft, distended, hepatomegaly Back: no CVA tenderness, no vertebral tenderness Extremities: normal inspection, no calf tenderness, pedal edema (1+ pitting equal bilaterally) Neurologic/Psychiatric: carbonizer II-XII nml as tested, no motor/sensory deficits, alert, normal mood/affect, oriented x 3 Skin: jaundice Assessment/Plan Assessment/Plan Admission Status: Inpatient Order (span 2 midnights) Reason for Inpatient Admission: Requires consultation with surgery and high risk for decompensation (1) Acute and chronic respiratory failure Status: Acute Assessment & Plan: - Dr Willis consulted for possible thoracentesis, appreciate recommendations, MAT protocol, titrate oxygen as tolerated (2) Hypoxia Status: Acute (3) Pleural effusion Status: Acute Assessment & Plan: - R>L (4) Ascites due to alcoholic cirrhosis Status: Acute Assessment & Plan: - Bili at baseline (5) 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
[2022-03-17] MEDS ORDERED: AZITHROMYCIN 500 MG/NS 250 ML IVPB IV SCH ×2 (21:00)
[2022-03-17] MEDS ORDERED: NS IV 1000 ML 1,000 ML IV SCH (21:00)
[2022-03-18 04:21] VITALS: BP 135/62
[2022-03-18] MEDS: CATHETER FLUSH 10 ML SYR IVP SCH ×3 (06:07→20:10)
[2022-03-18] MEDS: PANTOPRAZOLE 40 MG (PROTONIX) TAB PO SCH (06:07)
[2022-03-18 06:13] LABS: EOSINOPHILS % (AUTO) 0 % (0-10); MEAN PLATELET VOLUME 9.5 fL (9.0-12.2); MONOCYTES # (AUTO) 0.3 10^3/uL (0.0-1.0)
[2022-03-18 06:15] LABS: BASOPHILS % (AUTO) 0 % (0-10); HEMATOCRIT 27 % (40-54); LYMPHOCYTES # (AUTO) 0.5 10^3/uL (1.0-4.0); LYMPHOCYTES % (AUTO) 7 % (12-44); MEAN CORPUSCULAR HEMOGLOBIN 38 pg (25-34); MEAN CORPUSCULAR HGB CONC 33 g/dL (32-36); MEAN CORPUSCULAR VOLUME 115 fL (80-99); MONOCYTES % (AUTO) 4 % (0-12); NEUTROPHILS # (AUTO) 6.5 10^3/uL (1.8-7.8); NEUTROPHILS % (AUTO) 89 % (42-75); PLATELET COUNT 75 10^3/uL (130-400); WHITE BLOOD COUNT 7.3 10^3/uL (4.3-11.0)
[2022-03-18 06:20] LABS: ALBUMIN 2.4 GM/DL (3.2-4.5); POTASSIUM 4.6 MMOL/L (3.6-5.0)
[2022-03-18 06:21] LABS: CALCIUM 7.8 MG/DL (8.5-10.1)
[2022-03-18 06:22] LABS: TOTAL PROTEIN 6.1 GM/DL (6.4-8.2)
[2022-03-18 06:26] LABS: CREATININE SERUM 0.67 MG/DL (0.60-1.30)
[2022-03-18 07:00] LABS: ACANTHOCYTES SLIGHT; ANISOCYTOSIS MODERATE; BAND NEUTROPHILS 2 %; BURR CELLS SLIGHT; ELLIPT/OVALOCYTES SLIGHT; LYMPHOCYTES % (MANUAL) 4 %; MONOCYTES % (MANUAL) 1 %; NEUTROPHILS % (MANUAL) 93 %
[2022-03-18] MEDS: RT-ALBUTEROL/IPRATROPIUM 3 ML (DUONEB) VIAL INH SCH ×4 (07:22→19:06)
[2022-03-18] MEDS: RT--FLUTICASONE/SALMETEROL 113-14 (AIRDUO RespiCLICK) IH SCH ×2 (07:24→19:10)
[2022-03-18 07:48] VITALS: BP 104/55
[2022-03-18] MEDS: SPIRONOLACTONE 100 MG (ALDACTONE) TABLET PO SCH (08:09)
[2022-03-18] MEDS: NS IV 1000 ML 1,000 ML IV SCH (08:10)
[2022-03-18 11:30] VITALS: BP 110/53
[2022-03-18 16:06] VITALS: BP 108/56
[2022-03-18] MEDS ORDERED: polyethylene glycoL POWDER 17 GM (MIRALAX) PACK ONE (17:14)
[2022-03-18] MEDS: polyethylene glycoL POWDER 17 GM (MIRALAX) PACK PO SCH (17:18)
[2022-03-18 19:32] VITALS: BP 118/57
--- NOTE | 2022-03-18 19:59 | Progress Note ---
Subjective Subjective/Events-last exam Patient states that he feels much better this AM. Appetite is much improved. States that Alba did not end up taking any fluid off as it looks more like PNA. Review of Systems Pulmonary: Dyspnea Cardiovascular: Edema Gastrointestinal: Other (mild diffuse abdominal pain, no fluid wave) Neurological: Weakness Focused Exam Lactate Level 03/16/22 18:45: Lactic Acid Level 1.45 Objective Exam Last Set of Vital Signs Vital Signs Date Time Temp Pulse Resp B/P (MAP) Pulse Ox O2 Delivery O2 Flow Rate FiO2 03/18/22 19:32 37.4 101 17 118/57 (77) 93 High Flow N/C 4.00 03/16/22 23:32 100 Capillary Refill : Less Than 3 Seconds I&O Intake and Output 03/18/22 00:00 Intake Total 5260 ml Output Total 1350 ml Balance 3910 ml Intake Oral 3960 ml IV Total 1300 ml Output Urine Total 1350 ml # Voids 2 # Bowel Movements 2 General: Alert, Oriented X3, No Acute Distress Lungs: Other (Diffuse wheezing, normal work of breathing at rest) Heart: Regular Rate, No Murmurs Abdomen: Other (mild distention, mild diffuse abdominal pain with palpation, no rebound or guarding) Skin: No Rashes Neuro: Normal Speech Results/Procedures Lab Laboratory Tests 03/18/22 05:18: White Blood Count 7.3, Red Blood Count 2.36L, Hemoglobin 9.0L, Hematocrit 27L, Mean Corpuscular Volume 115H, Mean Corpuscular Hemoglobin 38H, Mean Corpuscular Hemoglobin Concent 33, Red Cell Distribution Width 15.5H, Platelet Count 75L, Mean Platelet Volume 9.5, Immature Granulocyte % (Auto) 1, Neutrophils (%) (Auto) 89H, Lymphocytes (%) (Auto) 7L, Monocytes (%) (Auto) 4, Eosinophils (%) (Auto) 0, Basophils (%) (Auto) 0, Neutrophils # (Auto) 6.5, Lymphocytes # (Auto) 0.5L, Monocytes # (Auto) 0.3, Eosinophils # (Auto) 0.0, Basophils # (Auto) 0.0, Immature Granulocyte # (Auto) 0.1, Neutrophils % (Manual) 93, Lymphocytes % (Manual) 4, Monocytes % (Manual) 1, Band Neutrophils 2, Percent Immature Platelet Fraction 1.3, Anisocytosis MODERATE, Macrocytosis MODERATE, Lisa Cells SLIGHT, Elliptocytes SLIGHT, Acanthocytes SLIGHT, Sodium Level 134L, Potassium Level 4.6, Chloride Level 108H, Carbon Dioxide Level 20L, Anion Gap 6, Blood Urea Nitrogen 14, Creatinine 0.67, Estimat Glomerular Filtration Rate 107, BUN/Creatinine Ratio 21, Glucose Level 150H, Calcium Level 7.8L, Corrected Calcium 9.1, Total Bilirubin 3.0H, Aspartate Amino Transf (AST/SGOT) 37H, Alanine Aminotransferase (ALT/SGPT) 14, Alkaline Phosphatase 256H, Total Protein 6.1L, Albumin 2.4L Microbiology 03/16/22 Urine Culture - Final, Complete NO GROWTH 03/16/22 Blood Culture - Preliminary, Resulted No growth Assessment/Plan Assessment/Plan (1) Acute and chronic respiratory failure Status: Acute Assessment & Plan: - Dr Willis consulted for possible thoracentesis, appreciate recommendations, MAT protocol, titrate oxygen as tolerated 03/18: On home oxygen, encourage IS and OOB, possible d/c tomorrow (2) Hypoxia Status: Acute (3) Pleural effusion Status: Acute Assessment & Plan: - R>L 03/18: US did not show large fluid collection and thus did not warrent thoracentesis (4) Ascites due to alcoholic cirrhosis Status: Acute Assessment & Plan: - Bili at baseline (5) 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
[2022-03-18] MEDS: cefTRIAXone 1 GM/50 ML (PRE-MIX) IV SCH (20:09)
[2022-03-18] MEDS: HYDROcodone/APAP 5 MG/325 MG (LORTAB) TAB PO PRN (20:09)
[2022-03-18] MEDS ORDERED: AZITHROMYCIN 250 MG TAB (ZITHROMAX) PO SCH (21:00)
[2022-03-19] VITALS: BP 120/61
[2022-03-19] MEDS: RT--FLUTICASONE/SALMETEROL 113-14 (AIRDUO RespiCLICK) IH SCH ×2 (00:09→07:01)
[2022-03-19 04:02] VITALS: BP 122/67
[2022-03-19] MEDS: fentaNYL INJ 100 MCG/2 ML AMP IV PRN (04:36)
[2022-03-19] MEDS: CATHETER FLUSH 10 ML SYR IVP SCH (04:36)
[2022-03-19] MEDS: PANTOPRAZOLE 40 MG (PROTONIX) TAB PO SCH (05:31)
[2022-03-19] MEDS: HYDROcodone/APAP 5 MG/325 MG (LORTAB) TAB PO PRN (05:31)
[2022-03-19 05:39] LABS: BASOPHILS % (AUTO) 0 % (0-10); EOSINOPHILS % (AUTO) 0 % (0-10); LYMPHOCYTES # (AUTO) 0.4 10^3/uL (1.0-4.0); MEAN PLATELET VOLUME 9.3 fL (9.0-12.2)
[2022-03-19 05:41] LABS: HEMATOCRIT 26 % (40-54); HEMOGLOBIN 8.7 g/dL (13.3-17.7); LYMPHOCYTES % (AUTO) 7 % (12-44); MEAN CORPUSCULAR HEMOGLOBIN 39 pg (25-34); MEAN CORPUSCULAR HGB CONC 33 g/dL (32-36); MEAN CORPUSCULAR VOLUME 117 fL (80-99); MONOCYTES # (AUTO) 0.3 10^3/uL (0.0-1.0); MONOCYTES % (AUTO) 4 % (0-12); NEUTROPHILS # (AUTO) 5.7 10^3/uL (1.8-7.8); NEUTROPHILS % (AUTO) 88 % (42-75); PLATELET COUNT 68 10^3/uL (130-400); WHITE BLOOD COUNT 6.5 10^3/uL (4.3-11.0)
[2022-03-19 05:47] LABS: ALBUMIN 2.3 GM/DL (3.2-4.5)
[2022-03-19 05:48] LABS: POTASSIUM 4.8 MMOL/L (3.6-5.0)
[2022-03-19 05:49] LABS: CALCIUM 7.9 MG/DL (8.5-10.1)
[2022-03-19 05:52] LABS: BILIRUBIN,TOTAL 2.7 MG/DL (0.1-1.0)
[2022-03-19 05:53] LABS: CREATININE SERUM 0.69 MG/DL (0.60-1.30)
[2022-03-19] MEDS: RT-ALBUTEROL/IPRATROPIUM 3 ML (DUONEB) VIAL INH SCH ×2 (07:01→10:39)
[2022-03-19 07:44] VITALS: BP 116/61
[2022-03-19] MEDS: SPIRONOLACTONE 100 MG (ALDACTONE) TABLET PO SCH (08:15)
[2022-03-19] MEDS: polyethylene glycoL POWDER 17 GM (MIRALAX) PACK PO SCH (08:15)
--- NOTE | 2022-03-19 12:18 | Discharge Summary ---
Diagnosis/Chief Complaint Date of Admission Mar 16, 2022 at 20:32 Date of Discharge 03/19/22 Admission Diagnosis Admission Diagnosis See problem list Discharge Diagnosis See below Problems/Diagnosis: (1) Acute and chronic respiratory failure Assessment & Plan: - Dr Willis consulted for possible thoracentesis, appreciate recommendations, MAT protocol, titrate oxygen as tolerated 03/18: On home oxygen, encourage IS and OOB, possible d/c tomorrow Status: Acute (2) Hypoxia Status: Acute (3) Pleural effusion Assessment & Plan: - R>L 03/18: US did not show large fluid collection and thus did not warrent thoracentesis Status: Acute (4) Ascites due to alcoholic cirrhosis Assessment & Plan: - Bili at baseline Status: Acute (5) 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 Patient was previously in the hospital in December for thoracentesis. Patient denies being around anyone who has been sick. Denies any fever or chills. States that he had hypoxia in the 50s prior to presenting to ER. He has been using oxygen PRN at home. Discharge Summary-Simple/Stand Consultations Dr Willis: General Surgery Discharge Physical Examination Allergies: Coded Allergies: No Known Drug Allergies (Unverified , 06/06/21) Vitals & I&Os Vital Sign - Last 12Hours Date Time Temp Pulse Resp B/P (MAP) Pulse Ox O2 Delivery O2 Flow Rate FiO2 03/19/22 10:39 91 Nasal Cannula 4.00 03/19/22 07:44 37.1 99 18 116/61 (79) 03/16/22 23:32 100 Intake and Output 03/19/22 00:00 Intake Total 3220 ml Output Total 850 ml Balance 2370 ml General Appearance: Alert, Oriented X3, Cooperative, No Acute Distress Respiratory: Other (diminished breath sounds at the bases, diffuse wheezing throughout) Cardiovascular: Regular Rate, No Murmurs Abdominal: Soft, Other (mild RUQ ttp, no rebound or gaurding) Extremities: Other (1+ pitting edema equal bilaterally) Neuro: Normal Speech Hospital Course See final discharge diagnosis. Discharge Condition at discharge Stable Instructions to patient/family Please see electronic discharge instructions given to patient. Discharge Medications Reviewed and agree with Discharge Medication list on patient's Discharge Instruction sheet Clinical Quality Measures Smoking Cessation Counseling: Counseling-Symptomatic: 3-10 Minutes GONZÁLEZ DOMINGUEZ MD Mar 19, 2022 12:18
[2022-03-19] MEDS ORDERED: AZIT250T12 PO (12:24)
[2022-03-19] MEDS ORDERED: ACHD5005 PO (12:24)
[2022-03-19] MEDS ORDERED: CEFD300C3 PO (12:24)
--- NOTE | 2022-03-19 12:26 | Discharge Summary ---
Discharge [facility] Reconcile Patient Problems Problems Reviewed?: Yes Discharge Medications New, Converted or Re-Newed RX: Transmitted to Pharmacy New Medications: Cefdinir (Cefdinir) 300 Mg Capsule 300 MG PO BID for 5 Days, #10 CAP Azithromycin (Azithromycin) 250 Mg Tablet 250 MG PO HS, #3 TAB Hydrocodone Bit/Acetaminophen (HYDROcodone/APAP 5 MG/325 MG TAB) 1 Tab Tab 1 EA PO Q6HR PRN for PAIN-MODERATE (5-7), #15 TAB Continued Medications: Furosemide (Furosemide) 40 Mg Tablet 40 MG PO BID, TAB Lidocaine (Lidocaine 5% Patch) 1 Each Adh..patch 1 PATCH TD DAILY, PATCH Omeprazole (Omeprazole) 40 Mg Capsule.dr 40 MG PO DAILY Propranolol HCl (Propranolol HCl) 10 Mg Tablet 10 MG PO BID Spironolactone (Spironolactone) 100 Mg Tablet 100 MG PO 800-1200 Umeclidinium Brm/Vilanterol Tr (Anoro Ellipta 62.5-25 Mcg INH) 62.5 Mcg-25 Mcg/Actuation Blst.w.dev 2 PUFF PO DAILY Patient Instructions Goal/Follow Up Appt: F/u PCP 1-2 weeks Patient Instructions: - Make sure you complete all your antibiotics - Continue to use your inspiratory spirometer Activity & Diet Discharge Diet: Cardiac Diet Activity as Tolerated: Yes GONZÁLEZ DOMINGUEZ MD Mar 19, 2022 12:26
[2022-03-19 13:30] VITALS: BP 116/61
--- NOTE | 2022-03-20 11:03 | Physician Query Clarification ---
PQ-Uncertain Diagnosis Admission/Discharge Admission Date: Mar 16, 2022 at 20:32 Discharge Date: Mar 19, 2022 at 13:30 Dr. Horta, The medical record reflects the following clinical scenario: History/Risk Factors: ambrocio pleural effusion, COPDAE, acute on chronic respiratory failure w/hypoxia, follicular lymphoma, alcoholic cirrosis of liver w/ascites Clinical Findings: 03/16 CTA chest/thorax - There is some ascites present. Bilateral pleural effusions larger on the right than the left. Bilateral consolidations at the lung bases which are probably atelectasis. States that Kido did not end up taking any fluid off as it looks more like PNA. T 101, cough, SOB, rt sided chest pain especially with cough or deep breathing Treatment: IV Ceftriaxone, IV Azithromycin, corticosteroids Question: Is pneumonia a clinically valid diagnosis? Pneumonia was documented in the Dr. Horta's 03/18 PN with no further documentation in the medical record. Please document a response in Progress Note or Discharge Summary. 1. Yes, clinically valid, condition resolved. 2. No, condition ruled out. 3. Other, with explanation of clinical findings. 4. Undetermined, no explanation for clinical findings. PHYSICIAN RESPONSE Diagnosis clinically valid: Other, explanation/clinical finding (Yes patient was treated for PNA and sent home on outpatient antibiotics) In responding to this query, please exercise your independent professional judgment. The purpose of this communication is to more accurately reflect the complexity of your patients condition. The fact that a question is asked does not imply that any particular answer is desired or expected. Thank you for your timely response to this clarification. Requestors name: Elías THIS PHYSICIAN QUERY FORM IS A PERMANENT PART OF THE MEDICAL RECORD ELÍAS COOPER Mar 20, 2022 11:03 GONZÁLEZ HORTA MD Mar 20, 2022 20:58
== END 2022-03-19 13:30 | disposition home or self-care (01) | DRG 193 ==
LOC: EDUNIT# 18:31 → ER 18:33 → 4TH 20:32
PROVIDERS: ADMIT Internal Medicine; ATTEND Family Medicine
PROC: 5A0935A Assistance with Respiratory Ventilation, Less than 24 Consecutive Hours, High Flow/Velocity Cannula (ICD-10-PCS; principal; 2022-03-16)
DX: J18.9 Pneumonia, unspecified organism (principal); J96.21 Acute and chronic respiratory failure with hypoxia; J44.1 Chronic obstructive pulmonary disease with (acute) exacerbation; C82.98 Follicular lymphoma, unspecified, lymph nodes of multiple sites; K76.6 Portal hypertension; J90 Pleural effusion, not elsewhere classified; K70.31 Alcoholic cirrhosis of liver with ascites; I50.9 Heart failure, unspecified; F17.210 Nicotine dependence, cigarettes, uncomplicated; Z20.822 Contact with and (suspected) exposure to COVID-19; F10.20 Alcohol dependence, uncomplicated; Z28.39 Other underimmunization status
CPT/HCPCS: 36415; 71045; 71275; 76604; 80053; 80306; 80320; 81000; 82150; 82550; 82553; 82805; 83605; 83690; 83735; 83874; 83880; 84145; 84484; 85007; 85025; 85027; 85379; 85610; 85652; 85730; 86141; 87040; 87088; 87636; 93005; 93041; 94640; 94664; 94760; 96374; 96375

== ENCOUNTER → 2022-04-02 | Outpatient (CLI) | payer MEDICARE ==
[~2022-04-02] VITALS: Ht 170.2 cm; Wt 68.4 kg
[~2022-04-02] MED LIST changes: +AZIT250T12 PO; +FURO40TA4 PO; +OMEP40CA6 PO; +PROP10TA8 PO; +SPIR100T4 PO; +UMEC1BLS PO
--- NOTE | 2022-04-02 11:39 | Diagnostic Imaging Report ---
INDICATION: Thoracentesis PA chest 11:33 AM There is a small left pleural effusion. The right pleural effusion has been nearly completely evacuated. There is a nodular opacity at the right lung base oval shape measuring 19 cm in long axis. IMPRESSION: Status post right thoracentesis with tiny residual effusion. There is no pneumothorax. There is a nodule at the right lung base. There is a small left pleural effusion. Dictated by: Dictated on workstation # [id number]
[2022-04-02 13:51] LABS: BODY FLUID RBC COUNT 0.002 10^6/uL; BODY FLUID WBC TOTAL COUNT 0.578 10^3/uL
[2022-04-02 13:55] LABS: BODY FLUID SOURCE PLEURAL
[2022-04-02 13:57] LABS: BODY FLUID COLOR AMBER
[2022-04-02 13:58] LABS: BODY FLUID APPEARENCE SLT CLDY
--- NOTE | 2022-04-02 14:14 | Diagnostic Imaging Report ---
INDICATION: Right-sided pleural effusion. Patient presents for ultrasound-guided thoracentesis. DETAILS OF THE PROCEDURE: The patient was brought to the procedure room and placed on the bed in the sitting upright position. Ultrasound imaging of the posterior thorax on the right was performed to evaluate for an appropriate entry site. The right posterior thorax was then prepped and draped in the usual sterile fashion. A small amount of 1% lidocaine was utilized for local anesthesia. A thoracentesis catheter was then advanced into the posterior pleural space on the right. A total of 1150 mL of fluid was removed. The catheter was withdrawn and hemostasis was obtained. The patient tolerated the procedure well and was sent for a post procedure chest x-ray in satisfactory condition. IMPRESSION: Successful ultrasound-guided thoracentesis on the right obtaining 1150 mL of fluid. Dictated by: Dictated on workstation # [id number]
[2022-04-02 15:01] LABS: ALBUMIN,BODY FLUID 1.2 G/DL; BODY FLUID TRIGLYCERIDES 20 MG/DL; GLUCOSE,BODY FLUID 103 MG/DL; LDH,BODY FLUID 157 U/L; TOTAL PROTEIN,BODY FLUID 2.4 G/DL
[2022-04-03 15:12] LABS: MISC LAB TEST & RESULT SEE FOOTNOTE
== END ==
LOC: RAD 11:15
PROVIDERS: ATTEND Internal Medicine Critical Care Medicine
DX: J90 Pleural effusion, not elsewhere classified (principal); J96.21 Acute and chronic respiratory failure with hypoxia; R91.1 Solitary pulmonary nodule
CPT/HCPCS: 32555; 71045; 82042; 82945; 83615; 84157; 84478; 87015; 87070; 87101; 87116; 87205; 87206; 89051; A7048; 36415

== ENCOUNTER 2022-04-21 05:55 | Emergency (ER) | payer MEDICARE ==
[2022-04-21] MEDS ORDERED: NS IV 500 ML 500 ML IV ONE (06:30)
[2022-04-21] MEDS ORDERED: fentaNYL INJ 100 MCG/2 ML AMP IVP ONE (06:30)
[2022-04-21] MEDS ORDERED: ONDANSETRON 4 MG/2 ML (SDV) Z0FRAN IVP ONE (06:30)
--- NOTE | 2022-04-21 06:34 | ED Fall/Injury ---
General Chief Complaint: Trauma-Non Activation Stated Complaint: FALL Nursing Triage Note: TO ED VIA [facility] EMS TO ROOM 2. PT C/O FALLING IN HIS RV AND LANDING ON LOWER BACK. DENIES HITTING HEAD, DENIES LOC. 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 PT RATES LOWER BACK PAIN "100" OUT OF 10 ON 0-10 SCALE. 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 PT ASKED MULTIPLE TIMES TO STOP CUSSING AT STAFF. ETOH SMELL ON PT. PT ADMITS TO DAILY ETOH USE. PT WEARS 4-5L O2 AND CONTINUES TO SMOKE CIGARETTES. History of Present Illness Date Seen by Provider: Apr 21, 2022 Time Seen by Provider: 06:00 Initial Comments Patient to the ER by EMS from his home with chief complaint that he was getting up to the bathroom stumbled and fell backwards onto his low back. Over a decade ago he had a lumbar laminectomy done. He has not had any problems with it since then. No recent imaging no other trauma. He is not having any numbness, weakness or loss of control of bowel or bladder but he is rating 10 out of 10 pain. He occasionally takes hydrocodone and his last dose was a day ago. No pain medication on route by EMS. Allergies and Home Medications Allergies Coded Allergies: No Known Drug Allergies (Unverified , 06/06/21) Patient Home Medication List Home Medication List Reviewed: Yes Azithromycin (Azithromycin) 250 Mg Tablet, 250 MG PO HS Prescribed by: GONZÁLEZ DOMINGUEZ on 03/19/22 1224 Cefdinir (Cefdinir) 300 Mg Capsule, 300 MG PO BID Prescribed by: GONZÁLEZ DOMINGUEZ on 03/19/22 1224 Cyclobenzaprine HCl (Cyclobenzaprine HCl) 10 Mg Tablet, 5-10 MG PO Q8H PRN for S PASMS Prescribed by: KRISTIN POLLARD on 04/21/22 0853 Furosemide (Furosemide) 40 Mg Tablet, 40 MG PO BID, (Reported) Entered as Reported by: ERLINDA DUQEU on 03/17/22 1551 Hydrocodone Bit/Acetaminophen (HYDROcodone/APAP 5 MG/325 MG TAB) 1 Tab Tab, 1 EA PO Q6HR PRN for PAIN-MODERATE (5-7) Prescribed by: GONZÁLEZ DOMINGUEZ on 03/19/22 1225 Hydrocodone/Acetaminophen (Hydrocodone-Acetamin 7.5-325) 7.5 Mg-325 Mg Tablet, 0.5-1 EACH PO Q6H PRN for PAIN-BREAKTHROUGH Prescribed by: KRISTIN POLLARD on 04/21/22 0854 Lidocaine (Lidocaine 5% Patch) 1 Each Adh..patch, 1 PATCH TD DAILY, (Reported) Entered as Reported by: DESTINY COOMBS on 12/26/21 0949 Omeprazole (Omeprazole) 40 Mg Capsule.dr, 40 MG PO DAILY, (Reported) Entered as Reported by: ERLINDA DUQUE on 03/17/22 155 Propranolol HCl (Propranolol HCl) 10 Mg Tablet, 10 MG PO BID, (Reported) Entered as Reported by: ERLINDA DUQUE on 03/17/22 155 Spironolactone (Spironolactone) 100 Mg Tablet, 100 MG PO 800-1200, (Reported) Entered as Reported by: ERLINDA DUQUE on 03/17/22 155 Umeclidinium Brm/Vilanterol Tr (Anoro Ellipta 62.5-25 Mcg INH) 62.5 Mcg-25 Mcg/Actuation Blst.w.dev, 2 PUFF PO DAILY, (Reported) Entered as Reported by: ERLINDA DUQUE on 03/17/221549 Review of Systems Review of Systems Constitutional: No chills, No diaphoresis, No fever Eyes: Denies Blindness, Denies Blurred Vision Ears, Nose, Mouth, Throat: denies ear pain, denies ear discharge Respiratory: No cough, No dyspnea on exertion Cardiovascular: No chest pain, No edema Gastrointestinal: No abdominal pain, No nausea, No vomiting Genitourinary: No discharge, No dysuria Musculoskeletal: see HPI, back pain; No joint pain All Other Systems Reviewed Negative Unless Noted: Yes Past Grrquej-Aharpv-Upqdzb Hx Patient Social History Tobacco Use?: Yes Tobacco type used: Cigarettes Smoking Status: Current Everyday Smoker Substance use?: Yes Substance type: Marijuana Alcohol Use?: Yes Alcohol Frequency: Daily Immunizations Up To Date First/Initial COVID19 Vaccinat: APRIL 2021 Second COVID19 Vaccination Eric: UNKNOWN DATE X1 DOSE Past Medical History Surgery/Hospitalization HX: sx: goiter removed from r neck, abdominal mesh/hernia repair, tumor removed from neck. THORACENTESIS Surgeries: Yes (thyroid growth removed, cancerous tumor from L neck) Respiratory: Yes (Chronic pleural effusion) COPD Cardiac: No Neurological: No Genitourinary: No Gastrointestinal: Yes Cirrhosis Musculoskeletal: No Endocrine: No HEENT: No Cancer: Yes (folicular tzozhjxm-dum-lqvatvuw) What Type of Treatment Did You: Radiation Psychosocial: No Integumentary: No Physical Exam Vital Signs Vital Signs - First Documented 04/21/22 04/21/22 05:55 09:08 Temp 36.4 Pulse 87 Resp 20 B/P (MAP) 116/72 Pulse Ox 91 O2 Delivery Nasal Cannula O2 Flow Rate 4.00 Capillary Refill : Less Than 3 Seconds Height, Weight, BMI Height: '" Weight: lbs. oz. kg; 23.61 BMI Method: General Appearance: WD/WN, moderate distress HEENT: PERRL/EOMI, normal ENT inspection, pharynx normal Neck: full range of motion, supple, normal inspection Cardiovascular: normal peripheral pulses, regular rate, rhythm Respiratory: lungs clear, normal breath sounds, no respiratory distress, no accessory muscle use Peripheral Pulses: 2+ Radial Pulses (R), 2+ Radial Pulses (L) Gastrointestinal: normal bowel sounds, non tender, soft Extremities: no pedal edema, normal capillary refill Neurologic/Psychiatric: no motor/sensory deficits, alert, normal mood/affect, oriented x 3 Skin: normal color, warm/dry [place] Coma Score Best Eye Response: (4) Open Spontaneously Best Verbal Response: (5) Oriented Best Motor Response: (6) Obeys Commands Raina Total: 15 Progress/Results/Core Measures Results/Orders Lab Results Laboratory Tests Test 04/21/22 06:54 Range/Units White Blood Count 4.2 L 4.3-11.0 10^3/uL Red Blood Count 2.71 L 4.30-5.52 10^6/uL Hemoglobin 10.4 L 13.3-17.7 g/dL Hematocrit 31 L 40-54 % Mean Corpuscular Volume 115 H 80-99 fL Mean Corpuscular Hemoglobin 38 H 25-34 pg Mean Corpuscular Hemoglobin Concent 33 32-36 g/dL Red Cell Distribution Width 16.5 H 10.0-14.5 % Platelet Count 77 L 130-400 10^3/uL Mean Platelet Volume 9.9 9.0-12.2 fL Immature Granulocyte % (Auto) 2 % Neutrophils (%) (Auto) 63 42-75 % Lymphocytes (%) (Auto) 23 12-44 % Monocytes (%) (Auto) 10 0-12 % Eosinophils (%) (Auto) 2 0-10 % Basophils (%) (Auto) 1 0-10 % Neutrophils # (Auto) 2.6 1.8-7.8 10^3/uL Lymphocytes # (Auto) 1.0 1.0-4.0 10^3/uL Monocytes # (Auto) 0.4 0.0-1.0 10^3/uL Eosinophils # (Auto) 0.1 0.0-0.3 10^3/uL Basophils # (Auto) 0.0 0.0-0.1 10^3/uL Immature Granulocyte # (Auto) 0.1 0.0-0.1 10^3/uL Percent Immature Platelet Fraction 0.7 0.0-7.6 % Sodium Level 136 135-145 MMOL/L Potassium Level 4.1 3.6-5.0 MMOL/L Chloride Level 107 98-107 MMOL/L Carbon Dioxide Level 22 21-32 MMOL/L Anion Gap 7 5-14 MMOL/L Blood Urea Nitrogen 8 7-18 MG/DL Creatinine 0.57 L 0.60-1.30 MG/DL Estimat Glomerular Filtration Rate 112 BUN/Creatinine Ratio 14 Glucose Level 109 H 70-105 MG/DL Calcium Level 7.8 L 8.5-10.1 MG/DL Corrected Calcium 8.9 8.5-10.1 MG/DL Total Bilirubin 5.5 H 0.1-1.0 MG/DL Aspartate Amino Transf (AST/SGOT) 57 H 5-34 U/L Alanine Aminotransferase (ALT/SGPT) 20 0-55 U/L Alkaline Phosphatase 255 H 40-136 U/L Total Protein 6.0 L 6.4-8.2 GM/DL Albumin 2.6 L 3.2-4.5 GM/DL My Orders Orders - KRISTIN POLLARD Ed Iv/Invasive Line Start (04/21/22 06:17) Ns Iv 500 Ml (Sodium Chloride 0.9%) (04/21/22 06:30) Fentanyl Inj (Sublimaze Injection) (04/21/22 06:30) Cbc With Automated Diff (04/21/22 06:17) Comprehensive Metabolic Panel (04/21/22 06:17) Ct Thoracic/Lumbar Spine Wo (04/21/22 06:17) Ondansetron Injection (Zofran Injectio (04/21/22 06:30) Hydrocodone/Apap 5/325 Tablet (Lortab 5 (04/21/22 08:00) Hydrocodone/Apap 5/325 Tablet (Lortab 5 (04/21/22 08:02) Medications Given in ED Current Medications Medications Dose Ordered Sig/Aldo Route Start Time Stop Time Status Last Admin Dose Admin Acetaminophen/ Hydrocodone Bitart 2 ea ONCE ONCE PO 04/21/22 08:00 04/21/22 08:01 DC 04/21/22 08:04 2 EA Vital Signs/I&O 04/21/22 04/21/22 05:55 09:08 Temp 36.4 Pulse 87 83 Resp 20 20 B/P (MAP) 116/72 Pulse Ox 91 94 O2 Delivery Nasal Cannula Nasal Cannula O2 Flow Rate 4.00 4.00 4.00 Progress Progress Note : Time: 08:35 Progress Note 75 mcg of fentanyl seem to help him significantly with his pain but is starting to wear off so we gave him [address] [place] [address] unrevealing. Lab work shows chronic liver disease. Ultrasound from his recent ascites pleural fluid drainage was reviewed. 0850: Patient's pain is significantly better and he feels comfortable at this time. We will let him go home with some muscle relaxants, pain medicines, Aleve and strict instructions not to mix them. Follow-up with physical therapy and primary care. Diagnostic Imaging Diagonstic Imaging: CT Plain Films/CT/US/NM/MRI: other Comments [facility] [place] NAME: KAREN RENTERIA I [facility] REC#: [id number] PT STATUS: REG ER : 1960 PHYSICIAN: KRISTIN POLLARD MD ADMIT DATE: 04/21/22/ER Draft Date of Exam:04/21/22 CT THORACIC/LUMBAR SPINE WO PROCEDURE: CT thoracic and lumbar spine without contrast. TECHNIQUE: Multiple contiguous axial images were obtained through the thoracic and lumbar spine without the use of intravenous contrast. Sagittal and coronal reformations were then performed. All CT scans use one or more of the following dose optimizing techniques: automated exposure control, MA and/or KvP adjustment based on a patient size and exam type, or iterative reconstruction. INDICATION: Back pain, fall. Thoracolumbar statures within normal limits. The alignment anatomic. There are degenerative changes most severe at the L5-S1 level where there is mild spinal canal and moderate bi-foraminal stenosis. No thoracolumbar spinal fracture or traumatic malalignment. There are bilateral effusions greater right with dependent partially visualized perihilar and lower lobe consolidations at least in part atelectasis. IMPRESSION: No acute spinal abnormality. Pleural fluid, basilar and perihilar nonspecific consolidations. Dictated on workstation # [id number] Dict: 04/21/22811 Trans: 04/21/22821 [facility] [id number] Interpreted by: BASSEM SHAH Electronically signed by: Reviewed: Reviewed by Me Departure Impression Primary Impression: Fall Qualified Codes: W19.XXXA - Unspecified fall, initial encounter Additional Impressions: Lumbago without sciatica Qualified Codes: M54.50 - Low back pain, unspecified Contusion Qualified Codes: S30.0XXA - Contusion of lower back and pelvis, initial encounter Disposition: HOME, SELF-CARE Condition: Stable Departure-Patient Inst. Decision time for Depature: 08:50 Referrals: [facility] [place] Primary Care Physician Patient Instructions: Low Back Pain (DC), Contusion (DC) Add. Discharge Instructions: Drink plenty of fluids, get rest and stay mobile around the house. Topical creams such as icy hot, Biofreeze, lidocaine patches etc. as necessary for pain. Heating pads as necessary for pain. Wear a back brace on the days that it helps. Follow-up with physical therapy by calling at [phone] for no upfront charge assessment. Follow-up with your primary care doctor if you are not seeing improvement in 2 to 4 weeks. Tylenol 650 mg every 8 hours as needed for pain. Naproxen/Aleve 2 tablets twice a day until your back is feeling better. Cyclobenzaprine 1/2 to 1 tablet every 8 hours as necessary for muscle spasms. May cause drowsiness and be cautious mixing this with alcohol. Hydrocodone 1/2 to 1 tablet every 6 hours as needed for breakthrough severe pain keeping him from being functional. Will cause drowsiness and should not be mixed with alcohol. Will cause constipation. I suggest Colace or MiraLAX to stay regular. All discharge instructions reviewed with patient and/or family. Voiced understanding. Scripts Cyclobenzaprine HCl (Cyclobenzaprine HCl) 10 Mg Tablet 5-10 MG PO Q8H PRN for SPASMS, #15 TAB 0 Refills Prov: KRISTIN POLLARD 04/21/22 Hydrocodone/Acetaminophen (Hydrocodone-Acetamin 7.5-325) 7.5 Mg-325 Mg Tablet 0.5-1 EACH PO Q6H PRN for PAIN-BREAKTHROUGH, #10 TAB 0 Refills Prov: KRISTIN POLLARD 04/21/22 KRISTIN POLLARD Apr 21, 2022 06:34
[2022-04-21 06:58] LABS: BASOPHILS % (AUTO) 1 % (0-10); EOSINOPHILS # (AUTO) 0.1 10^3/uL (0.0-0.3); EOSINOPHILS % (AUTO) 2 % (0-10); MEAN CORPUSCULAR VOLUME 115 fL (80-99)
[2022-04-21 07:00] LABS: HEMATOCRIT 31 % (40-54); HEMOGLOBIN 10.4 g/dL (13.3-17.7); LYMPHOCYTES % (AUTO) 23 % (12-44); MEAN CORPUSCULAR HEMOGLOBIN 38 pg (25-34); MEAN CORPUSCULAR HGB CONC 33 g/dL (32-36); MEAN PLATELET VOLUME 9.9 fL (9.0-12.2); MONOCYTES # (AUTO) 0.4 10^3/uL (0.0-1.0); MONOCYTES % (AUTO) 10 % (0-12); NEUTROPHILS # (AUTO) 2.6 10^3/uL (1.8-7.8); NEUTROPHILS % (AUTO) 63 % (42-75); PLATELET COUNT 77 10^3/uL (130-400); WHITE BLOOD COUNT 4.2 10^3/uL (4.3-11.0)
[2022-04-21 07:13] LABS: ALBUMIN 2.6 GM/DL (3.2-4.5); POTASSIUM 4.1 MMOL/L (3.6-5.0)
[2022-04-21 07:14] LABS: CALCIUM 7.8 MG/DL (8.5-10.1)
[2022-04-21 07:17] LABS: BILIRUBIN,TOTAL 5.5 MG/DL (0.1-1.0)
[2022-04-21 07:19] LABS: CREATININE SERUM 0.57 MG/DL (0.60-1.30)
[2022-04-21] MEDS ORDERED: HYDROcodone/APAP 5 MG/325 MG (LORTAB) TAB PO ONE (08:00)
[2022-04-21] MEDS ORDERED: HYDROcodone/APAP 5 MG/325 MG (LORTAB) TAB ONE (08:02)
--- NOTE | 2022-04-21 08:23 | Diagnostic Imaging Report ---
PROCEDURE: CT thoracic and lumbar spine without contrast. TECHNIQUE: Multiple contiguous axial images were obtained through the thoracic and lumbar spine without the use of intravenous contrast. Sagittal and coronal reformations were then performed. All CT scans use one or more of the following dose optimizing techniques: automated exposure control, MA and/or KvP adjustment based on a patient size and exam type, or iterative reconstruction. INDICATION: Back pain, fall. Thoracolumbar statures within normal limits. The alignment anatomic. There are degenerative changes most severe at the L5-S1 level where there is mild spinal canal and moderate bi-foraminal stenosis. No thoracolumbar spinal fracture or traumatic malalignment. There are bilateral effusions greater right with dependent partially visualized perihilar and lower lobe consolidations at least in part atelectasis. IMPRESSION: No acute spinal abnormality. Pleural fluid, basilar and perihilar nonspecific consolidations. Dictated by: Dictated on workstation # [id number]
[2022-04-21] MEDS ORDERED: HYDR-3817 PO (08:53)
[2022-04-21] MEDS ORDERED: CYCL10TA25 PO (08:53)
[2022-04-21 09:08] VITALS: BP 116/72
== END 2022-04-21 09:49 | disposition home or self-care (01) ==
LOC: EDUNIT# 05:55 → ER 05:57
DX: S30.0XXA Contusion of lower back and pelvis, initial encounter (principal); F17.210 Nicotine dependence, cigarettes, uncomplicated; Z99.81 Dependence on supplemental oxygen; W18.09XA Striking against other object with subsequent fall, initial encounter; Y92.022 Bathroom in mobile home as the place of occurrence of the external cause
CPT/HCPCS: 36415; 72128; 72131; 80053; 85025

== ENCOUNTER 2022-04-26 10:21 | Emergency (ER) | payer MEDICARE ==
[~2022-04-26] VITALS: Ht 170 cm; Wt 68.0 kg
[~2022-04-26 10:21] MED LIST changes: +CYCL10TA25 PO; +HYDR-3817 PO
--- NOTE | 2022-04-26 10:40 | ED General ---
General Chief Complaint: General Problems/Pain Stated Complaint: WEAKNESS Source of Information: Patient, EMS Exam Limitations: Intoxication History of Present Illness Date Seen by Provider: Apr 26, 2022 Time Seen by Provider: 10:25 Initial Comments Patient is a 61-year-old male who presents to the emergency room by ambulance today reportedly with complaints of increased lower extremity swelling. He has a history of chronic alcoholism, non-Hodgkin's lymphoma. He has COPD and is oxygen dependent at 5 L. He denies fevers chills, worsening cough or shortness of breath. No abdominal pain nausea or vomiting. No extremity pain. No back pain. He states that he has had about a gallon of fireball in the last 24 h ours. He denies falls. Family is not immediately present for further history. The patient himself has no complaints really. He is quite depressed and when asked if he needs anything he states "to just let me ". He is not actively suicidal, he does not have a plan for harming himself. He states "God will take me when he is ready". He is very tearful, crying and apologetic. His vital signs are stable. He states he took a pain pill "a few hours ago". All other review of systems reviewed and negative except as stated. Associated Systoms: Denies Symptoms Allergies and Home Medications Allergies Coded Allergies: No Known Drug Allergies (Unverified , 06/06/21) Patient Home Medication List Home Medication List Reviewed: Yes Azithromycin (Azithromycin) 250 Mg Tablet, 250 MG PO HS Prescribed by: GONZÁLEZ DOMINGUEZ on 03/19/22 1224 Cefdinir (Cefdinir) 300 Mg Capsule, 300 MG PO BID Prescribed by: GONZÁLEZ DOMINGUEZ on 03/19/22 1224 Cyclobenzaprine HCl (Cyclobenzaprine HCl) 10 Mg Tablet, 5-10 MG PO Q8H PRN for SPASMS Prescribed by: KRISTIN POLLARD on 04/21/22 0853 Furosemide (Furosemide) 40 Mg Tablet, 40 MG PO BID, (Reported) Entered as Reported by: ERLINDA DUQUE on 03/17/22 1551 Hydrocodone Bit/Acetaminophen (HYDROcodone/APAP 5 MG/325 MG TAB) 1 Tab Tab, 1 EA PO Q6HR PRN for PAIN-MODERATE (5-7) Prescribed by: GONZÁLEZ DOMINGUEZ on 03/19/22 1225 Hydrocodone/Acetaminophen (Hydrocodone-Acetamin 7.5-325) 7.5 Mg-325 Mg Tablet, 0.5-1 EACH PO Q6H PRN for PAIN-BREAKTHROUGH Prescribed by: KRISTIN POLLARD on 04/21/22 0854 Lidocaine (Lidocaine 5% Patch) 1 Each Adh..patch, 1 PATCH TD DAILY, (Reported) Entered as Reported by: DESTINY COOMBS on 12/26/21 0949 Omeprazole (Omeprazole) 40 Mg Capsule.dr, 40 MG PO DAILY, (Reported) Entered as Reported by: ERLINDA DUQUE on 03/17/22 155 Propranolol HCl (Propranolol HCl) 10 Mg Tablet, 10 MG PO BID, (Reported) Entered as Reported by: ERLINDA DUQUE on 03/17/22 155 Spironolactone (Spironolactone) 100 Mg Tablet, 100 MG PO 800-1200, (Reported) Entered as Reported by: ERLINDA DUQUE on 03/17/22 155 Umeclidinium Brm/Vilanterol Tr (Anoro Ellipta 62.5-25 Mcg INH) 62.5 Mcg-25 Mcg/Actuation Blst.w.dev, 2 PUFF PO DAILY, (Reported) Entered as Reported by: ERLINDA DUQUE on 03/17/22 155 Review of Systems Review of Systems Constitutional: see HPI EENTM: no symptoms reported Respiratory: short of breath (chronic) Gastrointestinal: no symptoms reported Genitourinary: no symptoms reported Musculoskeletal: other (leg swelling) Skin: no symptoms reported Psychiatric/Neurological: Depressed All Other Systems Reviewed Negative Unless Noted: Yes Past Zmdrbny-Ipizyo-Baufof Hx Patient Social History Tobacco Use?: Yes Tobacco type used: Cigarettes Smoking Status: Current Everyday Smoker Use of E-Cig and/or Vaping dev: No Substance use?: Yes Substance type: Marijuana Alcohol Use?: Yes Alcohol type: Hard Liquor Alcohol Frequency: Daily Pt feels they are or have been: No Immunizations Up To Date First/Initial COVID19 Vaccinat: APRIL 2021 Second COVID19 Vaccination Eric: UNKNOWN DATE X1 DOSE Past Medical History Surgery/Hospitalization HX: LYMPHOMA, COPD Surgeries: Yes (thyroid growth removed, cancerous tumor from L neck) Respiratory: Yes (Chronic pleural effusion) COPD Cardiac: No Neurological: No Genitourinary: No Gastrointestinal: Yes Cirrhosis Musculoskeletal: No Endocrine: No HEENT: No Cancer: Yes (folicular wjmxvszj-gxf-ajevyect) What Type of Treatment Did You: Radiation Psychosocial: No Integumentary: No Physical Exam Vital Signs Vital Signs - First Documented 04/26/22 10:23 Temp 36.6 Pulse 101 Resp 28 B/P (MAP) 118/68 (85) Pulse Ox 91 O2 Delivery Nasal Cannula O2 Flow Rate 5.00 Capillary Refill : Height, Weight, BMI Height: '" Weight: lbs. oz. kg; 23.61 BMI Method: General Appearance: Thin, Other (tearful and upset) Eyes: Bilateral Eye Normal Inspection HEENT: PERRL/EOMI Neck: Normal Inspection Respiratory: Lungs Clear, Normal Breath Sounds, No Accessory Muscle Use, No Respiratory Distress, Other (on 5L o2 with sats 90-92%) Cardiovascular: Regular Rate, Rhythm, Normal Peripheral Pulses Gastrointestinal: Non Tender, Soft, Other (slightly protuberant) Extremity: Normal Capillary Refill, Normal Range of Motion, No Calf Tenderness, Pedal Edema (3+ bilateral LE edema) Neurologic/Psychiatric: Alert, Oriented x3, No Motor/Sensory Deficits, Depressed Affect (tearful) Skin: Warm/Dry, Pallor Progress/Results/Core Measures Suspected Sepsis SIRS Temperature: Pulse: Respiratory Rate: Blood Pressure / Mean: Laboratory Tests 04/26/22 10:23: Creatinine 0.70 Results/Orders Lab Results Laboratory Tests Test 04/26/22 10:23 Range/Units Sodium Level 137 135-145 MMOL/L Potassium Level 4.1 3.6-5.0 MMOL/L Chloride Level 103 98-107 MMOL/L Carbon Dioxide Level 23 21-32 MMOL/L Anion Gap 11 5-14 MMOL/L Blood Urea Nitrogen 6 L 7-18 MG/DL Creatinine 0.70 0.60-1.30 MG/DL Estimat Glomerular Filtration Rate 105 BUN/Creatinine Ratio 9 Glucose Level 208 H 70-105 MG/DL Calcium Level 7.9 L 8.5-10.1 MG/DL My Orders Orders - DEIDRA OSWALD MD Ed Iv/Invasive Line Start (04/26/22 10:49) Basic Metabolic Panel (04/26/22 10:49) Furosemide Injection (Lasix Injection) (04/27/22 09:00) Furosemide Injection (Lasix Injection) (04/26/22 10:54) Furosemide Injection (Lasix Injection) (04/26/22 11:45) Vital Signs/I&O 04/26/22 10:23 Temp 36.6 Pulse 101 Resp 28 B/P (MAP) 118/68 (85) Pulse Ox 91 O2 Delivery Nasal Cannula O2 Flow Rate 5.00 Capillary Refill : Progress Note : Time: 10:49 Progress Note Son and vmmkgewj-wh-qfq arrived to the ED and report that "he is drinking himself to ". The jshsojox-mu-mfl requested that we admit him to "sober him up" and make him stop drinking. I advised her that that was not going to happen. He is completely alert and oriented and able to make his own medical decisions. Drinking is a personal choice. I advised that they follow-up with his primary care physician or [facility] if the patient himself wishes help for his alcoholism. But there was no way to for somebody to stop drinking. Son is concerned about the amount of swelling in his lower extremities. I advised that we could check some renal function and give him a little Lasix to hopefully mobilize some of that fluid however there is a strong likelihood that it would just reaccumulate secondary to his chronic liver and probable chronic kidney disease. In addition to his likely chronic immobility. Patient's vital signs are stable. He has no complaints. Will check the labs and give a little Lasix and anticipate discharge to home as the patient is already a little impatient to be discharged. 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 Decision time for Depature: 10:52 Referrals: [facility] (PCP/Family) Primary Care Physician Patient Instructions: Swelling, Alcohol Use Disorder ED Add. Discharge Instructions: Please call on Thursday to follow-up with your primary care physician at [facility]. Cut back on your drinking if it is possible. Elevate your legs while you are at rest to help decrease swelling. Return to the emergency department for any new, concerning or emergent complaints. Scripts Hydrocodone/Acetaminophen (Hydrocodone-Acetamin 5-325 mg) 5 Mg-325 Mg Tablet 1 TAB PO Q6H PRN for PAIN-MODERATE (5-7), #8 TAB Prov: DEIDRA OSWALD MD 04/26/22 Copy Copies To 1: LESLEY ATKINSON KATHRYN M MD Apr 26, 2022 10:39
[2022-04-26] MEDS ORDERED: FUROSEMIDE 40 MG/4 ML INJ (LASIX) ONE (10:54)
[2022-04-26 11:01] LABS: POTASSIUM 4.1 MMOL/L (3.6-5.0)
[2022-04-26 11:02] LABS: CALCIUM 7.9 MG/DL (8.5-10.1)
[2022-04-26 11:07] LABS: CREATININE SERUM 0.7 MG/DL (0.60-1.30)
[2022-04-26] MEDS ORDERED: ACHD5005 PO (11:43)
[2022-04-26] MEDS ORDERED: FUROSEMIDE 40 MG/4 ML INJ (LASIX) IVP ONE (11:45)
[2022-04-26 12:39] VITALS: BP 122/70
[2022-04-27] MEDS ORDERED: FUROSEMIDE 40 MG/4 ML INJ (LASIX) IVP SCH (09:00)
== END 2022-04-26 12:39 | disposition home or self-care (01) ==
LOC: EDUNIT# 10:21 → ER 10:23
DX: K70.9 Alcoholic liver disease, unspecified (principal); F32.A Depression, unspecified; R60.0 Localized edema; F17.210 Nicotine dependence, cigarettes, uncomplicated; J44.9 Chronic obstructive pulmonary disease, unspecified; Z85.72 Personal history of non-Hodgkin lymphomas; Z99.81 Dependence on supplemental oxygen
CPT/HCPCS: 36415; 80048; 99283

== ENCOUNTER 2022-04-28 15:23 | Emergency (ER) | payer MEDICARE ==
[~2022-04-28] VITALS: Ht 170 cm; Wt 68.0 kg
[2022-04-28 16:00] LABS: BASOPHILS % (AUTO) 1 % (0-10); HEMATOCRIT 31 % (40-54)
[2022-04-28 16:02] LABS: EOSINOPHILS % (AUTO) 1 % (0-10); HEMOGLOBIN 10.8 g/dL (13.3-17.7); LYMPHOCYTES # (AUTO) 0.7 10^3/uL (1.0-4.0); LYMPHOCYTES % (AUTO) 17 % (12-44); MEAN CORPUSCULAR HEMOGLOBIN 39 pg (25-34); MEAN CORPUSCULAR HGB CONC 35 g/dL (32-36); MEAN CORPUSCULAR VOLUME 113 fL (80-99); MEAN PLATELET VOLUME 9.4 fL (9.0-12.2); MONOCYTES # (AUTO) 0.4 10^3/uL (0.0-1.0); MONOCYTES % (AUTO) 10 % (0-12); NEUTROPHILS # (AUTO) 2.8 10^3/uL (1.8-7.8); NEUTROPHILS % (AUTO) 72 % (42-75); PLATELET COUNT 62 10^3/uL (130-400)
[2022-04-28 16:12] LABS: CHLORIDE 98 MMOL/L (98-107); POTASSIUM 3.5 MMOL/L (3.6-5.0); SODIUM 135 MMOL/L (135-145)
[2022-04-28 16:13] LABS: CALCIUM 8.9 MG/DL (8.5-10.1)
[2022-04-28 16:14] LABS: INR 1.5 (0.8-1.4); PROTHROMBIN TIME PATIENT 18.3 SEC (12.2-14.7)
[2022-04-28 16:15] LABS: GLUCOSE 126 MG/DL (70-105); TOTAL PROTEIN 6.7 GM/DL (6.4-8.2)
[2022-04-28 16:16] LABS: CARBON DIOXIDE 22 MMOL/L (21-32); SMEAR SCAN COMMENT YES
[2022-04-28 16:18] LABS: ALKALINE PHOSPHATASE 340 U/L (40-136)
[2022-04-28 16:19] LABS: CREATININE SERUM 0.67 MG/DL (0.60-1.30); GFR ESTIMATED 107
[2022-04-28 16:20] LABS: BUN/CREATININE RATIO 15
[2022-04-28 16:21] LABS: ALANINE AMINOTRANSFERASE 18 U/L (0-55)
[2022-04-28 16:22] LABS: LIPASE 26 U/L (8-78)
[2022-04-28 16:24] LABS: BILIRUBIN,TOTAL 12.3 MG/DL (0.1-1.0)
[2022-04-28 16:27] LABS: BILIRUBIN,URINE NEGATIVE (NEGATIVE); CLARITY,URINE CLEAR; COLOR,URINE ORANGE; GLUCOSE, URINE (UA) NEGATIVE (NEGATIVE); KETONES,URINE NEGATIVE (NEGATIVE); LEUKOCYTE ESTERASE ,URINE NEGATIVE (NEGATIVE); NITRITE,URINE NEGATIVE (NEGATIVE); PROTEIN,URINE NEGATIVE (NEGATIVE)
[2022-04-28 16:54] LABS: BACTERIA,URINE NEGATIVE /HPF
[2022-04-28] MEDS ORDERED: IOHEXOL 350 MG/ML 100 ML (OMNIPAQUE 350) VIAL IV ONE (17:00)
[2022-04-28] MEDS ORDERED: PANTOPRAZOLE 40 MG (PROTONIX) VIAL IV ONE (17:00)
[2022-04-28] MEDS ORDERED: NS 100 ML (IVPB) BAG IV ONE (17:00)
--- NOTE | 2022-04-28 17:40 | Diagnostic Imaging Report ---
PROCEDURE: CT chest, abdomen, and pelvis with contrast. TECHNIQUE: Multiple contiguous axial images were obtained through the chest, abdomen, and pelvis after the administration of intravenous contrast. Auto Exposure Controls were utilized during the CT exam to meet ALARA standards for radiation dose reduction. INDICATION: Black stools, cirrhosis. COMPARISON: Exam compared with CT angio chest dated 03/16/[address] performed in 2020. FINDINGS: CHEST: There is minute left and small right pleural effusions which showed no evidence for their loculation. There are persistent relatively symmetric zones of dependent bilateral lower lobe consolidations favored to reflect atelectasis. No new pulmonary opacity. No axillary, hilar, or mediastinal lymphadenopathy. There are likely some paraesophageal and esophageal venous varicosities. No contrast extravasation. No chest wall pathology. The aorta is nonaneurysmal. ABDOMEN AND PELVIS: A cirrhotic morphology of the liver with large dilated recanalized periumbilical vein contiguous with the intrahepatic left portal vein present in keeping with cirrhosis and sequelae of portal venous hypertension. This is unchanged. There is mild stable splenomegaly. There is only trace pelvic ascites at follow-up, decreased in the interim. There is no hydroureteronephrosis. No splenic infarct or rupture. There is no evidence for a liver mass. The gallbladder and bile ducts are unremarkable. The pancreas is unremarkable. The adrenals are unremarkable. Perisplenic venous varicosities and collateral channels, chronic. There is no small or large bowel obstruction. There is no pneumatosis. There is no free air. There are no findings of focal or generalized small or large bowel wall inflammatory changes. There is no evidence for appendicitis or diverticulitis. No pneumatosis. No free gas. No loculated collection or abscess. No acute bony pathology. IMPRESSION: 1. Chest: Small pleural effusions, nonloculated, greater right. Likely esophageal varicosities, chronic. Bilateral lower lobe dependent zones of pulmonary consolidation, unchanged. Likely persistent atelectasis. No endobronchial filling defect. No lymphadenopathy. 2. Abdomen and pelvis: Hepatic cirrhosis and sequelae of portal venous hypertension redemonstrated and include a reduction in now trace ascites. No focal small or large bowel wall inflammatory changes. No contrast extravasation. No findings to localize a suspected source of hemorrhage. No arterial or venous obstruction. Vascular collaterals and varicosities, chronic. 3. No adenopathy or mass. No acute-appearing abdominopelvic abnormality. Dictated by: Dictated on workstation # [id number]
--- NOTE | 2022-04-28 18:07 | ED Abdominal Pain ---
General Chief Complaint: Abdominal/GI Problems Stated Complaint: ABD SWELLING Nursing Triage Note: PT AMB TO RM 5 CO OF ABD PAIN AND BACK PAIN, SENT TO ED BY [facility]. PT STATES HE HAS HAD A BLACK STOOL TODAY. PT IS AN ALCOHOLIC, BUT DENIES DRINKING TODAY Source of Information: Patient, Old Records Exam Limitations: No Limitations History of Present Illness Date Seen by Provider: Apr 28, 2022 Time Seen by Provider: 15:51 Initial Comments This 61-year-old gentleman presents to the emergency room complaining of abdominal discomfort and bloating and black stools for the past 2 days. He has had additional recent visits to the ER for fall and for ascites. He is an alcoholic and has been intermittently drinking over the past week or 2. He does have cirrhosis. His last alcohol consumption was 2 days ago according to his report. He likely has esophageal varices based on prior imaging and his report. He has no active bleeding at this time. Patient also has history of lymphoma and COPD. Dr. Hamlin is his primary care provider. Dr. Willis is his surgeon. Allergies and Home Medications Allergies Coded Allergies: No Known Drug Allergies (Unverified , 06/06/21) Patient Home Medication List Home Medication List Reviewed: Yes Azithromycin (Azithromycin) 250 Mg Tablet, 250 MG PO HS Prescribed by: GONZÁLEZ DOMINGUEZ on 03/19/22 1224 Cefdinir (Cefdinir) 300 Mg Capsule, 300 MG PO BID Prescribed by: GONZÁLEZ DOMINGUEZ on 03/19/22 1224 Cyclobenzaprine HCl (Cyclobenzaprine HCl) 10 Mg Tablet, 5-10 MG PO Q8H PRN for SPASMS Prescribed by: KRISTIN POLLARD on 04/21/22 0853 Furosemide (Furosemide) 40 Mg Tablet, 40 MG PO BID, (Reported) Entered as Reported by: ERLINDA DUQUE on 03/17/22 1551 Hydrocodone Bit/Acetaminophen (HYDROcodone/APAP 5 MG/325 MG TAB) 1 Tab Tab, 1 EA PO Q6HR PRN for PAIN-MODERATE (5-7) Prescribed by: GONZÁLEZ DOMINGUEZ on 03/19/22 1225 Hydrocodone/Acetaminophen (Hydrocodone-Acetamin 7.5-325) 7.5 Mg-325 Mg Tablet, 0.5-1 EACH PO Q6H PRN for PAIN-BREAKTHROUGH Prescribed by: KRISTIN POLLARD on 04/21/22 0854 Hydrocodone/Acetaminophen (Hydrocodone-Acetamin 5-325 mg) 5 Mg-325 Mg Tablet, 1 TAB PO Q6H PRN for PAIN-MODERATE (5-7) Prescribed by: DEIDRA OSWALD on 04/26/22 1143 Lidocaine (Lidocaine 5% Patch) 1 Each Adh..patch, 1 PATCH TD DAILY, (Reported) Entered as Reported by: DESTINY COOMBS on 12/26/21 0949 Omeprazole (Omeprazole) 40 Mg Capsule.dr, 40 MG PO DAILY, (Reported) Entered as Reported by: ERLINDA DUQUE on 03/17/221549 Omeprazole (Omeprazole) 20 Mg Capsule.dr, 20 MG PO BID Prescribed by: JOLENE SOTELO on 04/28/221827 Ondansetron (Ondansetron Odt) 4 Mg Tab.rapdis, 4 MG SL Q4H PRN for NAUSEA/VOMITING Prescribed by: JOLENE SOTELO on 04/28/221827 Oxycodone HCl (Oxycodone HCl) 5 Mg Tablet, 5 MG PO Q6H PRN for PAIN-MODERATE (5- 7) Prescribed by: JOLENE SOTELO on 04/28/22 182 Propranolol HCl (Propranolol HCl) 10 Mg Tablet, 10 MG PO BID, (Reported) Entered as Reported by: ERLINDA DUQUE on 03/17/221549 Spironolactone (Spironolactone) 100 Mg Tablet, 100 MG PO 800-1200, (Reported) Entered as Reported by: ERLINDA DUQUE on 03/17/221549 Sucralfate (Carafate) 1 Gram Tablet, 1 GM PO QID Prescribed by: JOLENE SOTELO on 04/28/221827 Umeclidinium Brm/Vilanterol Tr (Anoro Ellipta 62.5-25 Mcg INH) 62.5 Mcg-25 Mcg/Actuation Blst.w.dev, 2 PUFF PO DAILY, (Reported) Entered as Reported by: ERLINDA DUQUE on 03/17/221549 Review of Systems Review of Systems Constitutional: no symptoms reported EENTM: No Symptoms Reported Respiratory: No Symptoms Reported Cardiovascular: No Symptoms Reported Gastrointestinal: See HPI Genitourinary: No Symptoms Reported Musculoskeletal: no symptoms reported Skin: no symptoms reported Psychiatric/Neurological: See HPI Endocrine: No Symptoms Reported Hematologic/Lymphatic: No Symptoms Reported Past Zbqqxhl-Lijnkr-Brclzj Hx Patient Social History Tobacco Use?: Yes Tobacco type used: Cigarettes Smoking Status: Current Everyday Smoker Substance type: Marijuana Substance frequency: Once in a while Alcohol Use?: Yes Alcohol type: Hard Liquor Alcohol Frequency: Daily Pt feels they are or have been: No Immunizations Up To Date First/Initial COVID19 Vaccinat: APRIL 2021 Second COVID19 Vaccination Eric: APRIL 2021 Third COVID19 Vaccination Date: APRIL 2021 Past Medical History Surgery/Hospitalization HX: LYMPHOMA, COPD, ALCOHOLIC Surgeries: Yes (thyroid growth removed, cancerous tumor from L neck, thoracentesis) Respiratory: Yes (Chronic pleural effusion) COPD Cardiac: No Neurological: No Genitourinary: No Gastrointestinal: Yes Esophageal Varices, Cirrhosis Musculoskeletal: No Endocrine: No HEENT: No Cancer: Yes (folicular juzpqivj-ivo-dbfwhpaz) What Type of Treatment Did You: Radiation Psychosocial: Yes (Alcoholism) Integumentary: No Physical Exam Vital Signs Vital Signs - First Documented 04/28/22 15:40 Temp 36.7 Pulse 122 Resp 20 B/P (MAP) 142/73 (96) Pulse Ox 95 O2 Delivery Nasal Cannula O2 Flow Rate 5.00 Capillary Refill : Less Than 3 Seconds Height/Weight/BMI Height: '" Weight: lbs. oz. kg; 23.00 BMI Method: General Appearance: WD/WN, no apparent distress HEENT: normal ENT inspection, scleral icterus (R), scleral icterus (L) Neck: normal inspection Respiratory: no respiratory distress, no accessory muscle use, decreased breath sounds (Diminished in bases) Cardiovascular: regular rate, rhythm, no edema, no murmur Gastrointestinal: normal bowel sounds, soft; No distended; tenderness (Mild to moderate, generalized) Extremities: non-tender, swelling Neurologic/Psychiatric: alterations expert II-XII nml as tested, no motor/sensory deficits, alert, normal mood/affect, oriented x 3 Skin: normal color, warm/dry Progress/Results/Core Measures Results/Orders Lab Results Laboratory Tests Test 04/28/22 15:50 04/28/22 16:19 Range/Units White Blood Count 4.0 L 4.3-11.0 10^3/uL Red Blood Count 2.75 L 4.30-5.52 10^6/uL Hemoglobin 10.8 L 13.3-17.7 g/dL Hematocrit 31 L 40-54 % Mean Corpuscular Volume 113 H 80-99 fL Mean Corpuscular Hemoglobin 39 H 25-34 pg Mean Corpuscular Hemoglobin Concent 35 32-36 g/dL Red Cell Distribution Width 17.2 H 10.0-14.5 % Platelet Count 62 L 130-400 10^3/uL Mean Platelet Volume 9.4 9.0-12.2 fL Immature Granulocyte % (Auto) 0 % Neutrophils (%) (Auto) 72 42-75 % Lymphocytes (%) (Auto) 17 12-44 % Monocytes (%) (Auto) 10 0-12 % Eosinophils (%) (Auto) 1 0-10 % Basophils (%) (Auto) 1 0-10 % Neutrophils # (Auto) 2.8 1.8-7.8 10^3/uL Lymphocytes # (Auto) 0.7 L 1.0-4.0 10^3/uL Monocytes # (Auto) 0.4 0.0-1.0 10^3/uL Eosinophils # (Auto) 0.0 0.0-0.3 10^3/uL Basophils # (Auto) 0.0 0.0-0.1 10^3/uL Immature Granulocyte # (Auto) 0.0 0.0-0.1 10^3/uL Percent Immature Platelet Fraction 1.5 0.0-7.6 % Prothrombin Time 18.3 H 12.2-14.7 SEC INR Comment 1.5 H 0.8-1.4 Sodium Level 135 135-145 MMOL/L Potassium Level 3.5 L 3.6-5.0 MMOL/L Chloride Level 98 98-107 MMOL/L Carbon Dioxide Level 22 21-32 MMOL/L Anion Gap 15 H 5-14 MMOL/L Blood Urea Nitrogen 10 7-18 MG/DL Creatinine 0.67 0.60-1.30 MG/DL Estimat Glomerular Filtration Rate 107 BUN/Creatinine Ratio 15 Glucose Level 126 H 70-105 MG/DL Calcium Level 8.9 8.5-10.1 MG/DL Corrected Calcium 9.7 8.5-10.1 MG/DL Total Bilirubin 12.3 *H 0.1-1.0 MG/DL Aspartate Amino Transf (AST/SGOT) 68 H 5-34 U/L Alanine Aminotransferase (ALT/SGPT) 18 0-55 U/L Alkaline Phosphatase 340 H 40-136 U/L C-Reactive Protein High Sensitivity 1.31 H 0.00-0.50 MG/DL Total Protein 6.7 6.4-8.2 GM/DL Albumin 3.0 L 3.2-4.5 GM/DL Lipase 26 8-78 U/L Procalcitonin 0.16 H <0.10 NG/ML Serum Alcohol < 10 <10 MG/DL Smear Scan YES Urine Color ORANGE Urine Clarity CLEAR Urine pH 6.0 5-9 Urine Specific [place] 1.010 L 1.016-1.022 Urine Protein NEGATIVE NEGATIVE Urine Glucose (UA) NEGATIVE NEGATIVE Urine Ketones NEGATIVE NEGATIVE Urine Nitrite NEGATIVE NEGATIVE Urine Bilirubin NEGATIVE NEGATIVE Urine Urobilinogen 0.2 < = 1.0 MG/DL Urine Leukocyte Esterase NEGATIVE NEGATIVE Urine RBC (Auto) NEGATIVE NEGATIVE Urine RBC NONE /HPF Urine WBC NONE /HPF Urine Squamous Epithelial Cells NONE /HPF Urine Crystals NONE /LPF Urine Bacteria NEGATIVE /HPF Urine Casts NONE /LPF Urine Mucus NEGATIVE /LPF Urine Culture Indicated NO My Orders Orders - JOLENE GOTTLIEB MD Alcohol (04/28/22 15:51) Cbc With Automated Diff (04/28/22 15:51) Comprehensive Metabolic Panel (04/28/22 15:51) Hs C Reactive Protein (04/28/22 15:51) Lipase (04/28/22 15:51) Protime With Inr (04/28/22 15:51) Ua Culture If Indicated (04/28/22 15:51) Ed Iv/Invasive Line Start (04/28/22 15:51) Ct Chest/Abdomen/Pelvis W (04/28/22 16:43) Iohexol Injection (Omnipaque 350 Mg/Ml 1 (04/28/22 17:00) Ns (Ivpb) (Sodium Chloride 0.9% Ivpb Bag (04/28/22 17:00) Pantoprazole Injection (Protonix Injecti (04/28/22 17:00) Procalcitonin (Pct) (04/28/22 16:55) Oxycodone Immediate Rel Tablet (Oxyir Ta (04/28/22 18:30) Ondansetron Injection (Zofran Injectio (04/28/22 18:30) Fecal Occult Bedside (04/28/22 18:23) Medications Given in ED Vital Signs/I&O 04/28/22 04/28/22 15:40 18:41 Temp 36.7 Pulse 122 114 Resp 20 16 B/P (MAP) 142/73 (96) 125/76 Pulse Ox 95 98 O2 Delivery Nasal Cannula Nasal Cannula O2 Flow Rate 5.00 5.00 Blood Pressure Mean: 96 Progress Progress Note : Progress Note Labs were obtained. Due to the pain and increased bilirubin, CT scan was obtained. CT demonstrated no acute emergent pathology. Nausea was treated with Zofran. Patient was prescribed Carafate, PPI, oxycodone without, and Zofran. I discussed the case with Dr. Willis. Presentation does not seem consistent with bacterial peritonitis. Dr. Willis strongly recommends complete alcohol cessation and believes his present exacerbation is due to persistent alcohol consumption. This was communicated to the patient. See discharge instructions for further discussion. He is hemodynamically stable and his hemoglobin is stable from prior. He has no active bleeding evident at this time. He is stable for discharge. Diagnostic Imaging Diagonstic Imaging: CT Plain Films/CT/US/NM/MRI: abdomen, pelvis Comments CT abdomen pelvis viewed by me and report reviewed. See report below: NAME: KAREN RENTERIA I [facility] REC#: [id number] PT STATUS: REG ER : 1960 PHYSICIAN: JOLENE GOTTLIEB MD ADMIT DATE: 04/28/22/ER Signed Date of Exam:04/28/22 CT CHEST/ABDOMEN/PELVIS W PROCEDURE: CT chest, abdomen, and pelvis with contrast. TECHNIQUE: Multiple contiguous axial images were obtained through the chest, abdomen, and pelvis after the administration of intravenous contrast. Auto Exposure Controls were utilized during the CT exam to meet ALARA standards for radiation dose reduction. INDICATION: Black stools, cirrhosis. COMPARISON: Exam compared with CT angio chest dated 03/16/[address] performed in 2020. FINDINGS: CHEST: There is minute left and small right pleural effusions which showed no evidence for their loculation. There are persistent relatively symmetric zones of dependent bilateral lower lobe consolidations favored to reflect atelectasis. No new pulmonary opacity. No axillary, hilar, or mediastinal lymphadenopathy. There are likely some paraesophageal and esophageal venous varicosities. No contrast extravasation. No chest wall pathology. The aorta is nonaneurysmal. ABDOMEN AND PELVIS: A cirrhotic morphology of the liver with large dilated recanalized periumbilical vein contiguous with the intrahepatic left portal vein present in keeping with cirrhosis and sequelae of portal venous hypertension. This is unchanged. There is mild stable splenomegaly. There is only trace pelvic ascites at follow-up, decreased in the interim. There is no hydroureteronephrosis. No splenic infarct or rupture. There is no evidence for a liver mass. The gallbladder and bile ducts are unremarkable. The pancreas is unremarkable. The adrenals are unremarkable. Perisplenic venous varicosities and collateral channels, chronic. There is no small or large bowel obstruction. There is no pneumatosis. There is no free air. There are no findings of focal or generalized small or large bowel wall inflammatory changes. There is no evidence for appendicitis or diverticulitis. No pneumatosis. No free gas. No loculated collection or abscess. No acute bony pathology. IMPRESSION: 1. Chest: Small pleural effusions, nonloculated, greater right. Likely esophageal varicosities, chronic. Bilateral lower lobe dependent zones of pulmonary consolidation, unchanged. Likely persistent atelectasis. No endobronchial filling defect. No lymphadenopathy. 2. Abdomen and pelvis: Hepatic cirrhosis and sequelae of portal venous hypertension redemonstrated and include a reduction in now trace ascites. No focal small or large bowel wall inflammatory changes. No contrast extravasation. No findings to localize a suspected source of hemorrhage. No arterial or venous obstruction. Vascular collaterals and varicosities, chronic. 3. No adenopathy or mass. No acute-appearing abdominopelvic abnormality. Dictated by: Dictated on workstation # [id number] Dict: 04/28/22 1719 Trans: 04/28/221801 [id number] [id number] Interpreted by: BASSEM SHAH Electronically signed by: BASSEM SHAH 04/28/221801 Departure Impression Primary Impression: Alcoholic cirrhosis of liver Qualified Codes: K70.31 - Alcoholic cirrhosis of liver with ascites Additional Impressions: Melena Nausea Abdominal pain Qualified Codes: R10.84 - Generalized abdominal pain Hyperbilirubinemia Disposition: 01 HOME, SELF-CARE Condition: Improved Departure-Patient Inst. Decision time for Depature: 18:25 Referrals: [facility] (PCP/Family) Primary Care Physician DESTINY HAMLIN TAKAAKI MD Patient Instructions: Alcohol Use Disorder ED, Bloody Stools, Adult ED, Cirrhosis Add. Discharge Instructions: Stop alcohol consumption completely. Seek support from [facility] and/or other resources such as alcoholics anonymous to help maintain your sobriety. Start with a noncarbonated clear liquid diet and gradually advance your diet with small quantities of bland food as tolerated. Use the Zofran (ondansetron) as prescribed for nausea and vomiting. Use oxycodone as prescribed for moderate to severe pain. Please be advised this may cause constipation or drowsiness, and use with caution. Follow-up with your primary care provider soon as possible. Please call tomorrow morning for an appointment. Please also follow-up with Dr. Willis (surgeon) as soon as possible. Please call in the morning to schedule a follow-up appointment. Continue your medications as prescribed. Return to the ER if you have worsening symptoms despite following these instructions. Call your doctor with questions or concerns. All discharge instructions reviewed with patient and/or family. Voiced understanding. Scripts Oxycodone HCl (Oxycodone HCl) 5 Mg Tablet 5 MG PO Q6H PRN for PAIN-MODERATE (5-7), #10 TAB Prov: JOLENE GOTTLIEB MD 04/28/22 Sucralfate (Carafate) 1 Gram Tablet 1 GM PO QID, #120 TAB Dissolve or crush. Mix into 5-10 mL water to create slurry. Take 30 minutes before meals and bedtime. Prov: JOLENE GOTTLIEB MD 04/28/22 Ondansetron (Ondansetron Odt) 4 Mg Tab.rapdis 4 MG SL Q4H PRN for NAUSEA/VOMITING, #10 TAB Prov: JOLENE GOTTLIEB MD 04/28/22 Omeprazole (Omeprazole) 20 Mg Capsule. 20 MG PO BID, #60 CAP Prov: JOLENE GOTTLIEB MD 04/28/22 Copy Copies To 1: DESTINY HAMLIN V DO Copies To 2: MARCI WILLIS MD, JOSHUA T MD Apr 28, 2022 18:07
[2022-04-28] MEDS ORDERED: SUCR1TAB36 PO (18:28)
[2022-04-28] MEDS ORDERED: OMEP20CA18 PO (18:28)
[2022-04-28] MEDS ORDERED: ONDA4TAB11 SL (18:28)
[2022-04-28] MEDS ORDERED: OXYC5TAB PO (18:28)
[2022-04-28] MEDS ORDERED: ONDANSETRON 4 MG/2 ML (SDV) Z0FRAN IVP ONE (18:30)
[2022-04-28 18:41] VITALS: BP 125/76
== END 2022-04-28 18:48 | disposition home or self-care (01) ==
LOC: EDUNIT# 15:23 → ER 15:24
DX: K70.30 Alcoholic cirrhosis of liver without ascites (principal); F17.210 Nicotine dependence, cigarettes, uncomplicated
CPT/HCPCS: 71260; 74177; 80053; 81000; 82274; 83690; 84145; 85025; 85610; 86141; 96374; 96375; 99284; G0480; 36415; 80320

== ENCOUNTER → 2022-05-02 | Outpatient (CLI) | payer MEDICARE ==
[~2022-05-02] VITALS: Ht 170.2 cm; Wt 60.7 kg
[~2022-05-02] MED LIST changes: +OMEP20CA18 PO; +ONDA4TAB11 SL; +SUCR1TAB36 PO
== END ==
LOC: PREOP 05:29
PROVIDERS: ATTEND Surgery
DX: Z01.818 Encounter for other preprocedural examination (principal); K21.9 Gastro-esophageal reflux disease without esophagitis

== ENCOUNTER 2022-05-07 10:36 | Day surgery (SDC) | payer MEDICARE ==
[~2022-05-07] VITALS: Ht 170 cm; Wt 60.7 kg
[2022-05-07] MEDS ORDERED: ONDANSETRON 4 MG (ZOFRAN) ORAL DISSOLVE TAB PO PRN (10:45)
[2022-05-07] MEDS ORDERED: ONDANSETRON 4 MG/2 ML (SDV) Z0FRAN IVP PRN (10:45)
--- NOTE | 2022-05-07 10:45 | Progress Note-Pre Operative ---
Pre-Operative Progress Note H&P Reviewed The H&P was reviewed, patient examined and no changes noted. Date Seen by Provider: May 07, 2022 Time Seen by Provider: 10: Date H&P Reviewed: May 07, 2022 Time H&P Reviewed: :30 Pre-Operative Diagnosis: GERD, liver cirrhosis MARCI GALLOWAY MD May 07, 2022 10:45
--- NOTE | 2022-05-07 10:46 | Discharge Inst-Surgical ---
D/C Lap Instructions-NILESH Follow Up Activity as tolerated High Fiber Diet 25g or more per day Avoid Alcohol, Caffeine, Spicy [place] and Acid foods. Drink 64 fluid oz or more of fluids per day. Symptoms to Report: Fever over 101 degree F, Nausea/Vomiting If any problems/questions: Contact your physician or go to Emergency Room MARCI GALLOWAY MD May 07, 2022 10:46
[2022-05-07] MEDS ORDERED: LACTATED RINGERS 1,000 ML IV STA (10:49)
[2022-05-07 11:00] VITALS: BP 102/61
[2022-05-07] MEDS ORDERED: HURRICAINE EXT TUBE (BENZOCAINE) XX PRN (11:00)
[2022-05-07] MEDS ORDERED: LIDOCAINE JELLY 2% 6 ML SYRINGE MM PRN (11:00)
[2022-05-07 11:57] LABS: AMPHETAMINE SCREEN, URINE NEGATIVE (NEGATIVE); BARBITURATE SCREEN URINE NEGATIVE (NEGATIVE); BENZODIAZEPINES SCREEN URINE NEGATIVE (NEGATIVE); CANNABINOID SCREEN, URINE POSITIVE (NEGATIVE); COCAINE SCREEN URINE NEGATIVE (NEGATIVE); METHADONE STAT NEGATIVE (NEGATIVE); OPIATE SCREEN URINE POSITIVE (NEGATIVE); OXYCODONE STAT NEGATIVE (NEGATIVE); PROPOXYPHENE STAT NEGATIVE (NEGATIVE); TRICYCLIC ANTIDEPRESSANTS SCRE NEGATIVE (NEGATIVE)
[2022-05-07] MEDS ORDERED: proPOfol 200 MG/20 ML (DIPRIVAN) VIAL IV ONE (12:25)
[2022-05-07] MEDS ORDERED: MIDAZOLAM 2 MG/2 ML (VERSED) VIAL ONE (12:25)
[2022-05-07] MEDS ORDERED: KETAMINE 50 MG/5 ML SYRINGE ONE (12:25)
[2022-05-07 13:05] VITALS: BP 92/51
[2022-05-07 13:11] VITALS: BP 95/54
--- NOTE | 2022-05-07 13:18 | Progress Note-Post Operative ---
Post-Operative Progess Note Surgeon (s)/Pediatric Hospitalist (s) Surgeon MARCI GALLOWAY MD Pediatric Hospitalist: none Pre-Operative Diagnosis GERD, liver cirrhosis Post-Operative Diagnosis reflux esophagitis(grade C), esophageal varices(grade 2), moderated HH(2.5cm), severe gastritis. Procedure & Operative Findings Date of Procedure 05/07/22 Procedure Performed/Findings EGD with bx. Anesthesia Type mac Estimated Blood Loss Estimated blood loss (mL): minimal Specimens/Packing Specimens Removed ge jxn, antrum MARCI GALLOWAY MD May 07, 2022 13:18
[2022-05-07 13:50] VITALS: BP 108/60
--- NOTE | 2022-05-07 14:24 | Anesthesia-General Post-Op ---
MAC Patient Condition Mental Status/LOC: Same as Preop Cardiovascular: Satisfactory Nausea/Vomiting: Absent Respiratory: Satisfactory Pain: Controlled Complications: Absent Post Op Complications Complications None Follow Up Care/Instructions Patient Instructions None needed. Anesthesiology Discharge Order Discharge Order Patient is doing well, no complaints, stable vital signs, no apparent adverse anesthesia problems. No complications reported per nursing. VICTOR MANUEL SANTO CRNA May 07, 2022 14:24
--- NOTE | 2022-05-07 23:13 | OPERATIVE REPORT ---
DATE OF SERVICE: 05/07/2022 ATTENDING PRIMARY CARE: [facility]. PREOPERATIVE DIAGNOSES: Nausea, gastroesophageal reflux disease, dark tarry stools, history of liver cirrhosis. POSTOPERATIVE DIAGNOSES: Reflux esophagitis, [place] grade C, grade II esophageal varices, no active bleeding, moderate size hiatal hernia 2.5 cm in size, severe gastritis. No active bleeding. PROCEDURE: EGD with biopsy. SURGEON: Marci Galloway MD. ANESTHESIA: Monitored anesthesia care. ESTIMATED BLOOD LOSS: Minimal. FINDINGS: Reflux esophagitis, [place] grade C, grade II esophageal varices, no active bleeding, moderate size hiatal hernia 2.5 cm in size, severe gastritis. No active bleeding. DISPOSITION: The patient tolerated the procedure well. INDICATIONS: The patient is a 61-year-old male, whom we have seen before for symptomatic pleural effusions. He does have a history of gastroesophageal reflux disease; however, has developed nausea and dry heaves as well as weight loss and has also noticed dark tarry stools. He does have a history of liver cirrhosis secondary to alcohol and does continue to drink alcohol and smokes cigarettes daily. He did undergo a CT scan in the emergency room, which did show esophageal varices as well as liver cirrhosis. DESCRIPTION OF PROCEDURE: The patient was brought to the endoscopy suite, laid in left lateral decubitus position. After adequate IV pain and sedative medications and monitored anesthesia care, the mouthpiece was applied. The endoscope was placed in the mouth, visualizing the pharynx and hypopharyngeal region. Vocal cords, epiglottis and vallecula identified and appeared to be normal. The endoscope was then gently intubated the esophageal opening and esophagus insufflated. The endoscope was then advanced to the first, second and third portion of esophagus at the level of the GE junction, a reflux esophagitis, [place] grade C identified. There was also grade II esophageal varices identified with no active bleeding. A biopsy was taken of the GE junction with forceps with visualization of good hemostasis. The endoscope was advanced in the stomach and endoscope retroflexed, visualizing a moderate size hiatal hernia approximately 2.5 cm in size. There was a severe gastritis, which was diffuse throughout the stomach. There were no formal ulcerations, polyps or any neoplasms as well as no active bleeding sources. A biopsy of second portion of the duodenum, which appeared normal with no distal obstructions or any active bleeding sources. The endoscope was slowly withdrawn while taking a second look of suction of residual air with no additional findings. The patient tolerated the procedure well. We will recommend the necessary lifestyle and dietary accommodation. He is currently on omeprazole 20 mg b.i.d. We will have him take two of those at one time during the day and a 40 mg tablet at another time during the day. We will also recommend continuation of Carafate q.i.d. for a total of 2 weeks. His gastritis is due to alcohol consumption as well as smoking and he does need to stop these to rectify the condition of the gastritis and the nausea as well as potential for worsening of esophageal varices and bleeding from either the varices or gastritis or ulcer formation. Job ID: [id number] DocumentID: [id number] Dictated Date: 05/07/2022 13:12:49 Senior [employer]st Date: 05/07/2022 23:12:37 Dictated By: MARCI GALLOWAY MD
== END 2022-05-07 14:04 | disposition home or self-care (01) ==
LOC: ENDO 10:36
PROVIDERS: ATTEND Surgery
DX: K21.01 Gastro-esophageal reflux disease with esophagitis, with bleeding (principal); K29.21 Alcoholic gastritis with bleeding; I85.01 Esophageal varices with bleeding; K44.9 Diaphragmatic hernia without obstruction or gangrene; K70.31 Alcoholic cirrhosis of liver with ascites; K31.9 Disease of stomach and duodenum, unspecified; K76.6 Portal hypertension; C82.90 Follicular lymphoma, unspecified, unspecified site; F17.210 Nicotine dependence, cigarettes, uncomplicated; F10.20 Alcohol dependence, uncomplicated; Z79.899 Other long term (current) drug therapy
CPT/HCPCS: 80306; 88305

== ENCOUNTER 2022-06-14 11:48 | Emergency (ER) | payer MEDICARE ==
[2022-06-14] MEDS ORDERED: morphine INJ 10 MG/ML 1ML (SYR OR VIAL) IVP STA ×2 (13:07→14:40)
[2022-06-14 13:10] LABS: BASOPHILS % (AUTO) 1 % (0-10); HEMOGLOBIN 8.5 g/dL (13.3-17.7); WHITE BLOOD COUNT 6.7 10^3/uL (4.3-11.0)
[2022-06-14 13:12] LABS: EOSINOPHILS % (AUTO) 1 % (0-10); HEMATOCRIT 25 % (40-54); LYMPHOCYTES # (AUTO) 0.6 10^3/uL (1.0-4.0); LYMPHOCYTES % (AUTO) 9 % (12-44); MEAN CORPUSCULAR HEMOGLOBIN 38 pg (25-34); MEAN CORPUSCULAR HGB CONC 34 g/dL (32-36); MEAN CORPUSCULAR VOLUME 112 fL (80-99); MEAN PLATELET VOLUME 9.2 fL (9.0-12.2); MONOCYTES % (AUTO) 15 % (0-12); NEUTROPHILS % (AUTO) 75 % (42-75); PLATELET COUNT 152 10^3/uL (130-400)
[2022-06-14 13:13] LABS: ALBUMIN 2.6 GM/DL (3.2-4.5)
[2022-06-14 13:14] LABS: POTASSIUM 4.1 MMOL/L (3.6-5.0)
[2022-06-14 13:15] LABS: CALCIUM 8.2 MG/DL (8.5-10.1)
[2022-06-14 13:16] LABS: TOTAL PROTEIN 6.4 GM/DL (6.4-8.2)
[2022-06-14 13:18] LABS: BILIRUBIN,TOTAL 8.6 MG/DL (0.1-1.0)
[2022-06-14 13:20] LABS: CREATININE SERUM 0.72 MG/DL (0.60-1.30)
[2022-06-14 13:23] LABS: MAGNESIUM 1.7 MG/DL (1.6-2.4)
--- NOTE | 2022-06-14 14:00 | Diagnostic Imaging Report ---
EXAMINATION: CT head without contrast. TECHNIQUE: Multiple contiguous axial images were obtained through the brain without the use of intravenous contrast. All CT scans use one or more of the following dose optimizing techniques: automated exposure control, MA and/or KvP adjustment based on patient size and exam type or iterative reconstruction. HISTORY: Severe headache. History of cancer. History of cirrhosis. COMPARISON: None available. FINDINGS: No large acute territorial ischemia, mass, or hemorrhage. No midline shift or mass effect. The ventricles, cortical sulci, and basilar cisterns are patent and unremarkable. The orbits are normal. Paranasal sinuses are normal. Mastoid air cells are clear. No soft tissue abnormality is seen. No osseus lesions or fractures are seen. IMPRESSION: 1. No large acute territorial ischemia, mass, or hemorrhage. Dictated by: Dictated on workstation # [id number]
[2022-06-14] MEDS ORDERED: NS IV 500 ML 500 ML IV ONE (14:15)
[2022-06-14] MEDS ORDERED: OXYC5TAB PO (14:46)
--- NOTE | 2022-06-14 14:47 | ED General ---
General Chief Complaint: General Problems/Pain Stated Complaint: HEADACHE KNOT ON LEFT LEG Source of Information: Patient Exam Limitations: No Limitations History of Present Illness Date Seen by Provider: Jun 14, 2022 Time Seen by Provider: 13:04 Allergies and Home Medications Allergies Coded Allergies: No Known Drug Allergies (Unverified , 06/06/21) Patient Home Medication List Furosemide (Furosemide) 40 Mg Tablet, 40 MG PO BID, (Reported) Entered as Reported by: ERLINDA DUQUE on 03/17/22 1551 Lidocaine (Lidocaine 5% Patch) 1 Each Adh..patch, 1 PATCH TD DAILY, (Reported) Entered as Reported by: DESTINY COOMBS on 12/26/21 0949 Omeprazole (Omeprazole) 20 Mg Capsule.dr, 20 MG PO BID Prescribed by: JOLENE SOTELO on 04/28/221827 Ondansetron (Ondansetron Odt) 4 Mg Tab.rapdis, 4 MG SL Q4H PRN for CINDY SEA/VOMITING Prescribed by: JOLENE SOTELO on 04/28/221827 Oxycodone HCl (Oxycodone HCl) 5 Mg Tablet, 5 MG PO Q6H PRN for PAIN-MODERATE (5- 7) Prescribed by: JOLENE SOTELO on 04/28/221828 Sucralfate (Carafate) 1 Gram Tablet, 1 GM PO QID Prescribed by: JOLENE SOTELO on 04/28/221827 Past Kqubdor-Cthwpq-Pvowlz Hx Patient Social History Tobacco Use?: Yes Tobacco type used: Cigarettes Smoking Status: Current Everyday Smoker Substance use?: Yes Substance type: Marijuana Substance frequency: Rarely Alcohol Use?: No Pt feels they are or have been: No Immunizations Up To Date First/Initial COVID19 Vaccinat: APRIL 2021 Second COVID19 Vaccination Eric: APRIL 2021 Third COVID19 Vaccination Date: APRIL 2021 Seasonal Allergies Seasonal Allergies: No Past Medical History Surgery/Hospitalization HX: LYMPHOMA, COPD, ALCOHOLIC Surgeries: Yes (thyroid growth removed, cancerous tumor from L neck, thoracentesis) Abdominal, Thyroidectomy Respiratory: Yes (Chronic pleural effusion O2-5L/NC) COPD Cardiac: No Neurological: No Genitourinary: No Gastrointestinal: Yes (ASCITES) Esophageal Varices, Cirrhosis Musculoskeletal: No Endocrine: No HEENT: No Cancer: Yes (folicular [id number]) Lymphoma Did You Recieve Any Treatments: Yes What Type of Treatment Did You: Radiation, Surgical Intervention Psychosocial: Yes (Alcoholism) Integumentary: No Physical Exam Vital Signs Capillary Refill : Height, Weight, BMI Height: '" Weight: lbs. oz. kg; 21.00 BMI Method: Progress/Results/Core Measures Suspected Sepsis SIRS Temperature: Pulse: Respiratory Rate: Laboratory Tests 06/14/22 12:56: White Blood Count 6.7 Blood Pressure / Mean: Laboratory Tests 06/14/22 12:56: Creatinine 0.72, Platelet Count 152, Total Bilirubin 8.6H Results/Orders Lab Results Laboratory Tests Test 06/14/22 12:56 Range/Units White Blood Count 6.7 4.3-11.0 10^3/uL Red Blood Count 2.23 L 4.30-5.52 10^6/uL Hemoglobin 8.5 L 13.3-17.7 g/dL Hematocrit 25 L 40-54 % Mean Corpuscular Volume 112 H 80-99 fL Mean Corpuscular Hemoglobin 38 H 25-34 pg Mean Corpuscular Hemoglobin Concent 34 32-36 g/dL Red Cell Distribution Width 16.7 H 10.0-14.5 % Platelet Count 152 130-400 10^3/uL Mean Platelet Volume 9.2 9.0-12.2 fL Immature Granulocyte % (Auto) 1 % Neutrophils (%) (Auto) 75 42-75 % Lymphocytes (%) (Auto) 9 L 12-44 % Monocytes (%) (Auto) 15 H 0-12 % Eosinophils (%) (Auto) 1 0-10 % Basophils (%) (Auto) 1 0-10 % Neutrophils # (Auto) 5.0 1.8-7.8 10^3/uL Lymphocytes # (Auto) 0.6 L 1.0-4.0 10^3/uL Monocytes # (Auto) 1.0 0.0-1.0 10^3/uL Eosinophils # (Auto) 0.0 0.0-0.3 10^3/uL Basophils # (Auto) 0.0 0.0-0.1 10^3/uL Immature Granulocyte # (Auto) 0.1 0.0-0.1 10^3/uL Percent Immature Platelet Fraction 0.9 0.0-7.6 % Sodium Level 125 *L 135-145 MMOL/L Potassium Level 4.1 3.6-5.0 MMOL/L Chloride Level 94 L 98-107 MMOL/L Carbon Dioxide Level 21 21-32 MMOL/L Anion Gap 10 5-14 MMOL/L Blood Urea Nitrogen 10 7-18 MG/DL Creatinine 0.72 0.60-1.30 MG/DL Estimat Glomerular Filtration Rate 105 BUN/Creatinine Ratio 14 Glucose Level 114 H 70-105 MG/DL Calcium Level 8.2 L 8.5-10.1 MG/DL Corrected Calcium 9.3 8.5-10.1 MG/DL Magnesium Level 1.7 1.6-2.4 MG/DL Total Bilirubin 8.6 H 0.1-1.0 MG/DL Aspartate Amino Transf (AST/SGOT) 45 H 5-34 U/L Alanine Aminotransferase (ALT/SGPT) 18 0-55 U/L Alkaline Phosphatase 214 H 40-136 U/L Total Protein 6.4 6.4-8.2 GM/DL Albumin 2.6 L 3.2-4.5 GM/DL My Orders Orders - JOLENE GOTLTIEB MD Ed Iv/Invasive Line Start (06/14/22 13:04) Cbc With Automated Diff (06/14/22 13:04) Comprehensive Metabolic Panel (06/14/22 13:04) Magnesium (06/14/22 13:04) Morphine Injection (Morphine Injection (06/14/22 13:07) Ct Head Wo (06/14/22 13:16) Ns Iv 500 Ml (Sodium Chloride 0.9%) (06/14/22 14:15) Morphine Injection (Morphine Injection (06/14/22 14:40) Medications Given in ED Current Medications Medications Dose Ordered Sig/Aldo Route Start Time Stop Time Status Last Admin Dose Admin Sodium Chloride 500 ml @ 0 mls/hr Q0M ONCE IV 06/14/22 14:15 06/14/22 14:16 DC 06/14/22 14:36 500 MLS/HR Vital Signs/I&O Capillary Refill : Departure Impression Primary Impression: Hyponatremia Additional Impressions: Headache Qualified Codes: R51.9 - Headache, unspecified Edema Qualified Codes: R60.9 - Edema, unspecified Disposition: 01 HOME, SELF-CARE Condition: Improved Departure-Patient Inst. Decision time for Depature: 14:42 Referrals: NO,LOCAL PHYSICIAN (PCP/Family) Primary Care Physician Patient Instructions: Swelling, Hyponatremia Add. Discharge Instructions: Your headache may be in part related to low sodium. You may lightly salt your food to help with this issue. Hopefully, correcting the low sodium salt (hyponatremia) will improve your headache. You may continue taking oxycodone as previously prescribed. Follow-up with your primary care provider for management of chronic pain. You are being prescribed a short-term supply of medication to help hold you over until follow-up with your doctor. You may lightly wrap your feet and lower legs with Pedro bandage to help with the edema during the day. Remove the Pedro bandages when you are lying down at night. Do not wear them for more than 12 hours each day. Additionally, you may add an additional half tablet of Lasix (furosemide) with your morning diuretics. Your total furosemide dosing would then be 60 mg in the morning and 40 mg in the evening. You may increase this dosage short-term until you are able to follow-up with your primary care provider. Do not continue this increased dosing for more than 1 week without discussion with your primary care doctor. Please follow-up with your primary care office within the next week. All discharge instructions reviewed with patient and/or family. Voiced understanding. Scripts Oxycodone HCl (Oxycodone HCl) 5 Mg Tablet 5 MG PO Q4H PRN for PAIN-MODERATE (5-7), #10 TAB Prov: JOLENE GOTTLIEB MD 06/14/22 JOLENE GOTTLIEB MD Jun 14, 2022 14:47
[2022-06-14 15:14] VITALS: BP 110/60
[2022-06-19] MEDS ORDERED: PANT40TA52 PO (12:05)
[2022-06-19] MEDS ORDERED: MULT-1137 PO (12:05)
[2022-06-19] MEDS ORDERED: SUCR1TAB PO (12:05)
[2022-06-19] MEDS ORDERED: SPIR100T4 PO (12:05)
[2022-06-19] MEDS ORDERED: OXYC5TAB PO (12:05)
[2022-06-19] MEDS ORDERED: NYST1000 PO (12:05)
[2022-06-19] MEDS ORDERED: FURO40TA4 PO (12:05)
== END 2022-06-14 15:15 | disposition home or self-care (01) ==
LOC: EDUNIT# 11:48 → ER 11:50
DX: R51.9 Headache, unspecified (principal); R60.0 Localized edema; E87.1 Hypo-osmolality and hyponatremia; F17.210 Nicotine dependence, cigarettes, uncomplicated
CPT/HCPCS: 36415; 70450; 80053; 83735; 85025

== ENCOUNTER 2022-06-16 07:46 | Observation (INO) | payer MEDICARE ==
[~2022-06-16] VITALS: Ht 170.1 cm; Wt 63.5 kg
--- NOTE | 2022-06-16 08:23 | ED Headache ---
General Chief Complaint: Head/Cervical Problems Stated Complaint: HEADACHE - BACK PAIN Source: patient Exam Limitations: no limitations History of Present Illness Date Seen by Provider: Jun 16, 2022 Time Seen by Provider: 08:05 Initial Comments 61-year-old male with cirrhosis presents to the emergency department today for headache. Seen on Thursday for the same. He describes his headache as dull throbbing and diffuse throughout his head. It is worse when he leans forward or bends over. It has been constant since Thursday. He has oxycodone at home which has not helped his symptoms. He also endorses some confusion that started this morning stating "I am not thinking straight." He tells me he has been forgetting things this morning and was having difficulty figuring out what he wants to say. He is no longer drinking, tells me he has been sober for 4 months. He denies any fevers or chills. No nausea or vomiting. No chest pain no shortness of breath or abdominal pain. He does describe some "kidney pain." He states he has pain in bilateral flank region for the last couple of days. No dysuria, hematuria. No changes in his stools. Does have a history of lymphoma which is in remission per his report. Allergies and Home Medications Allergies Coded Allergies: No Known Drug Allergies (Unverified , 06/06/21) Patient Home Medication List Home Medication List Reviewed: Yes Furosemide (Furosemide) 40 Mg Tablet, 40 MG PO DAILY Prescribed by: RODRI MAGAÑA on 06/19/22 1205 Lidocaine (Lidocaine 5% Patch) 5 % Adh..patch, 1 PATCH TD DAILY PRN for PAIN- BREAKTHROUGH, (Reported) Entered as Reported by: DESTINY COOMBS on 12/26/21 0949 Last Action: Reviewed Multivitamin/Iron/Folic Acid (Tab-A-Angela Multivit with Iron) 18 Mg Iron-400 Mcg Tablet, 1 EA PO DAILY@0700 Prescribed by: RODRI MAGAÑA on 06/19/22 1205 Nystatin (Nystatin) 100,000 Unit/Ml Oral.susp, 5 ML PO Q6HR Prescribed by: RODRI MAGAÑA on 06/19/22 1205 Oxycodone HCl (Oxycodone HCl) 5 Mg Tablet, 5 MG PO Q4H PRN for PAIN-SEVERE (8- 10) Prescribed by: RODRI MAGAÑA on 06/19/22 120 Pantoprazole Sodium (Pantoprazole Sodium) 40 Mg Tablet.dr, 40 MG PO BID Prescribed by: RODRI MAGAÑA on 06/19/22 120 Spironolactone (Spironolactone) 100 Mg Tablet, 100 MG PO DAILY Prescribed by: RODRI MAGAÑA on 06/19/22 120 Sucralfate (Sucralfate) 1 Gram Tablet, 1 GM PO WM Prescribed by: RODRI MAGAÑA on 06/19/22 120 Discontinued Medications Omeprazole (Omeprazole) 20 Mg Capsule.dr, 20 MG PO BID Discontinued Reason: Duplicate Order Prescribed by: JOLENE SOTELO on 04/28/221827 Last Action: Discontinued Ondansetron (Ondansetron Odt) 4 Mg Tab.rapdis, 4 MG SL Q4H PRN for NAUSEA/VOMITING Discontinued Reason: Duplicate Order Prescribed by: JOLENE SOTELO on 04/28/221827 Last Action: Discontinued Oxycodone HCl (Oxycodone HCl) 5 Mg Tablet, 5 MG PO Q6H PRN for PAIN-MODERATE (5- 7) Discontinued Reason: Duplicate Order Prescribed by: JOLENE SOTELO on 04/28/221828 Last Action: Discontinued Oxycodone HCl (Oxycodone HCl) 5 Mg Tablet, 5 MG PO Q4H PRN for PAIN-MODERATE (5- 7) Discontinued Reason: Duplicate Order Prescribed by: JOLENE SOTELO on 06/14/22 1448 Last Action: Discontinued Sucralfate (Carafate) 1 Gram Tablet, 1 GM PO QID Discontinued Reason: Duplicate Order Prescribed by: JOLENE SOTELO on 04/28/221827 Last Action: Discontinued Review of Systems Review of Systems Constitutional: see HPI Eyes: No Symptoms Reported Ears, Nose, Mouth, Throat: no symptoms reported Respiratory: no symptoms reported Cardiovascular: no symptoms reported Gastrointestinal: no symptoms reported Genitourinary: other (Bilateral flank pain) Musculoskeletal: no symptoms reported Skin: no symptoms reported Psychiatric/Neurological: Headache Past Nvrhybo-Xfxqru-Vadrem Hx Patient Social History Tobacco Use?: No Use of E-Cig and/or Vaping dev: No Substance use?: No Alcohol Use?: Yes Immunizations Up To Date First/Initial COVID19 Vaccinat: APRIL 2021 Second COVID19 Vaccination Eric: APRIL 2021 Third COVID19 Vaccination Date: APRIL 2021 Seasonal Allergies Seasonal Allergies: No Past Medical History Surgery/Hospitalization HX: LYMPHOMA, COPD, ALCOHOLIC Surgeries: Yes (thyroid growth removed, cancerous tumor from L neck, thoracentesis) Abdominal, Thyroidectomy Respiratory: Yes (Chronic pleural effusion O2-5L/NC) COPD Cardiac: No Neurological: No Genitourinary: No Gastrointestinal: Yes (ASCITES) Esophageal Varices, Cirrhosis Musculoskeletal: No Endocrine: No HEENT: No Cancer: Yes (folicular [id number]) Lymphoma Did You Recieve Any Treatments: Yes What Type of Treatment Did You: Radiation, Surgical Intervention Psychosocial: Yes (Alcoholism) Integumentary: No Family Medical History Reviewed Nursing Family Hx No Pertinent Family Hx Physical Exam Vital Signs Vital Signs - First Documented 06/16/22 08:05 Temp 36.9 Pulse 103 Resp 20 B/P (MAP) 128/69 (88) Pulse Ox 96 O2 Delivery Nasal Cannula O2 Flow Rate 5.00 Capillary Refill : Height, Weight, BMI Height: '" Weight: lbs. oz. kg; 21.00 BMI Method: General Appearance: WD/WN, no apparent distress HEENT: PERRL/EOMI, normal ENT inspection, TMs normal, pharynx normal, other (Scleral icterus bilaterally) Neck: non-tender, full range of motion, supple, normal inspection Cardiovascular: regular rate, rhythm, no edema, no gallop, no JVD, no murmur Respiratory: chest non-tender, lungs clear, normal breath sounds, no respi ratory distress, no accessory muscle use Gastrointestinal: normal bowel sounds, non tender, soft, no pulsatile mass, hepatomegaly Back: normal inspection, no vertebral tenderness, other (Bilateral CVA tenderness.) Extremities: normal range of motion, non-tender, normal inspection, no pedal edema, no calf tenderness Psychiatric: alert, oriented x 3 Motor/Sensory: no motor deficit, no sensory deficit, no pronator drift Skin: normal color, warm/dry Lymphatic: no adenopathy Progress/Results/Core Measures Results/Orders Lab Results Laboratory Tests Test 06/16/22 08:22 06/16/22 08:25 06/16/22 08:33 06/16/22 08:34 Range/Units White Blood Count 5.3 4.3-11.0 10^3/uL Red Blood Count 2.22 L 4.30-5.52 10^6/uL Hemoglobin 8.5 L 13.3-17.7 g/dL Hematocrit 25 L 40-54 % Mean Corpuscular Volume 113 H 80-99 fL Mean Corpuscular Hemoglobin 38 H 25-34 pg Mean Corpuscular Hemoglobin Concent 34 32-36 g/dL Red Cell Distribution Width 16.3 H 10.0-14.5 % Platelet Count 147 130-400 10^3/uL Mean Platelet Volume 8.7 L 9.0-12.2 fL Immature Granulocyte % (Auto) 1 % Neutrophils (%) (Auto) 68 42-75 % Lymphocytes (%) (Auto) 15 12-44 % Monocytes (%) (Auto) 15 H 0-12 % Eosinophils (%) (Auto) 1 0-10 % Basophils (%) (Auto) 1 0-10 % Neutrophils # (Auto) 3.6 1.8-7.8 10^3/uL Lymphocytes # (Auto) 0.8 L 1.0-4.0 10^3/uL Monocytes # (Auto) 0.8 0.0-1.0 10^3/uL Eosinophils # (Auto) 0.0 0.0-0.3 10^3/uL Basophils # (Auto) 0.0 0.0-0.1 10^3/uL Immature Granulocyte # (Auto) 0.1 0.0-0.1 10^3/uL Percent Immature Platelet Fraction 0.8 0.0-7.6 % Prothrombin Time 17.7 H 12.2-14.7 SEC INR Comment 1.4 0.8-1.4 Sodium Level 125 *L 135-145 MMOL/L Potassium Level 3.9 3.6-5.0 MMOL/L Chloride Level 96 L 98-107 MMOL/L Carbon Dioxide Level 21 21-32 MMOL/L Anion Gap 8 5-14 MMOL/L Blood Urea Nitrogen 12 7-18 MG/DL Creatinine 0.74 0.60-1.30 MG/DL Estimat Glomerular Filtration Rate 104 BUN/Creatinine Ratio 16 Glucose Level 114 H 70-105 MG/DL Calcium Level 8.4 L 8.5-10.1 MG/DL Corrected Calcium 9.5 8.5-10.1 MG/DL Total Bilirubin 10.7 H 0.1-1.0 MG/DL Aspartate Amino Transf (AST/SGOT) 43 H 5-34 U/L Alanine Aminotransferase (ALT/SGPT) 17 0-55 U/L Alkaline Phosphatase 180 H 40-136 U/L Total Protein 6.4 6.4-8.2 GM/DL Albumin 2.6 L 3.2-4.5 GM/DL Urine Color YELLOW Urine Clarity CLEAR Urine pH 7.5 5-9 Urine Specific [place] 1.010 L 1.016-1.022 Urine Protein NEGATIVE NEGATIVE Urine Glucose (UA) NEGATIVE NEGATIVE Urine Ketones NEGATIVE NEGATIVE Urine Nitrite NEGATIVE NEGATIVE Urine Bilirubin 1+ H NEGATIVE Urine Urobilinogen >=8.0 < = 1.0 MG/DL Urine Leukocyte Esterase NEGATIVE NEGATIVE Urine RBC (Auto) NEGATIVE NEGATIVE Urine RBC NONE /HPF Urine WBC NONE /HPF Urine Squamous Epithelial Cells NONE /HPF Urine Crystals PRESENT H /LPF Urine Amorphous Sediment MOD FOSTER PHOSPHATE H /LPF Urine Bacteria NEGATIVE /HPF Urine Casts NONE /LPF Urine Mucus NEGATIVE /LPF Urine Culture Indicated NO SARS-CoV-2 RNA (RT-PCR) Not Detected Not Detecte Test 06/16/22 09:25 Range/Units Ammonia 39 H 11-32 UMOL/L My Orders Orders - SPENCER NOLAND DO Cbc With Automated Diff (06/16/22 08:16) Comprehensive Metabolic Panel (06/16/22 08:16) Protime With Inr (06/16/22 08:16) Ua Culture If Indicated (06/16/22 08:16) Covid 19 Inhouse Test (06/16/22 08:16) Diphenhydramine Injection (Benadryl Inje (06/16/22 08:30) Prochlorperazine Injection (Compazine In (06/16/22 08:30) Ammonia (06/16/22 08:32) Ketorolac Injection (Toradol Injection) (06/16/22 09:45) Lactated Ringers (Lr 1000 Ml Iv Solution (06/16/22 10:30) Ed Admission (Communication) (06/16/22 10:59) Medications Given in ED Vital Signs/I&O 06/16/22 08:05 Temp 36.9 Pulse 103 Resp 20 B/P (MAP) 128/69 (88) Pulse Ox 96 O2 Delivery Nasal Cannula O2 Flow Rate 5.00 Departure Communication (Admissions) Time/Spoke to Admitting Phy: 10:[address] Magaña. She states she will write acute orders. Request observation to the medical floor. Accepts admission Impression Primary Impression: Headache Qualified Codes: R51.9 - Headache, unspecified Additional Impression: Hyponatremia Disposition: ADMITTED INPATIENT Condition: Stable Admissions Decision to Admit Reason: Admit from ER (General) Decision to Admit/Date: Jun 16, 2022 Time/Decision to Admit Time: 10:50 Departure-Patient Inst. Referrals: NO,LOCAL PHYSICIAN (PCP/Family) Primary Care Physician Scripts Multivitamin/Iron/Folic Acid (Tab-A-Angela Multivit with Iron) 18 Mg Iron-400 Mcg Tablet 1 EA PO DAILY@0700, #30 TAB Prov: RODRI MAGAÑA DO 06/19/22 Nystatin (Nystatin) 100,000 Unit/Ml Oral.susp 5 ML PO Q6HR, #60 ML Prov: RODRI MAGAÑA DO 06/19/22 Spironolactone (Spironolactone) 100 Mg Tablet 100 MG PO DAILY, #30 TAB Prov: RODRI MAGAÑA DO 06/19/22 Oxycodone HCl (Oxycodone HCl) 5 Mg Tablet 5 MG PO Q4H PRN for PAIN-SEVERE (8-10), #10 TAB Prov: RODRI MAGAÑA DO 06/19/22 Sucralfate (Sucralfate) 1 Gram Tablet 1 GM PO WM, #120 TAB Prov: RODRI MAGAÑA DO 06/19/22 Pantoprazole Sodium (Pantoprazole Sodium) 40 Mg Tablet.dr 40 MG PO BID, #60 TAB Prov: RODRI MAGAÑA DO 06/19/22 Furosemide (Furosemide) 40 Mg Tablet 40 MG PO DAILY, #30 TAB Prov: RODRI MAGAÑA DO 06/19/22 SPENCER NOLAND DO Jun 16, 2022 08:23
[2022-06-16] MEDS ORDERED: diphenhydrAMINE 50 MG/ML INJ (BENADRYL) IVP ONE (08:30)
[2022-06-16] MEDS ORDERED: PROCHLORPERAZINE 10 MG/2ML INJ (COMPAZINE) IV ONE (08:30)
[2022-06-16 08:32] LABS: MEAN CORPUSCULAR VOLUME 113 fL (80-99)
[2022-06-16 08:33] LABS: BASOPHILS % (AUTO) 1 % (0-10); EOSINOPHILS % (AUTO) 1 % (0-10); HEMATOCRIT 25 % (40-54); HEMOGLOBIN 8.5 g/dL (13.3-17.7); LYMPHOCYTES # (AUTO) 0.8 10^3/uL (1.0-4.0); LYMPHOCYTES % (AUTO) 15 % (12-44); MEAN CORPUSCULAR HEMOGLOBIN 38 pg (25-34); MEAN CORPUSCULAR HGB CONC 34 g/dL (32-36); MEAN PLATELET VOLUME 8.7 fL (9.0-12.2); MONOCYTES # (AUTO) 0.8 10^3/uL (0.0-1.0); MONOCYTES % (AUTO) 15 % (0-12); NEUTROPHILS # (AUTO) 3.6 10^3/uL (1.8-7.8); NEUTROPHILS % (AUTO) 68 % (42-75); PLATELET COUNT 147 10^3/uL (130-400); WHITE BLOOD COUNT 5.3 10^3/uL (4.3-11.0)
[2022-06-16 08:38] LABS: CLARITY,URINE CLEAR; COLOR,URINE YELLOW; GLUCOSE, URINE (UA) NEGATIVE (NEGATIVE); KETONES,URINE NEGATIVE (NEGATIVE); LEUKOCYTE ESTERASE ,URINE NEGATIVE (NEGATIVE); NITRITE,URINE NEGATIVE (NEGATIVE); PH,URINE 7.5 (5-9); PROTEIN,URINE NEGATIVE (NEGATIVE)
[2022-06-16 08:40] LABS: ALBUMIN 2.6 GM/DL (3.2-4.5); POTASSIUM 3.9 MMOL/L (3.6-5.0)
[2022-06-16 08:41] LABS: CALCIUM 8.4 MG/DL (8.5-10.1)
[2022-06-16 08:42] LABS: INR 1.4 (0.8-1.4); PROTHROMBIN TIME PATIENT 17.7 SEC (12.2-14.7)
[2022-06-16 08:43] LABS: TOTAL PROTEIN 6.4 GM/DL (6.4-8.2)
[2022-06-16 08:44] LABS: BILIRUBIN,TOTAL 10.7 MG/DL (0.1-1.0)
[2022-06-16 08:46] LABS: CREATININE SERUM 0.74 MG/DL (0.60-1.30)
[2022-06-16 08:48] LABS: AMORPHOUS SEDIMENT,UR MOD AMOR PHOSPHATE /LPF; BACTERIA,URINE NEGATIVE /HPF; BILIRUBIN,URINE 1+ (NEGATIVE)
[2022-06-16] MEDS ORDERED: KETOROLAC 30 MG/ML VIAL IVP ONE (09:45)
[2022-06-16] MEDS: LACTATED RINGERS 1,000 ML IV SCH ×2 (10:56→13:26)
--- NOTE | 2022-06-16 11:23 | History & Physical-Hospitalist ---
History of Present Illness HPI/Chief Complaint CC: Weakness HPI: This is a [facility] patient former alcoholic no usage for 4 months who presents to the ER with weakness and confusion and found to have hyponatremia. Patient feels ok right now and is hungry. Reviewed home meds to evaluate the source of hyponatremia. Source: patient, family, RN/MD Exam Limitations: no limitations Date Seen 06/16/22 Time Seen by a Provider: 13:00 Attending Physician No,Local Physician PCP Admitting Physician: Attending Physician: Referring Physician Date of Admission Home Medications & Allergies Home Medications Reviewed patient Home Medication Reconciliation performed by pharmacy medication reconciliations desktop technician and/or nursing. Patients Allergies have been reviewed. Allergies Allergies Coded Allergies No Known Drug Allergies (Unverified06/06/21) Past Vtniyjg-Egvoqb-Nekoaj Hx Patient Social History Marrital Status: single Employed/Student: unemployed Tobacco Use?: No Tobacco type used: Cigarettes Smoking Status: Current Everyday Smoker Use of E-Cig and/or Vaping dev: No Substance use?: No Alcohol Use?: Yes Pt feels they are or have been: No Immunizations Up To Date First/Initial COVID19 Vaccinat: APRIL 2021 Second COVID19 Vaccination Eric: APRIL 2021 Tetanus Booster (TDap): More Than 5 Years Seasonal Allergies Seasonal Allergies: No Current Status Communicates: Verbally Primary Language: Estonian Preferred Spoken Language: Estonian Past Medical History Surgeries: Abdominal, Thyroidectomy COPD Esophageal Varices, Cirrhosis Lymphoma Did You Recieve Any Treatments: Yes What Type of Treatment Did You: Radiation, Surgical Intervention Cirrhois EtOH depenence and Abuse h/o Follicular Lymphoma Family Medical History Reviewed Nursing Family Hx No Pertinent Family Hx Review of Systems Constitutional: see HPI, malaise, weakness Psychiatric/Neurological: Weakness Physical Exam Physical Exam Vital Signs Vital Signs - First Documented 06/16/22 08:05 Temp 36.9 Pulse 103 Resp 20 B/P (MAP) 128/69 (88) Pulse Ox 96 O2 Delivery Nasal Cannula O2 Flow Rate 5.00 Capillary Refill : Less Than 3 Seconds Height, Weight, BMI Height: '" Weight: lbs. oz. kg; 21.00 BMI Method: General Appearance: Anxious, Chronically ill Eyes: Right Eye Normal Inspection, Right Eye PERRL HEENT: PERRL/EOMI, Normal ENT Inspection, Pharynx Normal, Moist Mucous Membranes Neck: Full Range of Motion, Normal Inspection, Non Tender Respiratory: Chest Non Tender, Lungs Clear, Normal Breath Sounds, No Accessory Muscle Use, No Respiratory Distress Cardiovascular: Regular Rate, Rhythm, No Edema, No Gallop, No JVD, No Murmur, Normal Peripheral Pulses Gastrointestinal: Normal Bowel Sounds, No Organomegaly, No Pulsatile Mass, Non Tender, Soft Back: Normal Inspection, No CVA Tenderness, No Vertebral Tenderness Extremity: Normal Capillary Refill, Normal Inspection, Normal Range of Motion, Non Tender, No Calf Tenderness, No Pedal Edema Neurologic/Psychiatric: Alert, Oriented x3, No Motor/Sensory Deficits, Normal Mood/Affect Skin: Normal Color, Warm/Dry Lymphatic: No Adenopathy Results Results/Procedures Labs Laboratory Tests 06/16/22 08:22 06/16/22 08:25 Patient resulted labs reviewed. Assessment/Plan Admission Diagnosis Assessment: Hyponatremia Weakness Former alcoholic Plan: Supportive care IVF Fluid restriction PO Salt tablets Admission Status: Observation Reason for Inpatient Admission: hyponatremia Clinical Quality Measures Smoking Cessation Counseling: Counseling-Symptomatic: 3-10 Minutes RODRI MAGAÑA DO Jun 16, 2022 11:23
[2022-06-16 12:52] VITALS: BP 108/53
[2022-06-16] MEDS ORDERED: MILK OF MAGNESIA 400 MG/5 ML 30 ML UDC PO PRN (13:15)
[2022-06-16] MEDS ORDERED: ENOXAPARIN 40 MG/0.4 ML (LOVENOX) SYR SC SCH (13:15)
[2022-06-16] MEDS ORDERED: polyethylene glycoL POWDER 17 GM (MIRALAX) PACK PO PRN (13:15)
[2022-06-16] MEDS ORDERED: diphenhydrAMINE 25 MG TAB (BENADRYL) PO PRN (13:15)
[2022-06-16] MEDS ORDERED: LACTULOSE SYRUP 10GM/15ML (ENULOSE) 30ML UDC PO PRN (13:15)
[2022-06-16] MEDS ORDERED: LORazepam 0.5 MG (ATIVAN) TABLET PO PRN (13:15)
[2022-06-16] MEDS ORDERED: MELATONIN 3 MG TABLET PO PRN (13:15)
[2022-06-16] MEDS ORDERED: NALOXONE 0.4 MG/ML 1 ML (NARCAN) VIAL IV PRN (13:15)
[2022-06-16] MEDS ORDERED: ONDANSETRON 4 MG (ZOFRAN) ORAL DISSOLVE TAB PO PRN (13:15)
[2022-06-16] MEDS ORDERED: diphenhydrAMINE 50 MG/ML INJ (BENADRYL) IVP PRN (13:15)
[2022-06-16] MEDS ORDERED: ANTACID SUSP 30 ML UDC (MYLANTA) PO PRN (13:15)
[2022-06-16] MEDS ORDERED: ACETAMINOPHEN 325 MG TABLET PO PRN (13:15)
[2022-06-16] MEDS ORDERED: BISACODYL 10 MG SUPP (DULCOLAX) PR PRN (13:15)
[2022-06-16] MEDS ORDERED: CALCIUM CARBONATE 500 MG (TUMS) TAB.CHEW PO PRN (13:15)
[2022-06-16] MEDS ORDERED: ONDANSETRON 4 MG/2 ML (SDV) Z0FRAN IV PRN (13:15)
[2022-06-16 13:44] VITALS: BP 108/53
[2022-06-16] MEDS ORDERED: RT-ALBUTEROL SULF 2.5 MG/3 ML PRE-MIX VIAL INH PRN (14:00)
--- NOTE | 2022-06-16 14:04 | Occupational Therapy Eval ---
OT Evaluation-General/PLF Medical Diagnosis Admission Date Jun 16, 2022 at 11:00 Medical Diagnosis: Hyponatremia Onset Date: Jun 16, 2022 Therapy Diagnosis Therapy Diagnosis: Impaired strength/endurance for functional ADLs/IADLs Precautions Precautions/Isolations: Fall Prevention, Standard Precautions Referral Physician: Dr. Landis Referral Reason: Evaluation/Treatment Medical History Pertinent Medical History: Alcoholism Additional Medical History Cirrhosis Current History Pt presented with a headache, found to have low sodium levels. Pt states that he was independent at home and wasn't using any DME at home. Reviewed History: Yes Social History Home: [facility] Current Living Status: Alone (Has a son nearby) Entry Into Home: Stairs Without Railing Steps Into Home: 3 Steps Inside Home: 0 ADL-Prior Level of Function SCALE: Activities may be completed with or without assistive devices. 1-Rwbuntbcwk-mddghaz completes the activity by him/herself with no assistance from a helper. 5-Set-up or Clean-up Assistance-helper sets up or cleans up; patient completes activity. [place] assists only prior to or following the activity. 4-Supervision or Touching Assistance-helper provides verbal cues and/or touching/steadying and/or contact guard assistance as patient completes activity. Assistance may be provided throughout the activity or intermittently. 3-Partial/Moderate Assistance-helper does LESS THAN HALF the effort. [place] lifts, holds or supports trunk or limbs, but provides less than half the effort. 2-Substantial/Maximal Assistance-helper does MORE THAN HALF the effort. [place] lifts or holds trunk or limbs and provides more than half the effort. 4-Ksgyiuang-ozyara does ALL the effort. Patient does none of the effort to complete the activity. Or, the assistance of 2 or more helpers is required for the patient to complete the activity. If activity was not attempted, code reason: 7-Patient Refused. 9-Not Applicable-not attempted and the patient did not perform the activity before the current illness, exacerbation or injury. 10-Not Attempted due to Environmental Limitations-(lack of equipment, weather restraints, etc.). 88-Not Attempted due to Medical Conditions or Safety Concerns. Self Care: Independent (Reported fatigue with IADLs) Functional Cognition: Independent DME/Equipment: Shower DME/Equipment Comments Has oxygen at home (normally at 5-6 L). Occupation: On disability Drive Self: Yes OT Current Status Subjective Pt eating upon OT arrival. He agrees to an OT evaluation. He complains of pain in his head, stating "my head feels like its going to pop off". Appearance Pt in bed upon completion, with nursing present. All needs within reach. 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 SBA to stand, however slightly unsteady with prolonged standing. Would benefit from walker at this time to increase balance and decrease fall risk. He complained of dizziness and increased heart rate with activity. His O2 levels ranged from 85%-91%. Cues for pursed lip breathing. HR between 103-110 BPM. Pt declines transferring to chair to finish meal and requests to return to bed. Education OT Patient Education: Energy conservation, Purpose of tx/functional activities, Rehab process, Safety issues Teaching Recipient: Patient Teaching Methods: Demonstration, Discussion Response to Teaching: Verbalize Understanding, Return Demonstration, Reinforcement Needed OT Senior Living Goals Epic Kaleidoscope Analyst Goals Time Frame: Jun 25, 2022 Eating (QC): 6 Oral Hygiene (QC): 6 Toileting Hygiene (QC): 6 Shower/Bathe Self (QC): 5 Upper Body Dressing (QC): 6 Lower Body Dressing (QC): 5 On/Off Footwear (QC): 6 Additional Goals: 1-Demonstrate ADL Tasks, 2-Verbalize Understanding, 3- ImproveStrength/Kris 1=Demonstrate adherence to instructed precautions during ADL tasks. 2=Patient will verbalize/demonstrate understanding of assistive devices/modifications for ADL. 3=Patient will improve strength/tolerance for activity to enable patient to perform ADL's. OT Education/Plan Problem List/Assessment Assessment: Decreased Activ Tolerance, Decreased Safety Aware, Decreased UE Strength, Impaired Funct Balance, Impaired I ADL's, Impaired Self-Care Skills Discharge Recommendations Plan/Recommendations: Continue POC Therapy Discharge Recommendati: Home & Family Equpiment Recommendations-D/C: Bath Chair Treatment Plan/Plan of Care Treatment,Training & Education: Yes Patient would benefit from OT for education, treatment and training to promote independence in ADL's, mobility, safety and/or upper extremity function for ADL's. Plan of Care: ADL Retraining, Functional Mobility, UE Funct Exercise/Act Treatment Duration: Jun 25, 2022 Frequency: 3 times per week (3-5x/week) Estimated Hrs Per Day: .25 hour per day Agreement: Yes Rehab Potential: Fair Time/GCodes Start Time: 13:43 Stop Time: 13:57 Total Time Billed (hr/min): 14 Billed Treatment Time 1 visit Antonia Malave OT Jun 16, 2022 14:04
--- NOTE | 2022-06-16 14:15 | Physical Therapy Progress Note ---
Therapy Progress Note Attempted to see patient for initial evaluation. He politely refuses reporting that he just finished with OT and his headache is much worse now. Nurse in the room. Will attempt PT eval again tomorrow and progress per patient tolerance. ELIU OLMSTEAD PT Jun 16, 2022 14:15
[2022-06-16] MEDS: NS IV 1000 ML 1,000 ML IV SCH (14:18)
[2022-06-16 15:21] VITALS: BP 99/50
[2022-06-16 19:06] VITALS: BP 115/52
[2022-06-16] MEDS: SENNOSIDES 8.6 MG (SENOKOT) TAB PO SCH (19:57)
[2022-06-16] MEDS: DOCUSATE SODIUM 100 MG (COLACE) CAP PO SCH (19:57)
[2022-06-16] MEDS: SODIUM CHLORIDE 1 GM TABLET PO SCH (20:41)
[2022-06-17] VITALS (9 sets, daily range): BP systolic 98–118; BP diastolic 53–61
[2022-06-17] MEDS: NS IV 1000 ML 1,000 ML IV SCH ×2 (03:19→14:15)
[2022-06-17] MEDS: LACTATED RINGERS 1,000 ML IV SCH ×2 (03:19→17:57)
[2022-06-17] MEDS: MULTIVIT W/MINERALS TAB (THERAGRAN M) PO SCH (05:51)
[2022-06-17 05:55] LABS: BASOPHILS % (AUTO) 1 % (0-10); MONOCYTES # (AUTO) 0.7 10^3/uL (0.0-1.0)
[2022-06-17 05:56] LABS: EOSINOPHILS # (AUTO) 0.1 10^3/uL (0.0-0.3); EOSINOPHILS % (AUTO) 1 % (0-10); LYMPHOCYTES # (AUTO) 0.9 10^3/uL (1.0-4.0); LYMPHOCYTES % (AUTO) 18 % (12-44); MEAN CORPUSCULAR HEMOGLOBIN 38 pg (25-34); MEAN CORPUSCULAR HGB CONC 33 g/dL (32-36); MEAN CORPUSCULAR VOLUME 115 fL (80-99); MONOCYTES % (AUTO) 14 % (0-12); NEUTROPHILS # (AUTO) 3.3 10^3/uL (1.8-7.8); NEUTROPHILS % (AUTO) 66 % (42-75); PLATELET COUNT 115 10^3/uL (130-400)
[2022-06-17 06:02] LABS: HEMATOCRIT 20 % (40-54); HEMOGLOBIN 6.6 g/dL (13.3-17.7)
[2022-06-17 06:14] LABS: ALBUMIN 2.1 GM/DL (3.2-4.5)
[2022-06-17 06:15] LABS: POTASSIUM 4.5 MMOL/L (3.6-5.0)
[2022-06-17 06:16] LABS: CALCIUM 7.8 MG/DL (8.5-10.1)
[2022-06-17 06:19] LABS: BILIRUBIN,TOTAL 7.1 MG/DL (0.1-1.0)
[2022-06-17 06:20] LABS: CREATININE SERUM 0.8 MG/DL (0.60-1.30)
[2022-06-17 06:56] LABS: RETICULOCYTE % 10.6 % (0.50-2.40)
[2022-06-17] MEDS: DOCUSATE SODIUM 100 MG (COLACE) CAP PO SCH ×2 (08:40→20:54)
[2022-06-17] MEDS: PANTOPRAZOLE 40 MG (PROTONIX) TAB PO SCH (08:41)
[2022-06-17] MEDS: SENNOSIDES 8.6 MG (SENOKOT) TAB PO SCH ×2 (08:41→20:54)
[2022-06-17] MEDS: SODIUM CHLORIDE 1 GM TABLET PO SCH ×2 (08:42→20:56)
[2022-06-17] MEDS ORDERED: NYSTATIN ORAL SUSP 5 ML UDC PO ONE (10:15)
--- NOTE | 2022-06-17 10:39 | Physical Therapy Evaluation ---
PT Evaluation-General Medical Diagnosis Admission Date Jun 16, 2022 at 11:00 Medical Diagnosis: Hyponatremia Onset Date: Jun 16, 2022 Therapy Diagnosis Therapy Diagnosis: debility/weakness Precautions Precautions/Isolations: Standard Precautions Referral Physician: Dr. Landis Reason for Referral: Evaluation/Treatment Medical History Pertinent Medical History: Alcoholism, COPD, Lymphoma Additional Medical History cirrhosis Current History ER secondary to STEVEN and back pain Reviewed History: Yes Social History Home: [facility] Current Living Status: Alone (Has a son nearby) Entry Into Home: Stairs Without Railing PT Steps Into Home: 3 PT Steps Inside Home: 0 Prior Prior Level of Function SCALE: Activities may be completed with or without assistive devices. 6-Airnvgvfjv-zxqnlyu completes the activity by him/herself with no assistance from a helper. 5-Set-up or Clean-up Assistance-helper sets up or cleans up; patient completes activity. [place] assists only prior to or following the activity. 4-Supervision or Touching Assistance-helper provides verbal cues and/or touching/steadying and/or contact guard assistance as patient completes activity. Assistance may be provided throughout the activity or intermittently. 3-Partial/Moderate Assistance-helper does LESS THAN HALF the effort. [place] lifts, holds or supports trunk or limbs, but provides less than half the effort. 2-Substantial/Maximal Assistance-helper does MORE THAN HALF the effort. [place] lifts or holds trunk or limbs and provides more than half the effort. 2-Jvscsdevc-pyhxyj does ALL the effort. Patient does none of the effort to complete the activity. Or, the assistance of 2 or more helpers is required for the patient to complete the activity. If activity was not attempted, code reason: 7-Patient Refused. 9-Not Applicable-not attempted and the patient did not perform the activity before the current illness, exacerbation or injury. 10-Not Attempted due to Environmental Limitations-(lack of equipment, weather restraints, etc.). 88-Not Attempted due to Medical Conditions or Safety Concerns. Bed Mobility: 6 Transfers (B,C,W/C): 6 Gait: 6 Stairs: 6 Indoor Mobility (Ambulation): Independent Stairs: Independent Prior Devices Use: Walker, Other-see list below Prior Device Use: cane PT Evaluation-Current Subjective Patient agrees to PT. Objective Patient Orientation: Normal For Age Attachments: Oxygen ROM/Strength ROM Lower Extremities bilateral LE WFL Strength Lower Extremities 4-/5 grossly bilateral LE all planes Integumentary/Posture Integumentary refer to nursing notes Bowel Incontinence: No Bladder Incontinence: No Posture WFL Neuromuscular (Tone, Coordination, Reflexes) grossly intact Sensory Vision: Functional Hearing: Functional Hand Dominance: Right Transfers Lying to Sitting/Side of Bed(Q: 6 Sit to Stand (QC): 4 Chair/Iir-or-Ofrvp Xfer(QC): 4 Gait Mode of Locomotion: Walk Anticipated Mode of Locomotion: Walk Walk 10 feet (QC): 4 Walk 50 ft with 2 Turns(QC): 4 Walk 150 ft (QC): 4 Distance: 200' Gait Assistive Device: FWW Comments/Gait Description slow, steady gait sequence Balance Sitting Static: Normal Sitting Dynamic: Normal Standing Static: Normal Standing Dynamic: Normal Assessment/Needs 61 y.o. male, will be seen short term by skilled PT to address functional strength and mobility to improve current LOF to safely return to home at maximum LOF. 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 Time Frame: Jun 28, 2022 Roll Left & Right (QC): 6 Sit to Lying (QC): 6 Lying-Sitting on Side/Bed(QC): 6 Sit to Stand (QC): 6 Chair/Nrd-sh-Kppya Xfer(QC): 6 Toilet Transfer (QC): 6 Walk 10 feet (QC): 6 Walk 50ft with 2 Turns (QC): 6 Walk 150 ft (QC): 6 PT Plan Problem List Problem List: Activity Tolerance, Functional Strength, Safety, Balance, Gait, Transfer Treatment/Plan Treatment Plan: Continue Plan of Care Treatment Plan: Education, Functional Activity Kris, Functional Strength, Gait, Safety, Therapeutic Exercise, Transfers Treatment Duration: Jun 28, 2022 Frequency: 6 times per week Estimated Hrs Per Day: .25 hour per day Patient and/or Family Agrees t: Yes Time/GCodes Time In: 935 Time Out: 947 Total Billed Treatment Time: 12 Total Billed Treatment 1 visit EVModC 12 min TAYLOR SEWELL PT Jun 17, 2022 10:39
--- NOTE | 2022-06-17 10:53 | Progress Note - Hospitalist ---
DAYAMI MEDRANO 06/17/22 1053: Subjective HPI/CC On Admission Date Seen by Provider: Jun 17, 2022 Time Seen by Provider: 10:48 CC: Weakness HPI: This is a [facility] patient former alcoholic no usage for 4 months who presents to the ER with weakness and confusion and found to have hyponatremia. Patient feels ok right now and is hungry. Reviewed home meds to evaluate the source of hyponatremia. Subjective/Events-last exam Sodium is improving, at 127 today. Still weak and complaining of some pain with cough. Per nurse, there are some white patches in the throat. Objective Exam Vital Signs Vital Signs Date Time Temp Pulse Resp B/P (MAP) Pulse Ox O2 Delivery O2 Flow Rate FiO2 06/17/22 11:25 37.0 97 18 108/55 (72) 90 Nasal Cannula 5.00 Capillary Refill : Less Than 3 Seconds General Appearance: Anxious, Chronically ill HEENT: PERRL/EOMI, Moist Mucous Membranes Neck: Non Tender, Supple Respiratory: Chest Non Tender, No Accessory Muscle Use, No Respiratory Distress Cardiovascular: No Edema, No JVD Gastrointestinal: Non Tender Rectal: Deferred Back: Other (Right lower back tenderness) Extremity: Non Tender, No Calf Tenderness Neurologic/Psychiatric: Alert, Normal Mood/Affect Skin: Normal Color, Warm/Dry Lymphatic: No Adenopathy Results/Procedures Lab Laboratory Tests 06/17/22 05:33 Patient resulted labs reviewed. Assessment/Plan Assessment and Plan Assess & Plan/Chief Complaint Assessment: Hyponatremia Weakness Former alcoholic Plan: Supportive care IVF Fluid restriction PO Diet: NPO Start Nystatin PO Will consult general surgery to see if patient requires further GI/Abdominal testing Clinical Quality Measures Smoking Cessation Counseling: Counseling-Symptomatic: 3-10 Minutes ANITA MAGAÑA DO 06/17/222036: Subjective Subjective/Events-last exam Sodium level 127 NS infusion Hemoccult ordered Transfusion Objective Exam General Appearance: No Apparent Distress, WD/WN, Chronically ill Respiratory: Lungs Clear, Normal Breath Sounds Cardiovascular: Regular Rate, Rhythm Neurologic/Psychiatric: Alert Assessment/Plan Assessment and Plan Assess & Plan/Chief Complaint Nystatin for thrush Dr Enrique consult Supervisory-Addendum Brief Verification & Attestation Participated in pt care: history, MDM, physical Personally performed: exam, history, MDM, supervision of care Care discussed with: Medical Student Procedures: n/a Results interpretation: Verified all documentation Verification and Attestation of Medical Student E/M Service A medical student performed and documented this service in my presence. I reviewed and verified all information documented by the medical student and made modifications to such information, when appropriate. I personally performed the physical exam and medical decision making. Anita Magaña, Jun 17, 2022,20:36 DAYAMI MEDRANO Jun 17, 2022 10:53 ANITA MAGAÑA DO Jun 17, 2022 20:37
[2022-06-17] MEDS ORDERED: NS IV 500 ML 500 ML ONE (11:29)
--- NOTE | 2022-06-17 11:30 | Occ Therapy Progress Note ---
Therapy Progress Note Pt refusing OT treatment this date secondary to severe headache pain and "already getting up and walking with PT." OT will attempt again at a later time if schedule allows. Antonia Barrios OT Jun 17, 2022 11:30
[2022-06-17] MEDS ORDERED: SPIR100T4 PO (12:46)
[2022-06-17] MEDS ORDERED: SUCR1TAB PO (12:46)
[2022-06-17] MEDS ORDERED: OXYC5TAB PO (12:46)
[2022-06-17] MEDS ORDERED: PANT40TA52 PO (12:46)
[2022-06-17] MEDS: NYSTATIN ORAL SUSP 5 ML UDC PO SCH ×3 (14:15→23:34)
--- NOTE | 2022-06-17 14:41 | Diagnostic Imaging Report ---
PROCEDURE: US Abdomen, limited. TECHNIQUE: Multiple realtime grayscale images were obtained over the abdomen in various projections. INDICATION: Cirrhosis. FINDINGS: Liver measures 14.2 cm. Portal vein is patent and shows normal direction of flow. The liver does have a nodular contour, suggestive of cirrhosis. The liver parenchyma is heterogeneous but no discrete liver mass is identified. There does appear to be recanalization of the umbilical vein. Gallbladder wall is thickened at 5 mm. No stones are identified. There is no biliary ductal dilatation. Pancreas was obscured. Aorta is nonaneurysmal. IVC is patent. Right kidney is without calculi or hydronephrosis. There is moderate ascites present. IMPRESSION: 1. Features suggestive of cirrhosis and portal hypertension with recanalization of the umbilical vein as well as moderate ascites. No discrete liver mass is detected. Gallbladder wall is thickened which can be seen with liver disease and ascites. No definite cholelithiasis is detected. Dictated by: Dictated on workstation # [id number]
--- NOTE | 2022-06-17 14:47 | Progress Note-Pre Operative ---
Pre-Operative Progress Note Date of Available H&P: Jun 17, 2022 Date H&P Reviewed: Jun 17, 2022 Time H&P Reviewed: 15:00 History & Physical: No changes noted Pre-Operative Diagnosis: anemia with hx PUD and liver cirrhosis MARCI GALLOWAY MD Jun 17, 2022 14:47
--- NOTE | 2022-06-17 15:19 | CONSULTATION REPORT ---
DATE OF SERVICE: ADMITTING PHYSICIAN: Dr. Anita Landis. HISTORY OF PRESENT ILLNESS: The patient is a 61-year-old male known to us. We had been seen him for symptomatic pleural effusions and underwent a thoracentesis. He was then admitted for nausea and vomiting as well as epigastric pain. He was also found to be anemic and had reported noticing darker stools. He also does report a history of constipation; however, he states that this is due to taking oxycodone twice a day. He has a longstanding history of alcohol abuse; however, states that he has not drunk any alcohol in the past 4 months. He also does have a history of COPD and a greater than 08-pjku-uiza smoking history. On that admission, a CT scan was performed, which showed bilateral pleural effusions as well as esophageal varices and liver cirrhosis. On that admission, we had proceeded with an EGD where he was found to have a reflux esophagitis, [place] grade C, grade II esophageal varices with no active bleeding. He had a moderate size hiatal hernia 2.5 cm in size as well as a severe gastritis. He was already on jzft-ecr-fkdselz Prilosec and he was instructed to take two of these one time during the day and we also added pantoprazole 40 mg later on in the day. We also had started Carafate 1 gram 4 times a day. He was admitted for confusion and was found to be significantly anemic with a hemoglobin of 6.6 and hematocrit of 20. Upon further questioning, he reports that he is compliant with medications. He does not report any issues with nausea, no vomiting and again states that he has constipation, but does not recall any red blood per rectum nor any dark tarry stools. He states that he has had one colonoscopy in the past, which was probably 10 years ago. PAST MEDICAL HISTORY: Previous history of alcohol abuse, COPD, congestive heart failure, history of pleural effusions, history of ascites, portal hypertension. PAST SURGICAL HISTORY: Thyroid cyst excision, excision of left neck lymph node. ALLERGIES: No known drug allergies. MEDICATIONS: Omeprazole 40 mg daily, pantoprazole 40 mg daily, oxycodone 5 mg b.i.d., Carafate 1 gram q.i.d., furosemide 40 mg daily, Zofran p.r.n. SOCIAL HISTORY: Previous heavy alcohol use; however, quit 4 months ago. Positive smoking greater than 40 pack years. FAMILY HISTORY: Noncontributory. VITAL SIGNS: Temperature 37.4, blood pressure 117/61, pulse 97, respirations 16, pulse ox 91% on 6 liters nasal cannula. REVIEW OF SYSTEMS: This is a slightly thin appearing male who is awake and alert and does answer questions appropriately. He states that at times he still is confused. He does not report any nausea, no vomiting as well as no epigastric pain. He reports a longstanding history of constipation. He does not recall any red blood per rectum nor any dark tarry stools. He does have a chronic cough, no sputum production. No chest pain, palpitations, diaphoresis. No fever, chills, no recent inadvertent weight loss. All other review of systems negative. PHYSICAL EXAMINATION: CHEST: Distant breath sounds and scattered wheezes bilaterally. HEART: Regular, no murmurs. EXTREMITIES: No lower extremity edema, negative Homans sign. HEENT: No scleral icterus. NECK: No cervical lymphadenopathy. ABDOMEN: Soft, nondistended. There is mild discomfort in the epigastric region upon deep palpation. No peritoneal signs. No hernias. SKIN: Warm, dry. LABORATORY DATA: WBC 5.0, hemoglobin 6.6, hematocrit 20, platelets 115. BUN 19, creatinine 0.80. Ammonia 39. Sodium 125. ASSESSMENT AND PLAN: A 61-year-old male with history of alcohol abuse, liver cirrhosis and admitted for confusion and anemia. Confusion may be secondary to increased ammonia levels and cerebral encephalopathy secondary to this. He is also found to be hyponatremic, which may also be contributing to his confusion. The hyponatremia is likely secondary to his liver cirrhosis and liver failure. He is currently undergoing treatment with water restriction. The hyperammonemia may be secondary to increase protein digestion and ammonia production into the blood in systemic circulation. This may be related to GI bleeding source and we will proceed with an EGD and colonoscopy on this admission. Job ID: [id number] DocumentID: [id number] Dictated Date: 06/17/2022 15:00:17 Hospital Sales Representative Date: 06/17/2022 15:19:02 Dictated By: MARCI GALLOWAY MD
[2022-06-17 15:39] LABS: HEMOGLOBIN 7.8 g/dL (13.3-17.7)
[2022-06-17] MEDS: MILK OF MAGNESIA 400 MG/5 ML 30 ML UDC PO SCH ×3 (18:07→23:34)
[2022-06-17] MEDS ORDERED: GOLYTELY POWDER 4000 ML BTL PO ONE (19:45)
[2022-06-18] VITALS (7 sets, daily range): BP systolic 93–151; BP diastolic 51–65
[2022-06-18] MEDS: MILK OF MAGNESIA 400 MG/5 ML 30 ML UDC PO SCH ×5 (04:32→19:49)
[2022-06-18] MEDS: NS IV 1000 ML 1,000 ML IV SCH ×2 (04:44→16:43)
[2022-06-18] MEDS: NYSTATIN ORAL SUSP 5 ML UDC PO SCH ×3 (05:37→17:00)
[2022-06-18] MEDS: MULTIVIT W/MINERALS TAB (THERAGRAN M) PO SCH (05:37)
[2022-06-18] MEDS: PANTOPRAZOLE 40 MG (PROTONIX) TAB PO SCH (05:37)
[2022-06-18 05:38] LABS: BASOPHILS % (AUTO) 1 % (0-10); EOSINOPHILS % (AUTO) 1 % (0-10); HEMATOCRIT 24 % (40-54); MEAN CORPUSCULAR VOLUME 112 fL (80-99)
[2022-06-18 05:41] LABS: HEMOGLOBIN 7.9 g/dL (13.3-17.7); LYMPHOCYTES # (AUTO) 1.1 10^3/uL (1.0-4.0); LYMPHOCYTES % (AUTO) 24 % (12-44); MEAN CORPUSCULAR HEMOGLOBIN 37 pg (25-34); MEAN CORPUSCULAR HGB CONC 33 g/dL (32-36); MEAN PLATELET VOLUME 8.5 fL (9.0-12.2); MONOCYTES # (AUTO) 0.6 10^3/uL (0.0-1.0); MONOCYTES % (AUTO) 14 % (0-12); NEUTROPHILS # (AUTO) 2.6 10^3/uL (1.8-7.8); NEUTROPHILS % (AUTO) 59 % (42-75); PLATELET COUNT 126 10^3/uL (130-400); WHITE BLOOD COUNT 4.4 10^3/uL (4.3-11.0)
[2022-06-18 05:47] LABS: ALBUMIN 2.3 GM/DL (3.2-4.5); POTASSIUM 4.2 MMOL/L (3.6-5.0)
[2022-06-18 05:48] LABS: CALCIUM 7.9 MG/DL (8.5-10.1)
[2022-06-18 05:50] LABS: TOTAL PROTEIN 5.5 GM/DL (6.4-8.2)
[2022-06-18 05:51] LABS: BILIRUBIN,TOTAL 9.2 MG/DL (0.1-1.0)
[2022-06-18 05:53] LABS: CREATININE SERUM 0.69 MG/DL (0.60-1.30)
[2022-06-18] MEDS: RT-ALBUTEROL/IPRATROPIUM 3 ML (DUONEB) VIAL INH SCH ×4 (07:10→19:02)
[2022-06-18] MEDS: DOCUSATE SODIUM 100 MG (COLACE) CAP PO SCH ×2 (08:43→20:34)
[2022-06-18] MEDS: SENNOSIDES 8.6 MG (SENOKOT) TAB PO SCH ×2 (08:43→20:34)
[2022-06-18] MEDS: SODIUM CHLORIDE 1 GM TABLET PO SCH ×2 (08:44→20:31)
[2022-06-18] MEDS: morphine INJ 4 MG/ML 1 ML (VIAL/SYRINGE) IV PRN (09:35)
--- NOTE | 2022-06-18 09:39 | Physical Therapy Daily Note ---
PT Daily Note-Current Subjective Pt. in bed, very reluctant to participate, c/o he is NPO and wants to know when the colonoscopy and EGD are going to be. Pt. c/o headache and requests pain meds. Nurse notified. Pain Numeric Pain Scale: 7 Location: Medial Location Body Site: Head Pain Description: Ache Mental Status Patient Orientation: Normal For Age Attachments: Oxygen, IV Transfers SCALE: Activities may be completed with or without assistive devices. 1-Hietzrpaxb-rwqvdzx completes the activity by him/herself with no assistance from a helper. 5-Set-up or Clean-up Assistance-helper sets up or cleans up; patient completes activity. [place] assists only prior to or following the activity. 4-Supervision or Touching Assistance-helper provides verbal cues and/or touc mahogany/steadying and/or contact guard assistance as patient completes activity. Assistance may be provided throughout the activity or intermittently. 3-Partial/Moderate Assistance-helper does LESS THAN HALF the effort. [place] lifts, holds or supports trunk or limbs, but provides less than half the effort. 2-Substantial/Maximal Assistance-helper does MORE THAN HALF the effort. [place] lifts or holds trunk or limbs and provides more than half the effort. 0-Meqvqeskh-nbvect does ALL the effort. Patient does none of the effort to complete the activity. Or, the assistance of 2 or more helpers is required for the patient to complete the activity. If activity was not attempted, code reason: 7-Patient Refused. 9-Not Applicable-not attempted and the patient did not perform the activity before the current illness, exacerbation or injury. 10-Not Attempted due to Environmental Limitations-(lack of equipment, weather restraints, etc.). 88-Not Attempted due to Medical Conditions or Safety Concerns. out bed mod I, up down chair Mod I Gait Training Does the Patient Walk?: Yes Walk 50 ft with 2 Turns(QC): 4 Gait Persons Needed: 1 Gait Assistive Device: FWW pt. declined gait out in phillips and about, agrees only to walking in room and sitting up in recliner Exercises Seated Therapy Exercises: Ankle pumps, Long arc quads, Hip flexion Seated Reps: 8 Treatments TRF, short gait, up in recliner with O2 insitu, bland at hand , nurse medicated with morphine Assessment Current Status: Fair Progress uncooperative but when on feet no LOB PT Long-Term Goals Long-Term Goals PT Long-Term Goals Time Frame: Jun 28, 2022 Roll Left & Right (QC): 6 Sit to Lying (QC): 6 Lying-Sitting on Side/Bed(QC): 6 Sit to Stand (QC): 6 Chair/Obo-lb-Oztyt Xfer(QC): 6 Toilet Transfer (QC): 6 Walk 10 feet (QC): 6 Walk 50ft with 2 Turns (QC): 6 Walk 150 ft (QC): 6 PT Plan Treatment/Plan Treatment Plan: Continue Plan of Care Treatment Plan: Education, Functional Activity Kris, Functional Strength, Gait, Safety, Therapeutic Exercise, Transfers Treatment Duration: Jun 28, 2022 Frequency: 6 times per week Estimated Hrs Per Day: .25 hour per day Patient and/or Family Agrees t: Yes Safety Risks/Education Patient Education: Gait Training, Transfer Techniques, Correct Positioning, Disease Process, Safety Issues Teaching Recipient: Patient Teaching Methods: Demonstration, Discussion Response to Teaching: Reinforcement Needed Time/GCodes Time In: 928 Time Out: 940 Total Billed Treatment Time: 12 Total Billed Treatment 1,FA12m PHUC BAIG JEWELRY TECHNICIAN Jun 18, 2022 09:39
--- NOTE | 2022-06-18 11:21 | Occupational Ther Daily Note ---
OT Current Status-Daily Note Subjective Pt sitting up in the chair upon arrival. He appears to look better than yesterday, and states he feels a bit better, but still c/o of a headache. He agrees to therapy and brushing his teeth. Appearance Pt left in chair with all needs within reach. Mental Status/Objective Patient Orientation: Person, Place, Time, Situation Attachments: IV, Oxygen ADL-Treatment Therapy Code Descriptions/Definitions Functional [place] Measure: 0=Not Assessed/NA 4=Minimal Assistance 1=Total Assistance 5=Supervision or Setup 2=Maximal Assistance 6=Modified [place] 3=Moderate Assistance 7=Complete IndependenceSCALE: Activities may be completed with or without assistive devices. 0-Nwpuvkawny-edjysey completes the activity by him/herself with no assistance from a helper. 5-Set-up or Clean-up Assistance-helper sets up or cleans up; patient completes activity. [place] assists only prior to or following the activity. 4-Supervision or Touching Assistance-helper provides verbal cues and/or touching/steadying and/or contact guard assistance as patient completes activity. Assistance may be provided throughout the activity or intermittently. 3-Partial/Moderate Assistance-helper does LESS THAN HALF the effort. [place] lifts, holds or supports trunk or limbs, but provides less than half the effort. 2-Substantial/Maximal Assistance-helper does MORE THAN HALF the effort. [place] lifts or holds trunk or limbs and provides more than half the effort. 0-Nnqojurkz-xqbkfz does ALL the effort. Patient does none of the effort to complete the activity. Or, the assistance of 2 or more helpers is required for the patient to complete the activity. If activity was not attempted, code reason: 7-Patient Refused. 9-Not Applicable-not attempted and the patient did not perform the activity before the current illness, exacerbation or injury. 10-Not Attempted due to Environmental Limitations-(lack of equipment, weather restraints, etc.). 88-Not Attempted due to Medical Conditions or Safety Concerns. Oral Hygiene (QC): 5 Per chart, pt with thrush. Education provided on importance of oral care. Pt declined going into bathroom to brush teeth, but agreed to do it sitting in recliner. Pt already had dentures in cleaning solution. He was set up assist seated in chair for brushing gums and dentures. He was given cues to not swallow any water during oral hygiene task due to NPO status, in which he complied. Education OT Patient Education: Disease process, Modified ADL techniques, Progress toward Goal/Update tx plan, Purpose of tx/functional activities Teaching Recipient: Patient Teaching Methods: Discussion Response to Teaching: Verbalize Understanding, Return Demonstration OT Longterm Goals Longterm Goals Time Frame: Jun 25, 2022 Eating (QC): 6 Oral Hygiene (QC): 6 Toileting Hygiene (QC): 6 Shower/Bathe Self (QC): 5 Upper Body Dressing (QC): 6 Lower Body Dressing (QC): 5 On/Off Footwear (QC): 6 Additional Goals: 1-Demonstrate ADL Tasks, 2-Verbalize Understanding, 3- ImproveStrength/Kris 1=Demonstrate adherence to instructed precautions during ADL tasks. 2=Patient will verbalize/demonstrate understanding of assistive devices/modifications for ADL. 3=Patient will improve strength/tolerance for activity to enable patient to perform ADL's. OT Education/Plan Problem List/Assessment Assessment: Decreased Activ Tolerance, Impaired Cognition, Impaired Coordination, Impaired Self-Care Skills Discharge Recommendations Plan/Recommendations: Continue POC Therapy Discharge Recommendati: Home & Family Treatment Plan/Plan of Care Treatment,Training & Education: Yes Patient would benefit from OT for education, treatment and training to promote independence in ADL's, mobility, safety and/or upper extremity function for A DL's. Plan of Care: ADL Retraining, Functional Mobility, UE Funct Exercise/Act Treatment Duration: Jun 25, 2022 Frequency: 3 times per week (3-5x/week) Estimated Hrs Per Day: .25 hour per day Agreement: Yes Rehab Potential: Guarded Time/GCodes Start Time: 10:43 Stop Time: 10:53 Total Time Billed (hr/min): 10 Billed Treatment Time 1 visit ADL Antonia Barrios OT Jun 18, 2022 11:21
--- NOTE | 2022-06-18 13:06 | Progress Note - Hospitalist ---
DAYAMI MEDRANO 06/18/22 1306: Subjective HPI/CC On Admission Date Seen by Provider: Jun 18, 2022 Time Seen by Provider: 13:01 CC: Weakness HPI: This is a [facility] patient former alcoholic no usage for 4 months who presents to the ER with weakness and confusion and found to have hyponatremia. Patient feels ok right now and is hungry. Reviewed home meds to evaluate the source of hyponatremia. Subjective/Events-last exam Patient sodium today is 137. Hb is 7.9 after transfusion yesterday. Reports he is to have EGD and colonoscopy at some point later today. Also reports he has a headache at times. Denies any other complaints at the moment. Objective Exam Vital Signs Vital Signs Date Time Temp Pulse Resp B/P (MAP) Pulse Ox O2 Delivery O2 Flow Rate FiO2 06/18/22 11:20 36.5 91 18 93/60 (71) 94 Nasal Cannula 6.00 Capillary Refill : Less Than 3 Seconds General Appearance: Anxious, Chronically ill HEENT: No Moist Mucous Membranes Neck: Non Tender, Supple Respiratory: Chest Non Tender, No Accessory Muscle Use, No Respiratory Distress Cardiovascular: No Edema, No JVD Gastrointestinal: Non Tender, Soft Rectal: Deferred Extremity: Non Tender, No Calf Tenderness Neurologic/Psychiatric: Alert, Normal Mood/Affect Skin: Normal Color, Warm/Dry Lymphatic: No Adenopathy Results/Procedures Lab Laboratory Tests 06/17/22 15:28 06/18/22 05:21 Patient resulted labs reviewed. Assessment/Plan Assessment and Plan Assess & Plan/Chief Complaint Assessment: Hyponatremia - resolved Weakness Former alcoholic Plan: Supportive care IVF Fluid restriction PO Diet: NPO Continue Nystatin PO Patient to have EGD and colonoscopy today Clinical Quality Measures Smoking Cessation Counseling: Counseling-Symptomatic: 3-10 Minutes ANITA MAGAÑA DO 06/18/222028: Subjective Subjective/Events-last exam Pt is doing pretty well EGD and colonoscopy by Dr. Willis today Headache is an issue related to his liver cirrhosis and hepatic encephalopathy Abdominal ultrasound reviewed CT scan of the head was done on 06/14/22 Supervisory-Addendum Brief Verification & Attestation Participated in pt care: history, MDM, physical Personally performed: exam, history, MDM, supervision of care Care discussed with: Medical Student Procedures: n/a Results interpretation: Verified all documentation Verification and Attestation of Medical Student E/M Service A medical student performed and documented this service in my presence. I reviewed and verified all information documented by the medical student and made modifications to such information, when appropriate. I personally performed the physical exam and medical decision making. Anita Magaña, Jun 18, 2022,20:29 DAYAMI MEDRANO Jun 18, 2022 13:06 ANITA MAGAÑA DO Jun 18, 2022 20:29
[2022-06-18] MEDS ORDERED: LACTATED RINGERS 1,000 ML IV STA (15:05)
[2022-06-18] MEDS ORDERED: HURRICAINE EXT TUBE (BENZOCAINE) XX PRN (15:15)
[2022-06-18] MEDS ORDERED: LIDOCAINE JELLY 2% 6 ML SYRINGE MM PRN (15:15)
[2022-06-18] MEDS ORDERED: LACTATED RINGERS 1,000 ML IV ONE (15:19)
[2022-06-18] MEDS ORDERED: PROPOFOL INJECTION 50 ML IV ONE (15:29)
[2022-06-18] MEDS ORDERED: MIDAZOLAM 2 MG/2 ML (VERSED) VIAL ONE (15:29)
[2022-06-18] MEDS ORDERED: PHENYLEPHRINE 100 MCG/ML 10 ML (ANESTHESIA) SYR ONE (15:56)
--- NOTE | 2022-06-18 16:27 | Progress Note-Post Operative ---
Post-Operative Progess Note Surgeon (s)/Client Service Administrator (s) Surgeon MARCI GALLOWAY MD Client Service Administrator: none Pre-Operative Diagnosis anemia with hx PUD and liver cirrhosis Post-Operative Diagnosis reflux esophagitis(grade C), mild distal esoph stricture, grade 2 esoph varices, moderate HH(2.5cm), severe gastritis. chronic stage 2 ext and int hemorrhoids, colonic stricture vs ileocecal stricture. Procedure & Operative Findings Date of Procedure 06/18/22 Procedure Performed/Findings EGD with bx and balloon dilatation. colonoscopy with bx. Anesthesia Type mac Estimated Blood Loss Estimated blood loss (mL): minimal Specimens/Packing Specimens Removed ge jxn, antrum, colonic stricture MARCI GALLOWAY MD Jun 18, 2022 16:27
[2022-06-18] MEDS: PANTOPRAZOLE 40 MG (PROTONIX) VIAL IV SCH (20:31)
[2022-06-19 00:28] VITALS: BP 113/58
[2022-06-19] MEDS: NYSTATIN ORAL SUSP 5 ML UDC PO SCH ×3 (00:41→12:43)
[2022-06-19] MEDS: morphine INJ 4 MG/ML 1 ML (VIAL/SYRINGE) IV PRN (03:28)
[2022-06-19 03:52] VITALS: BP 112/54
--- NOTE | 2022-06-19 05:29 | OPERATIVE REPORT ---
DATE OF SERVICE: 06/18/2022 ADMITTING PHYSICIAN: Dr. Landis. PREOPERATIVE DIAGNOSES: Anemia with a history of liver cirrhosis and grade II esophageal varices with confusion, hyponatremia and hyperammonemia. POSTOPERATIVE DIAGNOSES: Reflux esophagitis Nicholas grade C, mild distal esophageal stricture, grade II esophageal varices, moderate size hiatal hernia 2.5 cm in size, mild distal esophageal stricture, severe diffuse gastritis. No active bleeding. Chronic stage II external and internal hemorrhoids, a stricture of the proximal colon versus a stricture at the ileocolonic anastomosis. PROCEDURE: EGD with biopsy and balloon dilatation and colonoscopy with biopsy. SURGEON: Marci Willis MD. ANESTHESIA: Monitored anesthesia care. ESTIMATED BLOOD LOSS: Minimal. FINDINGS: Same as postoperative diagnosis. DISPOSITION: The patient tolerated the procedure well. INDICATIONS: The patient is a 61-year-old male known to us. We had seen him for symptomatic pleural effusion. He underwent thoracentesis. He also experienced nausea and vomiting and epigastric pain and found to be anemic. He had also noticed darker stools. He had also reported a history of constipation, has been taking oxycodone twice a day. He has a longstanding history of alcohol abuse; however, states that he has not had a drink in the past 4 months. He also does have a history of COPD with greater than 11-nwzv-wwrl smoking history. He did have an EGD on that admission and was found to have reflux esophagitis, Nicholas grade C, grade II esophageal varices with no active bleeding and moderate sized hiatal hernia. He was placed on PPIs on a BID basis as well as Carafate. He was admitted for confusion and was found to be anemic with hemoglobin of 6.6, hematocrit of 20. He also had elevated ammonia likely secondary to his liver cirrhosis and liver failure. On this admission, he does not report any nausea, no vomiting as well as no abdominal pain. He also does not report any red blood per rectum nor any dark tarry stools. He states that he did have one colonoscopy in the past and this was greater than 10 years ago and he does not remember any issues. DESCRIPTION OF PROCEDURE: The patient was brought to the endoscopy suite, laid in the left lateral decubitus position. After adequate IV pain and sedative medications and monitored anesthesia care, the mouthpiece was applied. The endoscope was placed in the mouth, visualizing the pharynx and hypopharyngeal region. Vocal cords, epiglottis and vallecula identified and appeared to be normal. The endoscope was then gently intubated, esophageal opening and esophagus insufflated. The endoscope was then advanced to the first, second and third portion of esophagus. At the level of GE junction, reflux esophagitis, Nicholas grade C identified with a mild distal esophageal stricture. Grade II esophageal varices were also identified. The endoscope was then advanced in the stomach and endoscope retroflexed, visualizing a moderate size hiatal hernia approximately 2.5 to 3 cm in size. There was a severe diffuse gastritis with no active bleeding and this was likely the causative source of his slow blood loss anemia. Biopsies were taken of the antrum to rule out H. pylori with visualization of good hemostasis. The endoscope was then advanced to the pylorus and the first and second portion of the duodenum, which appeared normal with no ulcerations or any active bleeding. The balloon was then placed in the stomach and pulled back to the area of the stricture. We then proceeded in a graded stepwise dilatation from 2, 4, then eventually 6 atmospheres of pressure or 20 mm in luminal diameter with moderate resistance and left this in place for approximately 60 seconds. The balloon was then desufflated and removed with visualization of good hemostasis as well as no mucosal tears. The endoscope was then slowly withdrawn while taking a second look and suctioning residual air with no additional findings. A digital rectal examination was performed, which revealed chronic stage II external and internal hemorrhoids, not actively edematous nor inflamed and no bleeding. Normal sphincter tone was felt and there were no palpable masses. Prostate gland was palpable and appeared normal. The endoscope was then intubated into the anus and rectum gently insufflated. The endoscope was then advanced through the valves of [place] of the rectum with no polyps or any neoplasms identified. The endoscope was then advanced through the sigmoid colon, where no diverticulosis identified. We then proceeded through the remainder of the descending, transverse and ascending colon. It is unclear of an area of stricture of the proximal colon originated from. We are unsure if he has had a previous colonic surgery and now has developed a stricture or if this has occurred de evelyn versus a de evelyn formation of an ileocolonic anastomosis, because this opening was small and only a few millimeters in size. Multiple biopsies were taken of this region with visualization of good hemostasis. He did not report any obstructive type of symptoms with abdominal distention, crampy abdominal pain. The endoscope was then slowly withdrawn while taking a second look and suctioning of residual air with no additional findings. The patient tolerated the procedure well. We will restart him on a diet and then start a PPI IV acid breakdown person on a b.i.d. basis. We are unsure how compliant he has been with his medications at home and may be forgetting to take them, but we will want him to take omeprazole and pantoprazole 40 mg once a day at different times during the day. We feel that his gastritis is the most likely causative agent for his recurrent anemia. We will also await the biopsy results of the colonic stricture to rule out a malignancy. Job ID: [id number] DocumentID: [id number] Dictated Date: 06/18/2022 16:41:45 Crop Production Advisor Date: 06/19/2022 02:45:47 Dictated By: MARCI WILLIS MD MTDD
[2022-06-19] MEDS: MULTIVIT W/MINERALS TAB (THERAGRAN M) PO SCH (06:10)
[2022-06-19] MEDS: NS IV 1000 ML 1,000 ML IV SCH (06:10)
[2022-06-19 06:25] LABS: HEMOGLOBIN 7.2 g/dL (13.3-17.7); MEAN PLATELET VOLUME 8.6 fL (9.0-12.2)
[2022-06-19 06:27] LABS: ALBUMIN 2.1 GM/DL (3.2-4.5); BASOPHILS % (AUTO) 1 % (0-10); EOSINOPHILS # (AUTO) 0.1 10^3/uL (0.0-0.3); EOSINOPHILS % (AUTO) 2 % (0-10); HEMATOCRIT 22 % (40-54); LYMPHOCYTES # (AUTO) 1.1 10^3/uL (1.0-4.0); LYMPHOCYTES % (AUTO) 24 % (12-44); MEAN CORPUSCULAR HEMOGLOBIN 37 pg (25-34); MEAN CORPUSCULAR HGB CONC 33 g/dL (32-36); MEAN CORPUSCULAR VOLUME 113 fL (80-99); MONOCYTES # (AUTO) 0.5 10^3/uL (0.0-1.0); MONOCYTES % (AUTO) 11 % (0-12); NEUTROPHILS # (AUTO) 2.8 10^3/uL (1.8-7.8); NEUTROPHILS % (AUTO) 62 % (42-75); PLATELET COUNT 119 10^3/uL (130-400); POTASSIUM 4.3 MMOL/L (3.6-5.0); WHITE BLOOD COUNT 4.5 10^3/uL (4.3-11.0)
[2022-06-19 06:29] LABS: CALCIUM 7.9 MG/DL (8.5-10.1)
[2022-06-19 06:32] LABS: BILIRUBIN,TOTAL 6.9 MG/DL (0.1-1.0)
[2022-06-19 06:33] LABS: CREATININE SERUM 0.71 MG/DL (0.60-1.30)
[2022-06-19] MEDS: RT-ALBUTEROL/IPRATROPIUM 3 ML (DUONEB) VIAL INH SCH (07:42)
[2022-06-19 07:54] VITALS: BP 107/56
[2022-06-19 08:12] VITALS: BP 107/56
[2022-06-19] MEDS: DOCUSATE SODIUM 100 MG (COLACE) CAP PO SCH (09:00)
[2022-06-19] MEDS: SENNOSIDES 8.6 MG (SENOKOT) TAB PO SCH (09:00)
[2022-06-19] MEDS: SODIUM CHLORIDE 1 GM TABLET PO SCH (09:01)
[2022-06-19] MEDS: PANTOPRAZOLE 40 MG (PROTONIX) VIAL IV SCH (09:03)
[2022-06-19] MEDS ORDERED: RT-ALBUTEROL/IPRATROPIUM 3 ML (DUONEB) VIAL INH SCH (10:00)
--- NOTE | 2022-06-19 10:08 | Occ Therapy Progress Note ---
Therapy Progress Note OT attempted tx, but pt declines services at this time. Pt reports he has been getting up to BSC and able to toilet independently, he declined completing ADLs or UE exercises at this time. Pt reports he is planning on discharging later today, but OT has not seen any information in chart related to pt discharging on this date. OT informed pt on purpose and benefit of OT but he continued to decline. OT will attempt tx tomorrow if pt is still admitted. 1, refusal SONNY BARBOSA OT Jun 19, 2022 10:08
--- NOTE | 2022-06-19 10:08 | Physical Therapy Daily Note ---
PT Daily Note-Current Subjective Patient agrees to PT. Patient voices he wants to go home today. Family present. Pain Numeric Pain Scale: 0-No Pain Location: No Pain Reported Mental Status Patient Orientation: Normal For Age Attachments: Oxygen, IV Transfers SCALE: Activities may be completed with or without assistive devices. 0-Akdgkdicwe-ovfntba completes the activity by him/herself with no assistance from a helper. 5-Set-up or Clean-up Assistance-helper sets up or cleans up; patient completes activity. [place] assists only prior to or following the activity. 4-Supervision or Touching Assistance-helper provides verbal cues and/or touching/steadying and/or contact guard assistance as patient completes activity. Assistance may be provided throughout the activity or intermittently. 3-Partial/Moderate Assistance-helper does LESS THAN HALF the effort. [place] lifts, holds or supports trunk or limbs, but provides less than half the effort. 2-Substantial/Maximal Assistance-helper does MORE THAN HALF the effort. [place] lifts or holds trunk or limbs and provides more than half the effort. 9-Ooswziaji-sntdrk does ALL the effort. Patient does none of the effort to complete the activity. Or, the assistance of 2 or more helpers is required for the patient to complete the activity. If activity was not attempted, code reason: 7-Patient Refused. 9-Not Applicable-not attempted and the patient did not perform the activity before the current illness, exacerbation or injury. 10-Not Attempted due to Environmental Limitations-(lack of equipment, weather restraints, etc.). 88-Not Attempted due to Medical Conditions or Safety Concerns. Lying to Sitting/Side of Bed(Q: 6 Sit to Stand (QC): 6 Chair/Rdy-oh-Mtlrt Xfer(QC): 6 Gait Training Distance: 150' Walk 10 feet (QC): 6 Walk 50 ft with 2 Turns(QC): 6 Walk 150 ft (QC): 6 Gait Assistive Device: FWW safe and functional with no deviation Assessment Patient tolerated treatment well and is up in recliner with needs met. Patient is currently at [facility] with all gross motor skills. PT Mcfp Goals Mcfp Goals PT Mcfp Goals Time Frame: Jun 28, 2022 Roll Left & Right (QC): 6 Sit to Lying (QC): 6 Lying-Sitting on Side/Bed(QC): 6 Sit to Stand (QC): 6 Chair/Mzd-ik-Xosii Xfer(QC): 6 Toilet Transfer (QC): 6 Walk 10 feet (QC): 6 Walk 50ft with 2 Turns (QC): 6 Walk 150 ft (QC): 6 PT Plan Treatment/Plan Treatment Plan: Continue Plan of Care Treatment Plan: Education, Functional Activity Kris, Functional Strength, Gait, Safety, Therapeutic Exercise, Transfers Treatment Duration: Jun 28, 2022 Frequency: 6 times per week Estimated Hrs Per Day: .25 hour per day Patient and/or Family Agrees t: Yes Time/GCodes Time In: 935 Time Out: 944 Total Billed Treatment Time: 9 Total Billed Treatment 1 visit FA 9 min TAYLOR ESWELL PT Jun 19, 2022 10:08
[2022-06-19 11:37] VITALS: BP 111/63
[2022-06-19] MEDS ORDERED: RT-ALBUTEROL SULF 2.5 MG/3 ML PRE-MIX VIAL INH PRN (12:00)
[2022-06-19] MEDS ORDERED: SUCR1TAB PO (12:05)
[2022-06-19] MEDS ORDERED: SPIR100T4 PO (12:05)
[2022-06-19] MEDS ORDERED: MULT-1137 PO (12:05)
[2022-06-19] MEDS ORDERED: NYST1000 PO (12:05)
[2022-06-19] MEDS ORDERED: OXYC5TAB PO (12:05)
[2022-06-19] MEDS ORDERED: FURO40TA4 PO (12:05)
[2022-06-19] MEDS ORDERED: PANT40TA52 PO (12:05)
--- NOTE | 2022-06-19 12:06 | Discharge Summary ---
Discharge Summary Hospital Course Was the Problem List Reviewed?: Yes Problems/Dx: (1) Hyponatremia Status: Acute (2) Headache Status: Acute Qualifiers: Qualified Codes: R51.9 - Headache, unspecified (3) Edema Status: Acute (4) Alcoholic cirrhosis of liver Status: Acute (5) Melena Status: Acute Hospital Course Date of Admission: Jun 16, 2022 at 11:00 Admission Diagnosis : Family Physician/Provider: No,Local Physician Date of Discharge: 06/19/22 Discharge Diagnosis: hyponatremia, alcoholic cirrhosis, melena Hospital Course: Patient is feeling much better today. Labs are stable. Patient had EGD/Colonoscopy yesterday with Dr. Willis showing gastritis to be the likely cause of anemia. Recommend patient to take PPIs at home. Patient would like to go home today. 5 day hospital Course: Patient is a former alcoholic who presented to the ER (06/14) with some weakness and confusion and he was found to have some hyponatremia. Upon inpatient admission (06/16), patient received IVF and sodium was corrected. Patient received transfusions to correct anemia. Patient also received pain medication for discomfort. Assessment: Hyponatremia - resolved Weakness - resolved Former alcoholic Plan: Patient to be discharged home today. Labs and Pending Lab Test: Laboratory Tests 06/19/22 05:37: White Blood Count 4.5, Red Blood Count 1.95L, Hemoglobin 7.2L, Hematocrit 22L, Mean Corpuscular Volume 113H, Mean Corpuscular Hemoglobin 37H, Mean Corpuscular Hemoglobin Concent 33, Red Cell Distribution Width 21.2H, Platelet Count 119L, Mean Platelet Volume 8.6L, Immature Granulocyte % (Auto) 1, Neutrophils (%) (Auto) 62, Lymphocytes (%) (Auto) 24, Monocytes (%) (Auto) 11, Eosinophils (%) (Auto) 2, Basophils (%) (Auto) 1, Neutrophils # (Auto) 2.8, Lymphocytes # (Auto) 1.1, Monocytes # (Auto) 0.5, Eosinophils # (Auto) 0.1, Basophils # (Auto) 0.0, Immature Granulocyte # (Auto) 0.0, Percent Immature Platelet Fraction 0.5, Sodium Level 134L, Potassium Level 4.3, Chloride Level 105, Carbon Dioxide Level 22, Anion Gap 7, Blood Urea Nitrogen 9, Creatinine 0.71, Estimat Glomerular Filtration Rate 105, BUN/Creatinine Ratio 13, Glucose Level 106H, Calcium Level 7.9L, Corrected Calcium 9.4, Total Bilirubin 6.9H, Aspartate Amino Transf (AST/SGOT) 38H, Alanine Aminotransferase (ALT/SGPT) 13, Alkaline Phosphatase 137H, Total Protein 5.0L, Albumin 2.1L Home Meds Active Tab-A-Angela Multivit with Iron (Multivitamin/Iron/Folic Acid) 18 Mg Iron-400 Mcg Tablet 1 Ea PO DAILY@0700 Nystatin 100,000 Unit/Ml Oral.susp 5 Ml PO Q6HR Spironolactone 100 Mg Tablet 100 Mg PO DAILY Sucralfate 1 Gram Tablet 1 Gm PO WM Pantoprazole Sodium 40 Mg Tablet.dr 40 Mg PO BID Furosemide 40 Mg Tablet 40 Mg PO DAILY Reported Lidocaine 5% Patch (Lidocaine) 5 % Adh..patch 1 Patch TD DAILY PRN Assessment/Pt Instructions PCP 1 week Discharge Planning: <30 minutes discharge planning Discharge Physical Examination Vital Signs Vital Signs Date Time Temp Pulse Resp B/P (MAP) Pulse Ox O2 Delivery O2 Flow Rate FiO2 06/19/22 11:37 37.1 62 18 111/63 (79) 95 Nasal Cannula 6.00 06/19/22 08:12 21 General Appearance: No Apparent Distress, WD/WN, Chronically ill Respiratory: Lungs Clear Cardiovascular: Regular Rate, Rhythm Allergies: Coded Allergies: No Known Drug Allergies (Unverified , 06/06/21) Discharge Summary Date of Admission Jun 16, 2022 at 11:00 Date of Discharge Discharge Date: Jun 19, 2022 Admission Diagnosis Assessment: Hyponatremia Weakness Former alcoholic Plan: Supportive care IVF Fluid restriction PO Salt tablets Discharge Diagnosis Nystatin for thrush Dr Enrique consult Clinical Quality Measures Smoking Cessation Counseling: Counseling-Symptomatic: 3-10 Minutes RODRI MAGAÑA DO Jun 19, 2022 12:06
--- NOTE | 2022-06-19 12:18 | Progress Note ---
DAYAMI MEDRANO 06/19/22 1218: Progress Note Patient is feeling much better today. Labs are stable. Patient had EGD/Colonoscopy yesterday with Dr. Willis showing gastritis to be the likely cause of anemia. Recommend patient to take PPIs at home. Patient would like to go home today. 5 day hospital Course: Patient is a former alcoholic who presented to the ER (06/14) with some weakness and confusion and he was found to have some hyponatremia. Upon inpatient admission (06/16), patient received IVF and sodium was corrected. Patient received transfusions to correct anemia. Patient also received pain medication for discomfort. Assessment: Hyponatremia - resolved Weakness - resolved Former alcoholic Plan: Patient to be discharged home today. ANITA MAGAÑA DO 06/19/22 2013: Supervisory-Addendum Brief Verification & Attestation Participated in pt care: history, MDM, physical Personally performed: exam, history, MDM, supervision of care Care discussed with: Medical Student Procedures: n/a Results interpretation: Verified all documentation Verification and Attestation of Medical Student E/M Service A medical student performed and documented this service in my presence. I reviewed and verified all information documented by the medical student and made modifications to such information, when appropriate. I personally performed the physical exam and medical decision making. Anita Magaña Jun 19, 2022,20:13 DAYAMI MEDRANO Jun 19, 2022 12:18 ANITA MAGAÑA DO Jun 19, 2022 20:13
[2022-06-19 13:15] VITALS: BP 111/63
--- NOTE | 2022-06-27 12:08 | Anesthesia-General Post-Op ---
MAC Significant Intra-Op Events Notes post date entry 06-18-22 at 1630 Patient Condition Mental Status/LOC: Same as Preop Cardiovascular: Satisfactory Nausea/Vomiting: Absent Respiratory: Satisfactory Pain: Controlled Complications: Absent Post Op Complications Complications None Follow Up Care/Instructions Patient Instructions None needed. Anesthesiology Discharge Order Discharge Order Patient is doing well, no complaints, stable vital signs, no apparent adverse anesthesia problems. No complications reported per nursing. GUME SCOTT CRNA Jun 27, 2022 12:08
== END 2022-06-19 13:15 | disposition home or self-care (01) ==
LOC: EDUNIT# 07:46 → ER 07:47 → 4TH 11:00
PROVIDERS: ADMIT Internal Medicine; ATTEND Internal Medicine
DX: K21.00 Gastro-esophageal reflux disease with esophagitis, without bleeding (principal); E87.1 Hypo-osmolality and hyponatremia; R51.9 Headache, unspecified; R60.9 Edema, unspecified; K92.1 Melena; K70.30 Alcoholic cirrhosis of liver without ascites; F17.210 Nicotine dependence, cigarettes, uncomplicated; J44.9 Chronic obstructive pulmonary disease, unspecified; Z99.81 Dependence on supplemental oxygen; K31.89 Other diseases of stomach and duodenum; K22.2 Esophageal obstruction; I51.0 Cardiac septal defect, acquired; I85.10 Secondary esophageal varices without bleeding; K44.9 Diaphragmatic hernia without obstruction or gangrene; K64.8 Other hemorrhoids; K64.1 Second degree hemorrhoids
CPT/HCPCS: 36430; 43239; 43249; 45380; 76705; 80053 ×4; 81000; 82140; 82607; 82728; 83540; 83550; 85014; 85018; 85025 ×4; 85045; 85610; 86850; 86900; 86901; 86920; 87636; 88305; 88312; 94640 ×2; 94760 ×2; 96361; 96372; 96374; 96375 ×3; 96376; 97162; 97166; 97530 ×2; 97535; 99284; G0378; P9016; 36415

== ENCOUNTER 2022-08-03 17:25 | Inpatient (IN) | payer MEDICARE ==
[~2022-08-03] VITALS: Ht 170.2 cm; Wt 80.9 kg
[~2022-08-03 17:25] MED LIST changes: +ALBU8.5H6 IH; +MULT-1137 PO; +NYST1000 PO; +PANT40TA52 PO; -RT-ALBUINH IH; +SUCR1TAB PO
--- NOTE | 2022-08-03 18:12 | ED Cardiac General ---
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 HISTORY OF CIRRHOSIS WITH CHRONIC ASCITES AND PLEURAL EFFUSIONS PT HAS REQUIRED THORACENTESIS AND PARACENTESIS MULTIPLE TIMES FOR THESE CHRONIC PROBLEMS HAS HAD COVID VACCINE X 1 --OVER 1 1/2 YEARS AGO. PCP: [facility] Allergies and Home Medications Allergies Coded Allergies: No Known Drug Allergies (Unverified , 06/06/21) Patient Home Medication List Home Medication List Reviewed: Yes Furosemide (Furosemide) 40 Mg Tablet, 40 MG PO DAILY Prescribed by: RODRI MAGAÑA on 06/19/22 1205 Lidocaine (Lidocaine 5% Patch) 5 % Adh..patch, 1 PATCH TD DAILY PRN for PAIN- BREAKTHROUGH, (Reported) Entered as Reported by: DESTINY COOMBS on 12/26/21 0949 Multivitamin/Iron/Folic Acid (Tab-A-Angela Multivit with Iron) 18 Mg Iron-400 Mcg Tablet, 1 EA PO DAILY@0700 Prescribed by: RODRI MAGAÑA on 06/19/22 1205 Nystatin (Nystatin) 100,000 Unit/Ml Oral.susp, 5 ML PO Q6HR Prescribed by: RODRI MAGAÑA on 9/8/22 1205 Oxycodone HCl (Oxycodone HCl) 5 Mg Tablet, 5 MG PO Q4H PRN for PAIN-SEVERE (8- 10) Prescribed by: RODRI MAGAÑA on 06/19/221204 Pantoprazole Sodium (Pantoprazole Sodium) 40 Mg Tablet.dr, 40 MG PO BID Prescribed by: RODRI MAGAÑA on 06/19/221204 Spironolactone (Spironolactone) 100 Mg Tablet, 100 MG PO DAILY Prescribed by: RODRI MAGAÑA on 06/19/221204 Sucralfate (Sucralfate) 1 Gram Tablet, 1 GM PO WM Prescribed by: RODRI MAGAÑA on 06/19/221204 Review of Systems Review of Systems Constitutional: see HPI EENTM: No Symptoms Reported Respiratory: See HPI, Cough, Orthopnea, Shortness of Air, SOA With Exertion, SOA at Rest Cardiovascular: See HPI, Chest Pain, Edema; Denies Irregular Heart Rate, Denies Lightheadedness, Denies Palpitations, Denies Syncope Gastrointestinal: See HPI, Abdomen Distended; Denies Abdominal Pain, Denies Nausea, Denies Vomiting Genitourinary: No Symptoms Reported Musculoskeletal: see HPI Skin: no symptoms reported Psychiatric/Neurological: No Symptoms Reported Endocrine: No Symptoms Reported Hematologic/Lymphatic: No Symptoms Reported Past [id number] Hx Patient Social History Tobacco Use?: Yes Tobacco type used: Cigarettes Smoking Status: Current Everyday Smoker Substance use?: Yes Substance type: Marijuana Substance frequency: Daily Alcohol Use?: Yes Alcohol type: Beer, Hard Liquor Alcohol Frequency: Daily Immunizations Up To Date First/Initial COVID19 Vaccinat: APRIL 2021 Second COVID19 Vaccination Eric: APRIL 2021 Third COVID19 Vaccination Date: APRIL 2021 Seasonal Allergies Seasonal Allergies: No Past Medical History Surgery/Hospitalization HX: LYMPHOMA, COPD, ALCOHOLIC Surgeries: Yes (thyroid growth removed;cancerous tumor from L neck;thoracentesis;PARACENTES) Abdominal, Thyroidectomy Respiratory: Yes (Chronic pleural effusion; THORACENTESIS O2-5L/NC) COPD Cardiac: Yes Chronic Edema/Swelling Neurological: No Genitourinary: No Gastrointestinal: Yes (ASCITES--PARACENTESIS) Abdominal Hernia, Liver Disease/Jaundice, Esophageal Varices, Cirrhosis Musculoskeletal: Yes (CHRONIC GENERALIZED PAIN ) Endocrine: Yes (THYROID REMOVED) Hypothyroidsim HEENT: No Cancer: Yes (folicular [id number]) Lymphoma Did You Recieve Any Treatments: Yes What Type of Treatment Did You: Radiation, Surgical Intervention Psychosocial: Yes (Alcoholism) Integumentary: No Family Medical History No Pertinent Family Hx SOCIAL HISTORY: -SMOKES 1 1/2 PPD -ETOH--HEAVY DAILY USE -DRUGS--THC DAILY USE PAST SURGICAL HISTORY: -THORACENTESIS FOR PLEURAL EFFUSION -PARACENTESIS FOR ASCITES -THYROID SURGERY/GOITER -MALIGNANT TUMOR REMOVED FROM LEFT NECK -HERNIA REPAIR WITH MESH Physical Exam Vital Signs Vital Signs - First Documented 08/03/22 18:00 Temp 36.8 Pulse 110 Resp 24 B/P (MAP) 113/73 (86) Pulse Ox 74 O2 Delivery Nasal Cannula O2 Flow Rate 5.00 Capillary Refill : Height, Weight, BMI Height: '" Weight: lbs. oz. kg; 21.94 BMI Method: General Appearance: WD/WN, Chronically ill, Other (MODERATELY DYSPNEIC WITH EXERTION,WALKS PART OF THE WAY FROM WAITING ROOM TO ER ROOM WITH HOME O2. REEKS OF CIGARETTES, MARIJUANA AND ETOH; UNKEMPT. ) Neck: Full Range of Motion, Non Tender Respiratory: Decreased Breath Sounds (IN BASES BILATERALLY) Cardiovascular: Systolic Murmur (1/6), Tachycardia Gastrointestinal: Distended, Tenderness (DIFFUSE UPPER ABDOMINAL TENDERNESS), Other (ASCITES) Extremity: Pedal Edema (3+ WOODY EDEMA / INDURATION BILATERALLY TO LOWER LEGS. ) Neurologic/Psychiatric: Alert, Oriented x3 (BUT POOR MEMORY), No Motor/Sensory Deficits, Normal Mood/Affect, intermediate card tender II-XII Norm as Tested Skin: Normal Color, Warm/Dry Focused Exam Sepsis Stage: Sepsis (POSSIBLE) Possible Source: GI Tract/Intra-Abdominal Lactate Level 08/03/22 18:12: Lactic Acid Level 1.90 Time of Focused Exam: 19:55 Respiratory: No Accessory Muscle Use, No Respiratory Distress, Decreased Breath Sounds (DIMINISHED IN BASES) Cardiovascular: Regular Rate, Rhythm Capillary Refill: Less Than 3 Seconds Skin: normal color, warm/dry Lactic Acid Level Laboratory Tests Test 08/03/22 18:12 Lactic Acid Level 1.90 MMOL/L (0.50-2.00) Within 3hrs of presentation: Admin fluids, Admin ABX, Blood cultures prior to ABX's, Focus exam, Lactate level Progress/Results/Core Measures Results/Orders Lab Results Laboratory Tests Test 08/03/22 18:12 08/03/22 18:15 08/03/22 18:18 08/03/22 18:45 Range/Units White Blood Count 8.2 4.3-11.0 10^3/uL Red Blood Count 1.94 L 4.30-5.52 10^6/uL Hemoglobin 7.2 L 13.3-17.7 g/dL Hematocrit 22 L 40-54 % Mean Corpuscular Volume 112 H 80-99 fL Mean Corpuscular Hemoglobin 37 H 25-34 pg Mean Corpuscular Hemoglobin Concent 33 32-36 g/dL Red Cell Distribution Width 19.9 H 10.0-14.5 % Platelet Count 132 130-400 10^3/uL Mean Platelet Volume 9.0 9.0-12.2 fL Immature Granulocyte % (Auto) 1 % Neutrophils (%) (Auto) 70 42-75 % Lymphocytes (%) (Auto) 17 12-44 % Monocytes (%) (Auto) 12 0-12 % Eosinophils (%) (Auto) 1 0-10 % Basophils (%) (Auto) 1 0-10 % Neutrophils # (Auto) 5.7 1.8-7.8 10^3/uL Lymphocytes # (Auto) 1.4 1.0-4.0 10^3/uL Monocytes # (Auto) 0.9 0.0-1.0 10^3/uL Eosinophils # (Auto) 0.0 0.0-0.3 10^3/uL Basophils # (Auto) 0.0 0.0-0.1 10^3/uL Immature Granulocyte # (Auto) 0.1 0.0-0.1 10^3/uL Percent Immature Platelet Fraction 1.5 0.0-7.6 % Erythrocyte Sedimentation Rate 43 H 0-30 MM/HR Prothrombin Time 20.3 H 12.2-14.7 SEC INR Comment 1.7 H 0.8-1.4 Activated Partial Thromboplast Time 41 H 24-35 SEC Sodium Level 125 *L 135-145 MMOL/L Potassium Level 3.9 3.6-5.0 MMOL/L Chloride Level 96 L 98-107 MMOL/L Carbon Dioxide Level 20 L 21-32 MMOL/L Anion Gap 9 5-14 MMOL/L Blood Urea Nitrogen 10 7-18 MG/DL Creatinine 0.72 0.60-1.30 MG/DL Estimat Glomerular Filtration Rate 105 BUN/Creatinine Ratio 14 Glucose Level 109 H 70-105 MG/DL Lactic Acid Level 1.90 0.50-2.00 MMOL/L Calcium Level 7.7 L 8.5-10.1 MG/DL Corrected Calcium 9.1 8.5-10.1 MG/DL Magnesium Level 1.8 1.6-2.4 MG/DL Total Bilirubin 10.7 H 0.1-1.0 MG/DL Aspartate Amino Transf (AST/SGOT) 39 H 5-34 U/L Alanine Aminotransferase (ALT/SGPT) 13 0-55 U/L Alkaline Phosphatase 210 H 40-136 U/L Total Creatine Kinase 52 30-200 U/L Creatine Kinase MB 1.8 <6.6 NG/ML Myoglobin 73.9 10.0-92.0 NG/ML Troponin I < 0.028 <0.028 NG/ML C-Reactive Protein High Sensitivity 3.65 H 0.00-0.50 MG/DL Total Protein 5.5 L 6.4-8.2 GM/DL Albumin 2.2 L 3.2-4.5 GM/DL Procalcitonin 0.37 H <0.10 NG/ML Serum Alcohol < 10 <10 MG/DL Smear Scan YES Influenza Type A (RT-PCR) Not Detected Not Detecte Influenza Type B (RT-PCR) Not Detected Not Detecte SARS-CoV-2 RNA (RT-PCR) Not Detected Not Detecte Blood Gas Puncture Site LT RADIAL Blood Gas Patient Temperature 36.8 Arterial Blood pH 7.45 H 7.37-7.43 Arterial Blood Partial Pressure CO2 32 L 35-45 MMHG Arterial Blood Partial Pressure O2 84 79-93 MMHG Arterial Blood HCO3 22 L 23-27 MMOL/L Arterial Blood Total CO2 23.1 21.0-31.0 MMOL/L Arterial Blood Oxygen Saturation 99 94-100 % Arterial Blood Base Excess -1.3 -2.5-2.5 MMOL/L Pietro Test YES-POS Blood Gas Ventilator Setting NO Blood Gas Inspired Oxygen UNKNOWN B-Type Natriuretic Peptide 37.6 <100.0 PG/ML Test 08/03/22 19:07 Range/Units Urine Color ORANGE Urine Clarity CLEAR Urine pH 6.0 5-9 Urine Specific [place] 1.020 1.016-1.022 Urine Protein NEGATIVE NEGATIVE Urine Glucose (UA) TRACE H NEGATIVE Urine Ketones NEGATIVE NEGATIVE Urine Nitrite POSITIVE H NEGATIVE Urine Bilirubin 2+ H NEGATIVE Urine Urobilinogen 4.0 < = 1.0 MG/DL Urine Leukocyte Esterase NEGATIVE NEGATIVE Urine RBC (Auto) NEGATIVE NEGATIVE Urine RBC NONE /HPF Urine WBC NONE /HPF Urine Crystals NONE /LPF Urine Bacteria NEGATIVE /HPF Urine Casts NONE /LPF Urine Mucus NEGATIVE /LPF Urine Culture Indicated CULTURE PENDING Urine Opiates Screen NEGATIVE NEGATIVE Urine Oxycodone Screen POSITIVE H NEGATIVE Urine Methadone Screen NEGATIVE NEGATIVE Urine Propoxyphene Screen NEGATIVE NEGATIVE Urine Barbiturates Screen NEGATIVE NEGATIVE Ur Tricyclic Antidepressants Screen NEGATIVE NEGATIVE Urine Phencyclidine Screen NEGATIVE NEGATIVE Urine Amphetamines Screen NEGATIVE NEGATIVE Urine Methamphetamines Screen NEGATIVE NEGATIVE Urine Benzodiazepines Screen NEGATIVE NEGATIVE Urine Cocaine Screen NEGATIVE NEGATIVE Urine Cannabinoids Screen NEGATIVE NEGATIVE My Orders Orders - REJI RAI DO Ed Iv/Invasive Line Start (08/03/22 18:00) Ekg Tracing (08/03/22 18:00) O2 (08/03/22 18:00) Monitor-Rhythm Ecg Trace Only (08/03/22 18:00) Bnp Jay (08/03/22 18:00) Cbc With Automated Diff (08/03/22 18:00) Comprehensive Metabolic Panel (08/03/22 18:00) Creatine Kinase (08/03/22 18:00) Creatine Kinase Mb (08/03/22 18:00) Hs C Reactive Protein (08/03/22 18:00) Magnesium (08/03/22 18:00) Erythrocyte Sedimentation Rate (08/03/22 18:00) Myoglobin Serum (08/03/22 18:00) Troponin I [place] (08/03/22 18:00) Chest 1 View, Ap/Pa Only (08/03/22 18:00) Procalcitonin (Pct) (08/03/22 18:06) Covid 19 Inhouse Test (08/03/22 18:06) Aspirin Chewable Tablet (Baby Aspirin Ch (08/03/22 18:15) Influenza A And B By Pcr (08/03/22 18:06) Isolation Central Supply Req (08/03/22 18:06) Blood Culture (08/03/22 18:06) Sputum Culture (08/03/22 18:06) Urinalysis (08/03/22 18:06) Urine Culture (08/03/22 18:06) Protime With Inr (08/03/22 18:06) Partial Thromboplastin Time (08/03/22 18:06) Ed Iv/Invasive Line Start (08/03/22 18:06) Vital Signs Adult Sepsis Patie Q15M (08/03/22 18:06) Remove Rings In Anticipation O (08/03/22 18:06) Lactic Acid Analyzer (08/03/22 18:06) Alcohol (08/03/22 18:12) Arterial Blood Gas (08/03/22 18:12) Drug Screen Stat (Urine) (08/03/22 18:12) Ammonia (08/03/22 19:58) Levofloxacin 750 Mg/150 Ml Iv (Levaquin (08/03/22 20:15) Ed Admission (Communication) (08/03/22 20:02) Medications Given in ED Current Medications Medications Dose Ordered Sig/Aldo Route Start Time Stop Time Status Last Admin Dose Admin Aspirin 324 mg ONCE ONCE PO 08/03/22 18:15 08/03/22 18:16 DC 08/03/22 18:19 324 MG Vital Signs/I&O 08/03/22 08/03/22 08/03/22 08/03/22 18:00 18:00 18:01 18:20 Temp 36.8 Pulse 110 Resp 24 B/P (MAP) 113/73 (86) Pulse Ox 74 74 95 O2 Delivery Nasal Cannula Nasal Cannula Nasal Cannula Nasal Cannula O2 Flow Rate 5.00 5.00 10.00 5.00 Progress Progress Note : Progress Note SEPSIS PROTOCOL INITIATED GIVEN : -IV FLUIDS -ANTIBIOTICS O2 SATS IN UPPER 90'S ON PT'S NORMAL 5L/NC NO DETERIORATION IN PT'S CONDITION DURING ER STAY NO COMPLAINTS WHILE AT REST FOR REMAINDER OF ER STAY Initial ECG Impression Date: Aug 03, 2022 Initial ECG Impression Time: 18:10 Initial ECG Rate: 102 Initial ECG Rhythm: S.Tach Diagnostic Imaging Comments CXR--PER RADIOLOGIST REPORT AT 1955 FINDINGS: There are bilateral pleural effusions which have increased in size compared to prior exam. There is enlargement of the cardiac silhouette. There is prominence of the interstitial markings. This appears to reflect interstitial edema superimposed on a background of underlying COPD. There is no pneumothorax. Heart size is unchanged. IMPRESSION: The patient is believed to have a background of underlying COPD. The prominence of the interstitial markings and presence of the pleural effusion suggests superimposed pulmonary edema. Reviewed: Reviewed by Me Departure Communication (Admissions) 1955--SPOKE WITH DR. MAGAÑA, HOSPITALIST FOR [facility]. ACCEPTS PT FOR ADMIT, SHE WILL PUT IN ADMIT ORDERS. Impression Primary Impression: Edema Additional Impressions: Alcoholic cirrhosis of liver Ascites due to alcoholic cirrhosis Hyponatremia Chronic respiratory failure with hypoxia, on home oxygen therapy Hypocalcemia Chronic anemia POSSIBLE SEPSIS POSSBLE S.B.P. MILDLY ELEVATED AMMONIA LEVEL Hx of non-Hodgkin's lymphoma Pleural effusion, bilateral Peripheral edema Cigarette smoker Alcoholism Disposition: ADMITTED INPATIENT Condition: Stable Admissions Decision to Admit Reason: Admit from ER (General) Decision to Admit/Date: Aug 03, 2022 Time/Decision to Admit Time: 20:00 Departure-Patient Inst. Referrals: NO,LOCAL PHYSICIAN (PCP/Family) Primary Care Physician REJI RAI DO Aug 03, 2022 18:12
[2022-08-03] MEDS ORDERED: ASPIRIN 81 MG CHEW (CHILDREN'S ASA) PO ONE (18:15)
[2022-08-03 18:22] LABS: BASOPHILS % (AUTO) 1 % (0-10); HEMOGLOBIN 7.2 g/dL (13.3-17.7)
[2022-08-03 18:24] LABS: ABG BASE EXCESS -1.3 MMOL/L (-2.5-2.5); ABG OXYGEN SATURATION 99 % (94-100); ABG PCO2 32 MMHG (35-45); ABG PH 7.45 (7.37-7.43); ABG PO2 84 MMHG (79-93); ABG TCO2 23.1 MMOL/L (21.0-31.0)
[2022-08-03 18:24] LABS: EOSINOPHILS % (AUTO) 1 % (0-10); HEMATOCRIT 22 % (40-54); LYMPHOCYTES # (AUTO) 1.4 10^3/uL (1.0-4.0); LYMPHOCYTES % (AUTO) 17 % (12-44); MEAN CORPUSCULAR HEMOGLOBIN 37 pg (25-34); MEAN CORPUSCULAR HGB CONC 33 g/dL (32-36); MEAN CORPUSCULAR VOLUME 112 fL (80-99); MONOCYTES # (AUTO) 0.9 10^3/uL (0.0-1.0); MONOCYTES % (AUTO) 12 % (0-12); NEUTROPHILS # (AUTO) 5.7 10^3/uL (1.8-7.8); NEUTROPHILS % (AUTO) 70 % (42-75); PLATELET COUNT 132 10^3/uL (130-400); SMEAR SCAN COMMENT YES; WHITE BLOOD COUNT 8.2 10^3/uL (4.3-11.0)
[2022-08-03 18:26] LABS: ALLENS TEST YES-POS
[2022-08-03 18:27] LABS: PATIENT TEMP 36.8; VENTILATOR NO
[2022-08-03 18:35] LABS: ALBUMIN 2.2 GM/DL (3.2-4.5); CHLORIDE 96 MMOL/L (98-107); POTASSIUM 3.9 MMOL/L (3.6-5.0)
[2022-08-03 18:36] LABS: CALCIUM 7.7 MG/DL (8.5-10.1); INR 1.7 (0.8-1.4); PROTHROMBIN TIME PATIENT 20.3 SEC (12.2-14.7)
[2022-08-03 18:37] LABS: GLUCOSE 109 MG/DL (70-105); TOTAL PROTEIN 5.5 GM/DL (6.4-8.2)
[2022-08-03 18:38] LABS: CARBON DIOXIDE 20 MMOL/L (21-32)
[2022-08-03 18:39] LABS: BILIRUBIN,TOTAL 10.7 MG/DL (0.1-1.0)
[2022-08-03 18:41] LABS: ALKALINE PHOSPHATASE 210 U/L (40-136); CREATININE SERUM 0.72 MG/DL (0.60-1.30); GFR ESTIMATED 105
[2022-08-03 18:42] LABS: BUN/CREATININE RATIO 14
[2022-08-03 18:44] LABS: ALANINE AMINOTRANSFERASE 13 U/L (0-55); MAGNESIUM 1.8 MG/DL (1.6-2.4)
[2022-08-03 18:45] LABS: CREATINE KINASE 52 U/L (30-200)
[2022-08-03 18:48] LABS: SODIUM 125 MMOL/L (135-145)
[2022-08-03 18:51] LABS: ERYTHROCYTE SEDIMENTATION RATE 43 MM/HR (0-30)
[2022-08-03 18:52] LABS: CREATINE KINASE MB 1.8 NG/ML (<6.6)
--- NOTE | 2022-08-03 19:02 | Diagnostic Imaging Report ---
INDICATION: Edema and shortness of breath. COMPARISON: 04/02/2022. FINDINGS: There are bilateral pleural effusions which have increased in size compared to prior exam. There is enlargement of the cardiac silhouette. There is prominence of the interstitial markings. This appears to reflect interstitial edema superimposed on a background of underlying COPD. There is no pneumothorax. Heart size is unchanged. IMPRESSION: The patient is believed to have a background of underlying COPD. The prominence of the interstitial markings and presence of the pleural effusion suggests superimposed pulmonary edema. Dictated by: Dictated on workstation # [id number]
[2022-08-03 19:13] LABS: BILIRUBIN,URINE 2+ (NEGATIVE); CLARITY,URINE CLEAR; COLOR,URINE ORANGE; GLUCOSE, URINE (UA) TRACE (NEGATIVE); KETONES,URINE NEGATIVE (NEGATIVE); LEUKOCYTE ESTERASE ,URINE NEGATIVE (NEGATIVE); NITRITE,URINE POSITIVE (NEGATIVE); PROTEIN,URINE NEGATIVE (NEGATIVE)
[2022-08-03 19:22] LABS: BACTERIA,URINE NEGATIVE /HPF
[2022-08-03 19:25] LABS: AMPHETAMINE SCREEN, URINE NEGATIVE (NEGATIVE); BARBITURATE SCREEN URINE NEGATIVE (NEGATIVE); BENZODIAZEPINES SCREEN URINE NEGATIVE (NEGATIVE); CANNABINOID SCREEN, URINE NEGATIVE (NEGATIVE); COCAINE SCREEN URINE NEGATIVE (NEGATIVE); METHADONE STAT NEGATIVE (NEGATIVE); OPIATE SCREEN URINE NEGATIVE (NEGATIVE); OXYCODONE STAT POSITIVE (NEGATIVE); PROPOXYPHENE STAT NEGATIVE (NEGATIVE); TRICYCLIC ANTIDEPRESSANTS SCRE NEGATIVE (NEGATIVE)
[2022-08-03] MEDS ORDERED: NS IV 1000 ML 1,000 ML ONE (20:12)
[2022-08-03] MEDS ORDERED: NS IV 1000 ML 1,000 ML IV SCH (20:15)
[2022-08-03] MEDS ORDERED: LORazepam 1 MG (ATIVAN) TAB PO PRN (20:45)
[2022-08-03] MEDS ORDERED: ONDANSETRON 4 MG (ZOFRAN) ORAL DISSOLVE TAB PO PRN (20:45)
[2022-08-03] MEDS ORDERED: ANTACID SUSP 30 ML UDC (MYLANTA) PO PRN ×2 (20:45)
[2022-08-03] MEDS ORDERED: MILK OF MAGNESIA 400 MG/5 ML 30 ML UDC PO PRN (20:45)
[2022-08-03] MEDS ORDERED: D5 1/2 NS 1000 ML IV SOLUTION 1,000 ML IV PRN (20:45)
[2022-08-03] MEDS ORDERED: LORazepam INJ 2 MG/ML (ATIVAN) VIAL IV PRN (20:45)
[2022-08-03] MEDS ORDERED: LORazepam INJ 2 MG/ML (ATIVAN) VIAL IM/IV PRN (20:45)
[2022-08-03] MEDS ORDERED: diphenhydrAMINE 25 MG TAB (BENADRYL) PO PRN (20:45)
[2022-08-03] MEDS ORDERED: ONDANSETRON 4 MG (ZOFRAN) ORAL DISSOLVE TAB SL PRN (20:45)
[2022-08-03] MEDS ORDERED: polyethylene glycoL POWDER 17 GM (MIRALAX) PACK PO PRN (20:45)
[2022-08-03] MEDS ORDERED: LACTULOSE SYRUP 10GM/15ML (ENULOSE) 30ML UDC PO PRN (20:45)
[2022-08-03] MEDS ORDERED: diphenhydrAMINE 50 MG/ML INJ (BENADRYL) IVP PRN (20:45)
[2022-08-03] MEDS ORDERED: BISACODYL 10 MG SUPP (DULCOLAX) PR PRN (20:45)
[2022-08-03] MEDS ORDERED: ACETAMINOPHEN 325 MG TABLET PO PRN (20:45)
[2022-08-03] MEDS ORDERED: 1/2 NS IV SOLUTION 1,000 ML IV PRN (20:45)
[2022-08-03] MEDS ORDERED: ONDANSETRON 4 MG/2 ML (SDV) Z0FRAN IV PRN (20:45)
[2022-08-03] MEDS ORDERED: SENNA W/DOCUSATE (SENOKOT S) TABLET PO PRN (20:45)
[2022-08-03] MEDS ORDERED: CALCIUM CARBONATE 500 MG (TUMS) TAB.CHEW PO PRN (20:45)
[2022-08-03 21:06] VITALS: BP 109/53
[2022-08-03 21:50] VITALS: BP 113/73
[2022-08-03] MEDS: SENNOSIDES 8.6 MG (SENOKOT) TAB PO SCH (22:12)
[2022-08-03] MEDS: DOCUSATE SODIUM 100 MG (COLACE) CAP PO SCH (22:12)
[2022-08-03] MEDS: MELATONIN 3 MG TABLET PO PRN (22:19)
[2022-08-03] MEDS: MAGNESIUM OXIDE (MAG-OX)400 MG TAB PO SCH (22:19)
[2022-08-03] MEDS ORDERED: RT-ALBUTEROL/IPRATROPIUM 3 ML (DUONEB) VIAL INH PRN (22:30)
[2022-08-04] VITALS (11 sets, daily range): BP systolic 90–116; BP diastolic 47–64
[2022-08-04] MEDS: RT-ALBUTEROL/IPRATROPIUM 3 ML (DUONEB) VIAL INH SCH ×6 (01:53→22:07)
[2022-08-04 05:32] LABS: BASOPHILS % (AUTO) 0 % (0-10); EOSINOPHILS # (AUTO) 0.1 10^3/uL (0.0-0.3); EOSINOPHILS % (AUTO) 1 % (0-10); LYMPHOCYTES # (AUTO) 0.9 10^3/uL (1.0-4.0); LYMPHOCYTES % (AUTO) 13 % (12-44); MEAN CORPUSCULAR HEMOGLOBIN 37 pg (25-34); MEAN CORPUSCULAR HGB CONC 33 g/dL (32-36); MEAN CORPUSCULAR VOLUME 113 fL (80-99); MEAN PLATELET VOLUME 9.7 fL (9.0-12.2); MONOCYTES # (AUTO) 0.7 10^3/uL (0.0-1.0); MONOCYTES % (AUTO) 10 % (0-12); NEUTROPHILS % (AUTO) 75 % (42-75); PLATELET COUNT 109 10^3/uL (130-400); WHITE BLOOD COUNT 6.7 10^3/uL (4.3-11.0)
[2022-08-04 05:36] LABS: HEMATOCRIT 18 % (40-54)
[2022-08-04 05:41] LABS: ALBUMIN 1.7 GM/DL (3.2-4.5)
[2022-08-04 05:42] LABS: POTASSIUM 4.2 MMOL/L (3.6-5.0)
[2022-08-04 05:43] LABS: CALCIUM 7.2 MG/DL (8.5-10.1)
[2022-08-04 05:44] LABS: TOTAL PROTEIN 4.4 GM/DL (6.4-8.2)
[2022-08-04] MEDS ORDERED: NS IV 500 ML 500 ML IV SCH ×2 (05:45)
[2022-08-04 05:46] LABS: BILIRUBIN,TOTAL 9.2 MG/DL (0.1-1.0)
[2022-08-04 05:48] LABS: CREATININE SERUM 0.72 MG/DL (0.60-1.30)
[2022-08-04] MEDS: HYDROmorphone 2 MG/ML VIAL (DILAUDID) IV PRN (06:08)
[2022-08-04] MEDS: MULTIVIT W/MINERALS TAB (THERAGRAN M) PO SCH (06:08)
[2022-08-04] MEDS: THIAMINE 100 MG (VITAMIN B-1) TAB PO SCH (06:10)
[2022-08-04 06:28] LABS: SMEAR SCAN COMMENT YES
[2022-08-04] MEDS: MAGNESIUM OXIDE (MAG-OX)400 MG TAB PO SCH ×2 (09:57→20:10)
[2022-08-04] MEDS: FOLIC ACID 1 MG TAB PO SCH (09:58)
[2022-08-04] MEDS: DOCUSATE SODIUM 100 MG (COLACE) CAP PO SCH ×2 (09:58→20:16)
[2022-08-04] MEDS: SENNOSIDES 8.6 MG (SENOKOT) TAB PO SCH ×2 (09:58→20:16)
--- NOTE | 2022-08-04 10:06 | History & Physical ---
RAISSA ROJAS A MED STUDENT 08/04/22 1006: History of Present Illness History of Present Illness Reason for visit/HPI Easton Hunt is a 61 yo male who presented for bilateral leg and abdominal swelling as well as SOA. Pt has hx of alcoholic cirrhosis with ascites. Pt reports his abdominal pain is a 10/10 and has been increasing over the last month. His last paracentesis was on 06/18/[address] Willis. His abdomen is normally distended, but becomes worse throughout the day. Pt reports he has had SOA and normally uses 5L O2 via NC, but has been increasing it to 10L throughout the day and night. He also states he has had a productive cough with yellowish green sputum for several weeks. Pt reports he quit drinking ETOH one month ago. He denies any CP, heart palpitations, STEVEN, fever, chills. Discussed code status with pt and he confirmed he wishes to be full code. Date of Admission Aug 03, 2022 at 20:03 Time Seen by a Provider: 09:00 I consulted on this patient on 08/04/22 10:06 Attending Physician [place] Admitting Physician Admitting Physician: Anita Landis DO Attending Physician: González Dominguez MD Consult Allergies and Home Medications Allergies Coded Allergies: No Known Drug Allergies (Unverified , 06/06/21) Patient Home Medication List Docusate Sodium (Stool Softener) 100 Mg Tablet, 100 MG PO DAILY PRN for CONSTIPATION-1ST LINE, (Reported) Entered as Reported by: ERLINDA DUQUE on 08/04/22 1148 Last Action: Reviewed Furosemide (Furosemide) 40 Mg Tablet, 40 MG PO DAILY, (Reported) Entered as Reported by: ERLINDA DUQUE on 08/04/22 1146 Last Action: Continued Lactulose (Lactulose) 20 Gram/30 Ml Solution, 20 GM PO TID, (Reported) Entered as Reported by: ERLINDA DUQUE on 08/04/22 1202 Last Action: Reviewed Omeprazole (Omeprazole) 40 Mg Capsule., 40 MG PO DAILY PRN for ACID REFLUX, (Reported) Entered as Reported by: ERLINDA DUQUE on 08/04/22 1148 Last Action: Reviewed Oxycodone HCl (Oxycodone HCl) 5 Mg Tablet, 5 MG PO QID PRN for PAIN-SEVERE (8- 10), (Reported) Entered as Reported by: ERLINDA DUQUE on 08/04/22 1147 Last Action: Reviewed Pantoprazole Sodium (Pantoprazole Sodium) 40 Mg Tablet.dr, 40 MG PO DAILY, (Reported) Entered as Reported by: ERLINDA DUQUE on 08/04/22 1200 Last Action: Continued Spironolactone (Spironolactone) 100 Mg Tablet, 100 MG PO DAILY, (Reported) Entered as Reported by: ERLINDA DUQUE on 08/04/22 1201 Last Action: Continued Sucralfate (Sucralfate) 1 Gram Tablet, 1 GM PO QIDACHS, (Reported) Entered as Reported by: ERLINDA DUQUE on 08/04/221199 Last Action: Reviewed Past Hsoaxzz-Xkvlmh-Otescf Hx Patient Social History Tobacco Use?: Yes Tobacco type used: Cigarettes Smoking Status: Current Everyday Smoker Use of E-Cig and/or Vaping dev: No Substance use?: Yes Substance type: Marijuana Substance frequency: Once in a while Alcohol Use?: Yes Alcohol type: Hard Liquor Alcohol Frequency: Once in a while Pt feels they are or have been: Yes Immunizations Up To Date First/Initial COVID19 Vaccinat: APRIL 2021 Second COVID19 Vaccination Eric: APRIL 2021 Tetanus Booster (TDap): More Than 5 Years Hepatitis A: No Hepatitis B: No Seasonal Allergies Seasonal Allergies: No Current Status Advance Directives: No Advance Directive Location: Home Primary Language: Setswana Preferred Spoken Language: Setswana Past Medical History Surgeries: Abdominal, Thyroidectomy COPD Chronic Edema/Swelling Abdominal Hernia, Liver Disease/Jaundice, Esophageal Varices, Cirrhosis Hypothyroidsim Lymphoma Did You Recieve Any Treatments: Yes What Type of Treatment Did You: Radiation, Surgical Intervention Cirrhois EtOH depenence and Abuse h/o Follicular Lymphoma Family Medical History No Pertinent Family Hx SOCIAL HISTORY: -SMOKES 1 1/2 PPD -ETOH--HEAVY DAILY USE -DRUGS--THC DAILY USE PAST SURGICAL HISTORY: -THORACENTESIS FOR PLEURAL EFFUSION -PARACENTESIS FOR ASCITES -THYROID SURGERY/GOITER -MALIGNANT TUMOR REMOVED FROM LEFT NECK -HERNIA REPAIR WITH MESH Review of Systems Constitutional: No chills, No fever EENTM: No nose congestion, No throat pain Respiratory: cough, phlegm, short of breath Cardiovascular: No chest pain Gastrointestinal: abdominal pain; No constipation, No diarrhea, No nausea, No vomiting Genitourinary: No dysuria, No frequency Musculoskeletal: no symptoms reported Skin: no symptoms reported Psychiatric/Neurological: Denies Headache, Denies Numbness, Denies Weakness Physical Exam Vital Signs Vital Signs - First Documented 08/03/22 08/03/22 18:00 21:50 Temp 36.8 Pulse 110 Resp 24 B/P (MAP) 113/73 (86) Pulse Ox 74 O2 Delivery Nasal Cannula O2 Flow Rate 5.00 FiO2 44 Capillary Refill : Less Than 3 Seconds Height, Weight, BMI Height: '" Weight: lbs. oz. kg; 26.37 BMI Method: General Appearance: Chronically ill, Thin HEENT: PERRL/EOMI, Moist Mucous Membranes Neck: Full Range of Motion, Normal Inspection Respiratory: Chest Non Tender, Accessory Muscle Use, Crackles (left lower lobe), Respiratory Distress Cardiovascular: Systolic Murmur, Tachycardia Gastrointestinal: Normal Bowel Sounds, Distended, Hepatomegaly, Tenderness Extremity: Pedal Edema (2+ bilaterally) Neurologic/Psychiatric: Alert, Oriented x3, Depressed Affect Skin: Jaundice, Pallor Assessment/Plan Assessment and Plan Acute on chronic respiratory failure with respiratory alkalosis with metabolic compensation Alcoholic cirrhosis with ascites Chronic blood loss anemia Hyponatremia Bilateral pulmonary edema Tobacco use Acute on chronic respiratory failure with respiratory alkalosis with metabolic compensation -ABG 7.45/ -Currently on oxymask 9L with oxygen saturation in the upper 80s to lower 90s -Pt unable to tolerate vapotherm -High probability for intubation and need for ICU placement, will monitor closely Alcoholic cirrhosis with ascites -Dr. Willis with general surgery consulted to eval for possible paracentesis, appreciate his recommendations -Last paracentesis 06/18/22 -Continue oxycodone and dilaudid for pain control Chronic anemia -Hgb 6.0 this morning, currently transfusing 1 unit of blood -Will check B12 and folate d/t high MCV -Will continue to monitor closely Hyponatremia -Fluid restriction 2L per day Bilateral pulmonary edema Tobacco use Disposition: Pt chronically ill in a fragile state, with high probability for ICU placement. Will continue to monitor Hgb and oxygen requirement closely. Likely to stay several more days. Diet: Regular with 2L fluid restriction Code status: Full Code Admission Diagnosis Admission Status: Inpatient Order (span 2 midnights) Reason for Inpatient Admission: Acute on chronic respiratory failure with hypoxemia, acute on chronic anemia Clinical Quality Measures DVT/VTE Risk/Contraindication: Contraindications-Pharm: Other *list below* Contraindications-Mechi: Other *list below* Other: lower leg edema and coaguloathy INR 1.7 due to liver failure Smoking Cessation Counseling: Counseling-Symptomatic: 3-10 Minutes GONZÁLEZ DOMINGUEZ MD 08/04/22 1608: Allergies and Home Medications Allergies Coded Allergies: No Known Drug Allergies (Unverified , 06/06/21) Patient Home Medication List Home Medication List Reviewed: Yes Docusate Sodium (Stool Softener) 100 Mg Tablet, 100 MG PO DAILY PRN for CONST IPATION-1ST LINE, (Reported) Entered as Reported by: ERLINDA DUQUE on 08/04/22 1148 Last Action: Reviewed Furosemide (Furosemide) 40 Mg Tablet, 40 MG PO DAILY, (Reported) Entered as Reported by: ERLINDA DUQUE on 08/04/22 1146 Last Action: Continued Lactulose (Lactulose) 20 Gram/30 Ml Solution, 20 GM PO TID, (Reported) Entered as Reported by: ERLINDA DUQUE on 08/04/22 1202 Last Action: Reviewed Omeprazole (Omeprazole) 40 Mg Capsule.dr, 40 MG PO DAILY PRN for ACID REFLUX, (Reported) Entered as Reported by: ERLINDA DUQUE on 08/04/22 1148 Last Action: Reviewed Oxycodone HCl (Oxycodone HCl) 5 Mg Tablet, 5 MG PO QID PRN for PAIN-SEVERE (8- 10), (Reported) Entered as Reported by: ERLINDA DUQUE on 08/04/22 1147 Last Action: Reviewed Pantoprazole Sodium (Pantoprazole Sodium) 40 Mg Tablet.dr, 40 MG PO DAILY, (Rep orted) Entered as Reported by: ERLINDA DUQUE on 08/04/22 1200 Last Action: Continued Spironolactone (Spironolactone) 100 Mg Tablet, 100 MG PO DAILY, (Reported) Entered as Reported by: ERLINDA DUQUE on 08/04/22 1201 Last Action: Continued Sucralfate (Sucralfate) 1 Gram Tablet, 1 GM PO QIDACHS, (Reported) Entered as Reported by: ERLINDA DUQUE on 08/04/22 1200 Last Action: Reviewed Past Wlseqze-Gqlbmz-Qqzcwp Hx Patient Social History Living Status: Living at home Alcohol Use?: Yes (Cessation 1 month ago) Review of Systems Constitutional: malaise, weakness EENTM: no symptoms reported Respiratory: cough, dyspnea on exertion, short of breath Cardiovascular: no symptoms reported; No chest pain Gastrointestinal: abdominal pain; No constipation, No diarrhea; loss of appetite; No nausea, No vomiting Genitourinary: no symptoms reported Musculoskeletal: no symptoms reported Skin: no symptoms reported Psychiatric/Neurological: Denies Headache, Denies Numbness; Weakness Physical Exam General Appearance: Chronically ill, Mild Distress, Thin HEENT: PERRL/EOMI Neck: Full Range of Motion, Normal Inspection Respiratory: Accessory Muscle Use, Crackles (left lower lobe), Respiratory Distress Cardiovascular: No JVD, Systolic Murmur, Tachycardia Gastrointestinal: Normal Bowel Sounds, Distended; No Guarding; Hepatomegaly, Tenderness Extremity: Pedal Edema (2+ bilaterally) Neurologic/Psychiatric: Alert, Oriented x3, Depressed Affect Skin: Jaundice, Pallor Assessment/Plan Admission Diagnosis Admission Status: Inpatient Order (span 2 midnights) Reason for Inpatient Admission: Multiple comorbidities with high risk of decompensation Supervisory-Addendum Brief Verification & Attestation Participated in pt care: history, physical Personally performed: exam, history Care discussed with: Medical Student Procedures: n/a Verification and Attestation of Medical Student E/M Service A medical student performed and documented this service in my presence. I reviewed and verified all information documented by the medical student and made modifications to such information, when appropriate. I personally performed the physical exam and medical decision making. González Dominguez, Aug 04, 2022,15:58 Acute on Chronic Respiratory failure with hypoxia Pulmonary Edema - Oximask 9LPM, MAT protocol, Titrate as tolerated, high risk for needing ICU care, General surgery consult for therapeutic paracentesis EtOH Cirrhosis Anasarca Ascities - Restarted home meds, Dr Willis consulted for paracentesis Chronic blood loss anemia - patient has known varices, 1 unit pRBCs given so far, will continue to monitor Hyponatremia - Fluid restriction 2L Poor prognosis: high risk of decompensation, discussed code status with patient and he does wish to be intubated if he needs it RAISSA ROJAS MED STUDENT Aug 04, 2022 10:06 GONZÁLEZ DOMINGUEZ MD Aug 04, 2022 16:08
[2022-08-04] MEDS ORDERED: FURO40TA4 PO (11:46)
[2022-08-04] MEDS ORDERED: OXYC5TAB PO (11:47)
[2022-08-04] MEDS ORDERED: OMEP40CA6 PO (11:48)
[2022-08-04] MEDS ORDERED: DOCU100T7 PO (11:48)
[2022-08-04] MEDS ORDERED: PANT40TA52 PO (12:00)
[2022-08-04] MEDS ORDERED: SUCR1TAB PO (12:00)
[2022-08-04] MEDS ORDERED: SPIR100T4 PO (12:01)
[2022-08-04] MEDS ORDERED: LACT20SO2 PO (12:02)
[2022-08-04] MEDS ORDERED: FUROSEMIDE 20 MG (LASIX) TAB ONE (17:03)
[2022-08-04] MEDS: FUROSEMIDE 40 MG (LASIX) TAB PO SCH (17:19)
--- NOTE | 2022-08-04 18:51 | CONSULTATION REPORT ---
DATE OF SERVICE: 08/04/2022 ATTENDING PRIMARY CARE PHYSICIAN: Dr. Sonya Horta. HISTORY OF PRESENT ILLNESS: The patient is a 61-year-old male known to us. He presented with abdominal distention, bilateral lower extremity edema as well as shortness of breath. He has a history of alcoholic liver cirrhosis and has had a previous thoracentesis as well as a paracentesis with the last one done on 06/18/2022. The patient has had a longstanding history of alcohol abuse; however, states that he quit drinking alcohol one month ago; however, on previous engagements, he also reported quitting alcohol; however, had not. The patient has also undergone endoscopy by us and was found to have stage II esophageal varices. He has significantly distended abdomen as well as a positive fluid shift wave consistent with the symptomatic ascites. PAST MEDICAL HISTORY: Follicular non-Hodgkin's lymphoma, alcoholic liver cirrhosis, congestive heart failure, recurrent symptomatic ascites, recurrent pleural effusions portal, and hypertension. PAST SURGICAL HISTORY: Thyroid cyst excision and excision of a left neck lymph node. SOCIAL HISTORY: Positive smoke 50 pack years. Positive alcohol and positive for marijuana. FAMILY HISTORY: Noncontributory. REVIEW OF SYSTEMS: This is a well-nourished male with abdominal distention, which is causing him to have bilateral lower extremity edema as well as shortness of breath. He does state intermittent coughs on occasion productive of green sputum. He does not report any nausea nor vomiting; however, has had a loss of appetite. He does not report any change in bowel habits, no red blood per rectum, and no dark tarry stools. No fever, chills, and no recent inadvertent weight loss. All other review of systems negative. PHYSICAL EXAMINATION: VITAL SIGNS: Temperature 38.2, blood pressure 104/58, pulse 114, respirations 20, and pulse ox 92% on OxyMask at 9 liters per minute. CHEST: Scattered rales and wheezes bilaterally. HEART: Regular and no murmurs. EXTREMITIES: A +1/3 bilateral lower extremity edema, negative Homans sign. HEENT: No scleral icterus. NECK: No cervical lymphadenopathy. ABDOMEN: Soft and distended with a positive fluid shift wave consistent with an ascites. SKIN: Warm and dry. LABORATORY DATA: WBC 6.7, hemoglobin 6.0, hematocrit 18, and platelets 109. BUN 11 and creatinine 0.72. ASSESSMENT AND PLAN: A 61-year-old male with recurrent symptomatic ascites secondary to alcoholic liver cirrhosis. The natural history of this disease process was again explained to the patient and we will proceed with a therapeutic paracentesis. Job ID: [id number] DocumentID: [id number] Dictated Date: 08/04/2022 18:30:06 Plant And Equipment Worker Date: 08/04/2022 18:51:08 Dictated By: MARCI GALLOWAY MD
[2022-08-05] VITALS (9 sets, daily range): BP systolic 95–114; BP diastolic 49–63
[2022-08-05] MEDS: HYDROmorphone 2 MG/ML VIAL (DILAUDID) IV PRN ×5 (00:31→22:06)
[2022-08-05] MEDS: RT-ALBUTEROL/IPRATROPIUM 3 ML (DUONEB) VIAL INH SCH ×6 (02:17→22:10)
--- NOTE | 2022-08-05 04:48 | OPERATIVE REPORT ---
DATE OF SERVICE: 08/04/2022 ATTENDING PRIMARY CARE PHYSICIAN: Dr. Sonya Horta. PREOPERATIVE DIAGNOSIS: Recurrent symptomatic ascites secondary to alcoholic liver cirrhosis. POSTOPERATIVE DIAGNOSES: Recurrent symptomatic ascites secondary to alcoholic liver cirrhosis. PROCEDURE: Paracentesis. SURGEON: Marci Galloway MD. ANESTHESIA: Local. ESTIMATED BLOOD LOSS: Minimal. FINDINGS: Blood-tinged transudative fluid. DISPOSITION: The patient tolerated the procedure well. INDICATIONS: The patient is a 61-year-old male with a history of alcoholic liver cirrhosis and unfortunately continues to drink alcohol. He has history of recurrent symptomatic pleural effusions as well as ascites. He also underwent an endoscopy by us and was found to have stage II esophageal varices. He presented with bilateral lower extremity edema, abdominal distention as well as shortness of breath. He does have a fluid shift wave of the abdomen consistent with recurrent ascites. DESCRIPTION OF PROCEDURE: The patient's abdomen was prepped and draped in standard surgical fashion. In the right lateral abdomen, the skin, subcutaneous tissue, fascia, muscle layers and peritoneal lining were anesthetized using 1% lidocaine. A vertical skin incision was made using an 11 blade and a dilator and catheter were then placed withdrawing of blood tinged transudative fluid. The catheter was then advanced over the trocar without any resistance. The catheter was then connected to tubing and gravity drainage bag. Catheter was then covered with a sterile gauze followed by Op-Site. The patient tolerated the procedure well. We will continue with a slow continuous gravity drainage until the majority of fluid has been evacuated and he is less symptomatic, then we will instruct staff to remove the catheter. Job ID: [id number] DocumentID: [id number] Dictated Date: 08/04/2022 19:06:54 Subgrade Roller Operator Date: 08/05/2022 04:47:25 Dictated By: MARCI GALLOWAY MD
[2022-08-05 05:55] LABS: EOSINOPHILS # (AUTO) 0.1 10^3/uL (0.0-0.3); EOSINOPHILS % (AUTO) 1 % (0-10); LYMPHOCYTES # (AUTO) 1.1 10^3/uL (1.0-4.0)
[2022-08-05 05:56] LABS: BASOPHILS % (AUTO) 1 % (0-10); HEMATOCRIT 21 % (40-54); LYMPHOCYTES % (AUTO) 13 % (12-44); MEAN CORPUSCULAR HEMOGLOBIN 36 pg (25-34); MEAN CORPUSCULAR HGB CONC 33 g/dL (32-36); MEAN CORPUSCULAR VOLUME 110 fL (80-99); MEAN PLATELET VOLUME 9.4 fL (9.0-12.2); MONOCYTES # (AUTO) 0.7 10^3/uL (0.0-1.0); MONOCYTES % (AUTO) 8 % (0-12); NEUTROPHILS # (AUTO) 6.6 10^3/uL (1.8-7.8); NEUTROPHILS % (AUTO) 76 % (42-75); PLATELET COUNT 112 10^3/uL (130-400); WHITE BLOOD COUNT 8.6 10^3/uL (4.3-11.0)
[2022-08-05 06:06] LABS: HEMOGLOBIN 6.9 g/dL (13.3-17.7)
[2022-08-05 06:13] LABS: ALBUMIN 1.7 GM/DL (3.2-4.5); BILIRUBIN,TOTAL 9.1 MG/DL (0.1-1.0); CALCIUM 7.6 MG/DL (8.5-10.1); CREATININE SERUM 0.66 MG/DL (0.60-1.30); POTASSIUM 4.3 MMOL/L (3.6-5.0); TOTAL PROTEIN 4.5 GM/DL (6.4-8.2)
[2022-08-05] MEDS: MULTIVIT W/MINERALS TAB (THERAGRAN M) PO SCH (06:20)
[2022-08-05] MEDS: THIAMINE 100 MG (VITAMIN B-1) TAB PO SCH (06:20)
[2022-08-05] MEDS: ONDANSETRON 4 MG/2 ML (SDV) Z0FRAN IV PRN (06:26)
[2022-08-05] MEDS: FOLIC ACID 1 MG TAB PO SCH (08:06)
[2022-08-05] MEDS: DOCUSATE SODIUM 100 MG (COLACE) CAP PO SCH ×2 (08:07→20:01)
[2022-08-05] MEDS: MAGNESIUM OXIDE (MAG-OX)400 MG TAB PO SCH ×2 (08:07→20:01)
[2022-08-05] MEDS: PANTOPRAZOLE 40 MG (PROTONIX) TAB PO SCH (08:07)
[2022-08-05] MEDS: SPIRONOLACTONE 100 MG (ALDACTONE) TABLET PO SCH (08:07)
[2022-08-05] MEDS: SENNOSIDES 8.6 MG (SENOKOT) TAB PO SCH ×2 (08:07→20:01)
[2022-08-05] MEDS: FUROSEMIDE 40 MG (LASIX) TAB PO SCH (08:07)
[2022-08-05] MEDS ORDERED: FUROSEMIDE 40 MG (LASIX) TAB PO SCH (09:00)
--- NOTE | 2022-08-05 11:58 | Progress Note ---
Subjective Subjective Date Seen by Provider: Aug 05, 2022 Time Seen by Provider: 09:30 Pt being seen in f/u for alcoholic cirrhosis and ascites. Pt sitting up in bed this morning, very tired. He reports he just received his pain medication and rates his abdominal pain an 8/10. He reports some relief since therapeutic paracentesis yesterday. His SOA has improved. Pt has concerns that he is nearing the end of his life and wondering if he should call family. Discussed with pt that he is very ill, but it is difficult to give a time frame. Pt voiced understanding. Pt has no other concerns today. Review of Systems General: No Chills; Fatigue HEENT: No Head Aches, No Sinus Congestion, No Sore Throat Pulmonary: Dyspnea, Cough Cardiovascular: No: Chest Pain, Palpitations Gastrointestinal: No: Nausea, Vomiting Genitourinary: No Dysuria, No Frequency; Other (scrotal swelling) Neurological: Weakness; No: Numbness Objective Exam Vital Signs Vital Signs Date Time Temp Pulse Resp B/P (MAP) Pulse Ox O2 Delivery O2 Flow Rate FiO2 08/05/22 11:00 91 High Flow N/C 10.00 08/05/22 08:56 36.8 68 19 97/49 (65) 92 OxyMask 10.00 08/05/22 07:53 100 08/05/22 07:51 OxyMask 10.00 08/05/22 07:06 91 OxyMask 10.00 08/05/22 04:13 37.0 99 18 105/50 (68) 93 OxyMask 9.00 08/05/22 02:27 88 OxyMask 88.00 08/05/22 02:06 37.0 103 18 102/51 (68) 89 OxyMask 9.00 08/05/22 01:00 104 08/05/22 00:44 37.6 107 18 95/54 (68) 90 OxyMask 9.00 08/05/22 00:26 37.6 112 18 106/63 (77) 90 OxyMask 9.00 08/04/22 22:42 37.6 08/04/22 22:07 89 OxyMask 9.00 08/04/22 21:46 38.0 08/04/22 21:16 38.0 110 30 101/58 (72) 91 OxyMask 9.00 08/04/22 20:10 OxyMask 9.00 08/04/22 20:10 38.4 08/04/22 19:43 38.4 116 20 112/61 (78) 91 OxyMask 9.00 08/04/22 19:01 111 08/04/22 17:56 38.2 114 20 104/58 (73) 92 OxyMask 9.00 08/04/22 16:57 37.6 117 22 116/64 (81) 93 OxyMask 10.00 08/04/22 13:26 120 08/04/22 12:46 36.7 110 20 105/55 (72) 92 Simple Mask 9.00 I & O 08/05/22 07:00 Intake Total 2685 ml Output Total 710 ml Balance 1975 ml General Appearance: Chronically ill, Thin, Other (Jaundice) HEENT: PERRL/EOMI Neck: Full Range of Motion, Normal Inspection Respiratory: Accessory Muscle Use, Decreased Breath Sounds (RLL), Respiratory Distress Cardiovascular: Systolic Murmur, Tachycardia Gastrointestinal: Normal Bowel Sounds, Distended; No Guarding; Hepatomegaly, Tenderness Genital/Rectal: Other (scrotal edema) Extremity: Pedal Edema (3+ bilaterally) Neurologic/Psychiatric: Alert, Oriented x3, Depressed Affect Skin: Jaundice, Pallor Results Lab Laboratory Tests 08/04/22 13:26: Lab Scanned Report Transfusion Reaction Form 08/04/22 16:55: Glucometer 140H 08/05/22 00:22: Glucometer 131H 08/05/22 05:38: Glucometer 114H 08/05/22 05:51: White Blood Count 8.6, Red Blood Count 1.91L, Hemoglobin 6.9*L, Hematocrit 21L, Mean Corpuscular Volume 110H, Mean Corpuscular Hemoglobin 36H, Mean Corpuscular Hemoglobin Concent 33, Red Cell Distribution Width 23.9H, Platelet Count 112L, M damion Platelet Volume 9.4, Immature Granulocyte % (Auto) 2, Neutrophils (%) (Auto) 76H, Lymphocytes (%) (Auto) 13, Monocytes (%) (Auto) 8, Eosinophils (%) (Auto) 1, Basophils (%) (Auto) 1, Neutrophils # (Auto) 6.6, Lymphocytes # (Auto) 1.1, Monocytes # (Auto) 0.7, Eosinophils # (Auto) 0.1, Basophils # (Auto) 0.0, Immature Granulocyte # (Auto) 0.1, Percent Immature Platelet Fraction 1.1, Sodium Level 127L, Potassium Level 4.3, Chloride Level 100, Carbon Dioxide Level 20L, Anion Gap 7, Blood Urea Nitrogen 11, Creatinine 0.66, Estimat Glomerular Filtration Rate 107, BUN/Creatinine Ratio 17, Glucose Level 119H, Calcium Level 7.6L, Corrected Calcium 9.4, Total Bilirubin 9.1H, Aspartate Amino Transf (AST/SGOT) 31, Alanine Aminotransferase (ALT/SGPT) 13, Alkaline Phosphatase 191H , Total Protein 4.5L, Albumin 1.7L Microbiology 08/03/22 Urine Culture - Final, Complete NO GROWTH 08/03/22 Blood Culture - Preliminary, Resulted No growth 08/03/22 Gram Stain - Final, Resulted 08/03/22 Sputum Culture - Preliminary, Resulted Usual upper respiratory marcie Assessment/Plan Assessment/Plan Admission Dx Acute on chronic respiratory failure with respiratory alkalosis with metabolic compensation Alcoholic cirrhosis with ascites Chronic blood loss anemia Hyponatremia Bilateral pulmonary edema Tobacco use Acute on chronic respiratory failure with respiratory alkalosis with metabolic compensation -Currently on oxymask 9L with oxygen saturation in the upper 80s to lower 90s -Pt unable to tolerate vapotherm -High probability for intubation and need for ICU placement, will monitor closely Alcoholic cirrhosis with ascites -Therapeutic paracentesis performed 08/[address] Willis. -Drain placed with minimal fluid drainage -Prior paracentesis 06/18/22 -Continue oxycodone and dilaudid for pain control -Consider increasing lasix from 40mg PO to 80 mg PO once daily Chronic anemia -Hgb 6.9 on 08/05, improved from 6 on 08/04 -B12 was elevated at 1620 and folate was wnl at 9.3 -Will continue to monitor closely Hyponatremia -Fluid restriction 2L per day -Remained stable from yesterday Scrotal Edema -Likely d/t being bedridden -Scrotal sling and cold packs for relief Bilateral pulmonary edema -RT protocol Tobacco use Disposition: Pt chronically ill in a fragile state, with high probability for ICU placement. Will continue to monitor Hgb and oxygen requirement closely. Lik albina to stay several more days. Will continue end of life care discussion with pt tomorrow. Diet: Regular with 2L fluid restriction Code status: Full Code Problems: (1) Chronic liver disease and cirrhosis (2) Generalized abdominal discomfort (3) Acute on chronic respiratory failure Admission Dx Acute on chronic respiratory failure with respiratory alkalosis with metabolic compensation Alcoholic cirrhosis with ascites Chronic blood loss anemia Hyponatremia Bilateral pulmonary edema Tobacco use Acute on chronic respiratory failure with respiratory alkalosis with metabolic compensation -ABG 7.45/32/84/22 -Currently on oxymask 9L with oxygen saturation in the upper 80s to lower 90s -Pt unable to tolerate vapotherm -High probability for intubation and need for ICU placement, will monitor closely Alcoholic cirrhosis with ascites -Dr. Willis with general surgery consulted to eval for possible paracentesis, appreciate his recommendations -Last paracentesis 06/18/22 -Continue oxycodone and dilaudid for pain control Chronic anemia -Hgb 6.0 this morning, currently transfusing 1 unit of blood -Will check B12 and folate d/t high MCV -Will continue to monitor closely Hyponatremia -Fluid restriction 2L per day Bilateral pulmonary edema Tobacco use Disposition: Pt chronically ill in a fragile state, with high probability for ICU placement. Will continue to monitor Hgb and oxygen requirement closely. Likely to stay several more days. Diet: Regular with 2L fluid restriction Code status: Full Code Clinical Quality Measures Admission Status Admission Dx Acute on chronic respiratory failure with respiratory alkalosis with metabolic compensation Alcoholic cirrhosis with ascites Chronic blood loss anemia Hyponatremia Bilateral pulmonary edema Tobacco use Acute on chronic respiratory failure with respiratory alkalosis with metabolic compensation -ABG 7.45/32/84/22 -Currently on oxymask 9L with oxygen saturation in the upper 80s to lower 90s -Pt unable to tolerate vapotherm -High probability for intubation and need for ICU placement, will monitor closely Alcoholic cirrhosis with ascites -Dr. Willis with general surgery consulted to eval for possible paracentesis, appreciate his recommendations -Last paracentesis 06/18/22 -Continue oxycodone and dilaudid for pain control Chronic anemia -Hgb 6.0 this morning, currently transfusing 1 unit of blood -Will check B12 and folate d/t high MCV -Will continue to monitor closely Hyponatremia -Fluid restriction 2L per day Bilateral pulmonary edema Tobacco use Disposition: Pt chronically ill in a fragile state, with high probability for ICU placement. Will continue to monitor Hgb and oxygen requirement closely. Likely to stay several more days. Diet: Regular with 2L fluid restriction Code status: Full Code DVT/VTE Risk/Contraindication: Contraindications-Pharm: Other *list below* Contraindications-Mechi: Other *list below* Other: lower leg edema and coaguloathy INR 1.7 due to liver failure Smoking Cessation Counseling: Counseling-Symptomatic: 3-10 Minutes Supervisory-Addendum Brief Verification & Attestation Participated in pt care: history, physical Personally performed: exam, history Care discussed with: Medical Student Procedures: n/a Verification and Attestation of Medical Student E/M Service A medical student performed and documented this service in my presence. I review ed and verified all information documented by the medical student and made modifications to such information, when appropriate. I personally performed the physical exam and medical decision making. González Horta, Aug 05, 2022,18:52 RAISSA ROJAS MED STUDENT Aug 05, 2022 11:58 GONZÁLEZ HORTA MD Aug 05, 2022 18:57
--- NOTE | 2022-08-05 15:59 | Progress Note ---
Subjective Date Seen by a Provider: Aug 05, 2022 Time Seen by a Provider: 12:00 Subjective/Events-last exam doing slightly better. less abd distention. minimal peritoneal drain output. Focused Exam Lactate Level 08/03/22 18:12: Lactic Acid Level 1.90 Time of Focused Exam: 19:55 Objective Exam Vital Signs Date Time Temp Pulse Resp B/P (MAP) Pulse Ox O2 Delivery O2 Flow Rate FiO2 08/05/22 15:02 94 High Flow N/C 10.00 08/05/22 13:32 100 08/05/22 12:08 36.8 98 19 95/50 (65) 92 Nasal Cannula 10.00 08/05/22 11:00 91 High Flow N/C 10.00 08/05/22 08:56 36.8 68 19 97/49 (65) 92 OxyMask 10.00 08/05/22 07:53 100 08/05/22 07:51 OxyMask 10.00 08/05/22 07:06 91 OxyMask 10.00 08/05/22 04:13 37.0 99 18 105/50 (68) 93 OxyMask 9.00 08/05/22 02:27 88 OxyMask 88.00 08/05/22 02:06 37.0 103 18 102/51 (68) 89 OxyMask 9.00 08/05/22 01:00 104 08/05/22 00:44 37.6 107 18 95/54 (68) 90 OxyMask 9.00 08/05/22 00:26 37.6 112 18 106/63 (77) 90 OxyMask 9.00 08/04/22 22:42 37.6 08/04/22 22:07 89 OxyMask 9.00 08/04/22 21:46 38.0 08/04/22 21:16 38.0 110 30 101/58 (72) 91 OxyMask 9.00 08/04/22 20:10 OxyMask 9.00 08/04/22 20:10 38.4 08/04/22 19:43 38.4 116 20 112/61 (78) 91 OxyMask 9.00 08/04/22 19:01 111 08/04/22 17:56 38.2 114 20 104/58 (73) 92 OxyMask 9.00 08/04/22 16:57 37.6 117 22 116/64 (81) 93 OxyMask 10.00 I & O 08/05/22 06:59 Intake Total 2685 ml Output Total 710 ml Balance 1975 ml Capillary Refill : Less Than 3 Seconds General Appearance: No Apparent Distress HEENT: PERRL/EOMI Neck: Full Range of Motion Respiratory: Chest Non Tender Cardiovascular: Regular Rate, Rhythm Gastrointestinal: normal bowel sounds, non tender, soft Extremity: Normal Capillary Refill Neurologic/Psychiatric: Alert, Oriented x3 Skin: Normal Color Lymphatic: No Adenopathy Results Lab Laboratory Tests 08/04/22 16:55: Glucometer 140H 08/05/22 00:22: Glucometer 131H 08/05/22 05:38: Glucometer 114H 08/05/22 05:51: White Blood Count 8.6, Red Blood Count 1.91L, Hemoglobin 6.9*L, Hematocrit 21L, Mean Corpuscular Volume 110H, Mean Corpuscular Hemoglobin 36H, Mean Corpuscular Hemoglobin Concent 33, Red Cell Distribution Width 23.9H, Platelet Count 112L, Mean Platelet Volume 9.4, Immature Granulocyte % (Auto) 2, Neutrophils (%) (Auto) 76H, Lymphocytes (%) (Auto) 13, Monocytes (%) (Auto) 8, Eosinophils (%) (Auto) 1, Basophils (%) (Auto) 1, Neutrophils # (Auto) 6.6, Lymphocytes # (Auto) 1.1, Monocytes # (Auto) 0.7, Eosinophils # (Auto) 0.1, Basophils # (Auto) 0.0, Immature Granulocyte # (Auto) 0.1, Percent Immature Platelet Fraction 1.1, Sodium Level 127L, Potassium Level 4.3, Chloride Level 100, Carbon Dioxide Level 20L, Anion Gap 7, Blood Urea Nitrogen 11, Creatinine 0.66, Estimat Glomerular Filtration Rate 107, BUN/Creatinine Ratio 17, Glucose Level 119H, Calcium Level 7.6L, Corrected Calcium 9.4, Total Bilirubin 9.1H, Aspartate Amino Transf (AST/SGOT) 31, Alanine Aminotransferase (ALT/SGPT) 13, Alkaline Phosphatase 191H , Total Protein 4.5L, Albumin 1.7L 08/05/22 11:53: Glucometer 127H Microbiology 08/03/22 Urine Culture - Final, Complete NO GROWTH 08/03/22 Blood Culture - Preliminary, Resulted No growth 08/03/22 Gram Stain - Final, Resulted 08/03/22 Sputum Culture - Preliminary, Resulted Usual upper respiratory marcie Assessment/Plan Assessment/Plan Assess & Plan/Chief Complaint recurrent ascites secondary alcoholic liver cirrhosis. cont drain for now. remove when minimal or close to discharge. Clinical Quality Measures DVT/VTE Risk/Contraindication: Contraindications-Pharm: Other *list below* Contraindications-Mechi: Other *list below* Other: lower leg edema and coaguloathy INR 1.7 due to liver failure Smoking Cessation Counseling: Counseling-Symptomatic: 3-10 Minutes MARCI GALLOWAY MD Aug 05, 2022 15:59
[2022-08-06 00:12] VITALS: BP 101/55
[2022-08-06] MEDS: RT-ALBUTEROL/IPRATROPIUM 3 ML (DUONEB) VIAL INH SCH ×6 (02:22→22:15)
[2022-08-06 03:40] VITALS: BP 101/51
[2022-08-06] MEDS: MULTIVIT W/MINERALS TAB (THERAGRAN M) PO SCH (05:42)
[2022-08-06] MEDS: THIAMINE 100 MG (VITAMIN B-1) TAB PO SCH (05:47)
[2022-08-06] MEDS: HYDROmorphone 2 MG/ML VIAL (DILAUDID) IV PRN ×5 (05:48→18:37)
[2022-08-06 05:50] LABS: NEUTROPHILS % (AUTO) 79 % (42-75)
[2022-08-06 05:52] LABS: BASOPHILS % (AUTO) 1 % (0-10); EOSINOPHILS # (AUTO) 0.1 10^3/uL (0.0-0.3); EOSINOPHILS % (AUTO) 1 % (0-10); HEMATOCRIT 23 % (40-54); HEMOGLOBIN 7.4 g/dL (13.3-17.7); LYMPHOCYTES # (AUTO) 0.9 10^3/uL (1.0-4.0); LYMPHOCYTES % (AUTO) 11 % (12-44); MEAN CORPUSCULAR HEMOGLOBIN 36 pg (25-34); MEAN CORPUSCULAR HGB CONC 33 g/dL (32-36); MEAN CORPUSCULAR VOLUME 110 fL (80-99); MONOCYTES # (AUTO) 0.7 10^3/uL (0.0-1.0); MONOCYTES % (AUTO) 7 % (0-12); PLATELET COUNT 134 10^3/uL (130-400); WHITE BLOOD COUNT 8.8 10^3/uL (4.3-11.0)
[2022-08-06 06:12] LABS: ALBUMIN 1.8 GM/DL (3.2-4.5); CALCIUM 7.9 MG/DL (8.5-10.1); CREATININE SERUM 0.68 MG/DL (0.60-1.30); POTASSIUM 4.8 MMOL/L (3.6-5.0); TOTAL PROTEIN 4.9 GM/DL (6.4-8.2)
[2022-08-06 06:15] LABS: BILIRUBIN,TOTAL 11.3 MG/DL (0.1-1.0)
[2022-08-06 07:30] VITALS: BP 93/48
[2022-08-06] MEDS: SENNOSIDES 8.6 MG (SENOKOT) TAB PO SCH ×2 (08:57→20:10)
[2022-08-06] MEDS: SPIRONOLACTONE 100 MG (ALDACTONE) TABLET PO SCH (08:57)
[2022-08-06] MEDS: PANTOPRAZOLE 40 MG (PROTONIX) TAB PO SCH (08:57)
[2022-08-06] MEDS: FOLIC ACID 1 MG TAB PO SCH (08:57)
[2022-08-06] MEDS: MAGNESIUM OXIDE (MAG-OX)400 MG TAB PO SCH (08:57)
[2022-08-06] MEDS: FUROSEMIDE 40 MG/4 ML INJ (LASIX) IVP SCH (08:57)
[2022-08-06] MEDS: DOCUSATE SODIUM 100 MG (COLACE) CAP PO SCH ×2 (08:57→20:10)
[2022-08-06] MEDS: methylPREDNISolone 40 MG/ML (Solu-MEDROL) VIAL IV SCH ×2 (11:46→18:36)
--- NOTE | 2022-08-06 12:16 | Progress Note ---
RAISSA ROJAS A MED STUDENT 08/06/22 1216: Subjective Date Seen by a Provider: Aug 06, 2022 Time Seen by a Provider: 09:30 Subjective/Events-last exam Pt being seen in f/u for alcoholic cirrhosis with ascites. Pt reports his abdominal pain is a 9/10 this morning. He does not feel well today and is very tired. Pt was transitioned to vapotherm 40lpm at 100% FiO2. He does report his SOA is better. He requests something stronger for the pain. After lengthy discussion about end of life goals pt reports he wishes to be DNR/DNI. Review of Systems General: No Chills; Fatigue HEENT: No Head Aches, No Visual Changes Pulmonary: Dyspnea, Cough Cardiovascular: No: Chest Pain, Palpitations Gastrointestinal: Abdominal Pain; No: Nausea, Vomiting Genitourinary: No Dysuria, No Frequency; Other (scrotal swelling) Neurological: No: Weakness, Numbness Focused Exam Lactate Level 08/03/22 18:12: Lactic Acid Level 1.90 Time of Focused Exam: 19:55 Objective Exam Last Set of Vital Signs Vital Signs Date Time Temp Pulse Resp B/P (MAP) Pulse Ox O2 Delivery O2 Flow Rate FiO2 08/06/22 10:41 90 Vapotherm 40.00 100 08/06/22 07:30 37.0 96 24 93/48 (63) Capillary Refill : Less Than 3 Seconds I&O Intake and Output 08/06/22 00:00 Intake Total 1570 ml Output Total 1065 ml Balance 505 ml Intake Oral 1420 ml IV Total 150 ml Output Urine Total 925 ml Drainage Total 140 ml # Voids 2 General: Alert, Oriented X3 HEENT: Atraumatic, PERRLA Neck: Supple, No JVD Lungs: Other (crackles bilaterally with decreased breath sounds) Heart: Other (tachycardia) Abdomen: Other (Distended abdomen, slightly worsened from yesterday. Serosanginous drainage on the gauze covering paracentesis drain) Extremities: Other (3+ pitting edema bilaterally) Skin: No Rashes, No Breakdown Neuro: Normal Speech, Normal Tone Other physical findings Scrotal edema worsened since yesterday Results Lab Laboratory Tests 08/05/22 17:56: Glucometer 125H 08/06/22 00:28: Glucometer 112H 08/06/22 05:45: White Blood Count 8.8, Red Blood Count 2.06L, Hemoglobin 7.4L, Hematocrit 23L, Mean Corpuscular Volume 110H, Mean Corpuscular Hemoglobin 36H, Mean Corpuscular Hemoglobin Concent 33, Red Cell Distribution Width 22.9H, Platelet Count 134, Mean Platelet Volume 9.0, Immature Granulocyte % (Auto) 1, Neutrophils (%) (Auto) 79H, Lymphocytes (%) (Auto) 11L, Monocytes (%) (Auto) 7, Eosinophils (%) (Auto) 1, Basophils (%) (Auto) 1, Neutrophils # (Auto) 7.0, Lymphocytes # (Auto) 0.9L, Monocytes # (Auto) 0.7, Eosinophils # (Auto) 0.1, Basophils # (Auto) 0.0, Immature Granulocyte # (Auto) 0.1, Percent Immature Platelet Fraction 1.0, Sodium Level 127L, Potassium Level 4.8, Chloride Level 98, Carbon Dioxide Level 21, Anion Gap 8, Blood Urea Nitrogen 13, Creatinine 0.68, Estimat Glomerular Filtration Rate 106, BUN/Creatinine Ratio 19, Glucose Level 112H, Calcium Level 7.9L, Corrected Calcium 9.7, Total Bilirubin 11.3#*H, Aspartate Amino Transf (AST/SGOT) 35H, Alanine Aminotransferase (ALT/SGPT) 17, Alkaline Phosphatase 199H, Total Protein 4.9L, Albumin 1.8L 08/06/22 11:38: Glucometer 133H Microbiology 08/03/22 Urine Culture - Final, Complete NO GROWTH 08/03/22 Blood Culture - Preliminary, Resulted No growth 08/03/22 Gram Stain - Final, Complete 08/03/22 Sputum Culture - Final, Complete Usual upper respiratory marcie Assessment/Plan Assessment/Plan Assess & Plan/Chief Complaint Acute on chronic respiratory failure with respiratory alkalosis with metabolic compensation Alcoholic cirrhosis with ascites Chronic blood loss anemia Hyponatremia Bilateral pulmonary edema Tobacco use Acute on chronic respiratory failure with respiratory alkalosis with metabolic compensation -Currently on vapotherm 40lpm at 100% FiO2 with saturations in the low 90s -MAT protocol -Solumedrol started -Code status changed to DNR/DNI Alcoholic cirrhosis with ascites -Therapeutic paracentesis performed 08/[address] Willis. -Drain placed with minimal fluid drainage since then -Will consult Dr. Kido about replacement of drain -Prior paracentesis 06/18/22 -Pain medication increased -IV lasix 40mg -Spironolactone Chronic anemia -Hgb 7.4, improving -B12 was elevated at 1620 and folate was wnl at 9.3 -Will continue to monitor closely Hyponatremia -Fluid restriction 2L per day -Remained stable from yesterday Scrotal Edema -Likely d/t being bedridden, worsened today -Increased lasix to 40mg IV -Scrotal sling and cold packs for relief Bilateral pulmonary edema -RT protocol Tobacco use Disposition: Pt chronically ill in a fragile state, wishes to be DNR/DNI, does not want to leave the hospital and pass at home. Will continue end of life care discussion with pt tomorrow. Diet: Regular with 2L fluid restriction Code status: Full Code Diagnosis/Problems Diagnosis/Problems (1) Chronic liver disease and cirrhosis Status: Acute (2) Generalized abdominal discomfort Status: Acute (3) Acute on chronic respiratory failure Status: Acute Clinical Quality Measures Admission Status Admission Dx Acute on chronic respiratory failure with respiratory alkalosis with metabolic compensation Alcoholic cirrhosis with ascites Chronic blood loss anemia Hyponatremia Bilateral pulmonary edema Tobacco use Acute on chronic respiratory failure with respiratory alkalosis with metabolic compensation -Currently on oxymask 9L with oxygen saturation in the upper 80s to lower 90s -Pt unable to tolerate vapotherm -High probability for intubation and need for ICU placement, will monitor closely Alcoholic cirrhosis with ascites -Therapeutic paracentesis performed 08/[address] Willis. -Drain placed with minimal fluid drainage -Prior paracentesis 06/18/22 -Continue oxycodone and dilaudid for pain control -Consider increasing lasix from 40mg PO to 80 mg PO once daily Chronic anemia -Hgb 6.9 on 08/05, improved from 6 on 08/04 -B12 was elevated at 1620 and folate was wnl at 9.3 -Will continue to monitor closely Hyponatremia -Fluid restriction 2L per day -Remained stable from yesterday Scrotal Edema -Likely d/t being bedridden -Scrotal sling and cold packs for relief Bilateral pulmonary edema -RT protocol Tobacco use Disposition: Pt chronically ill in a fragile state, with high probability for ICU placement. Will continue to monitor Hgb and oxygen requirement closely. Likely to stay several more days. Will continue end of life care discussion with pt tomorrow. Diet: Regular with 2L fluid restriction Code status: Full Code DVT/VTE Risk/Contraindication: Contraindications-Pharm: Other *list below* Contraindications-Mechi: Other *list below* Other: lower leg edema and coaguloathy INR 1.7 due to liver failure Smoking Cessation Counseling: Counseling-Symptomatic: 3-10 Minutes GONZÁLEZ HORTA MD 08/07/22 1614: Supervisory-Addendum Brief Verification & Attestation Participated in pt care: history, physical Personally performed: exam, history Care discussed with: Medical Student Procedures: n/a Verification and Attestation of Medical Student E/M Service A medical student performed and documented this service in my presence. I reviewed and verified all information documented by the medical student and made modifications to such information, when appropriate. I personally performed the physical exam and medical decision making. González Horta, Aug 06, 2022,16:14 RAISSA ROJAS MED STUDENT Aug 06, 2022 12:16 GONZÁLEZ HORTA MD Aug 07, 2022 16:14
[2022-08-06 12:19] VITALS: BP 90/55
--- NOTE | 2022-08-06 15:47 | Progress Note ---
Subjective Date Seen by a Provider: Aug 06, 2022 Time Seen by a Provider: 16:00 Subjective/Events-last exam requiring more O2. labs worsening. minimal peritoneal drain output. Focused Exam Lactate Level 08/03/22 18:12: Lactic Acid Level 1.90 Time of Focused Exam: 19:55 Objective Exam Vital Signs Date Time Temp Pulse Resp B/P (MAP) Pulse Ox O2 Delivery O2 Flow Rate FiO2 08/06/22 15:04 91 Vapotherm 40.00 100 08/06/22 13:21 96 08/06/22 12:19 37.1 95 18 90/55 (67) 91 Vapotherm 100.00 40.00 08/06/22 10:41 90 Vapotherm 40.00 100 08/06/22 08:44 90 Vapotherm 40.00 100 08/06/22 07:43 90 OxyMask 12.00 08/06/22 07:37 OxyMask 12.00 08/06/22 07:30 37.0 96 24 93/48 (63) 88 OxyMask 12.00 08/06/22 07:06 96 08/06/22 03:40 37.2 101 20 101/51 (68) 91 OxyMask 11.00 08/06/22 02:22 93 OxyMask 12.00 08/06/22 01:00 109 08/06/22 00:12 37.1 109 20 101/55 (70) 89 OxyMask 11.00 08/05/22 22:41 91 OxyMask 10.00 08/05/22 22:05 111 114/57 (76) 91 OxyMask 10.00 08/05/22 20:10 OxyMask 9.00 08/05/22 19:39 37.0 110 24 105/58 (74) 91 OxyMask 10.00 08/05/22 19:00 106 08/05/22 18:30 92 OxyMask 10.00 08/05/22 16:05 36.8 102 105/54 (71) OxyMask 10.00 I & O 08/06/22 07:00 Intake Total 1520 ml Output Total 1390 ml Balance 130 ml Capillary Refill : Less Than 3 Seconds General Appearance: No Apparent Distress HEENT: PERRL/EOMI Neck: Full Range of Motion Respiratory: Decreased Breath Sounds, Rhonci, Wheezing Cardiovascular: Regular Rate, Rhythm Gastrointestinal: soft, distended Extremity: Normal Capillary Refill Neurologic/Psychiatric: Alert Skin: Normal Color Lymphatic: No Adenopathy Results Lab Laboratory Tests 08/05/22 17:56: Glucometer 125H 08/06/22 00:28: Glucometer 112H 08/06/22 05:45: White Blood Count 8.8, Red Blood Count 2.06L, Hemoglobin 7.4L, Hematocrit 23L, Mean Corpuscular Volume 110H, Mean Corpuscular Hemoglobin 36H, Mean Corpuscular Hemoglobin Concent 33, Red Cell Distribution Width 22.9H, Platelet Count 134, Mean Platelet Volume 9.0, Immature Granulocyte % (Auto) 1, Neutrophils (%) (Auto) 79H, Lymphocytes (%) (Auto) 11L, Monocytes (%) (Auto) 7, Eosinophils (%) (Auto) 1, Basophils (%) (Auto) 1, Neutrophils # (Auto) 7.0, Lymphocytes # (Auto) 0.9L, Monocytes # (Auto) 0.7, Eosinophils # (Auto) 0.1, Basophils # (Auto) 0.0, Immature Granulocyte # (Auto) 0.1, Percent Immature Platelet Fraction 1.0, Sodium Level 127L, Potassium Level 4.8, Chloride Level 98, Carbon Dioxide Level 21, Anion Gap 8, Blood Urea Nitrogen 13, Creatinine 0.68, Estimat Glomerular Filtration Rate 106, BUN/Creatinine Ratio 19, Glucose Level 112H, Calcium Level 7.9L, Corrected Calcium 9.7, Total Bilirubin 11.3#*H, Aspartate Amino Transf (AST/SGOT) 35H, Alanine Aminotransferase (ALT/SGPT) 17, Alkaline Phosphatase 199H, Total Protein 4.9L, Albumin 1.8L 08/06/22 11:38: Glucometer 133H Microbiology 08/03/22 Urine Culture - Final, Complete NO GROWTH 08/03/22 Blood Culture - Preliminary, Resulted No growth 08/03/22 Gram Stain - Final, Complete 08/03/22 Sputum Culture - Final, Complete Usual upper respiratory marcie Assessment/Plan Assessment/Plan Assess & Plan/Chief Complaint recurrent ascites secondary alcoholic liver cirrhosis. cont drain for now. has persistent abd distention and scrotal swelling despite drain. will get u/x abd for ascites fluid and marking for drain placement if indicated. Clinical Quality Measures DVT/VTE Risk/Contraindication: Contraindications-Pharm: Other *list below* Contraindications-Mechi: Other *list below* Other: lower leg edema and coaguloathy INR 1.7 due to liver failure Smoking Cessation Counseling: Counseling-Symptomatic: 3-10 Minutes MARCI GALLOWAY MD Aug 06, 2022 15:47
[2022-08-06 16:14] VITALS: BP 93/50
--- NOTE | 2022-08-06 16:38 | Diagnostic Imaging Report ---
EXAMINATION: US Abdomen limited. TECHNIQUE: Multiple real-time grayscale images were obtained over the abdomen in all four quadrants. REASON FOR EXAM: Evaluation for ascites. COMPARISON: 06/17/2022. FINDINGS: Trace ascites is seen in the abdomen and pelvis. No significant drainable volume is seen. No soft tissue mass is seen. IMPRESSION: 1. Trace ascites in the abdomen and pelvis. Dictated by: Dictated on workstation # [id number]
[2022-08-06 19:01] VITALS: BP 89/50
[2022-08-07] VITALS (7 sets, daily range): BP systolic 100–124; BP diastolic 57–69
[2022-08-07] MEDS: methylPREDNISolone 40 MG/ML (Solu-MEDROL) VIAL IV SCH ×5 (00:05→23:36)
[2022-08-07] MEDS: HYDROmorphone 2 MG/ML VIAL (DILAUDID) IV PRN ×2 (00:05→07:44)
[2022-08-07] MEDS: RT-ALBUTEROL/IPRATROPIUM 3 ML (DUONEB) VIAL INH SCH ×6 (01:45→21:50)
[2022-08-07 05:41] LABS: BASOPHILS % (AUTO) 0 % (0-10); EOSINOPHILS % (AUTO) 0 % (0-10)
[2022-08-07 05:43] LABS: HEMATOCRIT 22 % (40-54); HEMOGLOBIN 7.4 g/dL (13.3-17.7); LYMPHOCYTES # (AUTO) 0.4 10^3/uL (1.0-4.0); LYMPHOCYTES % (AUTO) 6 % (12-44); MEAN CORPUSCULAR HEMOGLOBIN 37 pg (25-34); MEAN CORPUSCULAR HGB CONC 34 g/dL (32-36); MEAN CORPUSCULAR VOLUME 109 fL (80-99); MEAN PLATELET VOLUME 9.1 fL (9.0-12.2); MONOCYTES # (AUTO) 0.3 10^3/uL (0.0-1.0); MONOCYTES % (AUTO) 5 % (0-12); NEUTROPHILS % (AUTO) 88 % (42-75); PLATELET COUNT 120 10^3/uL (130-400); WHITE BLOOD COUNT 6.8 10^3/uL (4.3-11.0)
[2022-08-07 05:56] LABS: ALBUMIN 1.8 GM/DL (3.2-4.5)
[2022-08-07 05:57] LABS: POTASSIUM 4.5 MMOL/L (3.6-5.0)
[2022-08-07 05:58] LABS: CALCIUM 7.9 MG/DL (8.5-10.1)
[2022-08-07 05:59] LABS: TOTAL PROTEIN 4.8 GM/DL (6.4-8.2)
[2022-08-07 06:01] LABS: BILIRUBIN,TOTAL 9.5 MG/DL (0.1-1.0)
[2022-08-07 06:03] LABS: CREATININE SERUM 0.63 MG/DL (0.60-1.30)
[2022-08-07] MEDS: MULTIVIT W/MINERALS TAB (THERAGRAN M) PO SCH (06:04)
[2022-08-07 06:38] LABS: ANISOCYTOSIS MODERATE; BAND NEUTROPHILS 1 %; HYPOCHROMASIA SLIGHT; LYMPHOCYTES % (MANUAL) 5 %; MONOCYTES % (MANUAL) 2 %; NEUTROPHILS % (MANUAL) 92 %; POIKILOCYTOSIS SLIGHT; POLYCHROMASIA SLIGHT
[2022-08-07 06:39] LABS: ACANTHOCYTES SLIGHT; BURR CELLS SLIGHT
[2022-08-07] MEDS: FUROSEMIDE 40 MG/4 ML INJ (LASIX) IVP SCH (09:09)
[2022-08-07] MEDS: DOCUSATE SODIUM 100 MG (COLACE) CAP PO SCH ×2 (09:09→21:51)
[2022-08-07] MEDS: SPIRONOLACTONE 100 MG (ALDACTONE) TABLET PO SCH (09:09)
[2022-08-07] MEDS: FOLIC ACID 1 MG TAB PO SCH (09:09)
[2022-08-07] MEDS: PANTOPRAZOLE 40 MG (PROTONIX) TAB PO SCH (09:09)
[2022-08-07] MEDS: SENNOSIDES 8.6 MG (SENOKOT) TAB PO SCH ×2 (09:09→21:52)
--- NOTE | 2022-08-07 16:13 | Progress Note ---
Subjective Subjective/Events-last exam Patient states that he is breathing alittle better this AM. Still having scrotal swelling. Tolerating PO. Has not had a BM since arriving at the hospital. Son and daughter in law present in room today Review of Systems Pulmonary: Dyspnea, Cough Cardiovascular: Edema; No: Chest Pain Musculoskeletal: neck pain Focused Exam Time of Focused Exam: 19:55 Objective Exam Last Set of Vital Signs Vital Signs Date Time Temp Pulse Resp B/P (MAP) Pulse Ox O2 Delivery O2 Flow Rate FiO2 08/07/22 16:04 36.3 115 24 124/64 (84) Vapotherm 100.00 40.00 08/07/22 11:46 93 08/07/22 09:20 100 Capillary Refill : Less Than 3 Seconds I&O Intake and Output 08/07/22 00:00 Intake Total 1600 ml Output Total 1935 ml Balance -335 ml Intake Oral 1600 ml Output Urine Total 1600 ml Drainage Total 335 ml General: Alert, Oriented X3, Moderate Distress Lungs: Other (diminished breath sounds, diffuse wheezing) Abdomen: Other (distended, mild ttp) Extremities: Other (3+ pitting edema bilaterally) Other physical findings Significant scrotal swelling Results/Procedures Lab Laboratory Tests 08/06/22 17:23: Glucometer 165H 08/06/22 23:07: Glucometer 202H 08/07/22 05:10: White Blood Count 6.8, Red Blood Count 2.00L, Hemoglobin 7.4L, Hematocrit 22L, Mean Corpuscular Volume 109H, Mean Corpuscular Hemoglobin 37H, Mean Corpuscular Hemoglobin Concent 34, Red Cell Distribution Width 22.7H, Platelet Count 120L, Mean Platelet Volume 9.1, Immature Granulocyte % (Auto) 1, Neutrophils (%) (Auto) 88H, Lymphocytes (%) (Auto) 6L, Monocytes (%) (Auto) 5, Eosinophils (%) (Auto) 0, Basophils (%) (Auto) 0, Neutrophils # (Auto) 6.0, Lymphocytes # (Auto) 0.4L, Monocytes # (Auto) 0.3, Eosinophils # (Auto) 0.0, Basophils # (Auto) 0.0, Immature Granulocyte # (Auto) 0.1, Neutrophils % (Manual) 92, Lymphocytes % (Manual) 5, Monocytes % (Manual) 2, Band Neutrophils 1, Percent Immature Platelet Fraction 1.4, Polychromasia SLIGHT, Hypochromasia SLIGHT, Poikilocytosis SLIGHT, Anisocytosis MODERATE, Macrocytosis MODERATE, [place] Cells SLIGHT, Acanthocytes SLIGHT, Sodium Level 124*L, Potassium Level 4.5, Chloride Level 97L, Carbon Dioxide Level 20L, Anion Gap 7, Blood Urea Nitrogen 15, Creatinine 0.63, Estimat Glomerular Filtration Rate 109, BUN/Creatinine Ratio 24, Glucose Level 195H, Calcium Level 7.9L, Corrected Calcium 9.7, Total Bilirubin 9.5H, Aspartate Amino Transf (AST/SGOT) 33, Alanine Aminotransferase (ALT/SGPT) 13, Alkaline Phosphatase 180H, Total Protein 4.8L, Albumin 1.8L 08/07/22 11:12: Glucometer 232H Microbiology 08/03/22 Urine Culture - Final, Complete NO GROWTH 08/03/22 Blood Culture - Preliminary, Resulted No growth 08/03/22 Gram Stain - Final, Complete 08/03/22 Sputum Culture - Final, Complete Usual upper respiratory marcie Assessment/Plan Assessment/Plan Assessment & Plan Acute on chronic respiratory failure with respiratory alkalosis with metabolic compensation Alcoholic cirrhosis with ascites Chronic blood loss anemia Hyponatremia Bilateral pulmonary edema Tobacco use Acute on chronic respiratory failure with respiratory alkalosis with metabolic compensation -Currently on vapotherm 40lpm at 100% FiO2 with saturations in the low 90s -MAT protocol -Solumedrol started Alcoholic cirrhosis with ascites -Therapeutic paracentesis performed 08/[address] Willis. -Drain placed with minimal fluid drainage, accidental removal overnight -Prior paracentesis 06/18/22 -Pain medication increased -IV lasix 40mg -Spironolactone -continue fluid restriction Chronic anemia -Hgb stable, no signs of acute bleeding -B12 was elevated at 1620 and folate was wnl at 9.3 -Will continue to monitor closely Hyponatremia -Fluid restriction 2L per day Scrotal Edema -Likely d/t being bedridden, worsened today -Increased lasix to 40mg IV -Scrotal sling and cold packs for relief Bilateral pulmonary edema -RT protocol Tobacco use Discussed end of life care. He is not interested in hospice/comfort care at this time. DNR Clinical Quality Measures DVT/VTE Risk/Contraindication: Contraindications-Pharm: Other *list below* Contraindications-Mechi: Other *list below* Other: lower leg edema and coaguloathy INR 1.7 due to liver failure Smoking Cessation Counseling: Counseling-Symptomatic: 3-10 Minutes GONZÁLEZ DOMINGUEZ MD Aug 07, 2022 16:13
--- NOTE | 2022-08-07 16:21 | Diagnostic Imaging Report ---
INDICATION: Increasing dyspnea. TECHNIQUE: AP view of the chest is obtained. FINDINGS: Since 08/03/2022, there is continued mild left and moderate right pleural effusion. Diffuse airspace disease is slightly worsened indicating edema and possible superimposed pneumonitis. No pneumothorax or lobar consolidation is identified. IMPRESSION: Bilateral pleural fluid is greater on the right with mild worsening edema and/or pneumonitis throughout the lungs. Dictated by: Dictated on workstation # [id number]
[2022-08-07] MEDS: LORazepam 1 MG (ATIVAN) TAB PO PRN (21:52)
[2022-08-08] MEDS: RT-ALBUTEROL/IPRATROPIUM 3 ML (DUONEB) VIAL INH SCH ×6 (02:53→21:50)
[2022-08-08 03:27] VITALS: BP 122/77
[2022-08-08 05:36] LABS: BASOPHILS % (AUTO) 0 % (0-10); EOSINOPHILS % (AUTO) 0 % (0-10); HEMATOCRIT 22 % (40-54); HEMOGLOBIN 7.4 g/dL (13.3-17.7); LYMPHOCYTES # (AUTO) 0.3 10^3/uL (1.0-4.0); LYMPHOCYTES % (AUTO) 4 % (12-44); MEAN CORPUSCULAR HEMOGLOBIN 37 pg (25-34); MEAN CORPUSCULAR HGB CONC 33 g/dL (32-36); MEAN CORPUSCULAR VOLUME 110 fL (80-99); MEAN PLATELET VOLUME 8.8 fL (9.0-12.2); MONOCYTES # (AUTO) 0.5 10^3/uL (0.0-1.0); MONOCYTES % (AUTO) 6 % (0-12); NEUTROPHILS # (AUTO) 7.6 10^3/uL (1.8-7.8); NEUTROPHILS % (AUTO) 89 % (42-75); WHITE BLOOD COUNT 8.6 10^3/uL (4.3-11.0)
[2022-08-08 05:40] LABS: PLATELET COUNT 111 10^3/uL (130-400)
[2022-08-08 05:52] LABS: ALBUMIN 1.9 GM/DL (3.2-4.5); POTASSIUM 4.7 MMOL/L (3.6-5.0)
[2022-08-08] MEDS: methylPREDNISolone 40 MG/ML (Solu-MEDROL) VIAL IV SCH ×4 (05:53→23:35)
[2022-08-08] MEDS: MULTIVIT W/MINERALS TAB (THERAGRAN M) PO SCH (05:53)
[2022-08-08 05:54] LABS: CALCIUM 8.2 MG/DL (8.5-10.1)
[2022-08-08 05:55] LABS: TOTAL PROTEIN 4.9 GM/DL (6.4-8.2)
[2022-08-08 05:57] LABS: BILIRUBIN,TOTAL 6.9 MG/DL (0.1-1.0)
[2022-08-08 05:58] LABS: CREATININE SERUM 0.64 MG/DL (0.60-1.30)
[2022-08-08 07:57] VITALS: BP 108/62
[2022-08-08] MEDS: PANTOPRAZOLE 40 MG (PROTONIX) TAB PO SCH (09:23)
[2022-08-08] MEDS: FOLIC ACID 1 MG TAB PO SCH (09:23)
[2022-08-08] MEDS: SENNOSIDES 8.6 MG (SENOKOT) TAB PO SCH ×2 (09:23→20:22)
[2022-08-08] MEDS: SPIRONOLACTONE 100 MG (ALDACTONE) TABLET PO SCH (09:23)
[2022-08-08] MEDS: FUROSEMIDE 40 MG/4 ML INJ (LASIX) IVP SCH (09:23)
[2022-08-08] MEDS: DOCUSATE SODIUM 100 MG (COLACE) CAP PO SCH ×2 (09:23→20:22)
[2022-08-08 11:28] VITALS: BP 119/60
--- NOTE | 2022-08-08 13:03 | Progress Note - Hospitalist ---
NATHALY HORNER 08/08/22 1303: Subjective HPI/CC On Admission Date Seen by Provider: Aug 08, 2022 Time Seen by Provider: 10:20 Subjective/Events-last exam Pt eating breakfast in NAD. States upon waking he has chest pain and difficulty breathing that seems to improve throughout the day. He gets SOB with talking. Admits constipation and diffuse abdominal pain but worse in RUQ. Continues to have mild scrotal swelling and paracentesis site dressing was completely saturated with fluid. Denies n/v/d, dizziness, fever, chills. MELD score of 27. Review of Systems General: No Chills, No Night Sweats HEENT: No Head Aches, No Visual Changes Pulmonary: Dyspnea; No Cough Cardiovascular: Chest Pain, Edema; No: Palpitations, Lt Headedness Gastrointestinal: Abdominal Pain (diffuse), Constipation; No: Nausea, Vomiting, Diarrhea, Melena Genitourinary: No Dysuria, No Incontinence, No Retention Musculoskeletal: No: neck pain, leg pain Neurological: No: Weakness, Numbness, Change in speech, Confusion Focused Exam Time of Focused Exam: 19:55 Objective Exam Vital Signs Vital Signs Date Time Temp Pulse Resp B/P (MAP) Pulse Ox O2 Delivery O2 Flow Rate FiO2 08/08/22 12:18 99 20 100 Vapotherm 75.00 25.00 08/08/22 11:28 36.8 119/60 (79) 08/08/22 10:32 75 Capillary Refill : Less Than 3 Seconds General Appearance: No Apparent Distress, Chronically ill, Other (appears older than stated age. Jaundiced) HEENT: PERRL/EOMI, Moist Mucous Membranes, Scleral Icterus (L), Scleral Icterus (R) Neck: Non Tender, Supple; No JVD Respiratory: Chest Non Tender, No Accessory Muscle Use, No Respiratory Distress, Crackles (bilateral lower lung bases), Decreased Breath Sounds (throughout all lung vidal worse R>L) Cardiovascular: Regular Rate, Rhythm, No Gallop, No Murmur, Normal Peripheral Pulses Gastrointestinal: Normal Bowel Sounds, Soft, Abnormal Bowel Sounds (decreased), Distended; No Guarding, No Hernia, No Splenomegaly; Tenderness (Diffuse tenderness worse in RUQ), Other (Significant ascites. Bandage from paracentesis drenched in fluid. ) Back: No CVA Tenderness; No CVA Tenderness (L), No CVA Tenderness (R) Extremity: No Calf Tenderness; No Calf Tenderness; Pedal Edema, Swelling (2+ pitting edema bilaterally with clubbing of toenails. ) Neurologic/Psychiatric: Alert, Oriented x3, Normal Mood/Affect Skin: Warm/Dry; No Cool, No Cyanosis; Jaundice; No Petechia, No Rash Lymphatic: No Adenopathy Results/Procedures Lab Laboratory Tests 08/08/22 05:25 Patient resulted labs reviewed. Assessment/Plan Assessment and Plan Assess & Plan/Chief Complaint Assessment/Plan Acute on chronic respiratory failure with respiratory alkalosis with metabolic compensation -Currently on vapotherm 40lpm at 75% FiO2 with saturations around 94% -MAT protocol -Solumedrol started (80mg Q6) Alcoholic cirrhosis with ascites - MELD score of 27 -Therapeutic paracentesis performed 08/[address] Willis. -Drain placed with minimal fluid drainage, accidental removal overnight - dressing drenched with fluid, replace dressings -Prior paracentesis 06/18/22 -Pain medication increased -IV lasix 40mg -Spironolactone (100 mg) -continue fluid restriction (2Lper day) Chronic anemia -Hgb stable, no signs of acute bleeding -B12 was elevated at 1620 and folate was wnl at 9.3 -Will continue to monitor closely Hyponatremia -Fluid restriction 2L per day Scrotal Edema -Likely d/t being bedridden, improved today -Increased lasix to 40mg IV -Scrotal sling and cold packs for relief Bilateral pulmonary edema -RT protocol - May need a thoracentesis, [facility] consulted - CXR from 08/07 revealed bilateral pleural fluid right worse than left, with mild worsening edema and/or pneumonitis throughout lungs Tobacco use Yesterday, per Dr. Horta note she discussed end of life care. He is not interested in hospice/comfort care at this time. DNR. Continue IV abx and pain medications Surgery consulted Clinical Quality Measures DVT/VTE Risk/Contraindication: Contraindications-Pharm: Other *list below* Contraindications-Mechi: Other *list below* Other: lower leg edema and coaguloathy INR 1.7 due to liver failure Smoking Cessation Counseling: Counseling-Symptomatic: 3-10 Minutes ANITA MAGAÑA DO 08/09/22 0523: Subjective Subjective/Events-last exam Patient on Vapotherm Sleeping currently Severe end-stage liver disease Needs hospice Supervisory-Addendum Brief Verification & Attestation Participated in pt care: history, MDM, physical Personally performed: exam, history, MDM, supervision of care Care discussed with: Medical Student Procedures: n/a Results interpretation: Verified all documentation Verification and Attestation of Medical Student E/M Service A medical student performed and documented this service in my presence. I reviewed and verified all information documented by the medical student and made modifications to such information, when appropriate. I personally performed the physical exam and medical decision making. Anita Magaña, Aug 09, 2022,05:22 NATHALY HORNER Aug 08, 2022 13:03 ANITA MAGAÑA DO Aug 09, 2022 05:23
[2022-08-08 16:05] VITALS: BP 120/63
[2022-08-08] MEDS ORDERED: NON-FORMULARY MEDICATION 1 EA EA (Omeprazole 40 MG) PO PRN (17:45)
[2022-08-08] MEDS ORDERED: NON-FORMULARY MEDICATION 1 EA EA (Docusate Sodium (Stool Softener) 100 MG) PO PRN (17:45)
[2022-08-08] MEDS ORDERED: DOCUSATE SODIUM 100 MG (COLACE) CAP PO PRN (18:30)
[2022-08-08 19:37] VITALS: BP 116/62
[2022-08-08] MEDS: LORazepam 1 MG (ATIVAN) TAB PO PRN (20:22)
[2022-08-08] MEDS: SUCRALFATE 1 GM (CARAFATE) TAB PO SCH (20:22)
[2022-08-08] MEDS: LACTULOSE SYRUP 10GM/15ML (ENULOSE) 30ML UDC PO SCH (20:23)
[2022-08-09] VITALS (10 sets, daily range): BP systolic 106–119; BP diastolic 53–65
[2022-08-09] MEDS: RT-ALBUTEROL/IPRATROPIUM 3 ML (DUONEB) VIAL INH SCH ×6 (02:25→21:24)
[2022-08-09 06:03] LABS: BASOPHILS % (AUTO) 0 % (0-10); EOSINOPHILS % (AUTO) 0 % (0-10); HEMATOCRIT 21 % (40-54); MEAN CORPUSCULAR HGB CONC 33 g/dL (32-36)
[2022-08-09 06:04] LABS: LYMPHOCYTES # (AUTO) 0.4 10^3/uL (1.0-4.0); LYMPHOCYTES % (AUTO) 6 % (12-44); MEAN CORPUSCULAR HEMOGLOBIN 37 pg (25-34); MEAN CORPUSCULAR VOLUME 113 fL (80-99); MONOCYTES # (AUTO) 0.3 10^3/uL (0.0-1.0); MONOCYTES % (AUTO) 6 % (0-12); NEUTROPHILS # (AUTO) 4.9 10^3/uL (1.8-7.8); NEUTROPHILS % (AUTO) 87 % (42-75); PLATELET COUNT 94 10^3/uL (130-400); WHITE BLOOD COUNT 5.7 10^3/uL (4.3-11.0)
[2022-08-09 06:11] LABS: ALBUMIN 1.8 GM/DL (3.2-4.5)
[2022-08-09 06:12] LABS: CALCIUM 8.2 MG/DL (8.5-10.1)
[2022-08-09 06:14] LABS: TOTAL PROTEIN 4.5 GM/DL (6.4-8.2)
[2022-08-09] MEDS: methylPREDNISolone 40 MG/ML (Solu-MEDROL) VIAL IV SCH ×4 (06:14→23:44)
[2022-08-09] MEDS: MULTIVIT W/MINERALS TAB (THERAGRAN M) PO SCH (06:14)
[2022-08-09 06:15] LABS: BILIRUBIN,TOTAL 5.7 MG/DL (0.1-1.0)
[2022-08-09 06:17] LABS: CREATININE SERUM 0.66 MG/DL (0.60-1.30)
[2022-08-09 06:31] LABS: HEMOGLOBIN 6.9 g/dL (13.3-17.7)
[2022-08-09] MEDS: SPIRONOLACTONE 100 MG (ALDACTONE) TABLET PO SCH (07:53)
[2022-08-09] MEDS: SUCRALFATE 1 GM (CARAFATE) TAB PO SCH ×4 (07:53→20:44)
[2022-08-09] MEDS: SENNOSIDES 8.6 MG (SENOKOT) TAB PO SCH ×2 (07:54→20:44)
[2022-08-09] MEDS: DOCUSATE SODIUM 100 MG (COLACE) CAP PO SCH ×2 (07:54→20:44)
[2022-08-09] MEDS: FUROSEMIDE 40 MG/4 ML INJ (LASIX) IVP SCH (07:54)
[2022-08-09] MEDS: PANTOPRAZOLE 40 MG (PROTONIX) TAB PO SCH (07:54)
[2022-08-09] MEDS: LACTULOSE SYRUP 10GM/15ML (ENULOSE) 30ML UDC PO SCH ×3 (07:54→21:15)
[2022-08-09] MEDS: FOLIC ACID 1 MG TAB PO SCH (07:54)
--- NOTE | 2022-08-09 08:05 | Progress Note - Hospitalist ---
Subjective HPI/CC On Admission Date Seen by Provider: Aug 09, 2022 Time Seen by Provider: 11:00 Subjective/Events-last exam Patient doing the same Hemoglobin 6.9 requiring transfusion Vapotherm down to 60% from 75 at 25 L Meld score of 27 Focused Exam Time of Focused Exam: 19:55 Objective Exam Vital Signs Vital Signs Date Time Temp Pulse Resp B/P (MAP) Pulse Ox O2 Delivery O2 Flow Rate FiO2 08/09/22 15:13 36.6 103 20 119/65 (83) 97 Vapotherm 60.00 08/09/22 15:02 60 Capillary Refill : Less Than 3 Seconds General Appearance: Chronically ill, Thin, Other (Resting) Respiratory: Lungs Clear, Normal Breath Sounds Results/Procedures Lab Laboratory Tests 08/09/22 05:35 Patient resulted labs reviewed. Assessment/Plan Assessment and Plan Assess & Plan/Chief Complaint End-stage liver disease Severe anemia requiring transfusion Hypoxia requiring Vapotherm Plan: Vapotherm DNR Clinical Quality Measures DVT/VTE Risk/Contraindication: Contraindications-Pharm: Other *list below* Contraindications-Mechi: Other *list below* Other: lower leg edema and coaguloathy INR 1.7 due to liver failure Smoking Cessation Counseling: Counseling-Symptomatic: 3-10 Minutes RODRI MAGAÑA DO Aug 09, 2022 08:05
[2022-08-09] MEDS ORDERED: NS IV 500 ML 500 ML IV SCH (08:15)
--- NOTE | 2022-08-09 11:44 | Physical Therapy Progress Note ---
Therapy Progress Note Orders received, attempted evaluation. Pt refused PT eval, pt educated on importance of getting up and out of bed; however, pt continued to refuse. Will follow up at next available date. 1 visit, refusal ([id number]) CONCHIS NATION PT Aug 09, 2022 11:44
[2022-08-09] MEDS: NYSTATIN ORAL SUSP 5 ML UDC PO SCH ×2 (12:41→20:45)
[2022-08-09] MEDS: LORazepam 1 MG (ATIVAN) TAB PO PRN (20:44)
[2022-08-10] VITALS (7 sets, daily range): BP systolic 106–119; BP diastolic 56–66
[2022-08-10] MEDS: RT-ALBUTEROL/IPRATROPIUM 3 ML (DUONEB) VIAL INH SCH ×6 (03:00→21:52)
--- NOTE | 2022-08-10 06:26 | Progress Note - Hospitalist ---
Subjective HPI/CC On Admission Date Seen by Provider: Aug 10, 2022 Time Seen by Provider: 12:30 Subjective/Events-last exam Patient sleeps most of the time Maintained on Vapotherm Prognosis extremely poor Scrotal edema is from low albumin and third spacing due to end-stage liver disease Review of Systems General: Fatigue, Malaise Cardiovascular: Edema Focused Exam Time of Focused Exam: 19:55 Objective Exam Vital Signs Vital Signs Date Time Temp Pulse Resp B/P (MAP) Pulse Ox O2 Delivery O2 Flow Rate FiO2 08/10/22 12:58 36.8 08/10/22 12:43 111 08/10/22 11:58 16 112/56 (74) 91 08/10/22 11:11 Vapotherm 20.00 50 Capillary Refill : Less Than 3 Seconds General Appearance: No Apparent Distress, WD/WN, Chronically ill, Other (Very debilitated) Respiratory: Lungs Clear, Normal Breath Sounds Cardiovascular: Regular Rate, Rhythm Neurologic/Psychiatric: Alert, Oriented x3 Results/Procedures Lab Laboratory Tests 08/10/22 06:25 Patient resulted labs reviewed. Assessment/Plan Assessment and Plan Assess & Plan/Chief Complaint End-stage liver disease Severe anemia requiring transfusion Hypoxia requiring Vapotherm Scrotal edema and third spacing Plan: Vapotherm DNR Clinical Quality Measures DVT/VTE Risk/Contraindication: Contraindications-Pharm: Other *list below* Contraindications-Mechi: Other *list below* Other: lower leg edema and coaguloathy INR 1.7 due to liver failure Smoking Cessation Counseling: Counseling-Symptomatic: 3-10 Minutes RODRI MAGAÑA DO Aug 10, 2022 06:26
[2022-08-10] MEDS: methylPREDNISolone 40 MG/ML (Solu-MEDROL) VIAL IV SCH ×3 (06:27→18:06)
[2022-08-10] MEDS: SUCRALFATE 1 GM (CARAFATE) TAB PO SCH ×4 (06:41→21:40)
[2022-08-10] MEDS: MULTIVIT W/MINERALS TAB (THERAGRAN M) PO SCH (06:41)
[2022-08-10 07:04] LABS: ALBUMIN 1.9 GM/DL (3.2-4.5)
[2022-08-10 07:05] LABS: CALCIUM 8.3 MG/DL (8.5-10.1)
[2022-08-10 07:06] LABS: TOTAL PROTEIN 4.8 GM/DL (6.4-8.2)
[2022-08-10 07:08] LABS: BILIRUBIN,TOTAL 7.6 MG/DL (0.1-1.0)
[2022-08-10 07:10] LABS: CREATININE SERUM 0.68 MG/DL (0.60-1.30)
[2022-08-10 07:21] LABS: BASOPHILS % (AUTO) 0 % (0-10); EOSINOPHILS % (AUTO) 0 % (0-10); MEAN CORPUSCULAR HGB CONC 33 g/dL (32-36); MONOCYTES # (AUTO) 0.5 10^3/uL (0.0-1.0); NEUTROPHILS % (AUTO) 86 % (42-75)
[2022-08-10 07:23] LABS: HEMATOCRIT 26 % (40-54); HEMOGLOBIN 8.5 g/dL (13.3-17.7); LYMPHOCYTES # (AUTO) 0.4 10^3/uL (1.0-4.0); LYMPHOCYTES % (AUTO) 6 % (12-44); MEAN CORPUSCULAR HEMOGLOBIN 36 pg (25-34); MEAN CORPUSCULAR VOLUME 108 fL (80-99); MEAN PLATELET VOLUME 8.8 fL (9.0-12.2); MONOCYTES % (AUTO) 7 % (0-12); PLATELET COUNT 91 10^3/uL (130-400)
[2022-08-10] MEDS: DOCUSATE SODIUM 100 MG (COLACE) CAP PO SCH ×2 (08:29→21:31)
[2022-08-10] MEDS: LACTULOSE SYRUP 10GM/15ML (ENULOSE) 30ML UDC PO SCH ×3 (08:29→21:31)
[2022-08-10] MEDS: PANTOPRAZOLE 40 MG (PROTONIX) TAB PO SCH (08:29)
[2022-08-10] MEDS: FOLIC ACID 1 MG TAB PO SCH (08:29)
[2022-08-10] MEDS: SPIRONOLACTONE 100 MG (ALDACTONE) TABLET PO SCH (08:29)
[2022-08-10] MEDS: NYSTATIN ORAL SUSP 5 ML UDC PO SCH ×3 (08:30→21:31)
[2022-08-10] MEDS: FUROSEMIDE 40 MG/4 ML INJ (LASIX) IVP SCH (08:30)
[2022-08-10] MEDS: SENNOSIDES 8.6 MG (SENOKOT) TAB PO SCH ×2 (08:30→21:31)
[2022-08-10] MEDS: HYDROmorphone 2 MG/ML VIAL (DILAUDID) IV PRN ×2 (12:28→15:14)
[2022-08-10] MEDS: LORazepam 1 MG (ATIVAN) TAB PO PRN (15:14)
[2022-08-10] MEDS: MELATONIN 3 MG TABLET PO PRN (21:31)
[2022-08-10] MEDS: inSUlin ASPART (NovoLOG) 1 UNIT/0.01 ML (CHARGE PER UNIT) SC SCH (21:32)
[2022-08-10] MEDS: MICONAZOLE 2% POWDER (DESENEX AF) 90 GM TOP SCH (21:32)
[2022-08-11] MEDS: RT-ALBUTEROL/IPRATROPIUM 3 ML (DUONEB) VIAL INH SCH ×6 (01:56→22:07)
[2022-08-11 04:07] VITALS: BP 109/60
[2022-08-11] MEDS: SUCRALFATE 1 GM (CARAFATE) TAB PO SCH ×4 (05:26→20:02)
[2022-08-11] MEDS: MULTIVIT W/MINERALS TAB (THERAGRAN M) PO SCH (05:26)
[2022-08-11] MEDS: inSUlin ASPART (NovoLOG) 1 UNIT/0.01 ML (CHARGE PER UNIT) SC SCH ×4 (05:26→21:43)
[2022-08-11 05:47] LABS: EOSINOPHILS % (AUTO) 0 % (0-10); HEMOGLOBIN 8.2 g/dL (13.3-17.7)
--- NOTE | 2022-08-11 05:48 | Progress Note - Hospitalist ---
Subjective HPI/CC On Admission Date Seen by Provider: Aug 11, 2022 Time Seen by Provider: 09:00 Subjective/Events-last exam Pt is about the same Remains on 89% on Vapotherm of 35L Hospice will talk to him and he is willing Needs alf placement with hospice Review of Systems General: Fatigue, Malaise Scrotal edema Focused Exam Time of Focused Exam: 19:55 Objective Exam Vital Signs Vital Signs Date Time Temp Pulse Resp B/P (MAP) Pulse Ox O2 Delivery O2 Flow Rate FiO2 08/12/22 02:59 36.6 98 18 113/57 (75) 92 Vapotherm 45.00 25.00 08/12/22 02:08 45 Capillary Refill : Less Than 3 Seconds General Appearance: No Apparent Distress, Anxious, Chronically ill, Cachetic Respiratory: Accessory Muscle Use, Decreased Breath Sounds Cardiovascular: Regular Rate, Rhythm Extremity: Pedal Edema Neurologic/Psychiatric: Alert, Oriented x3 Results/Procedures Lab Patient resulted labs reviewed. Assessment/Plan Assessment and Plan Assess & Plan/Chief Complaint Assessment: End-stage liver disease Severe anemia requiring transfusion Hypoxia requiring Vapotherm Scrotal edema and third spacing Plan: Vapotherm DNR Hospice consult Clinical Quality Measures DVT/VTE Risk/Contraindication: Contraindications-Pharm: Other *list below* Contraindications-Mechi: Other *list below* Other: lower leg edema and coaguloathy INR 1.7 due to liver failure Smoking Cessation Counseling: Counseling-Symptomatic: 3-10 Minutes RODRI MAGAÑA DO Aug 11, 2022 05:48
[2022-08-11 05:49] LABS: BASOPHILS % (AUTO) 0 % (0-10); HEMATOCRIT 25 % (40-54); LYMPHOCYTES # (AUTO) 0.3 10^3/uL (1.0-4.0); LYMPHOCYTES % (AUTO) 6 % (12-44); MEAN CORPUSCULAR HEMOGLOBIN 35 pg (25-34); MEAN CORPUSCULAR HGB CONC 33 g/dL (32-36); MEAN CORPUSCULAR VOLUME 108 fL (80-99); MEAN PLATELET VOLUME 9.4 fL (9.0-12.2); MONOCYTES # (AUTO) 0.4 10^3/uL (0.0-1.0); MONOCYTES % (AUTO) 8 % (0-12); NEUTROPHILS # (AUTO) 4.6 10^3/uL (1.8-7.8); NEUTROPHILS % (AUTO) 85 % (42-75); PLATELET COUNT 82 10^3/uL (130-400); WHITE BLOOD COUNT 5.4 10^3/uL (4.3-11.0)
[2022-08-11 05:59] LABS: ALBUMIN 1.9 GM/DL (3.2-4.5)
[2022-08-11 06:00] LABS: POTASSIUM 4.6 MMOL/L (3.6-5.0)
[2022-08-11 06:01] LABS: CALCIUM 8.1 MG/DL (8.5-10.1)
[2022-08-11 06:02] LABS: TOTAL PROTEIN 4.8 GM/DL (6.4-8.2)
[2022-08-11 06:04] LABS: BILIRUBIN,TOTAL 7.5 MG/DL (0.1-1.0)
[2022-08-11 06:06] LABS: CREATININE SERUM 0.75 MG/DL (0.60-1.30)
[2022-08-11 06:58] VITALS: BP 106/57
[2022-08-11 07:26] VITALS: BP 106/57
[2022-08-11] MEDS: NYSTATIN ORAL SUSP 5 ML UDC PO SCH ×3 (08:16→20:03)
[2022-08-11] MEDS: LACTULOSE SYRUP 10GM/15ML (ENULOSE) 30ML UDC PO SCH ×3 (08:16→20:06)
[2022-08-11] MEDS: FUROSEMIDE 40 MG/4 ML INJ (LASIX) IVP SCH (08:16)
[2022-08-11] MEDS: methylPREDNISolone 125 MG (Solu-MEDROL) VIAL IV SCH ×2 (08:16→20:03)
[2022-08-11] MEDS: PANTOPRAZOLE 40 MG (PROTONIX) TAB PO SCH (08:17)
[2022-08-11] MEDS: SENNOSIDES 8.6 MG (SENOKOT) TAB PO SCH ×2 (08:17→20:02)
[2022-08-11] MEDS: DOCUSATE SODIUM 100 MG (COLACE) CAP PO SCH ×2 (08:17→20:02)
[2022-08-11] MEDS: SPIRONOLACTONE 100 MG (ALDACTONE) TABLET PO SCH (08:17)
[2022-08-11] MEDS: FOLIC ACID 1 MG TAB PO SCH (08:17)
[2022-08-11] MEDS: MICONAZOLE 2% POWDER (DESENEX AF) 90 GM TOP SCH ×2 (08:18→20:06)
--- NOTE | 2022-08-11 10:29 | Physical Therapy Evaluation ---
PT Evaluation-General Medical Diagnosis Admission Date Aug 03, 2022 at 20:03 Medical Diagnosis: alcoholic cirrhosis/ascites Onset Date: Aug 03, 2022 Therapy Diagnosis Therapy Diagnosis: generalized weakness/debility Precautions Precautions/Isolations: Fall Prevention, Standard Precautions Referral Physician: Sabiha Reason for Referral: Evaluation/Treatment Medical History Pertinent Medical History: Alcoholism, COPD, Lymphoma, Smoking Current History ER secondary to edema Reviewed History: Yes Social History Home: Single Level Current Living Status: Alone Prior Prior Level of Function SCALE: Activities may be completed with or without assistive devices. 2-Jpckquwycq-qjgfdda completes the activity by him/herself with no assistance from a helper. 5-Set-up or Clean-up Assistance-helper sets up or cleans up; patient completes activity. [place] assists only prior to or following the activity. 4-Supervision or Touching Assistance-helper provides verbal cues and/or touching/steadying and/or contact guard assistance as patient completes activity. Assistance may be provided throughout the activity or intermittently. 3-Partial/Moderate Assistance-helper does LESS THAN HALF the effort. [place] lifts, holds or supports trunk or limbs, but provides less than half the effort. 2-Substantial/Maximal Assistance-helper does MORE THAN HALF the effort. [place] lifts or holds trunk or limbs and provides more than half the effort. 7-Gmrnrewsn-ainykb does ALL the effort. Patient does none of the effort to complete the activity. Or, the assistance of 2 or more helpers is required for the patient to complete the activity. If activity was not attempted, code reason: 7-Patient Refused. 9-Not Applicable-not attempted and the patient did not perform the activity before the current illness, exacerbation or injury. 10-Not Attempted due to Environmental Limitations-(lack of equipment, weather restraints, etc.). 88-Not Attempted due to Medical Conditions or Safety Concerns. Bed Mobility: 6 Transfers (B,C,W/C): 6 Gait: 6 Indoor Mobility (Ambulation): Independent Stairs: Independent Prior Devices Use: None PT Evaluation-Current Subjective Patient agrees to PT. Pain Numeric Pain Scale: 8 Location: Soft Tissue Location Body Site: Genital Pain Description: Tightness Objective Patient Orientation: Normal For Age Attachments: Oxygen (vapotherm) ROM/Strength ROM Lower Extremities bilateral LE WFL Strength Lower Extremities 3+/5 grossly bilateral LE all planes Integumentary/Posture Integumentary refer to nursing notes Bowel Incontinence: No Bladder Incontinence: No Posture trunk flexed posture Neuromuscular (Tone, Coordination, Reflexes) grossly intact Sensory Vision: Functional Hearing: Functional Transfers Lying to Sitting/Side of Bed(Q: 6 Sit to Stand (QC): 4 Chair/Nmo-wk-Cdmxz Xfer(QC): 4 SBA with all OOB mobility Gait Does the Patient Walk?: Yes Mode of Locomotion: Walk Anticipated Mode of Locomotion: Walk Walk 10 feet (QC): 4 (SBA) Distance: 10' x 2 limited due to vapotherm Gait Assistive Device: None Comments/Gait Description trunk flexed posture due to scrotal edema Balance Sitting Static: Normal Sitting Dynamic: Normal Standing Static: Good Standing Dynamic: Good Assessment/Needs Patient will be seen by skilled PT to address functional strength and mobility to improve current LOF. Patient currently limited by vapotherm and scrotal edema. Rehab Potential: Poor PT Assisted Goals Assisted Goals PT Configuration Technician Goals Time Frame: Aug 30, 2022 Roll Left & Right (QC): 6 Sit to Lying (QC): 6 Lying-Sitting on Side/Bed(QC): 6 Sit to Stand (QC): 6 Chair/Cyb-bb-Cegxt Xfer(QC): 6 Toilet Transfer (QC): 6 Walk 10 feet (QC): 4 Walk 50ft with 2 Turns (QC): 4 PT Plan Problem List Problem List: Activity Tolerance, Functional Strength, Safety, Balance, Gait, Transfer, Bed Mobility Treatment/Plan Treatment Plan: Continue Plan of Care Treatment Plan: Bed Mobility, Education, Functional Activity Kris, Functional Strength, Gait, Safety, Therapeutic Exercise, Transfers Treatment Duration: Aug 30, 2022 Frequency: 5 times per week Estimated Hrs Per Day: .25 hour per day Patient and/or Family Agrees t: Yes Time Time In: 932 Time Out: 943 Total Billed Treatment Time: 11 Total Billed Treatment 1 visit EVModC 11 min TAYLOR SEWELL PT Aug 11, 2022 10:29
[2022-08-11 11:27] VITALS: BP 107/67
[2022-08-11] MEDS: HYDROmorphone 2 MG/ML VIAL (DILAUDID) IV PRN (13:05)
[2022-08-11 19:38] VITALS: BP 107/56
[2022-08-11 23:17] VITALS: BP 116/60
[2022-08-12] VITALS (7 sets, daily range): BP systolic 100–123; BP diastolic 52–70
[2022-08-12] MEDS: RT-ALBUTEROL/IPRATROPIUM 3 ML (DUONEB) VIAL INH SCH ×5 (02:08→18:53)
[2022-08-12] MEDS: HYDROmorphone 2 MG/ML VIAL (DILAUDID) IV PRN ×4 (03:03→18:22)
[2022-08-12] MEDS: ONDANSETRON 4 MG/2 ML (SDV) Z0FRAN IV PRN (03:03)
[2022-08-12 05:53] LABS: BASOPHILS % (AUTO) 0 % (0-10); EOSINOPHILS % (AUTO) 0 % (0-10); HEMATOCRIT 28 % (40-54); HEMOGLOBIN 8.7 g/dL (13.3-17.7); MEAN CORPUSCULAR HEMOGLOBIN 36 pg (25-34); MEAN CORPUSCULAR HGB CONC 31 g/dL (32-36); MEAN CORPUSCULAR VOLUME 116 fL (80-99)
[2022-08-12 05:55] LABS: LYMPHOCYTES # (AUTO) 0.5 10^3/uL (1.0-4.0); LYMPHOCYTES % (AUTO) 5 % (12-44); MONOCYTES # (AUTO) 0.4 10^3/uL (0.0-1.0); MONOCYTES % (AUTO) 5 % (0-12); NEUTROPHILS # (AUTO) 8.4 10^3/uL (1.8-7.8); NEUTROPHILS % (AUTO) 89 % (42-75); PLATELET COUNT 89 10^3/uL (130-400); WHITE BLOOD COUNT 9.4 10^3/uL (4.3-11.0)
[2022-08-12 06:12] LABS: ALBUMIN 1.7 GM/DL (3.2-4.5)
[2022-08-12 06:13] LABS: CALCIUM 8.2 MG/DL (8.5-10.1)
[2022-08-12 06:14] LABS: TOTAL PROTEIN 4.6 GM/DL (6.4-8.2)
[2022-08-12] MEDS: SUCRALFATE 1 GM (CARAFATE) TAB PO SCH ×4 (06:15→21:13)
[2022-08-12] MEDS: MULTIVIT W/MINERALS TAB (THERAGRAN M) PO SCH (06:15)
[2022-08-12] MEDS: inSUlin ASPART (NovoLOG) 1 UNIT/0.01 ML (CHARGE PER UNIT) SC SCH ×4 (06:15→21:02)
[2022-08-12 06:16] LABS: BILIRUBIN,TOTAL 7.2 MG/DL (0.1-1.0)
[2022-08-12 06:18] LABS: CREATININE SERUM 0.63 MG/DL (0.60-1.30)
[2022-08-12 06:31] LABS: ANISOCYTOSIS MARKED; LYMPHOCYTES % (MANUAL) 4 %; MICROCYTOSIS SLIGHT; MONOCYTES % (MANUAL) 2 %; NEUTROPHILS % (MANUAL) 94 %; POIKILOCYTOSIS MODERATE; POLYCHROMASIA SLIGHT; TOXIC GRANULATION/VACUOLAZATIO 1+
[2022-08-12 06:32] LABS: ACANTHOCYTES SLIGHT; SCHISTOCYTES SLIGHT
--- NOTE | 2022-08-12 08:43 | Physical Therapy Daily Note ---
PT Daily Note-Current Subjective Patient agrees to PT. Pain Section J - Health Conditions 1. Rarely or not at all 2. Occasionally 3. Frequently 4. Almost constantly 8. Unable to answer Pain Effect on Sleep: 2 Pain Interference with Therapy: 2 Pain Interference w/Day-to-Day: 2 Mental Status Patient Orientation: Normal For Age Attachments: Oxygen (vapotherm) Transfers SCALE: Activities may be completed with or without assistive devices. 0-Kzdwjsgfhi-hxnrzdd completes the activity by him/herself with no assistance from a helper. 5-Set-up or Clean-up Assistance-helper sets up or cleans up; patient completes activity. [place] assists only prior to or following the activity. 4-Supervision or Touching Assistance-helper provides verbal cues and/or touching/steadying and/or contact guard assistance as patient completes activity. Assistance may be provided throughout the activity or intermittently. 3-Partial/Moderate Assistance-helper does LESS THAN HALF the effort. [place] lifts, holds or supports trunk or limbs, but provides less than half the effort. 2-Substantial/Maximal Assistance-helper does MORE THAN HALF the effort. [place] lifts or holds trunk or limbs and provides more than half the effort. 0-Ikuugtknx-jryykk does ALL the effort. Patient does none of the effort to complete the activity. Or, the assistance of 2 or more helpers is required for the patient to complete the activity. If activity was not attempted, code reason: 7-Patient Refused. 9-Not Applicable-not attempted and the patient did not perform the activity before the current illness, exacerbation or injury. 10-Not Attempted due to Environmental Limitations-(lack of equipment, weather restraints, etc.). 88-Not Attempted due to Medical Conditions or Safety Concerns. Lying to Sitting/Side of Bed(Q: 6 Sit to Stand (QC): 4 Chair/Lmf-wd-Qugaa Xfer(QC): 4 Gait Training Distance: 10' x 2 Walk 10 feet (QC): 4 Gait Assistive Device: FWW Exercises Seated Therapy Exercises: Ankle pumps, Long arc quads Seated Reps: 15 Assessment Patient up in recliner with needs met. PT to continue to increase activity as tolerated by patient. Patient is currently limited by vapotherm tubing. SAO2 decreased to 85% with minimal activity with O2 in place continuously PT Software Configuration Manager Goals Half-Way Goals PT Software Configuration Manager Goals Time Frame: Aug 30, 2022 Roll Left & Right (QC): 6 Sit to Lying (QC): 6 Lying-Sitting on Side/Bed(QC): 6 Sit to Stand (QC): 6 Chair/Pgj-ad-Utblh Xfer(QC): 6 Toilet Transfer (QC): 6 Walk 10 feet (QC): 4 Walk 50ft with 2 Turns (QC): 4 PT Plan Treatment/Plan Treatment Plan: Continue Plan of Care Treatment Plan: Bed Mobility, Education, Functional Activity Kris, Functional Strength, Gait, Safety, Therapeutic Exercise, Transfers Treatment Duration: Aug 30, 2022 Frequency: 5 times per week Estimated Hrs Per Day: .25 hour per day Patient and/or Family Agrees t: Yes Time Time In: 815 Time Out: 826 Total Billed Treatment Time: 11 Total Billed Treatment 1 visit FA 11 min TAYLOR SEWELL PT Aug 12, 2022 08:42
[2022-08-12] MEDS ORDERED: LACTULOSE SYRUP 10GM/15ML (ENULOSE) 30ML UDC PO NR (09:30)
[2022-08-12] MEDS: LACTULOSE SYRUP 10GM/15ML (ENULOSE) 30ML UDC PO SCH ×3 (09:31→21:11)
[2022-08-12] MEDS: NYSTATIN ORAL SUSP 5 ML UDC PO SCH ×3 (09:31→21:11)
[2022-08-12] MEDS: SPIRONOLACTONE 100 MG (ALDACTONE) TABLET PO SCH (09:32)
[2022-08-12] MEDS: SENNOSIDES 8.6 MG (SENOKOT) TAB PO SCH ×2 (09:32→21:11)
[2022-08-12] MEDS: DOCUSATE SODIUM 100 MG (COLACE) CAP PO SCH ×2 (09:32→21:11)
[2022-08-12] MEDS: FUROSEMIDE 40 MG/4 ML INJ (LASIX) IVP SCH (09:32)
[2022-08-12] MEDS: FOLIC ACID 1 MG TAB PO SCH (09:33)
[2022-08-12] MEDS: PANTOPRAZOLE 40 MG (PROTONIX) TAB PO SCH (09:33)
[2022-08-12] MEDS: MICONAZOLE 2% POWDER (DESENEX AF) 90 GM TOP SCH ×2 (09:36→21:12)
--- NOTE | 2022-08-12 09:43 | Progress Note ---
MARILIN OJEDA 08/12/22 0943: Subjective Date Seen by a Provider: Aug 12, 2022 Time Seen by a Provider: 08:35 Subjective/Events-last exam Patient is awake and alert in his chair this morning. Patient states that he has been feeling weaker since last night and has noted a tremor in his right hand. Patient also states that he has been having intermittent nausea. Patient still has scrotal edema. There is edema in the b/l lower extremities. O2 saturation of 91% has been maintained on 25L of vapotherm. Patient has not yet talked to hospice, but is willing to talk with them. Patient has no other complaints. Review of Systems General: Fatigue, Malaise Pulmonary: Dyspnea Gastrointestinal: Nausea Neurological: Weakness, Other (Tremor in right hand) Scrotal edema Focused Exam Time of Focused Exam: 19:55 Objective Exam Last Set of Vital Signs Vital Signs Date Time Temp Pulse Resp B/P (MAP) Pulse Ox O2 Delivery O2 Flow Rate FiO2 08/12/22 07:31 37.1 92 24 102/58 (73) 91 Vapotherm 45.00 25.00 08/12/22 02:08 45 Capillary Refill : Less Than 3 Seconds I&O Intake and Output 08/12/22 00:00 Intake Total 1690 ml Output Total 2650 ml Balance -960 ml Intake Oral 1690 ml Output Urine Total 2650 ml # Voids 4 General: Alert, Oriented X3, No Acute Distress Neck: Supple Heart: Regular Rate, No Murmurs Abdomen: Normal Bowel Sounds, Soft Extremities: No Clubbing, No Cyanosis, Other (B/L pedal edema) Skin: No Rashes Neuro: Normal Speech, Sensation Intact Results Lab Laboratory Tests 08/11/22 10:18: Glucometer 193H 08/11/22 12:49: Lab Scanned Report Transfusion Reaction Form 08/11/22 16:00: Glucometer 180H 08/11/22 21:40: Glucometer 168H 08/12/22 05:39: White Blood Count 9.4, Red Blood Count 2.44L, Hemoglobin 8.7L, Hematocrit 28L, Mean Corpuscular Volume 116H, Mean Corpuscular Hemoglobin 36H, Mean Corpuscular Hemoglobin Concent 31L, Red Cell Distribution Width 23.3H, Platelet Count 89L, Mean Platelet Volume 9.0, Immature Granulocyte % (Auto) 1, Neutrophils (%) (Auto) 89H, Lymphocytes (%) (Auto) 5L, Monocytes (%) (Auto) 5, Eosinophils (%) (Auto) 0, Basophils (%) (Auto) 0, Neutrophils # (Auto) 8.4H, Lymphocytes # (Auto ) 0.5L, Monocytes # (Auto) 0.4, Eosinophils # (Auto) 0.0, Basophils # (Auto) 0.0, Immature Granulocyte # (Auto) 0.1, Neutrophils % (Manual) 94, Lymphocytes % (Manual) 4, Monocytes % (Manual) 2, Toxic Granulation 1+, Percent Immature Platelet Fraction 1.1, Polychromasia SLIGHT, Poikilocytosis MODERATE, Anisocytosis MARKED, Microcytosis SLIGHT, Macrocytosis MARKED, Acanthocytes SLIGHT, Schistocytes SLIGHT, Sodium Level 127L, Potassium Level 5.0, Chloride Level 97L, Carbon Dioxide Level 23, Anion Gap 7, Blood Urea Nitrogen 16, Creatinine 0.63, Estimat Glomerular Filtration Rate 109, BUN/Creatinine Ratio 25, Glucose Level 167H, Calcium Level 8.2L, Corrected Calcium 10.0, Total Bilirubin 7.2H, Aspartate Amino Transf (AST/SGOT) 76H, Alanine Aminotransferase (ALT/SGPT) 53, Alkaline Phosphatase 184H, Total Protein 4.6L, Albumin 1.7L 08/12/22 06:08: Glucometer 161H Microbiology 08/03/22 Urine Culture - Final, Complete NO GROWTH 08/03/22 Blood Culture - Final, Complete No growth 08/03/22 Gram Stain - Final, Complete 08/03/22 Sputum Culture - Final, Complete Usual upper respiratory marcie Assessment/Plan Assessment/Plan Assess & Plan/Chief Complaint ESLD Severe anemia requiring transfusion Recurrent ascites Scrotal edema Nausea DNR Hospice consulted Continue vapotherm Monitor Hg, transfuse as needed, currently 8.7 Continue diuretics Continue antiemetics Fluid restriction of 2L Paracentesis performed on 08/[address] Willis Clinical Quality Measures DVT/VTE Risk/Contraindication: Contraindications-Pharm: Other *list below* Contraindications-Mechi: Other *list below* Other: lower leg edema and coaguloathy INR 1.7 due to liver failure Smoking Cessation Counseling: Counseling-Symptomatic: 3-10 Minutes ANITA LANDIS DO 08/13/22 0503: Subjective Subjective/Events-last exam Pt getting more complex Scleral icterus noted Edema noted Scrotal edema is an issue too Will be going to [facility] on hospice Review of Systems General: Fatigue, Malaise Neurological: Weakness Objective Exam General: Alert, Oriented X3 Lungs: Clear to Auscultation Heart: Regular Rate Assessment/Plan Assessment/Plan Assess & Plan/Chief Complaint Needs end-of-life care Supervisory-Addendum Brief Verification & Attestation Participated in pt care: history, MDM, physical Personally performed: exam, history, MDM, supervision of care Care discussed with: Medical Student Procedures: n/a Results interpretation: Verified all documentation Verification and Attestation of Medical Student E/M Service A medical student performed and documented this service in my presence. I reviewed and verified all information documented by the medical student and made modifications to such information, when appropriate. I personally performed the physical exam and medical decision making. Anita Landis, Aug 13, 2022,05:02 MARILIN OJEDA Aug 12, 2022 09:43 ANITA LANDIS DO Aug 13, 2022 05:03
[2022-08-12] MEDS: methylPREDNISolone 125 MG (Solu-MEDROL) VIAL IV SCH (21:11)
[2022-08-13] MEDS: HYDROmorphone 2 MG/ML VIAL (DILAUDID) IV PRN ×4 (00:13→14:58)
[2022-08-13 03:14] VITALS: BP 124/68
[2022-08-13] MEDS: inSUlin ASPART (NovoLOG) 1 UNIT/0.01 ML (CHARGE PER UNIT) SC SCH ×2 (05:30→11:35)
[2022-08-13 05:38] LABS: EOSINOPHILS % (AUTO) 0 % (0-10); HEMOGLOBIN 10.1 g/dL (13.3-17.7); MEAN CORPUSCULAR VOLUME 108 fL (80-99)
[2022-08-13 05:40] LABS: BASOPHILS % (AUTO) 0 % (0-10); HEMATOCRIT 32 % (40-54); LYMPHOCYTES # (AUTO) 0.5 10^3/uL (1.0-4.0); LYMPHOCYTES % (AUTO) 3 % (12-44); MEAN CORPUSCULAR HEMOGLOBIN 35 pg (25-34); MEAN CORPUSCULAR HGB CONC 32 g/dL (32-36); MEAN PLATELET VOLUME 9.4 fL (9.0-12.2); MONOCYTES # (AUTO) 0.6 10^3/uL (0.0-1.0); MONOCYTES % (AUTO) 3 % (0-12); NEUTROPHILS # (AUTO) 17.6 10^3/uL (1.8-7.8); NEUTROPHILS % (AUTO) 93 % (42-75); PLATELET COUNT 98 10^3/uL (130-400); WHITE BLOOD COUNT 18.9 10^3/uL (4.3-11.0)
[2022-08-13 06:05] LABS: ALBUMIN 2.2 GM/DL (3.2-4.5); CALCIUM 8.7 MG/DL (8.5-10.1); CREATININE SERUM 0.72 MG/DL (0.60-1.30); POTASSIUM 4.6 MMOL/L (3.6-5.0); TOTAL PROTEIN 5.3 GM/DL (6.4-8.2)
[2022-08-13] MEDS: MULTIVIT W/MINERALS TAB (THERAGRAN M) PO SCH ×2 (06:13→08:19)
[2022-08-13] MEDS: SUCRALFATE 1 GM (CARAFATE) TAB PO SCH ×2 (06:13→11:41)
[2022-08-13 06:16] LABS: BILIRUBIN,TOTAL 11.5 MG/DL (0.1-1.0)
[2022-08-13 07:24] VITALS: BP 119/68
[2022-08-13] MEDS: RT-ALBUTEROL/IPRATROPIUM 3 ML (DUONEB) VIAL INH SCH ×2 (07:42→10:30)
[2022-08-13] MEDS: FUROSEMIDE 40 MG/4 ML INJ (LASIX) IVP SCH (08:19)
[2022-08-13] MEDS: LACTULOSE SYRUP 10GM/15ML (ENULOSE) 30ML UDC PO SCH (08:19)
[2022-08-13] MEDS: methylPREDNISolone 125 MG (Solu-MEDROL) VIAL IV SCH (08:19)
[2022-08-13] MEDS: NYSTATIN ORAL SUSP 5 ML UDC PO SCH (08:19)
[2022-08-13] MEDS: DOCUSATE SODIUM 100 MG (COLACE) CAP PO SCH (08:20)
[2022-08-13] MEDS: SENNOSIDES 8.6 MG (SENOKOT) TAB PO SCH (08:20)
[2022-08-13] MEDS: FOLIC ACID 1 MG TAB PO SCH (08:20)
[2022-08-13] MEDS: PANTOPRAZOLE 40 MG (PROTONIX) TAB PO SCH (08:20)
[2022-08-13] MEDS: SPIRONOLACTONE 100 MG (ALDACTONE) TABLET PO SCH (08:20)
[2022-08-13] MEDS: MICONAZOLE 2% POWDER (DESENEX AF) 90 GM TOP SCH (08:21)
[2022-08-13 11:21] VITALS: BP 111/55
[2022-08-13] MEDS ORDERED: LORA2ORA PO (11:26)
[2022-08-13] MEDS ORDERED: MORP100S7 PO (11:26)
--- NOTE | 2022-08-13 11:27 | Discharge Summary ---
Discharge Summary Hospital Course Was the Problem List Reviewed?: Yes Problems/Dx: (1) Chronic liver disease and cirrhosis Status: Acute (2) Generalized abdominal discomfort Status: Acute (3) Acute on chronic respiratory failure Status: Acute Hospital Course Date of Admission: Aug 03, 2022 at 20:03 Admission Diagnosis : Family Physician/Provider: [place] Date of Discharge: 08/13/22 Discharge Diagnosis: [ ] Hospital Course: Patient is a 61-year-old male with a history of alcoholic liver cirrhosis, recurrent ascites, COPD, and chronic bronchitis who presented to the ED on 08/03 with chief complaint of SOB, abdominal swelling, and b/l edema of the lower extremities. The patient underwent a paracentesis on 08/[address] Willis which helped alleviate his symptoms temporarily. The pateint was placed on an OxyMask and then a vapotherm for his SOB. During his stay, the patient's condition worsened due to his ESLD with worsening ascities, edema of the lower extremities and scrotum, weakness, and abdominal pain, and he went on DNR and started discussing possibilities for hospice care. The patient is being discharged on 08/13 to be transported via EMS to [facility]. MARILIN OJEDA Labs and Pending Lab Test: Laboratory Tests 08/12/22 16:39: Glucometer 147H 08/12/22 20:53: Glucometer 117H 08/13/22 05:25: White Blood Count 18.9H, Red Blood Count 2.91L, Hemoglobin 10.1L, Hematocrit 32L , Mean Corpuscular Volume 108H, Mean Corpuscular Hemoglobin 35H, Mean Corpuscular Hemoglobin Concent 32, Red Cell Distribution Width 22.8H, Platelet Count 98L, Mean Platelet Volume 9.4, Immature Granulocyte % (Auto) 1, Neutrophils (%) (Auto) 93H, Lymphocytes (%) (Auto) 3L, Monocytes (%) (Auto) 3, Eosinophils (%) (Auto) 0, Basophils (%) (Auto) 0, Neutrophils # (Auto) 17.6H, Lymphocytes # (Auto) 0.5L, Monocytes # (Auto) 0.6, Eosinophils # (Auto) 0.0, Basophils # (Auto) 0.0, Immature Granulocyte # (Auto) 0.2H, Percent Immature Platelet Fraction 0.9, Sodium Level 129L, Potassium Level 4.6, Chloride Level 94L, Carbon Dioxide Level 26, Anion Gap 9, Blood Urea Nitrogen 18, Creatinine 0.72, Estimat Glomerular Filtration Rate 105, BUN/Creatinine Ratio 25, Glucose Level 160H, Calcium Level 8.7, Corrected Calcium 10.1, Total Bilirubin 11.5#*H, Aspartate Amino Transf (AST/SGOT) 62H, Alanine Aminotransferase (ALT/SGPT) 62H, Alkaline Phosphatase 189H, Total Protein 5.3L, Albumin 2.2L 08/13/22 05:26: Glucometer 149H 08/13/22 11:16: Glucometer 180H Microbiology 08/03/22 Urine Culture - Final, Complete NO GROWTH 08/03/22 Blood Culture - Final, Complete No growth 08/03/22 Gram Stain - Final, Complete 08/03/22 Sputum Culture - Final, Complete Usual upper respiratory marcie Home Meds Active Lorazepam Intensol (Lorazepam) 2 Mg/Ml Oral.conc 2 Mg PO Q2H PRN Morphine Conc. 20mg/ml (Morphine Sulfate) 100 Mg/5 Ml (20 Mg/Ml) Solution 10 Mg PO Q1HR PRN Reported Lactulose 20 Gram/30 Ml Solution 20 Gm PO TID Spironolactone 100 Mg Tablet 100 Mg PO DAILY Sucralfate 1 Gram Tablet 1 Gm PO QIDACHS Pantoprazole Sodium 40 Mg Tablet.dr 40 Mg PO DAILY Stool Softener (Docusate Sodium) 100 Mg Tablet 100 Mg PO DAILY PRN Omeprazole 40 Mg Capsule.dr 40 Mg PO DAILY PRN Oxycodone HCl 5 Mg Tablet 5 Mg PO QID PRN Furosemide 40 Mg Tablet 40 Mg PO DAILY Assessment/Pt Instructions pcp 1 week Discharge Planning: <30 minutes discharge planning Discharge Instructions Discharge Diet: No Restrictions Discharge Physical Examination Vital Signs Vital Signs Date Time Temp Pulse Resp B/P (MAP) Pulse Ox O2 Delivery O2 Flow Rate FiO2 08/13/22 11:21 37.0 98 19 111/55 (73) 97 Vapotherm 50.00 20.00 08/13/22 10:30 50 General Appearance: No Apparent Distress, WD/WN, Chronically ill Allergies: Coded Allergies: No Known Drug Allergies (Unverified , 06/06/21) Discharge Summary Date of Admission Aug 03, 2022 at 20:03 Date of Discharge Discharge Date: Aug 13, 2022 Discharge Diagnosis Assessment: End-stage liver disease Severe anemia requiring transfusion Hypoxia requiring Vapotherm Scrotal edema and third spacing Plan: Vapotherm DNR Hospice consult (1) Chronic liver disease and cirrhosis Status: Acute (2) Generalized abdominal discomfort Status: Acute (3) Acute on chronic respiratory failure Status: Acute Clinical Quality Measures DVT/VTE Risk/Contraindication: Contraindications-Pharm: Other *list below* Contraindications-Mechi: Other *list below* Other: lower leg edema and coaguloathy INR 1.7 due to liver failure Smoking Cessation Counseling: Counseling-Symptomatic: 3-10 Minutes RODRI MAGAÑA DO Aug 13, 2022 11:27
--- NOTE | 2022-08-13 12:08 | Progress Note ---
MARILIN OJEDA 08/13/22 1208: Progress Note Patient is a 61-year-old male with a history of alcoholic liver cirrhosis, recurrent ascites, COPD, and chronic bronchitis who presented to the ED on 08/03 with chief complaint of SOB, abdominal swelling, and b/l edema of the lower extremities. The patient underwent a paracentesis on 08/[address] Willis which helped alleviate his symptoms temporarily. The pateint was placed on an OxyMask and then a vapotherm for his SOB. During his stay, the patient's condition worsened due to his ESLD with worsening ascities, edema of the lower extremities and scrotum, weakness, and abdominal pain, and he went on DNR and started discussing possibilities for hospice care. The patient is being di scharged on 08/13 to be transported via EMS to [facility]. ANITA LANDIS DO 08/13/222039: Supervisory-Addendum Brief Verification & Attestation Participated in pt care: history, MDM, physical Personally performed: exam, history, MDM, supervision of care Care discussed with: Medical Student Procedures: n/a Results interpretation: Verified all documentation Verification and Attestation of Medical Student E/M Service A medical student performed and documented this service in my presence. I reviewed and verified all information documented by the medical student and made modifications to such information, when appropriate. I personally performed the physical exam and medical decision making. Anita Landis, Aug 13, 2022,20:41 MARILIN OJEDA Aug 13, 2022 12:08 ANITA LANDIS DO Aug 13, 2022 20:40
--- NOTE | 2022-08-13 13:08 | Physical Therapy Progress Note ---
Therapy Progress Note Per Nursing, O2 drops noticeably when pt sits up. PT tx not rendered. Pt to d/c to [facility] today and on Hospice. BARRY TURCIOS NATURALIZATION EXAMINER Aug 13, 2022 13:08
== END 2022-08-13 15:10 | disposition hospice, inpatient (51) | DRG 432 ==
LOC: EDUNIT# 17:25 → ER 17:27 → 4TH 20:03
PROVIDERS: ADMIT Internal Medicine; ATTEND Internal Medicine
PROC: 0W9G3ZZ Drainage of Peritoneal Cavity, Percutaneous Approach (ICD-10-PCS; principal; 2022-08-04)
PROC: 5A0945A Assistance with Respiratory Ventilation, 24-96 Consecutive Hours, High Flow/Velocity Cannula (ICD-10-PCS; 2022-08-09)
PROC: 5A09357 Assistance with Respiratory Ventilation, Less than 24 Consecutive Hours, Continuous Positive Airway Pressure (ICD-10-PCS; 2022-08-09)
DX: K70.31 Alcoholic cirrhosis of liver with ascites (principal); J96.21 Acute and chronic respiratory failure with hypoxia; E87.3 Alkalosis; E87.1 Hypo-osmolality and hyponatremia; C82.90 Follicular lymphoma, unspecified, unspecified site; I85.10 Secondary esophageal varices without bleeding; F10.20 Alcohol dependence, uncomplicated; Y90.0 Blood alcohol level of less than 20 mg/100 ml; Z66 Do not resuscitate; K72.10 Chronic hepatic failure without coma; E83.51 Hypocalcemia; D50.0 Iron deficiency anemia secondary to blood loss (chronic); F17.210 Nicotine dependence, cigarettes, uncomplicated; F12.90 Cannabis use, unspecified, uncomplicated; Z99.81 Dependence on supplemental oxygen; K59.00 Constipation, unspecified; E03.9 Hypothyroidism, unspecified
CPT/HCPCS: 36415; 71045; 76705; 80053; 80306; 80320; 81000; 82140; 82550; 82553; 82607; 82746; 82805; 82947; 83605; 83735; 83874; 83880; 84145; 84484; 85007; 85025; 85027; 85610; 85652; 85730; 86141; 86850; 86900; 86901; 86920; 87040; 87070; 87088; 87205; 87636; 93005; 93041; 94640; 94760; 96365